=== PATIENT | male | born 1950 | race Caucasian/White ===

== ENCOUNTER 2016-09-24 06:37 | Day surgery (SDC) | payer MEDICARE ==
[2016-09-24] VITALS (17 sets, daily range): BP systolic 87–120; BP diastolic 54–69; PULSE 64–75; RESP 13–19
[~2016-09-24] VITALS: Ht 182.9 cm; Wt 118.0 kg
[2016-09-24] MEDS ORDERED: POLYMYXIN/BACITRACIN 1L IRRIG IRR SCH (07:00)
[2016-09-24] MEDS ORDERED: MIDAZOLAM 1 MG/ML 2 ML INJ ONE ×2 (07:00→10:02)
[2016-09-24] MEDS ORDERED: VANCOMYCIN 1 GM in NS 250 ML IVPB SCH (08:30)
[2016-09-24] MEDS ORDERED: ACET-141 PO (08:30)
[2016-09-24] MEDS ORDERED: AMIO100T4 PO (08:31)
[2016-09-24] MEDS ORDERED: ASPI-664 PO (08:31)
[2016-09-24] MEDS ORDERED: CHOL100062 PO (08:32)
[2016-09-24] MEDS ORDERED: CARV6.2579 PO (08:32)
[2016-09-24] MEDS ORDERED: CLOP75TA27 PO (08:33)
[2016-09-24] MEDS ORDERED: FURO40TA4 PO (08:35)
[2016-09-24] MEDS ORDERED: GABA300C16 PO (08:39)
[2016-09-24] MEDS ORDERED: INSU100C SQ (08:39)
[2016-09-24] MEDS ORDERED: INSU300I SQ (08:40)
[2016-09-24] MEDS ORDERED: LIRA0.6P2 SQ (08:41)
[2016-09-24] MEDS ORDERED: LOSA25TA2 PO (08:41)
[2016-09-24] MEDS ORDERED: METH5TAB75 PO (08:42)
[2016-09-24] MEDS ORDERED: MULTI PO (08:43)
[2016-09-24] MEDS ORDERED: POLY17PO6 PO (08:44)
[2016-09-24] MEDS ORDERED: ROSU40TA35 PO (08:45)
[2016-09-24] MEDS ORDERED: SPIR25TA PO (08:45)
[2016-09-24] MEDS ORDERED: ICOS1CAP PO (08:46)
[2016-09-24] MEDS ORDERED: IVAB5TAB PO (08:46)
[2016-09-24] MEDS ORDERED: ALLO100T PO (08:46)
[2016-09-24] MEDS ORDERED: EVOL140P SQ (08:47)
[2016-09-24 09:10] LABS: BASOPHIL # 0.1 10^3/ul (0.0-0.1); BASOPHILS % 0.5 % (0.0-2.0); EOSINOPHILS # 1.3 10^3/ul (0.0-0.5); EOSINOPHILS % 11.9 % (0.0-7.0); HEMATOCRIT 39.5 % (42.0-52.0); HEMOGLOBIN 13.4 g/dl (14.0-18.0); LYMPHOCYTES # 2.2 10^3/ul (0.8-2.9); LYMPHOCYTES % 19.5 % (15.0-51.0); MEAN CORPUSCULAR HEMOGLOBIN 30.4 pg (29.0-33.0); MEAN CORPUSCULAR HGB CONC 34.1 g/dl (32.0-37.0); MEAN CORPUSCULAR VOLUME 89.2 fl (82.0-101.0); MEAN PLATELET VOLUME 8.3 fl (7.4-10.4); MONOCYTE # 0.7 10^3/ul (0.3-0.9); MONOCYTES % 5.9 % (0.0-11.0); NEUTROPHILS % 62.2 % (39.0-77.0); PLATELET COUNT 222 10^3/UL (140-440); RED BLOOD COUNT 4.42 10^6/ul (4.70-6.10); RED CELL DISTRIBUTION WIDTH 15.4 % (11.5-14.5); UNCORRECTED WBC 11.3 10^3/ul (4.8-10.8); WHITE BLOOD COUNT 11.3 10^3/ul (4.8-10.8)
[2016-09-24 09:19] LABS: CONDITION 1; INR 0.99; LH ANALYZER COMMENTS 1; PROTIME 13.1 Sec (12.2-14.2)
[2016-09-24 09:20] LABS: PARTIAL THROMBOPLASTIN TIME 27.5 Sec (25.0-35.0); POTASSIUM 4.6 mmol/L (3.5-5.1)
[2016-09-24 09:22] LABS: ALBUMIN/GLOBULIN RATIO 1.08; BILIRUBIN,INDIRECT 0.1 mg/dl (0-1.1); BILIRUBIN,TOTAL 0.1 mg/dl (0.2-1.3); TOTAL PROTEIN 7.7 g/dl (6.1-8.1)
[2016-09-24 09:24] LABS: CALCIUM 9.4 mg/dl (8.4-10.2); CREATININE 1.46 mg/dl (0.61-1.24)
[2016-09-24] MEDS ORDERED: FENTAnyl 50 MCG/ML VIAL ONE (09:27)
[2016-09-24] MEDS ORDERED: FENTAnyl 50 MCG/ML VIAL IV PRN ×2 (09:30)
[2016-09-24] MEDS ORDERED: ONDANSETRON 4 MG INJ IV PRN (09:30)
[2016-09-24] MEDS ORDERED: OXYCODONE/ACETAMINOPHEN (5/325) TAB PO PRN (09:30)
[2016-09-24] MEDS ORDERED: LABETALOL HCL 20MG INJ IV PRN (09:30)
[2016-09-24] MEDS ORDERED: LIDOCAINE 1%/EPI 30 ML INJ ONE (09:35)
[2016-09-24] MEDS ORDERED: PROPOFOL 20 ML ONE (10:15)
[2016-09-24] MEDS ORDERED: HOLD all METFORMIN and METFORMIN CONTAINING medications for 48 hours post procedure. Chec XX ONE (11:00)
[2016-09-24] MEDS ORDERED: morphine 2 MG INJ IV PRN (11:00)
--- NOTE | 2016-09-24 11:28 | SP ---
DATE OF PROCEDURE: 09/24/2016 NAME OF PROCEDURE: ICD generator change. 1. Defibrillator threshold testing. SURGEON: Salvador Nunes MD CLINICAL INDICATIONS: A 66-year-old gentleman with ischemic cardiomyopathy and congestive heart kezia aixa who has had ICD placement for primary prevention. The patient has also required multiple ICD d ischarge for sustained VT and VFib during his course of ICD. The patient was noted to have ICD end of life at [facility] [place]. He was recommended to undergo ICD generator change. The patient's review of the ol d chart showed that has never had a DFT testing done. DFT testing was also recommended to be done. DESCRIPTION OF PROCEDURE: Written informed consent was obtained. The risks and benefits were discu ssed with the patient and family members including his in detail. This included infection, vas cular complication, bleeding complication, PR, stroke, arrhythmia, , renal failure, etc., discu ssed with the patient in detail. High risk of infection discussed with the patient and extensi vely because of his multiple other wound infections. Previous clearance was obtained from the patie nt, discussion with the ID as well. The patient was brought in to the quality assurance qa lab technician, placed in supine po sition. Chest area were prepped in regular sterile fashion. Patient underwent anesthesia by anesth esiologist. A 5 cm incision was made over the previous scar and was anesthetized with 1% lidocaine with epinephrine. Blunt dissection was carried out. The ICD was identified and removed. Pocket w as irrigated with antibiotic solution aggressively. The device was disconnected and placed a the ne w device. Threshold was checked through the new device and placed into the pocket with an antibioti c patch. Then, DFT testing was done. The patient was induced ____. He was rescued at 18 joules nascimento ccessfully. The wound was closed with 1 layer with 2-0 Vicryl and 2 layers of 3-0 Vicryl. Steri-St rip was applied. Pressure dressing was applied. The patient tolerated the procedure without compli cation. Patient is to be transferred to recovery room in stable condition. IMMEDIATE COMPLICATIONS: None. Following the information device, the device itself is a Medtronic DDD DBI Evera XT device. Right atrial lead is a Medtronic lead. Right ventricular lead is Medtronic lead. P-wave amplitude 1.5, t hreshold of 1.4 millisecond, impedance is 437, right ventricular R valve was 14, threshold of 0.5 _ ___ 0.4, impedance of 704. DFT testing was as follows: ____ shock on T, patient went into ventricu lar fibrillation. He was rescued at 18 joules successfully. CONCLUSION: Successful ICD generator change and DFT testing. Dictated By: SALVADOR TAFOYA/SURENDRA Conf#: [id number] DID#: [id number]
--- NOTE | 2016-09-25 15:55 | RADRPT ---
Vent Rate: 66 bpm RR Interval: 0 msec AK Interval: 162 msec QRS Duration: 120 msec QT Interval: 474 msec QTC Interval: 496 msec P-R-T [place]: 20 - -83 - 73 degrees Normal sinus rhythm Possible Left atrial enlargement Left axis deviation Incomplete Right bundle branch block Lateral infarct , age undetermined Inferior infarct , age undetermined Abnormal ECG Electronically Signed By: Isaac Dasilva [id number]
== END 2016-09-24 14:10 | disposition home or self-care (01) ==
LOC: SDS 06:37
PROVIDERS: ATTEND Internal Medicine Interventional Cardiology
DX: Z45.02 Encounter for adjustment and management of automatic implantable cardiac defibrillator (principal); I50.9 Heart failure, unspecified; I25.5 Ischemic cardiomyopathy; I25.10 Atherosclerotic heart disease of native coronary artery without angina pectoris; I12.9 Hypertensive chronic kidney disease with stage 1 through stage 4 chronic kidney disease, or unspecified chronic kidney disease; N18.9 Chronic kidney disease, unspecified; E11.9 Type 2 diabetes mellitus without complications
CPT/HCPCS: 33264; 80053; 82962; 85025; 85610; 85730; 93005; C1721; J2250; J3010; J3370

== ENCOUNTER 2017-06-04 19:05 | Inpatient (IN) | payer MEDICARE, OTHER ==
[~2017-06-04] VITALS: Ht 182.9 cm; Wt 108.9 kg
[~2017-06-04 19:05] MED LIST: ACET-141 PO; ALLO100T PO; AMIO100T4 PO; ASPI-664 PO; CARV6.2579 PO; CHOL100062 PO; CLOP75TA27 PO; EVOL140P SQ; FURO40TA4 PO; GABA300C16 PO; ICOS1CAP PO; INSU100C SQ; INSU300I SQ; IVAB5TAB PO; LIRA0.6P2 SQ; LOSA25TA2 PO; METH5TAB75 PO; MULTI PO; POLY17PO6 PO; ROSU40TA35 PO; SPIR25TA PO
[2017-06-04 20:00] VITALS: BP 107/59; PULSE 82; RESP 18
[2017-06-04 23:00] VITALS: Ht 182.9 cm; Wt 108.9 kg
[2017-06-05] MEDS ORDERED: ACETAMINOPHEN 325 MG TAB PO PRN
[2017-06-05] MEDS ORDERED: ZOLPIDEM 5 MG TAB PO PRN
[2017-06-05] MEDS ORDERED: HYDROmorphONE 2 MG/ML SYG IV PRN (00:10)
[2017-06-05] MEDS ORDERED: GLUCOSE GEL 15 GRAM TUBE PO PRN ×2 (00:30)
[2017-06-05] MEDS ORDERED: GLUCAGON 1 MG INJ IM PRN (00:30)
[2017-06-05] MEDS ORDERED: DEXTROSE 50% 50 ML SYRINGE IV PRN ×2 (00:30)
[2017-06-05] MEDS ORDERED: BISACODYL 10 MG SUPP PR PRN ×2 (00:30→06:00)
[2017-06-05] MEDS ORDERED: POLYETHYLENE GLYCOL 17 GM PACKET PO PRN (00:30)
[2017-06-05] MEDS ORDERED: GLUCOSE GEL 15 GRAM TUBE BUCCAL PRN (00:30)
[2017-06-05 02:00] VITALS: BP 134/62; RESP 18
[2017-06-05] MEDS: ACCUCHECK AT 2AM (Patients on SS coverage) XX SCH (02:00)
[2017-06-05 04:13] LABS: ADD UMIC YES; UR ASCORBIC ACID NEGATIVE (NEGATIVE); UR BACTERIA FEW /HPF (NONE SEEN); UR BILIRUBIN (Dip) NEGATIVE (NEGATIVE); UR BLOOD (Dip) 2+ mg/dL (NEGATIVE); UR CLARITY CLEAR (CLEAR); UR COLOR YELLOW (YELLOW); UR GLUCOSE (Dip) NEGATIVE (NEGATIVE); UR KETONES (Dip) NEGATIVE (NEGATIVE); UR LEUKOCYTE ESTERASE (Dip) NEGATIVE Leu/ul (NEGATIVE); UR NITRITE (Dip) NEGATIVE (NEGATIVE); UR RBC 0 /HPF (0-5); UR TOTAL PROTEIN (Dip) 2+ mg/dl (NEGATIVE); UR UROBILINOGEN (Dip) 2+ mg/dL (NEGATIVE)
[2017-06-05] MEDS ORDERED: MAGNESIUM HYDROXIDE 30ML CUP PO PRN (06:00)
[2017-06-05] MEDS: PANTOPRAZOLE (EC) 40 MG TAB PO SCH (06:38)
[2017-06-05 07:00] VITALS: BP 114/60; RESP 18
[2017-06-05 07:27] LABS: ABNORMAL IP MESSAGE 1; BASOPHIL # 0.1 10^3/ul (0.0-0.1); BASOPHILS % 0.6 % (0.0-2.0); EOSINOPHILS # 0.4 10^3/ul (0.0-0.5); EOSINOPHILS % 2.9 % (0.0-7.0); HEMATOCRIT 30.5 % (42.0-52.0); HEMOGLOBIN 9.7 g/dl (14.0-18.0); LYMPHOCYTES # 2.6 10^3/ul (0.8-2.9); MEAN CORPUSCULAR HGB CONC 31.8 g/dl (32.0-37.0); MEAN PLATELET VOLUME 9.2 fl (7.4-10.4); MONOCYTE # 1.6 10^3/ul (0.3-0.9); MONOCYTES % 11.4 % (0.0-11.0); NEUTROPHIL # 9.4 10^3/ul (1.6-7.5); NEUTROPHILS % 66.3 % (39.0-77.0); PLATELET COUNT 361 10^3/UL (140-415); POSITIVE DIFF @See below; RED BLOOD COUNT 3.59 10^6/ul (4.70-6.10); RED CELL DISTRIBUTION WIDTH 14.7 % (11.5-14.5); WHITE BLOOD COUNT 14.2 10^3/ul (4.8-10.8)
[2017-06-05 07:54] LABS: ALBUMIN 3.6 g/dl (3.3-4.9); ALBUMIN/GLOBULIN RATIO 0.92; BILIRUBIN,INDIRECT 0.3 mg/dl (0-1.1); BILIRUBIN,TOTAL 0.3 mg/dl (0.2-1.3); CALCIUM 8.6 mg/dl (8.4-10.2); CREATININE 1.37 mg/dl (0.61-1.24); POTASSIUM 4.1 mmol/L (3.5-5.1); TOTAL PROTEIN 7.5 g/dl (6.1-8.1)
[2017-06-05] MEDS: OXYCODONE/ACETAMINOPHEN (10/325) TAB PO PRN ×2 (07:58→14:50)
[2017-06-05] MEDS: INSULIN ASPART [NOVOLOG] 3 ML PEN SC SCH ×3 (08:08→17:29)
[2017-06-05] MEDS: Insulin NOVOLOG SS MILD Algorithm (SS with meals and bedtime) SC SCH ×4 (08:09→21:00)
[2017-06-05] MEDS: GABAPENTIN 300 MG CAP PO SCH ×2 (09:17→22:00)
[2017-06-05] MEDS: ALLOPURINOL 100 MG TAB PO SCH ×2 (09:17→22:00)
[2017-06-05] MEDS: oxyCODONE (CR) 10 MG TAB [oxyCONTIN] PO SCH ×2 (09:18→21:59)
[2017-06-05] MEDS: CLOPIDOGREL 75 MG TAB PO SCH (09:18)
[2017-06-05] MEDS: LOSARTAN 25 MG TAB PO SCH (09:19)
[2017-06-05] MEDS: AMIODARONE 200 MG TAB PO SCH (09:19)
[2017-06-05] MEDS: DOCUSATE SODIUM 100 MG CAP PO SCH ×2 (09:20→22:00)
[2017-06-05] MEDS: ASPIRIN (EC) 81 MG TAB PO SCH (09:20)
[2017-06-05] MEDS: SPIRONOLACTONE 25 MG TAB PO SCH (09:20)
[2017-06-05] MEDS: INSULIN GLARGINE [LANtus] 3 ML PEN SC SCH ×2 (09:22→21:58)
[2017-06-05] MEDS: ENOXAPARIN 30 MG/0.3 ML SYG SC SCH (09:23)
--- NOTE | 2017-06-05 10:02 | CONS ---
Date/Time of Note Date/Time of Note DATE: 06/05/17 TIME: 09:52 Assessment/Plan Assessment/Plan Chief Complaint/Hosp Course 1. CAD 2. HX CABG 3. HX FL 4. HX multiple PCI 5. Severe PAD 6. S/P Previous LE revascularizations 7. gangrene toe s/p R BKA now 8/ DM 9. hx hyperthyroidism 10. hx VT s/p ICD 11. CHF: chronic and stable due to systolic heart failure 12. dyslipidemia: on statin 13. CKD 14. Debility Recommendations: I will continue with the transfer cardiac medications Aspirin Plavix will be continued. Coreg and ARB will be continued and try to increase as tolerated. Statin will be continued. Diabetic management as per internal medicine. Physical therapy and rehab will be continued. I will asked was going to evaluate the patient for a pulmonary disease as well as nightly CPAP adjustments. We will check the thyroid function test tomorrow morning and basic labs again tomorrow morning. Thank you for his referral. I will continue to follow along with you. SALVADOR BARRETO MD [facility] Problems: Consultation Date/Type/Reason Admit Date/Time Jun 04, 2017 at 20:02 Date of Consultation: Jun 05, 2017 Type of Consultation: cardiology Reason for Consultation CAD, CHF. hx VT S/P ICD Referring Provider: DANYELLE GUY of Present Illness CC: debility, s/p BKA HPI: Thank you for this referral. This is a pleasant 66-year-old gentleman with multiple complicated medical history who was transferred to our facility for rehab for physical therapy and rehab. Patient has a complicated cardiac history for which I was currently asked to evaluate and follow the patient on 3 treat the patient. Patient is very well-known to me for the past few years from multiple admission to the [facility] as well as outpatient office follow-up. At this point patient denies any PND orthopnea to be has any left-sided chest pain or pressure to me. He does have some soreness in his right leg where he has had amputation otherwise has no new complaints. He denies any palpitation or ICD discharge. Patient was recently admitted to [facility] for his gangrene foot and underwent a BKA of his right lower extremity. Allergies no reported drug allergies. Medications were reviewed as a medical consultation for personally reviewed. Past medical history: history of severe coronary artery disease status post coronary bypass graft status multiple PCI's History of congestive heart failure ejection fraction is about 25%. History of V. tach status post ICD generator change was done last year. History of severe peripheral vascular disease status post lower extremity revascularization. He was previously advised to undergo amputation which have refused up until recently when he agreed to have the right below the knee amputation once gangrene of the toes were noted. He has been followed up by Dr. Andrade and Dr. GREENE at [facility] History of hyperthyroidism is being followed by Dr. Johnson at [facility]. History of diabetes Hypertension Chronic kidney disease Dyslipidemia Obesity COPD Obstructive sleep apnea Past surgical history: Coronary artery bypass graft Multiple PCI Status post ICD and J&J was done in 2016 Multiple toe amputations Status post right below the knee amputation last month Family history: No reported early coronary artery disease Social history patient does not smoke anymore. Has quit a while ago. Denies any heavy alcohol drug use. He has a very supportive . Review of system as above only plus diffuse weakness. Social History Smoking Status: Former smoker Exam/Review of Systems Vital Signs Vitals Vital Signs Date Time Temp Pulse Resp B/P Pulse Ox O2 Delivery O2 Flow Rate FiO2 06/05/17 07:00 98.7 83 18 114/60 93 06/04/17 20:00 Room Air Intake and Output 06/04/17 06/04/17 06/05/17 15:00 23:00 07:00 Intake Total 300 ml Output Total 450 ml Balance -150 ml Exam General: no acute distress. obese man HEENT: NC/AT. pupils are equal. round. NECK: NO JVD. no stridor. CV: RRR. systolic murmur; no gallop or rubs. PULM: no wheezing or rhonchi. GI: SOFT, NT, ND, no rebound or guarding obese. Extremity: s/p R AKA. neuro: awake and alert, OX3. Psych: calm and pleasant rectal: deferred : deferred. Results Result Diagram: 06/05/17 0649 06/05/17 0649 Results 24 hrs Laboratory Tests Test 06/04/17 22:50 06/05/17 01:16 06/05/17 06:49 06/05/17 07:55 Urine Color YELLOW Urine Clarity CLEAR Urine pH 6.0 Urine Specific [place] 1.020 Urine Ketones NEGATIVE Urine Nitrite NEGATIVE Urine Bilirubin NEGATIVE Urine Urobilinogen 2+ H Urine Leukocyte Esterase NEGATIVE Urine Microscopic RBC 0 Urine Microscopic WBC 2 Urine Bacteria FEW A Urine Hemoglobin 2+ H Urine Glucose NEGATIVE Urine Total Protein 2+ H Bedside Glucose 208 154 White Blood Count 14.2 #H Red Blood Count 3.59 L Hemoglobin 9.7 #L Hematocrit 30.5 #L Mean Corpuscular Volume 85.0 Mean Corpuscular Hemoglobin 27.0 L Mean Corpuscular Hemoglobin Concent 31.8 L Red Cell Distribution Width 14.7 H Platelet Count 361 Mean Platelet Volume 9.2 Neutrophils % 66.3 Lymphocytes % 18.0 Monocytes % 11.4 H Eosinophils % 2.9 Basophils % 0.6 Nucleated Red Blood Cells % 0.0 Neutrophils # 9.4 H Lymphocytes # 2.6 Monocytes # 1.6 H Eosinophils # 0.4 Basophils # 0.1 Nucleated Red Blood Cells # 0.0 Sodium Level 138 Potassium Level 4.1 Chloride Level 97 Carbon Dioxide Level 28 Anion Gap 17 H Blood Urea Nitrogen 21 H Creatinine 1.37 H Glucose Level 157 Calcium Level 8.6 Total Bilirubin 0.3 Direct Bilirubin 0.00 Indirect Bilirubin 0.3 Aspartate Amino Transf (AST/SGOT) 90 H Alanine Aminotransferase (ALT/SGPT) 20 Alkaline Phosphatase 53 Total Protein 7.5 Albumin 3.6 Globulin 3.90 H Albumin/Globulin Ratio 0.92 Medications Medications Current Medications Acetaminophen (Tylenol Tab) 650 mg Q4H PRN PO PAIN AND OR ELEVATED TEMP; Start 06/05/17 at 00:00 Amiodarone HCl (Cordarone) 100 mg DAILY PO Last administered on 06/05/17 09:19 ; Admin Dose 100 MG; Start 06/05/17 at 09:00 Aspirin (Halfprin) 81 mg DAILY PO Last administered on 06/05/17 09:20; Admin Dose 81 MG; Start 06/05/17 at 09:00 Clopidogrel Bisulfate (plaVIX) 75 mg DAILY PO Last administered on 06/05/17 09 :18; Admin Dose 75 MG; Start 06/05/17 at 09:00 Enoxaparin Sodium (Lovenox) 30 mg DAILY SC Last administered on 06/05/17 09:23 ; Admin Dose 30 MG; Start 06/05/17 at 09:00 Furosemide (Lasix) 40 mg Q48H PO ; Start 06/06/17 at 06:00 Losartan Potassium (Cozaar) 12.5 mg DAILY PO Last administered on 06/05/17 09: 19; Admin Dose 12.5 MG; Start 06/05/17 at 09:00 Rosuvastatin Calcium (Crestor) 40 mg HS PO ; Start 06/05/17 at 21:00 Allopurinol (Zyloprim) 100 mg BID PO Last administered on 06/05/17 09:17; Admin Dose 100 MG; Start 06/05/17 at 09:00 Gabapentin (Neurontin) 300 mg BID PO Last administered on 06/05/17 09:17; Admin Dose 300 MG; Start 06/05/17 at 09:00 Oxycodone/ Acetaminophen (Endocet (10 325)) 1 tab Q6H PRN PO PAIN Last administered on 06/05/17 07:58; Admin Dose 1 TAB; Start 06/05/17 at 00:00 Oxycodone HCl (Oxycontin) 10 mg BID PO Last administered on 06/05/17 09:18; Admin Dose 10 MG; Start 06/05/17 at 09:00 Insulin Glargine (Lantus) 45 unit BID SC Last administered on 06/05/17 09:22; Admin Dose 45 UNIT; Start 06/05/17 at 09:00 Diagnostic Test (Pha) (Accu-Chek) 1 ea 02 XX ; Start 06/05/17 at 02:00 Polyethylene Glycol (Miralax) 17 gm DAILY PRN PO CONSTIPATION; Start 06/05/17 at 00:30 Zolpidem Tartrate (Ambien) 5 mg HS PRN PO INSOMNIA; Start 06/05/17 at 00:00 Spironolactone (Aldactone) 25 mg DAILY PO Last administered on 06/05/17 09:20 ; Admin Dose 25 MG; Start 06/05/17 at 09:00 Miscellaneous Information 1 ea NOTE XX ; Start 06/05/17 at 00:30 Glucose (Glutose) 15 gm Q15M PRN PO DECREASED GLUCOSE; Start 06/05/17 at 00:30 Glucose (Glutose) 22.5 gm Q15M PRN PO DECREASED GLUCOSE; Start 06/05/17 at 00: 30 Dextrose (D50w Syringe) 25 ml Q15M PRN IV DECREASED GLUCOSE; Start 06/05/17 at 00:30 Dextrose (D50w Syringe) 50 ml Q15M PRN IV DECREASED GLUCOSE; Start 06/05/17 at 00:30 Glucagon (Glucagen) 1 mg Q15M PRN IM DECREASED GLUCOSE; Start 06/05/17 at 00:30 Glucose (Glutose) 15 gm Q15M PRN BUCCAL DECREASED GLUCOSE; Start 06/05/17 at 00 :30 Hydromorphone HCl (Dilaudid) 1.5 mg Q8H PRN IV SEVERE PAIN; Start 06/05/17 at 00:10 Docusate Sodium (Colace) 100 mg BID PO Last administered on 06/05/17t 09:20; Admin Dose 100 MG; Start 06/05/17 at 09:00 Senna (Senokot) 1 tab HS PO ; Start 06/05/17 at 21:00 Bisacodyl (Dulcolax Supp) 10 mg DAILY PRN CA CONSTIPATION; Start 06/05/17 at 06 :00 Magnesium Hydroxide (Milk Of Mag) 30 ml BID PRN PO CONSTIPATION; Start at 06:00 Lactulose (Enulose) 20 gm DAILY PRN PO CONSTIPATION; Start 06/05/17 at 06:00 SALVADOR BARRETO MD Jun 05, 2017 10:02
--- NOTE | 2017-06-05 12:26 | RADRPT ---
PROCEDURE: XR Chest. CLINICAL INDICATION: Shortness of breath. TECHNIQUE: Single frontal view. COMPARISON: None. FINDINGS: The lungs are clear. The heart is enlarged. There are sternal wires and mediastinal clips. There is a dual lead permanent pacemaker/internal cardiac defibrillator. There is no pleural effusion. There is no pneumothorax. IMPRESSION: 1. Cardiomegaly. 2. Previous median sternotomy. 3. Permanent pacemaker/internal cardiac defibrillator. 4. Otherwise unremarkable chest radiograph. RPTAT: QQ .Jamie Dunlap MD, MD Date Time Electronically viewed and signed by .Jamie Dunlap MD, MD on 06/05/2017 12:26 .R/
--- NOTE | 2017-06-05 14:02 | CONS ---
DATE OF ADMISSION: 06/04/2017 DATE OF CONSULTATION: 06/05/2017 REHABILITATION POSTADMISSION PHYSICIAN EVALUATION REHABILITATION IMPAIRMENT CATEGORY: Right below the knee amputation. ACTIVE COMORBIDITIES: 1. Recent left toe amputation. 2. Acute pain syndrome. 3. Constipation. 4. Anemia. 5. Atrial fibrillation. 6. Congestive heart failure. 7. Chronic kidney disease. 8. Coronary artery disease. 9. Diabetes mellitus. 10. Hypertension. 11. History of cerebrovascular accident. 12. History of peripheral vascular disease. 13. Sleep apnea. 14. Impairments in self-care and mobility. HISTORY OF PRESENT ILLNESS: The patient is a 66-year-old gentleman with a history of multiple medic al comorbidities including recent left great toe amputation who was noted to have right foot ischemi a. Due to his advanced gangrene, patient required a right [id number] amputation on 05/26/2017. The patient's hospital course has been notable for significant pain, constipation, and impairments in self-care and mobility as compared to baseline. The patient has been cleared to transfer to the rehabilitation unit for comprehensive interdisciplinary rehab care. FUNCTIONAL HISTORY: Prior to recent events, he was independent with self-care tasks and mobility. Currently, he requires moderate to maximal assist for self-care and mobility tasks. I have reviewed the preadmission screen and the patient's current functional status is consistent wi th the preadmission screen. SOCIAL HISTORY: The patient lives at home and hopes to return there upon discharge. PAST MEDICAL HISTORY: 1. Atrial fibrillation. 2. Peripheral vascular disease. 3. Congestive heart failure. 4. Chronic kidney disease. 5. Coronary artery disease. 6. Diabetes mellitus. 7. History of cerebrovascular accident. 8. Hypertension. 9. Sleep apnea. CURRENT MEDICATIONS: 1. Tylenol p.r.n. 2. Amiodarone 100 mg p.o. daily. 3. Aspirin 81 mg p.o. daily. 4. Coreg 3.125 mg t.i.d. 5. Plavix 75 mg p.o. daily. 6. Lovenox 30 mg subcutaneous daily. 7. Lasix 40 mg p.o. q.o.d. 8. Losartan 12.5 mg p.o. daily. 9. Crestor 40 mg p.o. daily. 10. Allopurinol 100 mg b.i.d. 11. Neurontin 300 mg b.i.d. 12. Percocet p.r.n. 13. OxyContin 10 mg b.i.d. 14. Lantus 45 units subq b.i.d. 15. NovoLog 25 units subq t.i.d. 16. Insulin sliding scale. 17. Protonix 40 mg q.a.m. 18. Ambien p.r.n. ALLERGIES: THE PATIENT WITH NO KNOWN DRUG ALLERGIES. PHYSICAL EXAMINATION: VITAL SIGNS: The patient is currently afebrile with stable vital signs. HEENT: Extraocular motion intact. Oropharynx clear. NECK: Supple. LUNGS: Clear anteriorly. CARDIAC: S1, S2. ABDOMEN: Soft, nontender. Positive bowel sounds. The patient with right [id number]-[id number]-dizt amputation and left great toe amputation. NEUROLOGIC: He is awake and alert and oriented x3. He can follow simple 1-step commands. He demon strates antigravity strength in bilateral upper extremity and lower extremity. He does have impaire d dynamic balance. PLAN: The patient has been admitted for comprehensive interdisciplinary acute rehab and is anticipa collin to tolerate 3 hours of daily therapy in divided doses for at least 5/7 days a week. Treatment p berry will include: 1. Physical therapy to focus on bed mobility, transfers, and household ambulation with the goal of having the patient reach a standby assist level at the wheelchair level. 2. Occupational therapy to focus on hygiene, grooming, dressing, bathing, and toileting activities with the goal of having the patient reach standby assist at the wheelchair level. 3. Rehabilitation nursing for carryover of therapeutic interventions, the goal of continent of silvana l and bladder, the goal of pain adequately managed on oral medications. REHABILITATION BARRIER: Pain. INTERVENTION FOR BARRIER: Interdisciplinary approach. ESTIMATED LENGTH OF STAY: 14 days. DISPOSITION GOAL: Home. I acknowledge that I performed a full physical examination on this patient within 24 hours of admiss ion to the rehabilitation unit. I believe the patient is a good candidate for comprehensive interdi sciplinary rehab care and is anticipated to make reasonable goals in a reasonable period of time as outlined above. Dictated By: BLAKE HANCOCK/SURENDRA Conf#: [id number] DID#: [id number]
[2017-06-05] MEDS: COLLAGENASE 30 GM TUBE TOP SCH (14:52)
[2017-06-05 20:00] VITALS: BP_SYST 110; BP_SYST 125; BP_DIAS 58; BP_DIAS 62; RESP 18
[2017-06-05] MEDS ORDERED: ROSUVASTATIN CALCIUM 40 MG TABLET PO SCH (21:00)
[2017-06-05] MEDS: SENNA TAB PO SCH (22:00)
--- NOTE | 2017-06-06 00:14 | HP ---
DATE OF ADMISSION: 06/04/2017 CHIEF COMPLAINT: Debility, status post BKA. HISTORY OF PRESENT ILLNESS: This is a 66-year-old male with a complicated medical history including chronic kidney disease, CHF, dyslipidemia, coronary artery disease, peripheral vascular disease who presented to an outside hospital at [facility] with gangrene of his right foot. The patient has a long history of diabetes and developed complications including retinopathy and nephropathy. T he patient was noted to have diabetic foot ulcers and was refusing amputation; however, he developed worsening symptoms and pain. As a result, he came in with gangrenous right foot. The patient at [facility] underwent a below the knee amputation of his right foot. The patient was on antibiotic thera py. During that hospital course, was seen by infectious disease, Dr. Cardenas. The patient, however, completed the antibiotic course. The patient was also seen by automatic drill operator, Dr. Nunes. The patie nt had a significant decline in his premorbid status and as a result he was transferred to [facility] acute rehab for continued care. Upon my evaluation of the patient at this time, he is currently stable. Denies any fevers, chills, nausea or vomiting. The patient is complaining about pain 5/10. PAST MEDICAL HISTORY: As stated above, history of chronic kidney disease, CHF, AFib, diabetes, CVA, hypertension. PAST SURGICAL HISTORY: Status post BKA, right leg. FAMILY HISTORY: Noncontributory. SOCIAL HISTORY: Does not drink, smoke or do drugs. MEDICATIONS: Reviewed and reconciled. ALLERGIES: NO KNOWN DRUG ALLERGIES. REVIEW OF SYSTEMS: A 14-point review of systems was conducted. Pertinent positives stated in the H PI, otherwise negative. PHYSICAL EXAMINATION: VITAL SIGNS: Blood pressure is 114/60, respiration 18, pulse 83, temperature 98.7. HEENT: Head is normocephalic. NECK: Supple. HEART: Regular rate. LUNGS: Show diminished breath sounds at the base. ABDOMEN: Soft, nontender to palpation. No rebound or guarding. EXTREMITIES: Negative for clubbing, cyanosis. Trace edema on the left leg. Right below-knee amput ation noted with dressing clean, dry, intact. NEUROLOGIC: No focal deficits. DERMATOLOGIC: No rashes. MUSCULOSKELETAL: No joint effusions. LABORATORY DATA: Patient's laboratory data shows a sodium 138, potassium 4.1, BUN 21, creatinine 1. 37. White count 14.2, hemoglobin 9.7, hematocrit 30.5, platelet count 361. ASSESSMENT AND PLAN: This is a 66-year-old male who presents with: 1. Status post right below-knee amputation secondary to gangrene. The patient is currently stable. Continue pain control. Continue medical management with Plavix, aspirin and statin therapy. Cont inue physical therapy per acute rehabilitation. 2. Chronic kidney disease, stage IIIB/IV. The patient's renal function is near baseline. Will con tinue current treatment plan, supportive care, and renally dose all medications. 3. Coronary artery disease. Continue medical management. 4. Diabetes. Continue current insulin regimen. Consider endocrine evaluation. 5. Leukocytosis. Etiology may be reactive. The patient has completed course of antibiotics. Will continue to monitor. 6. Congestive heart failure. Continue current medical management. 7. Dyslipidemia. Continue statin therapy. 8. Debility. 9. History of coronary artery disease, status post CABG. Continue current treatment plan. Follow up with cardiology. 10. Hypertension. Continue current blood pressure regimen. 11. Gastrointestinal and deep venous thrombosis prophylaxis. 12. History of arrhythmia. Continue amiodarone. Please note I spent up to 25 minutes of face to face time with this patient. The patient is [place]. Dictated By: DANYELLE FRANCOIS/SURENDRA Conf#: [id number] DID#: [id number]
[2017-06-06] MEDS: ACCUCHECK AT 2AM (Patients on SS coverage) XX SCH (02:00)
[2017-06-06] MEDS: PANTOPRAZOLE (EC) 40 MG TAB PO SCH ×2 (06:41→08:48)
[2017-06-06] MEDS: FUROSEMIDE 40 MG TAB PO SCH (06:42)
[2017-06-06 07:29] LABS: BASOPHIL # 0.1 10^3/ul (0.0-0.1); BASOPHILS % 0.6 % (0.0-2.0); EOSINOPHILS # 0.6 10^3/ul (0.0-0.5); EOSINOPHILS % 3.8 % (0.0-7.0); HEMOGLOBIN 9.6 g/dl (14.0-18.0); LYMPHOCYTES % 20.5 % (15.0-51.0); MEAN CORPUSCULAR HEMOGLOBIN 27.4 pg (29.0-33.0); MEAN CORPUSCULAR VOLUME 85.5 fl (82.0-101.0); MEAN PLATELET VOLUME 9.3 fl (7.4-10.4); MONOCYTE # 1.4 10^3/ul (0.3-0.9); MONOCYTES % 9.9 % (0.0-11.0); NEUTROPHIL # 9.4 10^3/ul (1.6-7.5); NEUTROPHILS % 64.6 % (39.0-77.0); PLATELET COUNT 377 10^3/UL (140-415); RED BLOOD COUNT 3.51 10^6/ul (4.70-6.10); RED CELL DISTRIBUTION WIDTH 14.7 % (11.5-14.5); WHITE BLOOD COUNT 14.5 10^3/ul (4.8-10.8)
[2017-06-06] MEDS: Insulin NOVOLOG SS MILD Algorithm (SS with meals and bedtime) SC SCH ×4 (07:35→20:47)
[2017-06-06 08:04] VITALS: BP 110/63; RESP 18
[2017-06-06 08:11] LABS: INR 1.06; PROTIME 13.8 Sec (12.2-14.2); PT RATIO 1.1
[2017-06-06 08:14] LABS: ALBUMIN 3.7 g/dl (3.3-4.9); ALBUMIN/GLOBULIN RATIO 0.92; BILIRUBIN,INDIRECT 0.3 mg/dl (0-1.1); BILIRUBIN,TOTAL 0.3 mg/dl (0.2-1.3); CALCIUM 8.8 mg/dl (8.4-10.2); CHOL/HDL RATIO 3.8 RATIO; CREATININE 1.27 mg/dl (0.61-1.24); MAGNESIUM 2.3 mg/dl (1.7-2.5); POTASSIUM 4.3 mmol/L (3.5-5.1); TOTAL PROTEIN 7.7 g/dl (6.1-8.1)
[2017-06-06] MEDS: LOSARTAN 25 MG TAB PO SCH (08:46)
[2017-06-06] MEDS: COLLAGENASE 30 GM TUBE TOP SCH (08:47)
[2017-06-06] MEDS: SPIRONOLACTONE 25 MG TAB PO SCH (08:47)
[2017-06-06] MEDS: CLOPIDOGREL 75 MG TAB PO SCH (08:48)
[2017-06-06] MEDS: GABAPENTIN 300 MG CAP PO SCH ×2 (08:48→20:46)
[2017-06-06] MEDS: DOCUSATE SODIUM 100 MG CAP PO SCH ×2 (08:48→20:46)
[2017-06-06] MEDS: AMIODARONE 200 MG TAB PO SCH (08:48)
[2017-06-06] MEDS: oxyCODONE (CR) 10 MG TAB [oxyCONTIN] PO SCH ×2 (08:49→20:47)
[2017-06-06] MEDS: ASPIRIN (EC) 81 MG TAB PO SCH (08:49)
[2017-06-06] MEDS: ALLOPURINOL 100 MG TAB PO SCH ×2 (08:49→20:47)
[2017-06-06 08:54] LABS: THYROID STIMULATING HORMONE 2.39 MIU/L (0.465-4.680)
[2017-06-06] MEDS: INSULIN ASPART [NOVOLOG] 3 ML PEN SC SCH ×3 (09:00→17:27)
[2017-06-06] MEDS: ENOXAPARIN 30 MG/0.3 ML SYG SC SCH (09:03)
--- NOTE | 2017-06-06 09:05 | PN ---
DATE: 06/06/2017 SUBJECTIVE: The patient continues to have pain in his right foot. The patient otherwise stable, no other acute events noted. No hemoptysis, hematemesis or hematochezia. Please note I did speak wit h the patient's primary Infectious Disease, Dr. Quintanilla, who stated the patient is currently off an tibiotics and his leukocytosis is at baseline. No other events noted. OBJECTIVE: VITAL SIGNS: Blood pressure is 110/58, respiration 18, pulse 78, temperature 97.8. HEENT: Head is normocephalic. Pupils are reactive to light. NECK: Supple. HEART: Regular rate. LUNGS: Show diminished breath sounds at base. ABDOMEN: Soft, nontender to palpation without rebound or guarding. EXTREMITIES: Negative for clubbing, cyanosis. Trace edema on the left leg. Right BKA is noted wit h dressing clean, dry, intact. NEUROLOGIC: No focal deficits. DERMATOLOGIC: No rashes. LABORATORY DATA FOR 06/06/2017: Shows a white count 14.5, hemoglobin 9.6, platelet count 377. BMP is pending. ASSESSMENT AND PLAN: 1. 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 The patient is currently stable. Continue current medical management. Continue Plavix, aspirin and statin therapy. Continue physi wilfredo therapy. 2. Chronic kidney disease, stage IIIB/IV patient's renal function is at baseline. Continue current treatment plan, supportive care, renally dose all meds. 3. Coronary artery disease. Continue medical management. 4. Diabetes. Continue current insulin regimen, consider endocrine evaluation. 5. Leukocytosis, etiology is likely reactive. The patient has completed antibiotic course. I spok e with the patient's primary Infectious Disease, Dr. Quintanilla. 6. Congestive heart failure. Continue medical management. 7. Dyslipidemia. Continue statin therapy. 8. History of coronary artery bypass graft. 9. Hypertension. Continue current blood pressure regimen. 10. History of arrhythmia. Continue amiodarone. 11. Gastrointestinal and deep venous thrombosis prophylaxis. Dictated By: DANYELLE FRANCOIS/SURENDRA Conf#: [id number] DID#: [id number]
[2017-06-06] MEDS: INSULIN GLARGINE [LANtus] 3 ML PEN SC SCH ×2 (09:52→20:51)
--- NOTE | 2017-06-06 11:23 | CONS ---
Date/Time of Note Date/Time of Note DATE: 06/06/17 TIME: 11:21 Consult Date/Type/Reason Admit Date/Time Jun 04, 2017 at 20:02 Initial Consult Date 06/05/17 Type of Consultation: cardiology Ordering Provider: DANYELLE GUY DO Subjective Pain improved Objective pulm-cta mod assist transfer Vital Signs Date Time Temp Pulse Resp B/P Pulse Ox O2 Delivery O2 Flow Rate FiO2 06/06/17 08:04 98.5 73 18 110/63 97 06/04/17 20:00 Room Air Intake and Output 06/05/17 06/05/17 06/06/17 15:00 23:00 07:00 Intake Total 500 ml 800 ml 1050 ml Output Total 400 ml 350 ml Balance 500 ml 400 ml 700 ml Results/Medications Result Diagram: 06/06/17 0633 06/06/17 0633 Results 24 hrs Laboratory Tests Test 06/05/17 12:10 06/05/17 17:18 06/05/17 21:04 06/06/17 06:33 Bedside Glucose 139 107 98 White Blood Count 14.5 H Red Blood Count 3.51 L Hemoglobin 9.6 L Hematocrit 30.0 L Mean Corpuscular Volume 85.5 Mean Corpuscular Hemoglobin 27.4 L Mean Corpuscular Hemoglobin Concent 32.0 Red Cell Distribution Width 14.7 H Platelet Count 377 Mean Platelet Volume 9.3 Neutrophils % 64.6 Lymphocytes % 20.5 Monocytes % 9.9 Eosinophils % 3.8 Basophils % 0.6 Nucleated Red Blood Cells % 0.0 Neutrophils # 9.4 H Lymphocytes # 3.0 H Monocytes # 1.4 H Eosinophils # 0.6 H Basophils # 0.1 Nucleated Red Blood Cells # 0.0 Prothrombin Time 13.8 Prothrombin Time Ratio 1.1 INR International Normalized Ratio 1.06 Sodium Level 139 Potassium Level 4.3 Chloride Level 100 Carbon Dioxide Level 28 Anion Gap 15 Blood Urea Nitrogen 21 H Creatinine 1.27 H Glucose Level 119 Calcium Level 8.8 Magnesium Level 2.3 Total Bilirubin 0.3 Direct Bilirubin 0.00 Indirect Bilirubin 0.3 Aspartate Amino Transf (AST/SGOT) 96 H Alanine Aminotransferase (ALT/SGPT) 27 Alkaline Phosphatase 49 Creatine Kinase B-Type Natriuretic Peptide 433 H Total Protein 7.7 Albumin 3.7 Globulin 4.00 H Albumin/Globulin Ratio 0.92 Triglycerides Level 129 Cholesterol Level 92 L LDL Cholesterol, Calculated 42 HDL Cholesterol 24 L Cholesterol/HDL Ratio 3.8 Thyroid Stimulating Hormone (TSH) 2.390 Free Thyroxine 1.82 Digoxin Level < 0.4 L Test 06/06/17 08:18 06/06/17 08:58 06/06/17 09:51 Bedside Glucose 134 172 220 Medications Current Medications Acetaminophen (Tylenol Tab) 650 mg Q4H PRN PO PAIN AND OR ELEVATED TEMP; Start 06/05/17 at 00:00 Amiodarone HCl (Cordarone) 100 mg DAILY PO Last administered on 06/06/17 08:48 ; Admin Dose 100 MG; Start 06/05/17 at 09:00 Aspirin (Halfprin) 81 mg DAILY PO Last administered on 06/06/17 08:49; Admin Dose 81 MG; Start 06/05/17 at 09:00 Clopidogrel Bisulfate (plaVIX) 75 mg DAILY PO Last administered on 06/06/17 08 :48; Admin Dose 75 MG; Start 06/05/17 at 09:00 Enoxaparin Sodium (Lovenox) 30 mg DAILY SC Last administered on 06/06/17 09:03 ; Admin Dose 30 MG; Start 06/05/17 at 09:00 Furosemide (Lasix) 40 mg Q48H PO Last administered on 06/06/17 06:42; Admin Dose 40 MG; Start 06/06/17 at 06:00 Losartan Potassium (Cozaar) 12.5 mg DAILY PO Last administered on 06/06/17 08: 46; Admin Dose 12.5 MG; Start 06/05/17 at 09:00 Rosuvastatin Calcium (Crestor) 40 mg HS PO Last administered on 06/05/17 21:58 ; Admin Dose 40 MG; Start 06/05/17 at 21:00 Allopurinol (Zyloprim) 100 mg BID PO Last administered on 06/06/17 08:49; Admin Dose 100 MG; Start 06/05/17 at 09:00 Gabapentin (Neurontin) 300 mg BID PO Last administered on 06/06/17 08:48; Admin Dose 300 MG; Start 06/05/17 at 09:00 Oxycodone/ Acetaminophen (Endocet (10/ 325)) 1 tab Q6H PRN PO PAIN Last administered on 06/05/17 14:50; Admin Dose 1 TAB; Start 06/05/17 at 00:00 Oxycodone HCl (Oxycontin) 10 mg BID PO Last administered on 06/06/17 08:49; Admin Dose 10 MG; Start 06/05/17 at 09:00 Insulin Glargine (Lantus) 45 unit BID SC Last administered on 06/06/17 09:52; Admin Dose 45 UNIT; Start 06/05/17 at 09:00 Diagnostic Test (Pha) (Accu-Chek) 1 ea 02 XX ; Start 06/05/17 at 02:00 Polyethylene Glycol (Miralax) 17 gm DAILY PRN PO CONSTIPATION; Start 06/05/17 at 00:30 Zolpidem Tartrate (Ambien) 5 mg HS PRN PO INSOMNIA; Start 06/05/17 at 00:00 Spironolactone (Aldactone) 25 mg DAILY PO Last administered on 06/06/17 08:47 ; Admin Dose 25 MG; Start 06/05/17 at 09:00 Miscellaneous Information 1 ea NOTE XX ; Start 06/05/17 at 00:30 Glucose (Glutose) 15 gm Q15M PRN PO DECREASED GLUCOSE; Start 06/05/17 at 00:30 Glucose (Glutose) 22.5 gm Q15M PRN PO DECREASED GLUCOSE; Start 06/05/17 at 00: 30 Dextrose (D50w Syringe) 25 ml Q15M PRN IV DECREASED GLUCOSE; Start 06/05/17 at 00:30 Dextrose (D50w Syringe) 50 ml Q15M PRN IV DECREASED GLUCOSE; Start 06/05/17 at 00:30 Glucagon (Glucagen) 1 mg Q15M PRN IM DECREASED GLUCOSE; Start 06/05/17 at 00:30 Glucose (Glutose) 15 gm Q15M PRN BUCCAL DECREASED GLUCOSE; Start 06/05/17 at 00 :30 Hydromorphone HCl (Dilaudid) 1.5 mg Q8H PRN IV SEVERE PAIN; Start 06/05/17 at 00:10 Docusate Sodium (Colace) 100 mg BID PO Last administered on 06/06/17 08:48; Admin Dose 100 MG; Start 06/05/17 at 09:00 Senna (Senokot) 1 tab HS PO Last administered on 06/05/17 22:00; Admin Dose 1 TAB; Start 06/05/17 at 21:00 Bisacodyl (Dulcolax Supp) [address] CONSTIPATION; Start 06/05/17 at 06 :00 Magnesium Hydroxide (Milk Of Mag) 30 ml BID PRN PO CONSTIPATION; Start at 06:00 Lactulose (Enulose) 20 gm DAILY PRN PO CONSTIPATION; Start 06/05/17 at 06:00 Collagenase (Santyl) 1 applic DAILY TOP Last administered on 06/06/17t 08:47; Admin Dose 1 APPLIC; Start 06/05/17 at 15:30 Assessment/Plan Additional Assessment/Plan Rehab- Right below the knee amputation;Recent left toe amputation Continue current treatmnet plan Acute pain syndrome-continue current meds Constipation- results with bowel program. Anemia. Atrial fibrillation. Congestive heart failure. Chronic kidney disease. Coronary artery disease. Diabetes mellitus. Hypertension. History of cerebrovascular accident. History of peripheral vascular disease. Sleep apnea. BLAKE PÉREZ MD Jun 06, 2017 11:23
[2017-06-06 14:00] VITALS: BP 96/54; RESP 19
[2017-06-06] MEDS: OXYCODONE/ACETAMINOPHEN (10/325) TAB PO PRN (14:07)
--- NOTE | 2017-06-06 19:58 | CONS ---
Date/Time of Note Date/Time of Note DATE: 06/06/17 TIME: 19:56 Consult Date/Type/Reason Admit Date/Time Jun 04, 2017 at 20:02 Initial Consult Date 06/05/17 Type of Consultation: cardiology Ordering Provider: DANYELLE DASILVA DO Subjective cardiology follow up note: S: Discussed with patient and staff discussed with Dr. Dasilva. Patient stated he is feeling better. His leg pain is better. Denies any chest pain or pressure to me he noted any PND orthopnea to me. He denies any wheezing or shortness of breath to me. O: General: no acute distress. obese man HEENT: NC/AT. pupils are equal. round. NECK: NO JVD. no stridor. CV: RRR. systolic murmur; no gallop or rubs. PULM: no wheezing or rhonchi. GI: SOFT, NT, ND, no rebound or guarding obese. Extremity: s/p R AKA. neuro: awake and alert, OX3. Psych: calm and pleasant rectal: deferred : deferred. Objective Vital Signs Date Time Temp Pulse Resp B/P Pulse Ox O2 Delivery O2 Flow Rate FiO2 06/06/17 14:00 98.0 84 19 96/54 92 06/04/17 20:00 Room Air Intake and Output 06/05/17 06/05/17 06/06/17 15:00 23:00 07:00 Intake Total 500 ml 800 ml 1050 ml Output Total 400 ml 350 ml Balance 500 ml 400 ml 700 ml Results/Medications Result Diagram: 06/06/17 0633 06/06/17 0633 Results 24 hrs Laboratory Tests Test 06/05/17 21:04 06/06/17 06:33 06/06/17 08:18 06/06/17 08:58 Bedside Glucose 98 134 172 White Blood Count 14.5 H Red Blood Count 3.51 L Hemoglobin 9.6 L Hematocrit 30.0 L Mean Corpuscular Volume 85.5 Mean Corpuscular Hemoglobin 27.4 L Mean Corpuscular Hemoglobin Concent 32.0 Red Cell Distribution Width 14.7 H Platelet Count 377 Mean Platelet Volume 9.3 Neutrophils % 64.6 Lymphocytes % 20.5 Monocytes % 9.9 Eosinophils % 3.8 Basophils % 0.6 Nucleated Red Blood Cells % 0.0 Neutrophils # 9.4 H Lymphocytes # 3.0 H Monocytes # 1.4 H Eosinophils # 0.6 H Basophils # 0.1 Nucleated Red Blood Cells # 0.0 Prothrombin Time 13.8 Prothrombin Time Ratio 1.1 INR International Normalized Ratio 1.06 Sodium Level 139 Potassium Level 4.3 Chloride Level 100 Carbon Dioxide Level 28 Anion Gap 15 Blood Urea Nitrogen 21 H Creatinine 1.27 H Glucose Level 119 Calcium Level 8.8 Magnesium Level 2.3 Total Bilirubin 0.3 Direct Bilirubin 0.00 Indirect Bilirubin 0.3 Aspartate Amino Transf (AST/SGOT) 96 H Alanine Aminotransferase (ALT/SGPT) 27 Alkaline Phosphatase 49 Creatine Kinase 5760 H B-Type Natriuretic Peptide 433 H Total Protein 7.7 Albumin 3.7 Globulin 4.00 H Albumin/Globulin Ratio 0.92 Triglycerides Level 129 Cholesterol Level 92 L LDL Cholesterol, Calculated 42 HDL Cholesterol 24 L Cholesterol/HDL Ratio 3.8 Thyroid Stimulating Hormone (TSH) 2.390 Free Thyroxine 1.82 Digoxin Level < 0.4 L Test 06/06/17 09:51 06/06/17 12:14 06/06/17 17:22 Bedside Glucose 220 201 170 Medications Current Medications Acetaminophen (Tylenol Tab) 650 mg Q4H PRN PO PAIN AND OR ELEVATED TEMP; Start 06/05/17 at 00:00 Amiodarone HCl (Cordarone) 100 mg DAILY PO Last administered on 06/06/17 08:48 ; Admin Dose 100 MG; Start 06/05/17 at 09:00 Aspirin (Halfprin) 81 mg DAILY PO Last administered on 06/06/17 08:49; Admin Dose 81 MG; Start 06/05/17 at 09:00 Clopidogrel Bisulfate (plaVIX) 75 mg DAILY PO Last administered on 06/06/17 08 :48; Admin Dose 75 MG; Start 06/05/17 at 09:00 Enoxaparin Sodium (Lovenox) 30 mg DAILY SC Last administered on 06/06/17 09:03 ; Admin Dose 30 MG; Start 06/05/17 at 09:00 Furosemide (Lasix) 40 mg Q48H PO Last administered on 06/06/17 06:42; Admin Dose 40 MG; Start 06/06/17 at 06:00 Losartan Potassium (Cozaar) 12.5 mg DAILY PO Last administered on 06/06/17 08: 46; Admin Dose 12.5 MG; Start 06/05/17 at 09:00 Rosuvastatin Calcium (Crestor) 40 mg HS PO Last administered on 06/05/17 21:58 ; Admin Dose 40 MG; Start 06/05/17 at 21:00; Status Future Hold Allopurinol (Zyloprim) 100 mg BID PO Last administered on 06/06/17 08:49; Admin Dose 100 MG; Start 06/05/17 at 09:00 Gabapentin (Neurontin) 300 mg BID PO Last administered on 06/06/17 08:48; Admin Dose 300 MG; Start 06/05/17 at 09:00 Oxycodone/ Acetaminophen (Endocet (10)) 1 tab Q6H PRN PO PAIN Last administered on 06/06/17 14:07; Admin Dose 1 TAB; Start 06/05/17 at 00:00 Oxycodone HCl (Oxycontin) 10 mg BID PO Last administered on 06/06/17 08:49; Admin Dose 10 MG; Start 06/05/17 at 09:00 Insulin Glargine (Lantus) 45 unit BID SC Last administered on 06/06/17 09:52; Admin Dose 45 UNIT; Start 06/05/17 at 09:00 Diagnostic Test (Pha) (Accu-Chek) 1 ea 02 XX ; Start 06/05/17 at 02:00 Polyethylene Glycol (Miralax) 17 gm DAILY PRN PO CONSTIPATION; Start 06/05/17 at 00:30 Zolpidem Tartrate (Ambien) 5 mg HS PRN PO INSOMNIA; Start 06/05/17 at 00:00 Spironolactone (Aldactone) 25 mg DAILY PO Last administered on 06/06/17 08:47 ; Admin Dose 25 MG; Start 06/05/17 at 09:00 Miscellaneous Information 1 ea NOTE XX ; Start 06/05/17 at 00:30 Glucose (Glutose) 15 gm Q15M PRN PO DECREASED GLUCOSE; Start 06/05/17 at 00:30 Glucose (Glutose) 22.5 gm Q15M PRN PO DECREASED GLUCOSE; Start 06/05/17 at 00: 30 Dextrose (D50w Syringe) 25 ml Q15M PRN IV DECREASED GLUCOSE; Start 06/05/17 at 00:30 Dextrose (D50w Syringe) 50 ml Q15M PRN IV DECREASED GLUCOSE; Start 06/05/17 at 00:30 Glucagon (Glucagen) 1 mg Q15M PRN IM DECREASED GLUCOSE; Start 06/05/17 at 00:30 Glucose (Glutose) 15 gm Q15M PRN BUCCAL DECREASED GLUCOSE; Start 06/05/17 at 00 :30 Hydromorphone HCl (Dilaudid) 1.5 mg Q8H PRN IV SEVERE PAIN; Start 06/05/17 at 00:10 Docusate Sodium (Colace) 100 mg BID PO Last administered on 06/06/17 08:48; Admin Dose 100 MG; Start 06/05/17 at 09:00 Senna (Senokot) 1 tab HS PO Last administered on 06/05/17 22:00; Admin Dose 1 TAB; Start 06/05/17 at 21:00 Bisacodyl (Dulcolax Supp) 10 mg DAILY PRN [place] CONSTIPATION; Start 06/05/17 at 06 :00 Magnesium Hydroxide (Milk Of Mag) 30 ml BID PRN PO CONSTIPATION; Start at 06:00 Lactulose (Enulose) 20 gm DAILY PRN PO CONSTIPATION; Start 06/05/17 at 06:00 Collagenase (Santyl) 1 applic DAILY TOP Last administered on 06/06/17 08:47; Admin Dose 1 APPLIC; Start 06/05/17 at 15:30 Assessment/Plan Chief Complaint/Hosp Course 1. CAD 2. HX CABG 3. HX VA 4. HX multiple PCI 5. Severe PAD 6. S/P Previous LE revascularizations 7. gangrene toe s/p R BKA now 8/ DM 9. hx hyperthyroidism: TSH is wnl on 06/06/17 10. hx VT s/p ICD 11. CHF: chronic and stable due to systolic heart failure 12. dyslipidemia: on statin 13. CKD 14. Debility 15. Markedly elevated CK: probably related to recent surgery. Recommendations: I will continue with the transfer cardiac medications Aspirin Plavix will be continued. Coreg and ARB will be continued and try to increase as tolerated. Statin will be held for now due to markedly elevated CK level and restarted once CK is better controlled. Diabetic management as per internal medicine. Physical therapy and rehab will be continued. I will asked was going to evaluate the patient for a pulmonary disease as well as nightly CPAP adjustments. Thank you for his referral. I will continue to follow along with you. SALVADOR BARRETO MD [facility] Problems: SALVADOR BARRETO MD Jun 06, 2017 19:58
[2017-06-06 20:00] VITALS: BP 100/58; RESP 18
[2017-06-06] MEDS: SENNA TAB PO SCH (20:46)
[2017-06-06] MEDS: LACTULOSE 30ML CUP PO PRN (20:53)
[2017-06-07] MEDS: ACCUCHECK AT 2AM (Patients on SS coverage) XX SCH (02:00)
--- NOTE | 2017-06-07 03:49 | CONS ---
DATE OF ADMISSION: 06/04/2017 DATE OF CONSULTATION: REASON FOR CONSULTATION: Management of sleep apnea. Thank you, Dr. Dasilva, for this consultation. HISTORY OF PRESENT ILLNESS: This is a 66-year-old gentleman with multiple medical problems includin g chronic kidney disease, congestive cardiac failure, coronary artery disease, peripheral vascular d isease with a history of below-knee amputation complicated by infections of wound site, now transfer red to acute rehab unit for continuing care. He has a history of obstructive sleep apnea. He kathryn nues noninvasive positive pressure ventilation at night on CPAP device that was given to him efrain delgado 1-1/2 years ago. At that time, he had a sleep study, does not remember the severity of his s leep apnea. PAST MEDICAL HISTORY: As above. MEDICATIONS: Per chart. ALLERGIES: NONE. SOCIAL HISTORY: Ex-smoker, no alcohol, no history of drug use. FAMILY HISTORY: Noncontributory. SYSTEMS REVIEW: A 14-point review of systems was negative other than that mentioned above. PHYSICAL EXAMINATION: GENERAL: Moderately obese gentleman, comfortable at rest, no acute distress. VITAL SIGNS: Currently afebrile, pulse is 84, blood pressure 96/54, O2 saturation 96% on room air. NECK: Supple. No JVD or lymphadenopathy. CARDIAC: S1, S2, no added sounds or murmurs. CHEST: Diminished air entry bilaterally. ABDOMEN: Soft, nontender. No guarding or rebound. EXTREMITIES: No cyanosis, clubbing, or edema. NEUROLOGIC: Generalized weakness. LABORATORY DATA: White count 14.5, hemoglobin 9.6, platelets of 377, INR is 1.06, BUN 21, creatinin e 1.27. Chest x-ray shows cardiomegaly, congestive cardiac failure. IMPRESSION AND PLAN: 1. Obstructive sleep apnea. 2. Congestive cardiac failure. 3. Coronary artery disease. 4. Peripheral vascular disease. 5. Status post amputation with wound infection. The patient should: 1. Continue on current home continuous positive airway pressure (CPAP) settings. 2. Will likely need repeat outpatient sleep study. 3. Continue wound care. 4. Continue antibiotics. 5. Deep venous thrombosis and gastrointestinal prophylaxis. Dictated By: VANITA GREENWOOD/SURENDRA Conf#: [id number] DID#: [id number]
[2017-06-07 07:30] VITALS: BP 123/58; RESP 20
[2017-06-07] MEDS: INSULIN ASPART [NOVOLOG] 3 ML PEN SC SCH ×3 (08:09→18:21)
[2017-06-07] MEDS: Insulin NOVOLOG SS MILD Algorithm (SS with meals and bedtime) SC SCH ×4 (08:09→20:46)
[2017-06-07] MEDS: INSULIN GLARGINE [LANtus] 3 ML PEN SC SCH ×2 (08:14→20:46)
--- NOTE | 2017-06-07 08:18 | PN ---
DATE: 06/07/2017 SUBJECTIVE: The patient is stable, currently on CPAP at night. No other events noted. OBJECTIVE: VITAL SIGNS: Blood pressure is 110/63. Temperature 98.7, pulse 74. HEENT: Head is normocephalic. NECK: Supple. HEART: Regular rate. LUNGS: Show diminished breath sounds at the base. ABDOMEN: Soft, nontender to palpation. No rebound or guarding. EXTREMITIES: Negative for clubbing, cyanosis. No edema on the left leg. Right below-knee amputati on noted DERMATOLOGIC: No rashes. MUSCULOSKELETAL: No joint effusions. NEUROLOGIC: No change in exam. MEDICATIONS: The patient's medications are reviewed. LABORATORY DATA: Reviewed. No new labs. ASSESSMENT AND PLAN: 1. 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 The patient is currently stable. Continue current medical management. 2. Sleep apnea. Continue CPAP. 3. Chronic kidney disease, stage IIIB/IV. The patient's renal function appears to be stable. Cont inue current treatment plan, supportive care, renally dose all meds. 4. Coronary artery disease. Continue medical management. 5. Diabetes. Continue current insulin regimen. 6. Leukocytosis, likely reactive. The patient is status post antibiotics, continue to monitor. 7. Congestive heart failure. Continue medical management and follow up with Cardiology. 8. Dyslipidemia. Continue statin therapy. 9. History of coronary artery disease status post coronary artery bypass graft. 10. Hypertension. Continue current blood pressure management. 11. History of arrhythmia. Continue amiodarone. 12. Gastrointestinal and deep venous thrombosis prophylaxis. Dictated By: DANYELLE FRANCOIS/SURENDRA Conf#: [id number] DID#: [id number]
[2017-06-07] MEDS: ENOXAPARIN 30 MG/0.3 ML SYG SC SCH (09:12)
[2017-06-07] MEDS: DOCUSATE SODIUM 100 MG CAP PO SCH ×2 (09:13→20:42)
[2017-06-07] MEDS: LOSARTAN 25 MG TAB PO SCH (09:13)
[2017-06-07] MEDS: ALLOPURINOL 100 MG TAB PO SCH ×2 (09:13→20:41)
[2017-06-07] MEDS: AMIODARONE 200 MG TAB PO SCH (09:15)
[2017-06-07] MEDS: oxyCODONE (CR) 10 MG TAB [oxyCONTIN] PO SCH ×2 (09:15→20:41)
[2017-06-07] MEDS: SPIRONOLACTONE 25 MG TAB PO SCH (09:15)
[2017-06-07] MEDS: GABAPENTIN 300 MG CAP PO SCH ×2 (09:15→20:41)
[2017-06-07] MEDS: CLOPIDOGREL 75 MG TAB PO SCH (09:15)
[2017-06-07] MEDS: ASPIRIN (EC) 81 MG TAB PO SCH (09:15)
[2017-06-07] MEDS: COLLAGENASE 30 GM TUBE TOP SCH (09:16)
--- NOTE | 2017-06-07 09:38 | CONS ---
Date/Time of Note Date/Time of Note DATE: 06/07/17 TIME: 09:37 Consult Date/Type/Reason Admit Date/Time Jun 04, 2017 at 20:02 Initial Consult Date 06/05/17 Type of Consultation: cardiology Ordering Provider: DANYELLE GUY DO Subjective Up to wheelchair this morning, motivated for activities Objective pulm-cta [facility] mobility Vital Signs Date Time Temp Pulse Resp B/P Pulse Ox O2 Delivery O2 Flow Rate FiO2 06/07/17 07:30 98.8 76 20 123/58 95 06/04/17 20:00 Room Air Intake and Output 06/06/17 06/06/17 06/07/17 15:00 23:00 07:00 Intake Total 400 ml 1000 ml 1180 ml Output Total 200 ml 800 ml 250 ml Balance 200 ml 200 ml 930 ml Results/Medications Result Diagram: 06/06/1733 06/06/1733 Results 24 hrs Laboratory Tests Test 06/06/17 09:51 06/06/17 12:14 06/06/17 17:22 06/06/17 20:46 Bedside Glucose 220 201 170 157 Test 06/07/17 07:50 Bedside Glucose 188 Medications Current Medications Acetaminophen (Tylenol Tab) 650 mg Q4H PRN PO PAIN AND OR ELEVATED TEMP; Start 06/05/17 at 00:00 Amiodarone HCl (Cordarone) 100 mg DAILY PO Last administered on 06/07/17 09:15 ; Admin Dose 100 MG; Start 06/05/17 at 09:00 Aspirin (Halfprin) 81 mg DAILY PO Last administered on 06/07/17 09:15; Admin Dose 81 MG; Start 06/05/17 at 09:00 Clopidogrel Bisulfate (plaVIX) 75 mg DAILY PO Last administered on 06/07/17 09 :15; Admin Dose 75 MG; Start 06/05/17 at 09:00 Enoxaparin Sodium (Lovenox) 30 mg DAILY SC Last administered on 06/07/17 09:12 ; Admin Dose 30 MG; Start 06/05/17 at 09:00 Furosemide (Lasix) 40 mg Q48H PO Last administered on 06/06/17 06:42; Admin Dose 40 MG; Start 06/06/17 at 06:00 Losartan Potassium (Cozaar) 12.5 mg DAILY PO Last administered on 06/07/17 09: 13; Admin Dose 12.5 MG; Start 06/05/17 at 09:00 Rosuvastatin Calcium (Crestor) 40 mg HS PO Last administered on 06/05/17 21:58 ; Admin Dose 40 MG; Start 06/05/17 at 21:00; Status Future Hold Allopurinol (Zyloprim) 100 mg BID PO Last administered on 06/07/17 09:13; Admin Dose 100 MG; Start 06/05/17 at 09:00 Gabapentin (Neurontin) 300 mg BID PO Last administered on 06/07/17 09:15; Admin Dose 300 MG; Start 06/05/17 at 09:00 Oxycodone/ Acetaminophen (Endocet (10 325)) 1 tab Q6H PRN PO PAIN Last administered on 06/06/17 14:07; Admin Dose 1 TAB; Start 06/05/17 at 00:00 Oxycodone HCl (Oxycontin) 10 mg BID PO Last administered on 06/07/17 09:15; Admin Dose 10 MG; Start 06/05/17 at 09:00 Insulin Glargine (Lantus) 45 unit BID SC Last administered on 06/07/17 08:14; Admin Dose 45 UNIT; Start 06/05/17 at 09:00 Diagnostic Test (Pha) (Accu-Chek) 1 ea 02 XX ; Start 06/05/17 at 02:00 Polyethylene Glycol (Miralax) 17 gm DAILY PRN PO CONSTIPATION; Start 06/05/17 at 00:30 Zolpidem Tartrate (Ambien) 5 mg HS PRN PO INSOMNIA; Start 06/05/17 at 00:00 Spironolactone (Aldactone) 25 mg DAILY PO Last administered on 06/07/17 09:15 ; Admin Dose 25 MG; Start 06/05/17 at 09:00 Miscellaneous Information 1 ea NOTE XX ; Start 06/05/17 at 00:30 Glucose (Glutose) 15 gm Q15M PRN PO DECREASED GLUCOSE; Start 06/05/17 at 00:30 Glucose (Glutose) 22.5 gm Q15M PRN PO DECREASED GLUCOSE; Start 06/05/17 at 00: 30 Dextrose (D50w Syringe) 25 ml Q15M PRN IV DECREASED GLUCOSE; Start 06/05/17 at 00:30 Dextrose (D50w Syringe) 50 ml Q15M PRN IV DECREASED GLUCOSE; Start 06/05/17 at 00:30 Glucagon (Glucagen) 1 mg Q15M PRN IM DECREASED GLUCOSE; Start 06/05/17 at 00:30 Glucose (Glutose) 15 gm Q15M PRN BUCCAL DECREASED GLUCOSE; Start 06/05/17 at 00 :30 Hydromorphone HCl (Dilaudid) 1.5 mg Q8H PRN IV SEVERE PAIN; Start 06/05/17 at 00:10 Docusate Sodium (Colace) 100 mg BID PO Last administered on 06/07/17 09:13; Admin Dose 100 MG; Start 06/05/17 at 09:00 Senna (Senokot) 1 tab HS PO Last administered on 06/06/17 20:46; Admin Dose 1 TAB; Start 06/05/17 at 21:00 Bisacodyl (Dulcolax Supp) 10 mg DAILY PRN [place] CONSTIPATION; Start 06/05/17 at 06 :00 Magnesium Hydroxide (Milk Of Mag) 30 ml BID PRN PO CONSTIPATION; Start at 06:00 Lactulose (Enulose) 20 gm DAILY PRN PO CONSTIPATION Last administered on 20:53; Admin Dose 20 GM; Start 06/05/17 at 06:00 Collagenase (Santyl) 1 applic DAILY TOP Last administered on 06/07/17 09:16; Admin Dose 1 APPLIC; Start 06/05/17 at 15:30 Assessment/Plan Additional Assessment/Plan Rehab- Right below the knee amputation;Recent left toe amputation Continue current rehab program Acute pain syndrome-continue current meds Constipation- continue bowel program. Anemia. Atrial fibrillation. Congestive heart failure. Chronic kidney disease. Coronary artery disease. Diabetes mellitus. Hypertension. History of cerebrovascular accident. History of peripheral vascular disease. Sleep apnea. BLAKE PÉREZ MD Jun 07, 2017 09:38
[2017-06-07] MEDS: OXYCODONE/ACETAMINOPHEN (10/325) TAB PO PRN (11:05)
[2017-06-07] MEDS: SENNA TAB PO SCH (20:43)
[2017-06-07 20:45] VITALS: BP 101/55; RESP 20
[2017-06-08] MEDS: OXYCODONE/ACETAMINOPHEN (10/325) TAB PO PRN (00:15)
[2017-06-08 01:37] VITALS: BP 115/59; RESP 19
[2017-06-08] MEDS: ACCUCHECK AT 2AM (Patients on SS coverage) XX SCH (02:00)
[2017-06-08] MEDS: FUROSEMIDE 40 MG TAB PO SCH (06:19)
[2017-06-08] MEDS: PANTOPRAZOLE (EC) 40 MG TAB PO SCH (06:19)
[2017-06-08 07:00] VITALS: BP 102/57; RESP 18
[2017-06-08] MEDS: Insulin NOVOLOG SS MILD Algorithm (SS with meals and bedtime) SC SCH ×4 (07:35→20:40)
[2017-06-08] MEDS: INSULIN ASPART [NOVOLOG] 3 ML PEN SC SCH ×3 (08:15→17:32)
[2017-06-08] MEDS: LOSARTAN 25 MG TAB PO SCH (09:00)
[2017-06-08] MEDS: INSULIN GLARGINE [LANtus] 3 ML PEN SC SCH ×3 (09:00→20:40)
[2017-06-08] MEDS ORDERED: SENNA TAB PO SCH (09:00)
--- NOTE | 2017-06-08 10:07 | PN ---
DATE: 06/08/2017 SUBJECTIVE: The patient is stable. No events overnight. No fevers, chills, nausea, vomiting. OBJECTIVE: VITAL SIGNS: Blood pressure 122/58, pulse 76, respirations 20, temperature 98.8. HEENT: Head is normocephalic. NECK: Supple. HEART: Regular rate. LUNGS: Show diminished breath sounds at the base. ABDOMEN: Soft, nontender to palpation. No rebound or guarding. EXTREMITIES: Negative for clubbing, cyanosis, no edema on the left leg. Right BKA is noted. DERMATOLOGIC: No rashes. MUSCULOSKELETAL: No joint effusions. NEUROLOGIC: No change in exam. MEDICATIONS: The patient's medications have been reviewed. LABORATORY DATA: Has been reviewed. Urine cultures have been reviewed. ASSESSMENT AND PLAN: 1. Status post right anavs-ekuj-fayxypznae secondary to gangrene. The patient is currently stable. Continue current medical management. 2. Sleep apnea. Continue CPAP. 3. Chronic kidney disease, stage IIIb/IV. The patient's renal function is stable. Continue curren t treatment plan. Continue supportive care. 4. Coronary artery disease. Continue current medical management. 5. Diabetes. Continue current insulin regimen. 6. Leukocytosis, likely reactive. The patient's urine culture was reviewed. The patient has multi ple organisms, likely contaminant, and continue to monitor off antibiotics. 7. Congestive heart failure. Continue current medical management. Follow up with cardiology. 8. Dyslipidemia. Continue statin therapy. 9. History of coronary artery disease, status post coronary artery bypass graft. 10. Hypertension. Continue current blood pressure regimen. 11. History of arrhythmia. Continue amiodarone. 12. Gastrointestinal and deep vein thrombosis prophylaxis. Dictated By: DANYELLE FRANCOIS/SURENDRA Conf#: [id number] DID#: [id number]
[2017-06-08] MEDS: GABAPENTIN 300 MG CAP PO SCH ×2 (12:34→20:37)
[2017-06-08] MEDS: oxyCODONE (CR) 10 MG TAB [oxyCONTIN] PO SCH ×2 (12:34→20:37)
[2017-06-08] MEDS: SPIRONOLACTONE 25 MG TAB PO SCH (12:34)
[2017-06-08] MEDS: CLOPIDOGREL 75 MG TAB PO SCH (12:43)
[2017-06-08] MEDS: DOCUSATE SODIUM 100 MG CAP PO SCH ×2 (12:45→20:37)
[2017-06-08] MEDS: ASPIRIN (EC) 81 MG TAB PO SCH (12:45)
[2017-06-08] MEDS: AMIODARONE 200 MG TAB PO SCH (12:58)
[2017-06-08] MEDS: ALLOPURINOL 100 MG TAB PO SCH ×2 (13:00→20:37)
[2017-06-08] MEDS: ENOXAPARIN 30 MG/0.3 ML SYG SC SCH (13:00)
--- NOTE | 2017-06-08 15:07 | CONS ---
Date/Time of Note Date/Time of Note DATE: 06/08/17 TIME: 15:04 Consult Date/Type/Reason Admit Date/Time Jun 04, 2017 at 20:02 Initial Consult Date 06/05/17 Type of Consultation: Pulm Ordering Provider: DANYELLE UGY DO Subjective No events. Using CPAP at nights Objective Vital Signs Date Time Temp Pulse Resp B/P Pulse Ox O2 Delivery O2 Flow Rate FiO2 06/08/17 07:00 97.7 68 18 102/57 95 06/04/17 20:00 Room Air Intake and Output 06/07/17 06/07/17 06/08/17 15:00 23:00 07:00 Intake Total 800 ml 100 ml Output Total 281 ml 400 ml Balance 519 ml -300 ml Exam HEENT: Neck supple; no JVD; no LAD CVS: RRR, S1 and S2 CHEST: Clear ABD: Soft, NT, + BS EXT: No c/c; LE dressing in place Results/Medications Result Diagram: 06/06/1763206/06/17632 Results 24 hrs Laboratory Tests Test 06/07/17 18:12 06/07/17 20:39 06/08/17 08:12 06/08/17 12:13 Bedside Glucose 99 153 139 219 Medications Current Medications Acetaminophen (Tylenol Tab) 650 mg Q4H PRN PO PAIN AND OR ELEVATED TEMP; Start 06/05/17 at 00:00 Amiodarone HCl (Cordarone) 100 mg DAILY PO Last administered on 06/08/17 12:58 ; Admin Dose 100 MG; Start 06/05/17 at 09:00 Aspirin (Halfprin) 81 mg DAILY PO Last administered on 06/08/17 12:45; Admin Dose 81 MG; Start 06/05/17 at 09:00 Clopidogrel Bisulfate (plaVIX) 75 mg DAILY PO Last administered on 06/08/17 12 :43; Admin Dose 75 MG; Start 06/05/17 at 09:00 Enoxaparin Sodium (Lovenox) 30 mg DAILY SC Last administered on 06/08/17 13:00 ; Admin Dose 30 MG; Start 06/05/17 at 09:00 Furosemide (Lasix) 40 mg Q48H PO Last administered on 06/08/17 06:19; Admin Dose 40 MG; Start 06/06/17 at 06:00 Losartan Potassium (Cozaar) 12.5 mg DAILY PO Last administered on 06/07/17 09: 13; Admin Dose 12.5 MG; Start 06/05/17 at 09:00 Rosuvastatin Calcium (Crestor) 40 mg HS PO Last administered on 06/05/17 21:58 ; Admin Dose 40 MG; Start 06/05/17 at 21:00; Status Future Hold Allopurinol (Zyloprim) 100 mg BID PO Last administered on 06/08/17 13:00; Admin Dose 100 MG; Start 06/05/17 at 09:00 Gabapentin (Neurontin) 300 mg BID PO Last administered on 06/08/17 12:34; Admin Dose 300 MG; Start 06/05/17 at 09:00 Oxycodone/ Acetaminophen (Endocet (10/ 325)) 1 tab Q6H PRN PO PAIN Last administered on 06/08/17 00:15; Admin Dose 1 TAB; Start 06/05/17 at 00:00 Oxycodone HCl (Oxycontin) 10 mg BID PO Last administered on 06/08/17 12:34; Admin Dose 10 MG; Start 06/05/17 at 09:00 Insulin Glargine (Lantus) 45 unit BID SC Last administered on 06/08/17 12:20; Admin Dose 45 UNIT; Start 06/05/17 at 09:00 Diagnostic Test (Pha) (Accu-Chek) 1 ea 02 XX ; Start 06/05/17 at 02:00 Polyethylene Glycol (Miralax) 17 gm DAILY PRN PO CONSTIPATION; Start 06/05/17 at 00:30 Zolpidem Tartrate (Ambien) 5 mg HS PRN PO INSOMNIA; Start 06/05/17 at 00:00 Spironolactone (Aldactone) 25 mg DAILY PO Last administered on 06/08/17 12:34 ; Admin Dose 25 MG; Start 06/05/17 at 09:00 Miscellaneous Information 1 ea NOTE XX ; Start 06/05/17 at 00:30 Glucose (Glutose) 15 gm Q15M PRN PO DECREASED GLUCOSE; Start 06/05/17 at 00:30 Glucose (Glutose) 22.5 gm Q15M PRN PO DECREASED GLUCOSE; Start 06/05/17 at 00: 30 Dextrose (D50w Syringe) 25 ml Q15M PRN IV DECREASED GLUCOSE; Start 06/05/17 at 00:30 Dextrose (D50w Syringe) 50 ml Q15M PRN IV DECREASED GLUCOSE; Start 06/05/17 at 00:30 Glucagon (Glucagen) 1 mg Q15M PRN IM DECREASED GLUCOSE; Start 06/05/17 at 00:30 Glucose (Glutose) 15 gm Q15M PRN BUCCAL DECREASED GLUCOSE; Start 06/05/17 at 00 :30 Hydromorphone HCl (Dilaudid) 1.5 mg Q8H PRN IV SEVERE PAIN; Start 06/05/17 at 00:10 Docusate Sodium (Colace) 100 mg BID PO Last administered on 06/08/17 12:45; Admin Dose 100 MG; Start 06/05/17 at 09:00 Bisacodyl (Dulcolax Supp) 10 mg DAILY PRN [place] CONSTIPATION; Start 06/05/17 at 06 :00 Magnesium Hydroxide (Milk Of Mag) 30 ml BID PRN PO CONSTIPATION; Start at 06:00 Lactulose (Enulose) 20 gm DAILY PRN PO CONSTIPATION Last administered on 20:53; Admin Dose 20 GM; Start 06/05/17 at 06:00 Collagenase (Santyl) 1 applic DAILY TOP Last administered on 06/07/17 09:16; Admin Dose 1 APPLIC; Start 06/05/17 at 15:30 Senna (Senokot) 2 tab HS PO Last administered on 06/07/17 20:43; Admin Dose 2 TAB; Start 06/07/17 at 21:00 Assessment/Plan Additional Assessment/Plan IMP: 1. Obstructive sleep apnea. 2. Congestive cardiac failure. 3. Coronary artery disease. 4. Peripheral vascular disease. 5. Status post amputation with wound infection. RECS: 1. Continue CPAP 2. Outpatient sleep study AMIRA MEDRANO MD Jun 08, 2017 15:07
[2017-06-08] MEDS: COLLAGENASE 30 GM TUBE TOP SCH (17:31)
[2017-06-08 20:00] VITALS: BP 106/58; RESP 18
[2017-06-08] MEDS: SENNA TAB PO SCH (20:37)
[2017-06-09 02:00] VITALS: BP 109/60; RESP 18
[2017-06-09] MEDS: ACCUCHECK AT 2AM (Patients on SS coverage) XX SCH (02:00)
[2017-06-09 06:05] LABS: BASOPHIL # 0.1 10^3/ul (0.0-0.1); BASOPHILS % 0.5 % (0.0-2.0); EOSINOPHILS # 0.5 10^3/ul (0.0-0.5); EOSINOPHILS % 4.9 % (0.0-7.0); HEMATOCRIT 30.8 % (42.0-52.0); HEMOGLOBIN 9.7 g/dl (14.0-18.0); LYMPHOCYTES # 2.8 10^3/ul (0.8-2.9); LYMPHOCYTES % 25.5 % (15.0-51.0); MEAN CORPUSCULAR HGB CONC 31.5 g/dl (32.0-37.0); MEAN CORPUSCULAR VOLUME 85.8 fl (82.0-101.0); MEAN PLATELET VOLUME 9.2 fl (7.4-10.4); MONOCYTES % 9.2 % (0.0-11.0); NEUTROPHIL # 6.5 10^3/ul (1.6-7.5); PLATELET COUNT 377 10^3/UL (140-415); RED BLOOD COUNT 3.59 10^6/ul (4.70-6.10); RED CELL DISTRIBUTION WIDTH 14.6 % (11.5-14.5)
[2017-06-09 06:28] LABS: ALBUMIN/GLOBULIN RATIO 0.81
[2017-06-09] MEDS: PANTOPRAZOLE (EC) 40 MG TAB PO SCH (06:34)
[2017-06-09 06:43] LABS: BILIRUBIN,TOTAL 0.2 mg/dl (0.2-1.3); CALCIUM 8.9 mg/dl (8.4-10.2); CREATININE 1.31 mg/dl (0.61-1.24); MAGNESIUM 2.1 mg/dl (1.7-2.5)
[2017-06-09 06:44] LABS: BILIRUBIN,INDIRECT 0.2 mg/dl (0-1.1); TOTAL PROTEIN 6.7 g/dl (6.1-8.1)
[2017-06-09 07:00] VITALS: BP 132/66; RESP 18
[2017-06-09] MEDS: INSULIN ASPART [NOVOLOG] 3 ML PEN SC SCH ×2 (08:17→12:27)
[2017-06-09] MEDS: Insulin NOVOLOG SS MILD Algorithm (SS with meals and bedtime) SC SCH ×2 (08:19→12:00)
[2017-06-09] MEDS: ASPIRIN (EC) 81 MG TAB PO SCH (08:19)
[2017-06-09] MEDS: oxyCODONE (CR) 10 MG TAB [oxyCONTIN] PO SCH ×2 (09:00→21:00)
--- NOTE | 2017-06-09 09:08 | PN ---
DATE: 06/09/2017 SUBJECTIVE: The patient is stable. No events overnight. No fevers, chills, nausea, vomiting. OBJECTIVE: VITAL SIGNS: Blood pressure 109/60, respiration 18, pulse 118, temperature 97.8. HEENT: Head is normocephalic. NECK: Supple. HEART: Regular rate. LUNGS: Show diminished breath sounds at the base. ABDOMEN: Soft, nontender to palpation without rebound or guarding. EXTREMITIES: Negative for clubbing, cyanosis, no edema on the left leg. Right below-knee amputatio n. DERMATOLOGIC: No rashes. MUSCULOSKELETAL: No joint effusions. NEUROLOGIC: No change in exam. MEDICATIONS: The patient's medications have been reviewed. LABORATORY DATA: Shows white count 11.8, hemoglobin 9.7, platelet count 377. Sodium 143, potassium 4.0, BUN 25, creatinine 1.3. ASSESSMENT AND PLAN: 1. 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 The patient is currently stable. Continue medical management. 2. Sleep apnea. Continue CPAP. 3. Chronic kidney disease, stage 3B/4, renal function is stable. Continue current treatment plan. 4. Coronary artery disease. Continue medical management. 5. Diabetes. Continue current insulin regimen. 6. Leukocytosis, likely reactive. Continue to monitor. 7. Asymptomatic pyuria. Continue to monitor off antibiotics. 8. Congestive heart failure. Continue medical management. 9. Dyslipidemia. Continue statin therapy. 10. History of coronary artery disease, status post CABG 11. Hypertension. Continue current blood pressure regimen. 12. History of arrhythmia. Continue amiodarone. 13. Gastrointestinal and deep venous thrombosis prophylaxis. Dictated By: DANYELLE FRANCOIS/SURENDRA Conf#: [id number] DID#: [id number]
--- NOTE | 2017-06-09 09:16 | CONS ---
Date/Time of Note Date/Time of Note DATE: 06/09/17 TIME: 09:15 Consult Date/Type/Reason Admit Date/Time Jun 04, 2017 at 20:02 Initial Consult Date 06/05/17 Type of Consultation: Pulm Ordering Provider: DANYELLE GUY DO Objective Vital Signs Date Time Temp Pulse Resp B/P Pulse Ox O2 Delivery O2 Flow Rate FiO2 06/09/17 07:00 98.9 71 18 132/66 99 Intake and Output 06/08/17 06/08/17 06/09/17 15:00 23:00 07:00 Intake Total 800 ml 270 ml Output Total 600 ml 200 ml Balance 200 ml 70 ml INTERDISCIPLINARY TEAM CONFERENCE BOWEL- Cont BLADDER-Cont SKIN- incision clean dry and intact OT- DRESSING-min/mod BATHING-min/mod TOILETING-min/mod PT- BED MOBILITY-min TRANSFERS-mod W.C. MOBILITY-min A/P- Interdisciplinary team conference held today. Please see interdisciplinary sheet. Working toward d.c. on 06/17 with post discharge follow up of physical therapy, occupational therapy. Results/Medications Result Diagram: 06/09/17 0537 06/09/17 0537 Results 24 hrs Laboratory Tests Test 06/08/17 12:13 06/08/17 17:30 06/08/17 20:36 06/09/17 05:37 Bedside Glucose 219 176 75 White Blood Count 11.0 #H Red Blood Count 3.59 L Hemoglobin 9.7 L Hematocrit 30.8 L Mean Corpuscular Volume 85.8 Mean Corpuscular Hemoglobin 27.0 L Mean Corpuscular Hemoglobin Concent 31.5 L Red Cell Distribution Width 14.6 H Platelet Count 377 Mean Platelet Volume 9.2 Neutrophils % 59.0 Lymphocytes % 25.5 Monocytes % 9.2 Eosinophils % 4.9 Basophils % 0.5 Nucleated Red Blood Cells % 0.0 Neutrophils # 6.5 Lymphocytes # 2.8 Monocytes # 1.0 H Eosinophils # 0.5 Basophils # 0.1 Nucleated Red Blood Cells # 0.0 Sodium Level 143 Potassium Level 4.0 Chloride Level 101 Carbon Dioxide Level 31 Anion Gap 15 Blood Urea Nitrogen 25 H Creatinine 1.31 H Glucose Level 122 Calcium Level 8.9 Magnesium Level 2.1 Total Bilirubin 0.2 Direct Bilirubin 0.00 Indirect Bilirubin 0.2 Aspartate Amino Transf (AST/SGOT) 55 H Alanine Aminotransferase (ALT/SGPT) 30 Alkaline Phosphatase 46 Creatine Kinase 2250 H B-Type Natriuretic Peptide 340 H Total Protein 6.7 Albumin 3.0 L Globulin 3.70 H Albumin/Globulin Ratio 0.81 Test 06/09/17 08:04 Bedside Glucose 147 Medications Current Medications Acetaminophen (Tylenol Tab) 650 mg Q4H PRN PO PAIN AND OR ELEVATED TEMP; Start 06/05/17 at 00:00 Amiodarone HCl (Cordarone) 100 mg DAILY PO Last administered on 06/08/17 12:58 ; Admin Dose 100 MG; Start 06/05/17 at 09:00 Aspirin (Halfprin) 81 mg DAILY PO Last administered on 06/09/17 08:19; Admin Dose 81 MG; Start 06/05/17 at 09:00 Clopidogrel Bisulfate (plaVIX) 75 mg DAILY PO Last administered on 06/08/17 12 :43; Admin Dose 75 MG; Start 06/05/17 at 09:00 Enoxaparin Sodium (Lovenox) 30 mg DAILY SC Last administered on 06/08/17 13:00 ; Admin Dose 30 MG; Start 06/05/17 at 09:00 Furosemide (Lasix) 40 mg Q48H PO Last administered on 06/08/17 06:19; Admin Dose 40 MG; Start 06/06/17 at 06:00 Losartan Potassium (Cozaar) 12.5 mg DAILY PO Last administered on 06/07/17 09: 13; Admin Dose 12.5 MG; Start 06/05/17 at 09:00 Rosuvastatin Calcium (Crestor) 40 mg HS PO Last administered on 06/05/17 21:58 ; Admin Dose 40 MG; Start 06/05/17 at 21:00; Status Future Hold Allopurinol (Zyloprim) 100 mg BID PO Last administered on 06/08/17 20:37; Admin Dose 100 MG; Start 06/05/17 at 09:00 Gabapentin (Neurontin) 300 mg BID PO Last administered on 06/08/17 20:37; Admin Dose 300 MG; Start 06/05/17 at 09:00 Oxycodone/ Acetaminophen (Endocet (10/ 325)) 1 tab Q6H PRN PO PAIN Last administered on 06/08/17 00:15; Admin Dose 1 TAB; Start 06/05/17 at 00:00 Oxycodone HCl (Oxycontin) 10 mg BID PO Last administered on 06/08/17 20:37; Admin Dose 10 MG; Start 06/05/17 at 09:00 Insulin Glargine (Lantus) 45 unit BID SC Last administered on 06/08/17 20:40; Admin Dose 45 UNIT; Start 06/05/17 at 09:00 Diagnostic Test (Pha) (Accu-Chek) 1 ea 02 XX ; Start 06/05/17 at 02:00 Polyethylene Glycol (Miralax) 17 gm DAILY PRN PO CONSTIPATION; Start 06/05/17 at 00:30 Zolpidem Tartrate (Ambien) 5 mg HS PRN PO INSOMNIA; Start 06/05/17 at 00:00 Spironolactone (Aldactone) 25 mg DAILY PO Last administered on 06/08/17 12:34 ; Admin Dose 25 MG; Start 06/05/17 at 09:00 Miscellaneous Information 1 ea NOTE XX ; Start 06/05/17 at 00:30 Glucose (Glutose) 15 gm Q15M PRN PO DECREASED GLUCOSE; Start 06/05/17 at 00:30 Glucose (Glutose) 22.5 gm Q15M PRN PO DECREASED GLUCOSE; Start 06/05/17 at 00: 30 Dextrose (D50w Syringe) 25 ml Q15M PRN IV DECREASED GLUCOSE; Start 06/05/17 at 00:30 Dextrose (D50w Syringe) 50 ml Q15M PRN IV DECREASED GLUCOSE; Start 06/05/17 at 00:30 Glucagon (Glucagen) 1 mg Q15M PRN IM DECREASED GLUCOSE; Start 06/05/17 at 00:30 Glucose (Glutose) 15 gm Q15M PRN BUCCAL DECREASED GLUCOSE; Start 06/05/17 at 00 :30 Hydromorphone HCl (Dilaudid) 1.5 mg Q8H PRN IV SEVERE PAIN; Start 06/05/17 at 00:10 Docusate Sodium (Colace) 100 mg BID PO Last administered on 06/08/17 20:37; Admin Dose 100 MG; Start 06/05/17 at 09:00 Bisacodyl (Dulcolax Supp) 10 mg DAILY PRN [place] CONSTIPATION; Start 06/05/17 at 06 :00 Magnesium Hydroxide (Milk Of Mag) 30 ml BID PRN PO CONSTIPATION; Start at 06:00 Lactulose (Enulose) 20 gm DAILY PRN PO CONSTIPATION Last administered on 20:53; Admin Dose 20 GM; Start 06/05/17 at 06:00 Collagenase (Santyl) 1 applic DAILY TOP Last administered on 06/08/17 17:31; Admin Dose 1 APPLIC; Start 06/05/17 at 15:30 Senna (Senokot) 2 tab HS PO Last administered on 06/08/17 20:37; Admin Dose 2 TAB; Start 06/07/17 at 21:00 BLAKE PÉREZ MD Jun 09, 2017 09:16 BLAKE PÉREZ MD Jun 09, 2017 09:16
[2017-06-09] MEDS: ALLOPURINOL 100 MG TAB PO SCH ×2 (09:52→21:00)
[2017-06-09] MEDS: ENOXAPARIN 30 MG/0.3 ML SYG SC SCH (09:55)
[2017-06-09] MEDS: INSULIN GLARGINE [LANtus] 3 ML PEN SC SCH (09:58)
[2017-06-09] MEDS: GABAPENTIN 300 MG CAP PO SCH (10:49)
[2017-06-09] MEDS: SPIRONOLACTONE 25 MG TAB PO SCH (10:50)
[2017-06-09] MEDS: DOCUSATE SODIUM 100 MG CAP PO SCH (10:50)
[2017-06-09] MEDS: LOSARTAN 25 MG TAB PO SCH (10:50)
[2017-06-09] MEDS: AMIODARONE 200 MG TAB PO SCH (10:52)
[2017-06-09] MEDS: HYDROmorphONE 2 MG/ML SYG SC PRN (10:53)
[2017-06-09] MEDS: CLOPIDOGREL 75 MG TAB PO SCH (12:22)
[2017-06-09] MEDS: COLLAGENASE 30 GM TUBE TOP SCH (12:22)
--- NOTE | 2017-06-09 15:35 | CONS ---
Date/Time of Note Date/Time of Note DATE: 06/09/17 TIME: 15:30 Consult Date/Type/Reason Admit Date/Time Jun 04, 2017 at 20:02 Initial Consult Date 06/05/17 Type of Consultation: Pulm Ordering Provider: DANYELLE GUY DO Subjective Sleeping, comfortable. Objective Vital Signs Date Time Temp Pulse Resp B/P Pulse Ox O2 Delivery O2 Flow Rate FiO2 06/09/17 07:00 98.9 71 18 132/66 99 Intake and Output 06/08/17 06/08/17 06/09/17 15:00 23:00 07:00 Intake Total 800 ml 270 ml Output Total 600 ml 200 ml Balance 200 ml 70 ml Exam Exam HEENT: Neck supple; no JVD; no LAD CVS: RRR, S1 and S2 CHEST: Clear ABD: Soft, NT, + BS EXT: No c/c; LE dressing in place Results/Medications Result Diagram: 06/09/17 0537 06/09/17 0537 Results 24 hrs Laboratory Tests Test 06/08/17 17:30 06/08/17 20:36 06/09/17 05:37 06/09/17 08:04 Bedside Glucose 176 75 147 White Blood Count 11.0 #H Red Blood Count 3.59 L Hemoglobin 9.7 L Hematocrit 30.8 L Mean Corpuscular Volume 85.8 Mean Corpuscular Hemoglobin 27.0 L Mean Corpuscular Hemoglobin Concent 31.5 L Red Cell Distribution Width 14.6 H Platelet Count 377 Mean Platelet Volume 9.2 Neutrophils % 59.0 Lymphocytes % 25.5 Monocytes % 9.2 Eosinophils % 4.9 Basophils % 0.5 Nucleated Red Blood Cells % 0.0 Neutrophils # 6.5 Lymphocytes # 2.8 Monocytes # 1.0 H Eosinophils # 0.5 Basophils # 0.1 Nucleated Red Blood Cells # 0.0 Sodium Level 143 Potassium Level 4.0 Chloride Level 101 Carbon Dioxide Level 31 Anion Gap 15 Blood Urea Nitrogen 25 H Creatinine 1.31 H Glucose Level 122 Calcium Level 8.9 Magnesium Level 2.1 Total Bilirubin 0.2 Direct Bilirubin 0.00 Indirect Bilirubin 0.2 Aspartate Amino Transf (AST/SGOT) 55 H Alanine Aminotransferase (ALT/SGPT) 30 Alkaline Phosphatase 46 Creatine Kinase 2250 H B-Type Natriuretic Peptide 340 H Total Protein 6.7 Albumin 3.0 L Globulin 3.70 H Albumin/Globulin Ratio 0.81 Test 06/09/17 12:19 Bedside Glucose 125 Medications Current Medications Acetaminophen (Tylenol Tab) 650 mg Q4H PRN PO PAIN AND OR ELEVATED TEMP; Start 06/05/17 at 00:00 Amiodarone HCl (Cordarone) 100 mg DAILY PO Last administered on 06/09/17 10:52 ; Admin Dose 100 MG; Start 06/05/17 at 09:00 Aspirin (Halfprin) 81 mg DAILY PO Last administered on 06/09/17 08:19; Admin Dose 81 MG; Start 06/05/17 at 09:00 Clopidogrel Bisulfate (plaVIX) 75 mg DAILY PO Last administered on 06/09/17 12 :22; Admin Dose 75 MG; Start 06/05/17 at 09:00 Enoxaparin Sodium (Lovenox) 30 mg DAILY SC Last administered on 06/09/17 09:55 ; Admin Dose 30 MG; Start 06/05/17 at 09:00 Furosemide (Lasix) 40 mg Q48H PO Last administered on 06/08/17 06:19; Admin Dose 40 MG; Start 06/06/17 at 06:00 Losartan Potassium (Cozaar) 12.5 mg DAILY PO Last administered on 06/09/17 10: 50; Admin Dose 12.5 MG; Start 06/05/17 at 09:00 Rosuvastatin Calcium (Crestor) 40 mg HS PO Last administered on 06/05/17 21:58 ; Admin Dose 40 MG; Start 06/05/17 at 21:00; Status Future Hold Allopurinol (Zyloprim) 100 mg BID PO Last administered on 06/09/17 09:52; Admin Dose 100 MG; Start 06/05/17 at 09:00 Gabapentin (Neurontin) 300 mg BID PO Last administered on 06/09/17 10:49; Admin Dose 300 MG; Start 06/05/17 at 09:00 Oxycodone/ Acetaminophen (Endocet (10/ 325)) 1 tab Q6H PRN PO PAIN Last administered on 06/08/17 00:15; Admin Dose 1 TAB; Start 06/05/17 at 00:00 Oxycodone HCl (Oxycontin) 10 mg BID PO Last administered on 06/08/17 20:37; Admin Dose 10 MG; Start 06/05/17 at 09:00 Insulin Glargine (Lantus) 45 unit BID SC Last administered on 06/09/17 09:58; Admin Dose 45 UNIT; Start 06/05/17 at 09:00 Diagnostic Test (Pha) (Accu-Chek) 1 ea 02 XX ; Start 06/05/17 at 02:00 Polyethylene Glycol (Miralax) 17 gm DAILY PRN PO CONSTIPATION; Start 06/05/17 at 00:30 Zolpidem Tartrate (Ambien) 5 mg HS PRN PO INSOMNIA; Start 06/05/17 at 00:00 Spironolactone (Aldactone) 25 mg DAILY PO Last administered on 06/09/17 10:50 ; Admin Dose 25 MG; Start 06/05/17 at 09:00 Miscellaneous Information 1 ea NOTE XX ; Start 06/05/17 at 00:30 Glucose (Glutose) 15 gm Q15M PRN PO DECREASED GLUCOSE; Start 06/05/17 at 00:30 Glucose (Glutose) 22.5 gm Q15M PRN PO DECREASED GLUCOSE; Start 06/05/17 at 00: 30 Dextrose (D50w Syringe) 25 ml Q15M PRN IV DECREASED GLUCOSE; Start 06/05/17 at 00:30 Dextrose (D50w Syringe) 50 ml Q15M PRN IV DECREASED GLUCOSE; Start 06/05/17 at 00:30 Glucagon (Glucagen) 1 mg Q15M PRN IM DECREASED GLUCOSE; Start 06/05/17 at 00:30 Glucose (Glutose) 15 gm Q15M PRN BUCCAL DECREASED GLUCOSE; Start 06/05/17 at 00 :30 Docusate Sodium (Colace) 100 mg BID PO Last administered on 06/09/17 10:50; Admin Dose 100 MG; Start 06/05/17 at 09:00 Bisacodyl (Dulcolax Supp) 10 mg DAILY PRN [place] CONSTIPATION Last administered on 06/09/17 12:33; Admin Dose 10 MG; Start 06/05/17 at 06:00 Magnesium Hydroxide (Milk Of Mag) 30 ml BID PRN PO CONSTIPATION; Start at 06:00 Lactulose (Enulose) 20 gm DAILY PRN PO CONSTIPATION Last administered on 20:53; Admin Dose 20 GM; Start 06/05/17 at 06:00 Collagenase (Santyl) 1 applic DAILY TOP Last administered on 06/09/17 12:22; Admin Dose 1 APPLIC; Start 06/05/17 at 15:30 Senna (Senokot) 2 tab HS PO Last administered on 06/08/17 20:37; Admin Dose 2 TAB; Start 06/07/17 at 21:00 Hydromorphone HCl (Dilaudid) 1.5 mg Q8H PRN SC SEVERE PAIN Last administered on 06/09/17 10:53; Admin Dose 1.5 MG; Start 06/09/17 at 16:10 Assessment/Plan Chief Complaint/Hosp Course IMP: 1. Obstructive sleep apnea. 2. Congestive cardiac failure. 3. Coronary artery disease. 4. Peripheral vascular disease. 5. Status post amputation with wound infection. RECS: 1. Continue CPAP 2. Outpatient sleep study Problems: VANITA GUILLERMO MD, [facility] Jun 09, 2017 15:35
[2017-06-09 20:00] VITALS: BP 105/58; PULSE 71; RESP 16
[2017-06-09] MEDS: SENNA TAB PO SCH (21:00)
[2017-06-10] MEDS: ACCUCHECK AT 2AM (Patients on SS coverage) XX SCH (02:00)
--- NOTE | 2017-06-10 02:10 | PN ---
DATE: 06/09/2017 CARDIOLOGY FOLLOWUP SUBJECTIVE: Discussed with the staff. The patient with no chest pain or pressure. No palpitation. He is cooperating with the physical therapy. Denies any PND or orthopnea. MEDICATIONS: Reviewed. PHYSICAL EXAMINATION: VITAL SIGNS: Temperature 98.9, heart rate of 71, blood pressure 132/66, respiration rate of 18, sat urating 99%. HEENT: Normocephalic, atraumatic. Obese gentleman. Pupils are equal. CARDIOVASCULAR: Regular rate and rhythm, systolic murmur. PULMONARY: Anteriorly with no wheezes, no rhonchi. GASTROINTESTINAL: Soft, nontender. EXTREMITIES: Status post right BKA. NEUROLOGIC: Awake and alert. PSYCHIATRIC: Calm, pleasant. ASSESSMENT AND PLAN: 1. Severe coronary artery disease status post bypass surgery, status post PCI, currently stable. 2. Hypertension, under good control. 3. History of ventricular tachycardia status post ICD, currently stable. 4. History of thyroid disorder, remains stable. 5. Severe peripheral vascular disease status right below-knee amputation. 6. Debility. 7. Diabetes. 8. Congestive heart failure. 9. Severe ischemic cardiomyopathy. RECOMMENDATIONS: We will continue with the current cardiac care. Respiratory care will be continue d. BiPAP at night will be continued. Physical therapy and rehab will be continued. Dictated By: SALVADOR TAFOYA/SURENDRA Conf#: [id number] DID#: [id number]
[2017-06-10 03:00] VITALS: BP 128/58; RESP 16
[2017-06-10] MEDS: FUROSEMIDE 40 MG TAB PO SCH (06:43)
[2017-06-10] MEDS: PANTOPRAZOLE (EC) 40 MG TAB PO SCH (06:43)
[2017-06-10 06:46] VITALS: BP 126/72
[2017-06-10 07:30] VITALS: BP 118/62; RESP 18
[2017-06-10] MEDS: ENOXAPARIN 30 MG/0.3 ML SYG SC SCH (08:34)
[2017-06-10] MEDS: SPIRONOLACTONE 25 MG TAB PO SCH (08:35)
[2017-06-10] MEDS: COLLAGENASE 30 GM TUBE TOP SCH (08:35)
[2017-06-10] MEDS: DOCUSATE SODIUM 100 MG CAP PO SCH ×2 (08:35→20:32)
[2017-06-10] MEDS: CLOPIDOGREL 75 MG TAB PO SCH (08:35)
[2017-06-10] MEDS: AMIODARONE 200 MG TAB PO SCH (08:36)
[2017-06-10] MEDS: GABAPENTIN 300 MG CAP PO SCH ×3 (08:36→20:31)
[2017-06-10] MEDS: ASPIRIN (EC) 81 MG TAB PO SCH (08:37)
[2017-06-10] MEDS: LOSARTAN 25 MG TAB PO SCH (08:37)
[2017-06-10] MEDS: INSULIN ASPART [NOVOLOG] 3 ML PEN SC SCH ×3 (08:37→17:36)
[2017-06-10] MEDS: Insulin NOVOLOG SS MILD Algorithm (SS with meals and bedtime) SC SCH ×4 (08:37→20:38)
[2017-06-10] MEDS: oxyCODONE (CR) 10 MG TAB [oxyCONTIN] PO SCH ×2 (08:37→20:32)
[2017-06-10] MEDS: ALLOPURINOL 100 MG TAB PO SCH ×2 (08:37→20:32)
[2017-06-10] MEDS: INSULIN GLARGINE [LANtus] 3 ML PEN SC SCH ×2 (08:46→20:36)
[2017-06-10] MEDS: OXYCODONE/ACETAMINOPHEN (10/325) TAB PO PRN (10:57)
--- NOTE | 2017-06-10 12:29 | CONS ---
Date/Time of Note Date/Time of Note DATE: 06/10/17 TIME: 12:28 Consult Date/Type/Reason Admit Date/Time Jun 04, 2017 at 20:02 Initial Consult Date 06/05/17 Type of Consultation: Pulm Ordering Provider: DANYELLE GUY DO Subjective Pt reports results with bowel program Objective pulm-cta mod assist Vital Signs Date Time Temp Pulse Resp B/P Pulse Ox O2 Delivery O2 Flow Rate FiO2 06/10/17 07:30 98.5 63 18 118/62 96 06/10/17 03:00 CPAP Intake and Output 06/09/17 06/09/17 06/10/17 15:00 23:00 07:00 Intake Total 300 ml Output Total 600 ml Balance -300 ml Results/Medications Result Diagram: 06/09/17 0537 06/09/17 0537 Results 24 hrs Laboratory Tests Test 06/09/17 17:40 06/09/17 20:46 06/10/17 07:58 06/10/17 08:31 Bedside Glucose 139 126 142 154 Test 06/10/17 11:56 Bedside Glucose 143 Medications Current Medications Acetaminophen (Tylenol Tab) 650 mg Q4H PRN PO PAIN AND OR ELEVATED TEMP; Start 06/05/17 at 00:00 Amiodarone HCl (Cordarone) 100 mg DAILY PO Last administered on 06/10/17 08:36 ; Admin Dose 100 MG; Start 06/05/17 at 09:00 Aspirin (Halfprin) 81 mg DAILY PO Last administered on 06/10/17 08:37; Admin Dose 81 MG; Start 06/05/17 at 09:00 Clopidogrel Bisulfate (plaVIX) 75 mg DAILY PO Last administered on 06/10/17 08 :35; Admin Dose 75 MG; Start 06/05/17 at 09:00 Enoxaparin Sodium (Lovenox) 30 mg DAILY SC Last administered on 06/10/17 08:34 ; Admin Dose 30 MG; Start 06/05/17 at 09:00 Furosemide (Lasix) 40 mg Q48H PO Last administered on 06/10/17 06:43; Admin Dose 40 MG; Start 06/06/17 at 06:00 Losartan Potassium (Cozaar) 12.5 mg DAILY PO Last administered on 06/10/17 08: 37; Admin Dose 12.5 MG; Start 06/05/17 at 09:00 Rosuvastatin Calcium (Crestor) 40 mg HS PO Last administered on 06/05/17 21:58 ; Admin Dose 40 MG; Start 06/05/17 at 21:00; Status Future Hold Allopurinol (Zyloprim) 100 mg BID PO Last administered on 06/10/17 08:37; Admin Dose 100 MG; Start 06/05/17 at 09:00 Gabapentin (Neurontin) 300 mg BID PO Last administered on 06/10/17 09:00; Admin Dose 300 MG; Start 06/05/17 at 09:00 Oxycodone/ Acetaminophen (Endocet ()) 1 tab Q6H PRN PO PAIN Last administered on 06/10/17 10:57; Admin Dose 1 TAB; Start 06/05/17 at 00:00 Oxycodone HCl (Oxycontin) 10 mg BID PO Last administered on 06/10/17 08:37; Admin Dose 10 MG; Start 06/05/17 at 09:00 Insulin Glargine (Lantus) 45 unit BID SC Last administered on 06/10/17 08:46; Admin Dose 45 UNIT; Start 06/05/17 at 09:00 Diagnostic Test (Pha) (Accu-Chek) 1 ea 02 XX ; Start 06/05/17 at 02:00 Polyethylene Glycol (Miralax) 17 gm DAILY PRN PO CONSTIPATION; Start 06/05/17 at 00:30 Zolpidem Tartrate (Ambien) 5 mg HS PRN PO INSOMNIA; Start 06/05/17 at 00:00 Spironolactone (Aldactone) 25 mg DAILY PO Last administered on 06/10/17 08:35 ; Admin Dose 25 MG; Start 06/05/17 at 09:00 Miscellaneous Information 1 ea NOTE XX ; Start 06/05/17 at 00:30 Glucose (Glutose) 15 gm Q15M PRN PO DECREASED GLUCOSE; Start 06/05/17 at 00:30 Glucose (Glutose) 22.5 gm Q15M PRN PO DECREASED GLUCOSE; Start 06/05/17 at 00: 30 Dextrose (D50w Syringe) 25 ml Q15M PRN IV DECREASED GLUCOSE; Start 06/05/17 at 00:30 Dextrose (D50w Syringe) 50 ml Q15M PRN IV DECREASED GLUCOSE; Start 06/05/17 at 00:30 Glucagon (Glucagen) 1 mg Q15M PRN IM DECREASED GLUCOSE; Start 06/05/17 at 00:30 Glucose (Glutose) 15 gm Q15M PRN BUCCAL DECREASED GLUCOSE; Start 06/05/17 at 00 :30 Docusate Sodium (Colace) 100 mg BID PO Last administered on 06/10/17 08:35; Admin Dose 100 MG; Start 06/05/17 at 09:00 Bisacodyl (Dulcolax Supp) 10 mg DAILY PRN [place] CONSTIPATION Last administered on 06/09/17 12:33; Admin Dose 10 MG; Start 06/05/17 at 06:00 Magnesium Hydroxide (Milk Of Mag) 30 ml BID PRN PO CONSTIPATION; Start at 06:00 Lactulose (Enulose) 20 gm DAILY PRN PO CONSTIPATION Last administered on 20:53; Admin Dose 20 GM; Start 06/05/17 at 06:00 Collagenase (Santyl) 1 applic DAILY TOP Last administered on 06/10/17 08:35; Admin Dose 1 APPLIC; Start 06/05/17 at 15:30 Senna (Senokot) 2 tab HS PO Last administered on 06/08/17 20:37; Admin Dose 2 TAB; Start 06/07/17 at 21:00 Hydromorphone HCl (Dilaudid) 1.5 mg Q8H PRN [place] SEVERE PAIN Last administered on 06/09/17 10:53; Admin Dose 1.5 MG; Start 06/09/17 at 16:10 Assessment/Plan Additional Assessment/Plan Rehab- Right below the knee amputation;Recent left toe amputation Continue current rehab activities Acute pain syndrome-continue current meds Constipation- continue bowel program. Anemia. Atrial fibrillation. Congestive heart failure. Chronic kidney disease. Coronary artery disease. Diabetes mellitus. Hypertension. History of cerebrovascular accident. History of peripheral vascular disease. Sleep apnea. BLAKE PÉREZ MD Jun 10, 2017 12:29
[2017-06-10 14:00] VITALS: BP 100/58; RESP 20
--- NOTE | 2017-06-10 15:44 | CONS ---
Date/Time of Note Date/Time of Note DATE: 06/10/17 TIME: 15:43 Consult Date/Type/Reason Admit Date/Time Jun 04, 2017 at 20:02 Initial Consult Date 06/05/17 Type of Consultation: Pulm Ordering Provider: DANYELLE GUY DO Subjective Patient continues physical therapy remains stable Objective Vital Signs Date Time Temp Pulse Resp B/P Pulse Ox O2 Delivery O2 Flow Rate FiO2 06/10/17 14:00 98.5 65 20 100/58 94 06/10/17 03:00 CPAP Intake and Output 06/09/17 06/09/17 06/10/17 15:00 23:00 07:00 Intake Total 300 ml Output Total 600 ml Balance -300 ml Exam HEENT: Neck supple; no JVD; no LAD CVS: RRR, S1 and S2 CHEST: Clear ABD: Soft, NT, + BS EXT: No c/c; LE dressing in place Results/Medications Result Diagram: 06/09/17 0537 06/09/17 0537 Results 24 hrs Laboratory Tests Test 06/09/17 17:40 06/09/17 20:46 06/10/17 07:58 06/10/17 08:31 Bedside Glucose 139 126 142 154 Test 06/10/17 11:56 Bedside Glucose 143 Medications Current Medications Acetaminophen (Tylenol Tab) 650 mg Q4H PRN PO PAIN AND OR ELEVATED TEMP; Start 06/05/17 at 00:00 Amiodarone HCl (Cordarone) 100 mg DAILY PO Last administered on 06/10/17 08:36 ; Admin Dose 100 MG; Start 06/05/17 at 09:00 Aspirin (Halfprin) 81 mg DAILY PO Last administered on 06/10/17 08:37; Admin Dose 81 MG; Start 06/05/17 at 09:00 Clopidogrel Bisulfate (plaVIX) 75 mg DAILY PO Last administered on 06/10/17 08 :35; Admin Dose 75 MG; Start 06/05/17 at 09:00 Enoxaparin Sodium (Lovenox) 30 mg DAILY SC Last administered on 06/10/17 08:34 ; Admin Dose 30 MG; Start 06/05/17 at 09:00 Furosemide (Lasix) 40 mg Q48H PO Last administered on 06/10/17 06:43; Admin Dose 40 MG; Start 06/06/17 at 06:00 Losartan Potassium (Cozaar) 12.5 mg DAILY PO Last administered on 06/10/17 08: 37; Admin Dose 12.5 MG; Start 06/05/17 at 09:00 Rosuvastatin Calcium (Crestor) 40 mg HS PO Last administered on 06/05/17 21:58 ; Admin Dose 40 MG; Start 06/05/17 at 21:00; Status Future Hold Allopurinol (Zyloprim) 100 mg BID PO Last administered on 06/10/17 08:37; Admin Dose 100 MG; Start 06/05/17 at 09:00 Gabapentin (Neurontin) 300 mg BID PO Last administered on 06/10/17 09:00; Admin Dose 300 MG; Start 06/05/17 at 09:00 Oxycodone/ Acetaminophen (Endocet (10 325)) 1 tab Q6H PRN PO PAIN Last administered on 06/10/17 10:57; Admin Dose 1 TAB; Start 06/05/17 at 00:00 Oxycodone HCl (Oxycontin) 10 mg BID PO Last administered on 06/10/17 08:37; Admin Dose 10 MG; Start 06/05/17 at 09:00 Insulin Glargine (Lantus) 45 unit BID SC Last administered on 06/10/17 08:46; Admin Dose 45 UNIT; Start 06/05/17 at 09:00 Diagnostic Test (Pha) (Accu-Chek) 1 ea 02 XX ; Start 06/05/17 at 02:00 Polyethylene Glycol (Miralax) 17 gm DAILY PRN PO CONSTIPATION; Start 06/05/17 at 00:30 Zolpidem Tartrate (Ambien) 5 mg HS PRN PO INSOMNIA; Start 06/05/17 at 00:00 Spironolactone (Aldactone) 25 mg DAILY PO Last administered on 06/10/17 08:35 ; Admin Dose 25 MG; Start 06/05/17 at 09:00 Miscellaneous Information 1 ea NOTE XX ; Start 06/05/17 at 00:30 Glucose (Glutose) 15 gm Q15M PRN PO DECREASED GLUCOSE; Start 06/05/17 at 00:30 Glucose (Glutose) 22.5 gm Q15M PRN PO DECREASED GLUCOSE; Start 06/05/17 at 00: 30 Dextrose (D50w Syringe) 25 ml Q15M PRN IV DECREASED GLUCOSE; Start 06/05/17 at 00:30 Dextrose (D50w Syringe) 50 ml Q15M PRN IV DECREASED GLUCOSE; Start 06/05/17 at 00:30 Glucagon (Glucagen) 1 mg Q15M PRN IM DECREASED GLUCOSE; Start 06/05/17 at 00:30 Glucose (Glutose) 15 gm Q15M PRN BUCCAL DECREASED GLUCOSE; Start 06/05/17 at 00 :30 Docusate Sodium (Colace) 100 mg BID PO Last administered on 06/10/17 08:35; Admin Dose 100 MG; Start 06/05/17 at 09:00 Bisacodyl (Dulcolax Supp) 10 mg DAILY PRN MD CONSTIPATION Last administered on 06/09/17 12:33; Admin Dose 10 MG; Start 06/05/17 at 06:00 Magnesium Hydroxide (Milk Of Mag) 30 ml BID PRN PO CONSTIPATION; Start at 06:00 Lactulose (Enulose) 20 gm DAILY PRN PO CONSTIPATION Last administered on 20:53; Admin Dose 20 GM; Start 06/05/17 at 06:00 Collagenase (Santyl) 1 applic DAILY TOP Last administered on 06/10/17 08:35; Admin Dose 1 APPLIC; Start 06/05/17 at 15:30 Senna (Senokot) 2 tab HS PO Last administered on 06/08/17 20:37; Admin Dose 2 TAB; Start 06/07/17 at 21:00 Hydromorphone HCl (Dilaudid) 1.5 mg Q8H PRN SC SEVERE PAIN Last administered on 06/09/17 10:53; Admin Dose 1.5 MG; Start 06/09/17 at 16:10 Assessment/Plan Chief Complaint/Hosp Course IMP: 1. Obstructive sleep apnea. 2. Congestive cardiac failure. 3. Coronary artery disease. 4. Peripheral vascular disease. 5. Status post amputation with wound infection. RECS: 1. Continue CPAP 2. Outpatient sleep study Problems: VANITA GUILLERMO [facility] Jun 10, 2017 15:44
--- NOTE | 2017-06-10 16:55 | CONS ---
Date/Time of Note Date/Time of Note DATE: 06/10/17 TIME: 16:54 Consult Date/Type/Reason Admit Date/Time Jun 04, 2017 at 20:02 Initial Consult Date 06/05/17 Type of Consultation: card Ordering Provider: DANYELLE GUY DO Subjective cardiology follow up note: S: Discussed with staff Patient stated he is feeling better. His leg pain is better. Denies any chest pain or pressure to me he noted any PND orthopnea to me. He denies any wheezing or shortness of breath to me. O: General: no acute distress. obese man HEENT: NC/AT. pupils are equal. round. NECK: NO JVD. no stridor. CV: RRR. systolic murmur; no gallop or rubs. PULM: no wheezing or rhonchi. GI: SOFT, NT, ND, no rebound or guarding obese. Extremity: s/p R AKA. neuro: awake and alert, OX3. Psych: calm and pleasant rectal: deferred : deferred. Objective Vital Signs Date Time Temp Pulse Resp B/P Pulse Ox O2 Delivery O2 Flow Rate FiO2 06/10/17 14:00 98.5 65 20 100/58 94 06/10/17 03:00 CPAP Intake and Output 06/09/17 06/09/17 06/10/17 15:00 23:00 07:00 Intake Total 300 ml Output Total 600 ml Balance -300 ml Results/Medications Result Diagram: 06/09/17 0537 06/09/17 0537 Results 24 hrs Laboratory Tests Test 06/09/17 17:40 06/09/17 20:46 06/10/17 07:58 06/10/17 08:31 Bedside Glucose 139 126 142 154 Test 06/10/17 11:56 Bedside Glucose 143 Medications Current Medications Acetaminophen (Tylenol Tab) 650 mg Q4H PRN PO PAIN AND OR ELEVATED TEMP; Start 06/05/17 at 00:00 Amiodarone HCl (Cordarone) 100 mg DAILY PO Last administered on 06/10/17 08:36 ; Admin Dose 100 MG; Start 06/05/17 at 09:00 Aspirin (Halfprin) 81 mg DAILY PO Last administered on 06/10/17 08:37; Admin Dose 81 MG; Start 06/05/17 at 09:00 Clopidogrel Bisulfate (plaVIX) 75 mg DAILY PO Last administered on 06/10/17 08 :35; Admin Dose 75 MG; Start 06/05/17 at 09:00 Enoxaparin Sodium (Lovenox) 30 mg DAILY SC Last administered on 06/10/17 08:34 ; Admin Dose 30 MG; Start 06/05/17 at 09:00 Furosemide (Lasix) 40 mg Q48H PO Last administered on 06/10/17 06:43; Admin Dose 40 MG; Start 06/06/17 at 06:00 Losartan Potassium (Cozaar) 12.5 mg DAILY PO Last administered on 06/10/17 08: 37; Admin Dose 12.5 MG; Start 06/05/17 at 09:00 Rosuvastatin Calcium (Crestor) 40 mg HS PO Last administered on 06/05/17 21:58 ; Admin Dose 40 MG; Start 06/05/17 at 21:00; Status Future Hold Allopurinol (Zyloprim) 100 mg BID PO Last administered on 06/10/17 08:37; Admin Dose 100 MG; Start 06/05/17 at 09:00 Gabapentin (Neurontin) 300 mg BID PO Last administered on 06/10/17 09:00; Admin Dose 300 MG; Start 06/05/17 at 09:00 Oxycodone/ Acetaminophen (Endocet (10/ 325)) 1 tab Q6H PRN PO PAIN Last administered on 06/10/17 10:57; Admin Dose 1 TAB; Start 06/05/17 at 00:00 Oxycodone HCl (Oxycontin) 10 mg BID PO Last administered on 06/10/17 08:37; Admin Dose 10 MG; Start 06/05/17 at 09:00 Insulin Glargine (Lantus) 45 unit BID SC Last administered on 06/10/17 08:46; Admin Dose 45 UNIT; Start 06/05/17 at 09:00 Diagnostic Test (Pha) (Accu-Chek) 1 ea 02 XX ; Start 06/05/17 at 02:00 Polyethylene Glycol (Miralax) 17 gm DAILY PRN PO CONSTIPATION; Start 06/05/17 at 00:30 Zolpidem Tartrate (Ambien) 5 mg HS PRN PO INSOMNIA; Start 06/05/17 at 00:00 Spironolactone (Aldactone) 25 mg DAILY PO Last administered on 06/10/17 08:35 ; Admin Dose 25 MG; Start 06/05/17 at 09:00 Miscellaneous Information 1 ea NOTE XX ; Start 06/05/17 at 00:30 Glucose (Glutose) 15 gm Q15M PRN PO DECREASED GLUCOSE; Start 06/05/17 at 00:30 Glucose (Glutose) 22.5 gm Q15M PRN PO DECREASED GLUCOSE; Start 06/05/17 at 00: 30 Dextrose (D50w Syringe) 25 ml Q15M PRN IV DECREASED GLUCOSE; Start 06/05/17 at 00:30 Dextrose (D50w Syringe) 50 ml Q15M PRN IV DECREASED GLUCOSE; Start 06/05/17 at 00:30 Glucagon (Glucagen) 1 mg Q15M PRN IM DECREASED GLUCOSE; Start 06/05/17 at 00:30 Glucose (Glutose) 15 gm Q15M PRN BUCCAL DECREASED GLUCOSE; Start 06/05/17 at 00 :30 Docusate Sodium (Colace) 100 mg BID PO Last administered on 06/10/17 08:35; Admin Dose 100 MG; Start 06/05/17 at 09:00 Bisacodyl (Dulcolax Supp) 10 mg DAILY PRN [place] CONSTIPATION Last administered on 06/09/17 12:33; Admin Dose 10 MG; Start 06/05/17 at 06:00 Magnesium Hydroxide (Milk Of Mag) 30 ml BID PRN PO CONSTIPATION; Start at 06:00 Lactulose (Enulose) 20 gm DAILY PRN PO CONSTIPATION Last administered on 20:53; Admin Dose 20 GM; Start 06/05/17 at 06:00 Collagenase (Santyl) 1 applic DAILY TOP Last administered on 06/10/17 08:35; Admin Dose 1 APPLIC; Start 06/05/17 at 15:30 Senna (Senokot) 2 tab HS PO Last administered on 06/08/17 20:37; Admin Dose 2 TAB; Start 06/07/17 at 21:00 Hydromorphone HCl (Dilaudid) 1.5 mg Q8H PRN SC SEVERE PAIN Last administered on 06/09/17 10:53; Admin Dose 1.5 MG; Start 06/09/17 at 16:10 Assessment/Plan Chief Complaint/Hosp Course 1. CAD 2. HX CABG 3. HX RI 4. HX multiple PCI 5. Severe PAD 6. S/P Previous LE revascularizations 7. gangrene toe s/p R BKA now 8/ DM 9. hx hyperthyroidism: TSH is wnl on 06/06/17 10. hx VT s/p ICD 11. CHF: chronic and stable due to systolic heart failure 12. dyslipidemia: on statin 13. CKD 14. Debility 15. Markedly elevated CK: probably related to recent surgery. Recommendations: I will continue with the transfer cardiac medications Aspirin and Plavix will be continued. Coreg and ARB will be continued and try to increase as tolerated. Statin will be held for now due to markedly elevated CK level and restarted once CK is better controlled. Diabetic management as per internal medicine. Physical therapy and rehab will be continued. nightly CPAP . Thank you for his referral. I will continue to follow along with you. SALVADOR BARRETO MD [facility] Problems: SALVADOR BARRETO MD Jun 10, 2017 16:55
[2017-06-10 20:00] VITALS: BP 99/55; RESP 18
[2017-06-10] MEDS: SENNA TAB PO SCH (20:32)
[2017-06-11 02:00] VITALS: BP 97/57; RESP 18
[2017-06-11] MEDS: ACCUCHECK AT 2AM (Patients on SS coverage) XX SCH (02:00)
--- NOTE | 2017-06-11 06:34 | PN ---
DATE: 06/10/2017 SUBJECTIVE: The patient is stable. No events overnight. No fevers, chills, nausea, vomiting. OBJECTIVE: VITAL SIGNS: Blood pressure is 126/72, respirations 16, pulse 71, temperature 99.3. HEENT: Head is normocephalic. Pupils are round and reactive to light. NECK: Supple. HEART: Regular rate. LUNGS: Show diminished breath sounds at the base. ABDOMEN: Soft, nontender to palpation. No rebound or guarding. EXTREMITIES: Negative for clubbing, cyanosis, no edema on the left leg. Right above-knee amputatio n noted. DERMATOLOGIC: No rashes. MUSCULOSKELETAL: No joint effusions. NEUROLOGIC: No change in exam. MEDICATIONS: Have been reviewed. LABORATORY DATA: Has been reviewed. No new labs. ASSESSMENT AND PLAN: 1. 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 The patient is currently stable. Continue medical management. 2. Sleep apnea. Continue CPAP at night. 3. Chronic kidney disease, stage IIIB/IV. Renal functions stable. Continue current treatment plan , supportive care, renally dose all medications. 4. Coronary artery disease. Continue medical management. 5. Diabetes. Continue current insulin regimen. 6. Leukocytosis, likely reactive, improving. Continue to monitor off antibiotics. 7. Congestive heart failure. Continue medical management. 8. Dyslipidemia. Continue statin therapy. 9. History of coronary artery disease, status post coronary artery bypass graft. Continue current treatment plan. 10. Hypertension. Continue current blood pressure regimen. 11. History of arrhythmia. Continue amiodarone. 12. Gastrointestinal and deep venous thrombosis prophylaxis. Continue proton pump inhibitor and Lo venox. Dictated By: DANYELLE FRANCOIS/SURENDRA Conf#: [id number] DID#: [id number]
[2017-06-11] MEDS: PANTOPRAZOLE (EC) 40 MG TAB PO SCH (06:48)
[2017-06-11 08:00] VITALS: BP 106/59; RESP 19
[2017-06-11] MEDS: INSULIN GLARGINE [LANtus] 3 ML PEN SC SCH ×2 (08:15→20:53)
[2017-06-11] MEDS: ENOXAPARIN 30 MG/0.3 ML SYG SC SCH (08:16)
[2017-06-11] MEDS: oxyCODONE (CR) 10 MG TAB [oxyCONTIN] PO SCH ×2 (08:17→20:44)
[2017-06-11] MEDS: SPIRONOLACTONE 25 MG TAB PO SCH (08:20)
[2017-06-11] MEDS: ASPIRIN (EC) 81 MG TAB PO SCH (08:23)
[2017-06-11] MEDS: GABAPENTIN 300 MG CAP PO SCH ×2 (08:23→20:44)
[2017-06-11] MEDS: DOCUSATE SODIUM 100 MG CAP PO SCH ×2 (08:23→20:44)
[2017-06-11] MEDS: CLOPIDOGREL 75 MG TAB PO SCH (08:23)
[2017-06-11] MEDS: ALLOPURINOL 100 MG TAB PO SCH ×2 (08:23→20:45)
[2017-06-11] MEDS: LOSARTAN 25 MG TAB PO SCH (08:28)
[2017-06-11] MEDS: AMIODARONE 200 MG TAB PO SCH (08:29)
[2017-06-11] MEDS: INSULIN ASPART [NOVOLOG] 3 ML PEN SC SCH ×3 (08:35→17:40)
[2017-06-11] MEDS: Insulin NOVOLOG SS MILD Algorithm (SS with meals and bedtime) SC SCH ×4 (08:36→20:54)
[2017-06-11] MEDS: COLLAGENASE 30 GM TUBE TOP SCH (08:36)
--- NOTE | 2017-06-11 09:02 | PN ---
DATE: 06/11/2017 SUBJECTIVE: The patient is stable. No events overnight. No fevers, chills, nausea, vomiting. OBJECTIVE: VITAL SIGNS: Blood pressure 97/57, respiration 18, pulse 61, temperature 98.4. HEENT: Head is normocephalic. NECK: Supple. HEART: Regular rate. LUNGS: Show diminished breath sounds at the base. ABDOMEN: Soft, nontender to palpation without rebound or guarding. EXTREMITIES: Negative for clubbing, cyanosis, no edema. Positive right below knee amputation. DERMATOLOGIC: No rashes. MUSCULOSKELETAL: No joint effusions. NEUROLOGIC: No change in exam. MEDICATIONS: Have been reviewed. LABORATORY DATA: Has been reviewed. ASSESSMENT AND PLAN: 1. 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 The patient is currently stable. Continue medical management. 2. Sleep apnea. Continue CPAP. 3. Chronic kidney disease, stage IIIB/IV. Renal functions stable. Continue current treatment plan , supportive care, renally dose all medicines. 4. Coronary artery disease. Continue medical management. 5. Diabetes. Continue current insulin regimen. 6. Leukocytosis, improving. Continue to monitor. 7. Congestive heart failure. Continue medical management. 8. Dyslipidemia. Continue statin therapy. 9. History of coronary artery disease, status post coronary artery bypass graft. Continue current treatment plan. 10. Hypertension. Blood pressure controlled. Monitor closely. 11. History of arrhythmia. Continue amiodarone. 12. Gastrointestinal and deep venous thrombosis prophylaxis. Dictated By: DANYELLE FRANCOIS/SURENDRA Conf#: [id number] DID#: [id number]
--- NOTE | 2017-06-11 09:13 | CONS ---
Date/Time of Note Date/Time of Note DATE: 06/11/17 TIME: 09:12 Consult Date/Type/Reason Admit Date/Time Jun 04, 2017 at 20:02 Initial Consult Date 06/05/17 Type of Consultation: card Ordering Provider: DANYELLE GUY DO Subjective cardiology follow up note: S: Discussed with staff HE has mild leg pain . Denies any chest pain or pressure to me he noted any PND orthopnea to me. He denies any wheezing or shortness of breath to me. he is cooperating with PT. O: General: no acute distress. obese man HEENT: NC/AT. pupils are equal. round. NECK: NO JVD. no stridor. CV: RRR. systolic murmur; no gallop or rubs. PULM: no wheezing or rhonchi. GI: SOFT, NT, ND, no rebound or guarding obese. Extremity: s/p R AKA. neuro: awake and alert, OX3. Psych: calm and pleasant rectal: deferred : deferred. Objective Vital Signs Date Time Temp Pulse Resp B/P Pulse Ox O2 Delivery O2 Flow Rate FiO2 06/11/17 02:00 98.4 61 18 97/57 98 06/10/17 03:00 CPAP Intake and Output 06/10/17 06/10/17 06/11/17 15:00 23:00 07:00 Intake Total 920 ml 240 ml Output Total 540 ml 850 ml Balance 380 ml -610 ml Results/Medications Result Diagram: 06/09/17 0537 06/09/17 0537 Results 24 hrs Laboratory Tests Test 06/10/17 11:56 06/10/17 17:33 06/10/17 20:28 06/11/17 07:54 Bedside Glucose 143 102 98 133 Test 06/11/17 08:34 Bedside Glucose 163 Medications Current Medications Acetaminophen (Tylenol Tab) 650 mg Q4H PRN PO PAIN AND OR ELEVATED TEMP; Start 06/05/17 at 00:00 Amiodarone HCl (Cordarone) 100 mg DAILY PO Last administered on 06/11/17 08:29 ; Admin Dose 100 MG; Start 06/05/17 at 09:00 Aspirin (Halfprin) 81 mg DAILY PO Last administered on 06/11/17 08:23; Admin Dose 81 MG; Start 06/05/17 at 09:00 Clopidogrel Bisulfate (plaVIX) 75 mg DAILY PO Last administered on 06/11/17 08 :23; Admin Dose 75 MG; Start 06/05/17 at 09:00 Enoxaparin Sodium (Lovenox) 30 mg DAILY SC Last administered on 06/11/17 08:16 ; Admin Dose 30 MG; Start 06/05/17 at 09:00 Furosemide (Lasix) 40 mg Q48H PO Last administered on 06/10/17 06:43; Admin Dose 40 MG; Start 06/06/17 at 06:00 Losartan Potassium (Cozaar) 12.5 mg DAILY PO Last administered on 06/11/17 08: 28; Admin Dose 12.5 MG; Start 06/05/17 at 09:00 Rosuvastatin Calcium (Crestor) 40 mg HS PO Last administered on 06/05/17 21:58 ; Admin Dose 40 MG; Start 06/05/17 at 21:00; Status Future Hold Allopurinol (Zyloprim) 100 mg BID PO Last administered on 06/11/17 08:23; Admin Dose 100 MG; Start 06/05/17 at 09:00 Gabapentin (Neurontin) 300 mg BID PO Last administered on 06/11/17 08:23; Admin Dose 300 MG; Start 06/05/17 at 09:00 Oxycodone/ Acetaminophen (Endocet (10/ 325)) 1 tab Q6H PRN PO PAIN Last administered on 06/10/17 10:57; Admin Dose 1 TAB; Start 06/05/17 at 00:00 Oxycodone HCl (Oxycontin) 10 mg BID PO Last administered on 06/11/17 08:17; Admin Dose 10 MG; Start 06/05/17 at 09:00 Insulin Glargine (Lantus) 45 unit BID SC Last administered on 06/11/17 08:15; Admin Dose 45 UNIT; Start 06/05/17 at 09:00 Diagnostic Test (Pha) (Accu-Chek) 1 ea 02 XX ; Start 06/05/17 at 02:00 Polyethylene Glycol (Miralax) 17 gm DAILY PRN PO CONSTIPATION; Start 06/05/17 at 00:30 Zolpidem Tartrate (Ambien) 5 mg HS PRN PO INSOMNIA; Start 06/05/17 at 00:00 Spironolactone (Aldactone) 25 mg DAILY PO Last administered on 06/11/17 08:20 ; Admin Dose 25 MG; Start 06/05/17 at 09:00 Miscellaneous Information 1 ea NOTE XX ; Start 06/05/17 at 00:30 Glucose (Glutose) 15 gm Q15M PRN PO DECREASED GLUCOSE; Start 06/05/17 at 00:30 Glucose (Glutose) 22.5 gm Q15M PRN PO DECREASED GLUCOSE; Start 06/05/17 at 00: 30 Dextrose (D50w Syringe) 25 ml Q15M PRN IV DECREASED GLUCOSE; Start 06/05/17 at 00:30 Dextrose (D50w Syringe) 50 ml Q15M PRN IV DECREASED GLUCOSE; Start 06/05/17 at 00:30 Glucagon (Glucagen) 1 mg Q15M PRN IM DECREASED GLUCOSE; Start 06/05/17 at 00:30 Glucose (Glutose) 15 gm Q15M PRN BUCCAL DECREASED GLUCOSE; Start 06/05/17 at 00 :30 Docusate Sodium (Colace) 100 mg BID PO Last administered on 06/11/17 08:23; Admin Dose 100 MG; Start 06/05/17 at 09:00 Bisacodyl (Dulcolax Supp) 10 mg DAILY PRN ME CONSTIPATION Last administered on 06/09/17 12:33; Admin Dose 10 MG; Start 06/05/17 at 06:00 Magnesium Hydroxide (Milk Of Mag) 30 ml BID PRN PO CONSTIPATION; Start at 06:00 Lactulose (Enulose) 20 gm DAILY PRN PO CONSTIPATION Last administered on 20:53; Admin Dose 20 GM; Start 06/05/17 at 06:00 Collagenase (Santyl) 1 applic DAILY TOP Last administered on 06/11/17 08:36; Admin Dose 1 APPLIC; Start 06/05/17 at 15:30 Senna (Senokot) 2 tab HS PO Last administered on 06/10/17 20:32; Admin Dose 2 TAB; Start 06/07/17 at 21:00 Hydromorphone HCl (Dilaudid) 1.5 mg Q8H PRN SC SEVERE PAIN Last administered on 06/09/17 10:53; Admin Dose 1.5 MG; Start 06/09/17 at 16:10 Assessment/Plan Chief Complaint/Hosp Course 1. CAD 2. HX CABG 3. HX SD 4. HX multiple PCI 5. Severe PAD 6. S/P Previous LE revascularizations 7. gangrene toe s/p R BKA now 8/ DM 9. hx hyperthyroidism: TSH is wnl on 06/06/17 10. hx VT s/p ICD 11. CHF: chronic and stable due to systolic heart failure 12. dyslipidemia: on statin 13. CKD 14. Debility 15. Markedly elevated CK: probably related to recent surgery. Recommendations: I will continue with the transfer cardiac medications Aspirin and Plavix will be continued. Coreg and ARB will be continued and try to increase as tolerated. Statin will be held for now due to markedly elevated CK level and restarted once CK is better controlled. Diabetic management as per internal medicine. Physical therapy and rehab will be continued. nightly CPAP . Thank you for his referral. I will continue to follow along with you. SALVADOR BARRETO MD [facility] Problems: SALVADOR BARRETO MD Jun 11, 2017 09:13
--- NOTE | 2017-06-11 11:54 | CONS ---
Date/Time of Note Date/Time of Note DATE: 06/11/17 TIME: 11:54 Consult Date/Type/Reason Admit Date/Time Jun 04, 2017 at 20:02 Initial Consult Date 06/05/17 Type of Consultation: card Ordering Provider: DANYELLE GUY DO Subjective had results with bowel program Objective pulm-cta min assist transfer Vital Signs Date Time Temp Pulse Resp B/P Pulse Ox O2 Delivery O2 Flow Rate FiO2 06/11/17 02:00 98.4 61 18 97/57 98 06/10/17 03:00 CPAP Intake and Output 06/10/17 06/10/17 06/11/17 15:00 23:00 07:00 Intake Total 920 ml 240 ml Output Total 540 ml 850 ml Balance 380 ml -610 ml Results/Medications Result Diagram: 06/09/17 0537 06/09/1737 Results 24 hrs Laboratory Tests Test 06/10/17 11:56 06/10/17 17:33 06/10/17 20:28 06/11/17 07:54 Bedside Glucose 143 102 98 133 Test 06/11/17 08:34 Bedside Glucose 163 Medications Current Medications Acetaminophen (Tylenol Tab) 650 mg Q4H PRN PO PAIN AND OR ELEVATED TEMP; Start 06/05/17 at 00:00 Amiodarone HCl (Cordarone) 100 mg DAILY PO Last administered on 06/11/17 08:29 ; Admin Dose 100 MG; Start 06/05/17 at 09:00 Aspirin (Halfprin) 81 mg DAILY PO Last administered on 06/11/17 08:23; Admin Dose 81 MG; Start 06/05/17 at 09:00 Clopidogrel Bisulfate (plaVIX) 75 mg DAILY PO Last administered on 06/11/17 08 :23; Admin Dose 75 MG; Start 06/05/17 at 09:00 Enoxaparin Sodium (Lovenox) 30 mg DAILY SC Last administered on 06/11/17 08:16 ; Admin Dose 30 MG; Start 06/05/17 at 09:00 Furosemide (Lasix) 40 mg Q48H PO Last administered on 06/10/17 06:43; Admin Dose 40 MG; Start 06/06/17 at 06:00 Losartan Potassium (Cozaar) 12.5 mg DAILY PO Last administered on 06/11/17 08: 28; Admin Dose 12.5 MG; Start 06/05/17 at 09:00 Rosuvastatin Calcium (Crestor) 40 mg HS PO Last administered on 06/05/17 21:58 ; Admin Dose 40 MG; Start 06/05/17 at 21:00; Status Future Hold Allopurinol (Zyloprim) 100 mg BID PO Last administered on 06/11/17 08:23; Admin Dose 100 MG; Start 06/05/17 at 09:00 Gabapentin (Neurontin) 300 mg BID PO Last administered on 06/11/17 08:23; Admin Dose 300 MG; Start 06/05/17 at 09:00 Oxycodone/ Acetaminophen (Endocet (10)) 1 tab Q6H PRN PO PAIN Last administered on 06/10/17 10:57; Admin Dose 1 TAB; Start 06/05/17 at 00:00 Oxycodone HCl (Oxycontin) 10 mg BID PO Last administered on 06/11/17 08:17; Admin Dose 10 MG; Start 06/05/17 at 09:00 Insulin Glargine (Lantus) 45 unit BID SC Last administered on 06/11/17 08:15; Admin Dose 45 UNIT; Start 06/05/17 at 09:00 Diagnostic Test (Pha) (Accu-Chek) 1 ea 02 XX ; Start 06/05/17 at 02:00 Polyethylene Glycol (Miralax) 17 gm DAILY PRN PO CONSTIPATION; Start 06/05/17 at 00:30 Zolpidem Tartrate (Ambien) 5 mg HS PRN PO INSOMNIA; Start 06/05/17 at 00:00 Spironolactone (Aldactone) 25 mg DAILY PO Last administered on 06/11/17 08:20 ; Admin Dose 25 MG; Start 06/05/17 at 09:00 Miscellaneous Information 1 ea NOTE XX ; Start 06/05/17 at 00:30 Glucose (Glutose) 15 gm Q15M PRN PO DECREASED GLUCOSE; Start 06/05/17 at 00:30 Glucose (Glutose) 22.5 gm Q15M PRN PO DECREASED GLUCOSE; Start 06/05/17 at 00: 30 Dextrose (D50w Syringe) 25 ml Q15M PRN IV DECREASED GLUCOSE; Start 06/05/17 at 00:30 Dextrose (D50w Syringe) 50 ml Q15M PRN IV DECREASED GLUCOSE; Start 06/05/17 at 00:30 Glucagon (Glucagen) 1 mg Q15M PRN IM DECREASED GLUCOSE; Start 06/05/17 at 00:30 Glucose (Glutose) 15 gm Q15M PRN BUCCAL DECREASED GLUCOSE; Start 06/05/17 at 00 :30 Docusate Sodium (Colace) 100 mg BID PO Last administered on 06/11/17 08:23; Admin Dose 100 MG; Start 06/05/17 at 09:00 Bisacodyl (Dulcolax Supp) 10 mg DAILY PRN IN CONSTIPATION Last administered on 06/09/17 12:33; Admin Dose 10 MG; Start 06/05/17 at 06:00 Magnesium Hydroxide (Milk Of Mag) 30 ml BID PRN PO CONSTIPATION; Start at 06:00 Lactulose (Enulose) 20 gm DAILY PRN PO CONSTIPATION Last administered on 20:53; Admin Dose 20 GM; Start 06/05/17 at 06:00 Collagenase (Santyl) 1 applic DAILY TOP Last administered on 06/11/17 08:36; Admin Dose 1 APPLIC; Start 06/05/17 at 15:30 Senna (Senokot) 2 tab HS PO Last administered on 06/10/17 20:32; Admin Dose 2 TAB; Start 06/07/17 at 21:00 Hydromorphone HCl (Dilaudid) 1.5 mg Q8H PRN SC SEVERE PAIN Last administered on 06/09/17 10:53; Admin Dose 1.5 MG; Start 06/09/17 at 16:10 Assessment/Plan Additional Assessment/Plan Rehab- Right below the knee amputation;Recent left toe amputation Continue rehab program Acute pain syndrome-continue current meds Constipation- improved,continue bowel program. Anemia. Atrial fibrillation. Congestive heart failure. Chronic kidney disease. Coronary artery disease. Diabetes mellitus. Hypertension. History of cerebrovascular accident. History of peripheral vascular disease. Sleep apnea. BLAKE PÉREZ MD Jun 11, 2017 11:54
[2017-06-11] MEDS: OXYCODONE/ACETAMINOPHEN (10/325) TAB PO PRN (12:01)
[2017-06-11 20:00] VITALS: BP 99/53; RESP 19
[2017-06-11] MEDS: SENNA TAB PO SCH (20:45)
--- NOTE | 2017-06-11 22:42 | CONS ---
DATE OF ADMISSION: 06/04/2017 DATE OF CONSULTATION: 06/11/2017 TYPE OF CONSULTATION: Psychological. REFERRING PHYSICIAN: Blake Beyer MD CONSULTING PSYCHOLOGIST: Real Wadsworth, PhD REASON FOR CONSULTATION: This consultation was requested by Dr. Megan Beyer in order to evaluate the cognitive and emotional functioning of this patient related to his present medical condition. HISTORY OF PRESENT ILLNESS: The patient is a 66-year-old male. He has multiple medical comorbiditi es. The patient did have a recent left great toe amputation. The patient then more recently had a right foot amputation. The patient was cleared medically and transferred to the acute rehabilitatio n unit for acute multidisciplinary rehabilitation. The patient is concerned about his medical condi tion. The patient is frustrated about all his medical problems, but has been dealing with them for a while. The patient is motivated to get better. FAMILY AND SOCIAL HISTORY: The patient lives in a home in [place] that they just moved in to 9 months ago with his and her uncle. The patient does want to return there upon discharge. Th e patient does have a ramp out the back of his house, does have the possibility of setting up a ramp entering into the house. He said the house itself is all 1 level. MEDICATIONS: The patient is not on any psychotropic medication. SUBSTANCE USE: The patient reports that he stopped drinking 30 years ago. The patient reports that he stopped smoking 15 years ago. MENTAL STATUS EXAMINATION: APPEARANCE: The patient was seen in bed. He was of average height and overweight. The patient is right-handed. BEHAVIOR: The patient was cooperative during the consultation. The patient did attempt to answer a ll questions presented to him by the interviewer. MOOD AND AFFECT: The patient's mood appears to be just slightly depressed. Affect does appear to b e slightly anxious. PERCEPTION: The patient reports no hallucinations or delusions. The patient was alert to person, p lace, situation and time. MEMORY AND COGNITION: The patient's memory and cognition appear to be intact. He was able to remem karen recent and remote events. He was able to name the hospital. He was able to say the month and t he year. The patient was able to say who the global supply chain vice president is and the governor of the state. He could not state who the mayor of the [place] is. The patient was able to spell "world" backwards. The patient was able to do 1 serial 7 subtraction from 100, but then made an error. Ove rall, his cognitive abilities appear to be intact. INTELLIGENCE: Intelligence appears to fall in the average range. INSIGHT: Fair. JUDGMENT: Fair. THOUGHT CONTENT: The patient is concerned about his present medical condition. The patient is princess vated to get better. The patient does have an idea of how he can function at home. He is trying to cope with numerous medical problems and is prepared to try to deal with them. DISCUSSION: The patient can likely benefit from some cognitive/behavioral psychotherapy while he is on the unit. This psychotherapy would focus on his underlying medical problems and his ability to cope with them. 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 Thank you very much, Dr. Megan Beyer, for referring this individual. Please do not hesitate to ca ll if you have additional questions. Dictated By: REAL WADSWORTH PHD HUSSEIN/SURENDRA Conf#: [id number] DID#: [id number] CC: BLAKE BEYER MD;*EndCC*
[2017-06-12 02:00] VITALS: BP 101/56; RESP 19
[2017-06-12] MEDS: ACCUCHECK AT 2AM (Patients on SS coverage) XX SCH (02:00)
[2017-06-12] MEDS: PANTOPRAZOLE (EC) 40 MG TAB PO SCH (06:29)
[2017-06-12] MEDS: FUROSEMIDE 40 MG TAB PO SCH (06:29)
[2017-06-12 07:00] VITALS: BP 104/55; RESP 18
[2017-06-12] MEDS: Insulin NOVOLOG SS MILD Algorithm (SS with meals and bedtime) SC SCH ×4 (07:35→20:37)
--- NOTE | 2017-06-12 07:48 | CONS ---
Date/Time of Note Date/Time of Note DATE: 06/12/17 TIME: 07:46 Consult Date/Type/Reason Admit Date/Time Jun 04, 2017 at 20:02 Initial Consult Date 06/05/17 Type of Consultation: card Ordering Provider: DANYELLE GUY DO Subjective cardiology follow up note: S: Discussed with staff pt denies any chest pain or pressure to me he noted any PND orthopnea to me. He denies any wheezing or shortness of breath to me. he is cooperating with PT. he was able to sleep well and uses his cpap at night time. O: General: no acute distress. obese man HEENT: NC/AT. pupils are equal. round. NECK: NO JVD. no stridor. CV: RRR. systolic murmur; no gallop or rubs. PULM: no wheezing or rhonchi. GI: SOFT, NT, ND, no rebound or guarding obese. Extremity: s/p R AKA. neuro: awake and alert, OX3. Psych: calm and pleasant rectal: deferred : deferred. Objective Vital Signs Date Time Temp Pulse Resp B/P Pulse Ox O2 Delivery O2 Flow Rate FiO2 06/12/17 02:00 98.0 69 19 101/56 99 06/10/17 03:00 CPAP Intake and Output 06/11/17 06/11/17 06/12/17 14:59 22:59 06:59 Intake Total 1300 ml 320 ml Output Total 1300 ml 250 ml Balance 0 ml 70 ml Results/Medications Result Diagram: 06/09/17 0537 06/09/17 0537 Results 24 hrs Laboratory Tests Test 06/11/17 07:54 06/11/17 08:34 06/11/17 11:58 06/11/17 17:31 Bedside Glucose 133 163 139 104 Test 06/11/17 20:43 06/12/17 03:22 Bedside Glucose 243 H 126 Medications Current Medications Acetaminophen (Tylenol Tab) 650 mg Q4H PRN PO PAIN AND OR ELEVATED TEMP; Start 06/05/17 at 00:00 Amiodarone HCl (Cordarone) 100 mg DAILY PO Last administered on 06/11/17 08:29 ; Admin Dose 100 MG; Start 06/05/17 at 09:00 Aspirin (Halfprin) 81 mg DAILY PO Last administered on 06/11/17 08:23; Admin Dose 81 MG; Start 06/05/17 at 09:00 Clopidogrel Bisulfate (plaVIX) 75 mg DAILY PO Last administered on 06/11/17 08 :23; Admin Dose 75 MG; Start 06/05/17 at 09:00 Enoxaparin Sodium (Lovenox) 30 mg DAILY SC Last administered on 06/11/17 08:16 ; Admin Dose 30 MG; Start 06/05/17 at 09:00 Furosemide (Lasix) 40 mg Q48H PO Last administered on 06/12/17 06:29; Admin Dose 40 MG; Start 06/06/17 at 06:00 Losartan Potassium (Cozaar) 12.5 mg DAILY PO Last administered on 06/11/17 08: 28; Admin Dose 12.5 MG; Start 06/05/17 at 09:00 Rosuvastatin Calcium (Crestor) 40 mg HS PO Last administered on 06/05/17 21:58 ; Admin Dose 40 MG; Start 06/05/17 at 21:00; Status Future Hold Allopurinol (Zyloprim) 100 mg BID PO Last administered on 06/11/17 20:45; Admin Dose 100 MG; Start 06/05/17 at 09:00 Gabapentin (Neurontin) 300 mg BID PO Last administered on 06/11/17 20:44; Admin Dose 300 MG; Start 06/05/17 at 09:00 Oxycodone/ Acetaminophen (Endocet (10/ 325)) 1 tab Q6H PRN PO PAIN Last administered on 06/11/17 12:01; Admin Dose 1 TAB; Start 06/05/17 at 00:00 Oxycodone HCl (Oxycontin) 10 mg BID PO Last administered on 06/11/17 20:44; Admin Dose 10 MG; Start 06/05/17 at 09:00 Insulin Glargine (Lantus) 45 unit BID SC Last administered on 06/11/17 20:53; Admin Dose 45 UNIT; Start 06/05/17 at 09:00 Diagnostic Test (Pha) (Accu-Chek) 1 ea 02 XX Last administered on 06/12/17 02: 00; Admin Dose 1 EA; Start 06/05/17 at 02:00 Polyethylene Glycol (Miralax) 17 gm DAILY PRN PO CONSTIPATION; Start 06/05/17 at 00:30 Zolpidem Tartrate (Ambien) 5 mg HS PRN PO INSOMNIA; Start 06/05/17 at 00:00 Spironolactone (Aldactone) 25 mg DAILY PO Last administered on 06/11/17 08:20 ; Admin Dose 25 MG; Start 06/05/17 at 09:00 Miscellaneous Information 1 ea NOTE XX ; Start 06/05/17 at 00:30 Glucose (Glutose) 15 gm Q15M PRN PO DECREASED GLUCOSE; Start 06/05/17 at 00:30 Glucose (Glutose) 22.5 gm Q15M PRN PO DECREASED GLUCOSE; Start 06/05/17 at 00: 30 Dextrose (D50w Syringe) 25 ml Q15M PRN IV DECREASED GLUCOSE; Start 06/05/17 at 00:30 Dextrose (D50w Syringe) 50 ml Q15M PRN IV DECREASED GLUCOSE; Start 06/05/17 at 00:30 Glucagon (Glucagen) 1 mg Q15M PRN IM DECREASED GLUCOSE; Start 06/05/17 at 00:30 Glucose (Glutose) 15 gm Q15M PRN BUCCAL DECREASED GLUCOSE; Start 06/05/17 at 00 :30 Docusate Sodium (Colace) 100 mg BID PO Last administered on 06/11/17 20:44; Admin Dose 100 MG; Start 06/05/17 at 09:00 Bisacodyl (Dulcolax Supp) 10 mg DAILY PRN [place] CONSTIPATION Last administered on 06/09/17 12:33; Admin Dose 10 MG; Start 06/05/17 at 06:00 Magnesium Hydroxide (Milk Of Mag) 30 ml BID PRN PO CONSTIPATION; Start at 06:00 Lactulose (Enulose) 20 gm DAILY PRN PO CONSTIPATION Last administered on 20:53; Admin Dose 20 GM; Start 06/05/17 at 06:00 Collagenase (Santyl) 1 applic DAILY TOP Last administered on 06/11/17 08:36; Admin Dose 1 APPLIC; Start 06/05/17 at 15:30 Senna (Senokot) 2 tab HS PO Last administered on 06/11/17 20:45; Admin Dose 2 TAB; Start 06/07/17 at 21:00 Hydromorphone HCl (Dilaudid) 1.5 mg Q8H PRN SC SEVERE PAIN Last administered on 06/09/17t 10:53; Admin Dose 1.5 MG; Start 06/09/17 at 16:10 Assessment/Plan Chief Complaint/Hosp Course 1. CAD 2. HX CABG 3. HX AZ 4. HX multiple PCI 5. Severe PAD 6. S/P Previous LE revascularizations 7. gangrene toe s/p R BKA now 8/ DM 9. hx hyperthyroidism: TSH is wnl on 06/06/17 10. hx VT s/p ICD 11. CHF: chronic and stable due to systolic heart failure 12. dyslipidemia: on statin 13. CKD 14. Debility 15. Markedly elevated CK: probably related to recent surgery. Recommendations: I will continue with the current cardiac medications Aspirin and Plavix will be continued. Coreg and ARB will be continued and try to increase as tolerated. Statin will be held for now due to markedly elevated CK level and restarted once CK is better controlled. Diabetic management as per internal medicine. Physical therapy and rehab will be continued. nightly CPAP . Thank you for his referral. I will continue to follow along with you. SALVADOR BARRETO MD [facility] Problems: SALVADOR BARRETO MD Jun 12, 2017 07:48
[2017-06-12] MEDS: INSULIN ASPART [NOVOLOG] 3 ML PEN SC SCH ×3 (08:02→17:35)
[2017-06-12] MEDS: HYDROmorphONE 2 MG/ML SYG SC PRN ×3 (08:05→18:06)
[2017-06-12 08:12] VITALS: BP 104/55; PULSE 64; RESP 18
[2017-06-12] MEDS: CLOPIDOGREL 75 MG TAB PO SCH (08:33)
[2017-06-12] MEDS: ASPIRIN (EC) 81 MG TAB PO SCH (08:33)
[2017-06-12] MEDS: DOCUSATE SODIUM 100 MG CAP PO SCH ×2 (08:33→20:29)
[2017-06-12] MEDS: ALLOPURINOL 100 MG TAB PO SCH ×2 (08:33→20:30)
[2017-06-12] MEDS: GABAPENTIN 300 MG CAP PO SCH ×2 (08:33→20:30)
[2017-06-12] MEDS: AMIODARONE 200 MG TAB PO SCH (08:36)
[2017-06-12] MEDS: LOSARTAN 25 MG TAB PO SCH (08:36)
[2017-06-12] MEDS: oxyCODONE (CR) 10 MG TAB [oxyCONTIN] PO SCH ×2 (08:41→20:30)
[2017-06-12] MEDS: SPIRONOLACTONE 25 MG TAB PO SCH (08:41)
[2017-06-12] MEDS: INSULIN GLARGINE [LANtus] 3 ML PEN SC SCH ×2 (08:47→20:40)
[2017-06-12] MEDS: ENOXAPARIN 30 MG/0.3 ML SYG SC SCH (08:48)
--- NOTE | 2017-06-12 09:30 | PN ---
DATE: 06/12/2017 SUBJECTIVE: The patient is stable. No events overnight. No fevers, chills, nausea or vomiting. OBJECTIVE: VITAL SIGNS: Blood pressure 104/55, temperature 98.7, pulse 64, respirations 18. HEENT: Head is normocephalic. NECK: Supple. HEART: Regular rate. LUNGS: Show diminished breath sounds at the base. ABDOMEN: Soft, nontender to palpation. No rebound or guarding. EXTREMITIES: Negative for clubbing, cyanosis, no edema. DERMATOLOGIC: No rashes. MUSCULOSKELETAL: No joint effusions. NEUROLOGIC: No change in exam. MEDICATIONS: Have been reviewed. LABORATORY DATA: Has been reviewed. ASSESSMENT AND PLAN: 1. 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 The patient is currently stable. Continue medical management. 2. Sleep apnea. Continue nightly CPAP. 3. Chronic kidney disease, stage IIIB/IV. Renal functions stable. Continue current treatment plan . 4. Coronary artery disease. Continue medical management. 5. Diabetes. Continue Accu-Cheks and insulin sliding scale. 6. Leukocytosis, improved. Continue to monitor. Etiology is reactive. 7. Congestive heart failure. Continue medical management. 8. Dyslipidemia. Continue statin therapy. 9. History of coronary artery disease, status post coronary artery bypass graft. Continue current treatment plan. 10. Hypertension. Continue current blood pressure regimen. 11. History of arrhythmia. Continue amiodarone. 12. Gastrointestinal and deep venous thrombosis prophylaxis. Dictated By: DANYELLE FRANCOIS/SURENDRA Conf#: [id number] DID#: [id number]
--- NOTE | 2017-06-12 09:36 | CONS ---
Date/Time of Note Date/Time of Note DATE: 06/12/17 TIME: 09:36 Consult Date/Type/Reason Admit Date/Time Jun 04, 2017 at 20:02 Initial Consult Date 06/05/17 Type of Consultation: card Ordering Provider: DANYELLE GUY DO Subjective Family conference with Objective Lungs clear abdomen soft Min assist Vital Signs Date Time Temp Pulse Resp B/P Pulse Ox O2 Delivery O2 Flow Rate FiO2 06/12/17 08:12 98.7 64 18 104/55 96 Room Air Intake and Output 06/11/17 06/11/17 06/12/17 14:59 22:59 06:59 Intake Total 1300 ml 320 ml Output Total 1300 ml 250 ml Balance 0 ml 70 ml Results/Medications Result Diagram: 06/09/1737 06/09/1737 Results 24 hrs Laboratory Tests Test 06/11/17 11:58 06/11/17 17:31 06/11/17 20:43 06/12/17 03:22 Bedside Glucose 139 104 243 H 126 Test 06/12/17 07:48 Bedside Glucose 129 Medications Current Medications Acetaminophen (Tylenol Tab) 650 mg Q4H PRN PO PAIN AND OR ELEVATED TEMP; Start 06/05/17 at 00:00 Amiodarone HCl (Cordarone) 100 mg DAILY PO Last administered on 06/12/17 08:36 ; Admin Dose 100 MG; Start 06/05/17 at 09:00 Aspirin (Halfprin) 81 mg DAILY PO Last administered on 06/12/17 08:33; Admin Dose 81 MG; Start 06/05/17 at 09:00 Clopidogrel Bisulfate (plaVIX) 75 mg DAILY PO Last administered on 06/12/17 08 :33; Admin Dose 75 MG; Start 06/05/17 at 09:00 Enoxaparin Sodium (Lovenox) 30 mg DAILY SC Last administered on 06/12/17 08:48 ; Admin Dose 30 MG; Start 06/05/17 at 09:00 Furosemide (Lasix) 40 mg Q48H PO Last administered on 06/12/17 06:29; Admin Dose 40 MG; Start 06/06/17 at 06:00 Losartan Potassium (Cozaar) 12.5 mg DAILY PO Last administered on 06/12/17 08: 36; Admin Dose 12.5 MG; Start 06/05/17 at 09:00 Rosuvastatin Calcium (Crestor) 40 mg HS PO Last administered on 06/05/17 21:58 ; Admin Dose 40 MG; Start 06/05/17 at 21:00; Status Future Hold Allopurinol (Zyloprim) 100 mg BID PO Last administered on 06/12/17 08:33; Admin Dose 100 MG; Start 06/05/17 at 09:00 Gabapentin (Neurontin) 300 mg BID PO Last administered on 06/12/17 08:33; Admin Dose 300 MG; Start 06/05/17 at 09:00 Oxycodone/ Acetaminophen (Endocet (10/ 325)) 1 tab Q6H PRN PO PAIN Last administered on 06/11/17 12:01; Admin Dose 1 TAB; Start 06/05/17 at 00:00 Oxycodone HCl (Oxycontin) 10 mg BID PO Last administered on 06/12/17 08:41; Admin Dose 10 MG; Start 06/05/17 at 09:00 Insulin Glargine (Lantus) 45 unit BID SC Last administered on 06/12/17 08:47; Admin Dose 45 UNIT; Start 06/05/17 at 09:00 Diagnostic Test (Pha) (Accu-Chek) 1 ea 02 XX Last administered on 06/12/17 02: 00; Admin Dose 1 EA; Start 06/05/17 at 02:00 Polyethylene Glycol (Miralax) 17 gm DAILY PRN PO CONSTIPATION; Start 06/05/17 at 00:30 Zolpidem Tartrate (Ambien) 5 mg HS PRN PO INSOMNIA; Start 06/05/17 at 00:00 Spironolactone (Aldactone) 25 mg DAILY PO Last administered on 06/12/17 08:41 ; Admin Dose 25 MG; Start 06/05/17 at 09:00 Miscellaneous Information 1 ea NOTE XX ; Start 06/05/17 at 00:30 Glucose (Glutose) 15 gm Q15M PRN PO DECREASED GLUCOSE; Start 06/05/17 at 00:30 Glucose (Glutose) 22.5 gm Q15M PRN PO DECREASED GLUCOSE; Start 06/05/17 at 00: 30 Dextrose (D50w Syringe) 25 ml Q15M PRN IV DECREASED GLUCOSE; Start 06/05/17 at 00:30 Dextrose (D50w Syringe) 50 ml Q15M PRN IV DECREASED GLUCOSE; Start 06/05/17 at 00:30 Glucagon (Glucagen) 1 mg Q15M PRN IM DECREASED GLUCOSE; Start 06/05/17 at 00:30 Glucose (Glutose) 15 gm Q15M PRN BUCCAL DECREASED GLUCOSE; Start 06/05/17 at 00 :30 Docusate Sodium (Colace) 100 mg BID PO Last administered on 06/12/17 08:33; Admin Dose 100 MG; Start 06/05/17 at 09:00 Bisacodyl (Dulcolax Supp) 10 mg DAILY PRN [place] CONSTIPATION Last administered on 06/09/17 12:33; Admin Dose 10 MG; Start 06/05/17 at 06:00 Magnesium Hydroxide (Milk Of Mag) 30 ml BID PRN PO CONSTIPATION; Start at 06:00 Lactulose (Enulose) 20 gm DAILY PRN PO CONSTIPATION Last administered on 20:53; Admin Dose 20 GM; Start 06/05/17 at 06:00 Collagenase (Santyl) 1 applic DAILY TOP Last administered on 06/11/17 08:36; Admin Dose 1 APPLIC; Start 06/05/17 at 15:30 Senna (Senokot) 2 tab HS PO Last administered on 06/11/17 20:45; Admin Dose 2 TAB; Start 06/07/17 at 21:00 Hydromorphone HCl (Dilaudid) 1.5 mg Q8H PRN SC SEVERE PAIN Last administered on 06/09/17 10:53; Admin Dose 1.5 MG; Start 06/09/17 at 16:10 Assessment/Plan Additional Assessment/Plan Rehab- Right below the knee amputation;Recent left toe amputation Continue current rehab activities Acute pain syndrome-continue current meds GI- bowel program. Anemia. Atrial fibrillation. Congestive heart failure. Chronic kidney disease. Coronary artery disease. Diabetes mellitus. Hypertension. History of cerebrovascular accident. History of peripheral vascular disease. Sleep apnea. BLAKE PÉREZ MD Jun 12, 2017 09:36
[2017-06-12] MEDS ORDERED: HYDROmorphONE 2 MG/ML SYG SC STA (11:30)
[2017-06-12] MEDS: COLLAGENASE 30 GM TUBE TOP SCH (11:54)
[2017-06-12 19:34] VITALS: BP 85/50; RESP 19
[2017-06-12] MEDS: SENNA TAB PO SCH (20:29)
[2017-06-13 03:17] VITALS: BP 99/60; RESP 21
[2017-06-13] MEDS: ACCUCHECK AT 2AM (Patients on SS coverage) XX SCH (05:44)
[2017-06-13] MEDS: PANTOPRAZOLE (EC) 40 MG TAB PO SCH (05:44)
[2017-06-13 06:43] LABS: BASOPHIL # 0.1 10^3/ul (0.0-0.1); BASOPHILS % 0.7 % (0.0-2.0); EOSINOPHILS # 0.7 10^3/ul (0.0-0.5); EOSINOPHILS % 6.8 % (0.0-7.0); HEMATOCRIT 30.1 % (42.0-52.0); HEMOGLOBIN 9.4 g/dl (14.0-18.0); LYMPHOCYTES # 2.7 10^3/ul (0.8-2.9); LYMPHOCYTES % 27.4 % (15.0-51.0); MEAN CORPUSCULAR HEMOGLOBIN 27.2 pg (29.0-33.0); MEAN CORPUSCULAR HGB CONC 31.2 g/dl (32.0-37.0); MEAN PLATELET VOLUME 8.9 fl (7.4-10.4); MONOCYTE # 0.7 10^3/ul (0.3-0.9); MONOCYTES % 7.2 % (0.0-11.0); NEUTROPHIL # 5.6 10^3/ul (1.6-7.5); PLATELET COUNT 372 10^3/UL (140-415); RED BLOOD COUNT 3.46 10^6/ul (4.70-6.10); RED CELL DISTRIBUTION WIDTH 15.3 % (11.5-14.5); WHITE BLOOD COUNT 9.9 10^3/ul (4.8-10.8)
[2017-06-13 07:15] LABS: ALBUMIN 3.5 g/dl (3.3-4.9); ALBUMIN/GLOBULIN RATIO 0.92; BILIRUBIN,INDIRECT 0.2 mg/dl (0-1.1); BILIRUBIN,TOTAL 0.2 mg/dl (0.2-1.3); CALCIUM 8.9 mg/dl (8.4-10.2); CREATININE 1.4 mg/dl (0.61-1.24); POTASSIUM 3.8 mmol/L (3.5-5.1); TOTAL PROTEIN 7.3 g/dl (6.1-8.1)
[2017-06-13 07:30] VITALS: BP 112/60; RESP 20
[2017-06-13] MEDS: Insulin NOVOLOG SS MILD Algorithm (SS with meals and bedtime) SC SCH ×4 (07:35→20:50)
[2017-06-13] MEDS: INSULIN ASPART [NOVOLOG] 3 ML PEN SC SCH ×3 (09:12→17:21)
[2017-06-13] MEDS: INSULIN GLARGINE [LANtus] 3 ML PEN SC SCH ×2 (09:13→21:04)
[2017-06-13] MEDS: COLLAGENASE 30 GM TUBE TOP SCH (09:14)
[2017-06-13] MEDS: ENOXAPARIN 30 MG/0.3 ML SYG SC SCH (09:14)
[2017-06-13] MEDS: oxyCODONE (CR) 10 MG TAB [oxyCONTIN] PO SCH ×2 (09:16→20:47)
[2017-06-13] MEDS: CLOPIDOGREL 75 MG TAB PO SCH (09:17)
[2017-06-13] MEDS: GABAPENTIN 300 MG CAP PO SCH ×2 (09:17→20:47)
[2017-06-13] MEDS: SPIRONOLACTONE 25 MG TAB PO SCH (09:17)
[2017-06-13] MEDS: LOSARTAN 25 MG TAB PO SCH (09:17)
[2017-06-13] MEDS: ALLOPURINOL 100 MG TAB PO SCH ×2 (09:18→20:47)
[2017-06-13] MEDS: AMIODARONE 200 MG TAB PO SCH (09:18)
[2017-06-13] MEDS: ASPIRIN (EC) 81 MG TAB PO SCH (09:19)
[2017-06-13] MEDS: DOCUSATE SODIUM 100 MG CAP PO SCH ×2 (09:19→20:47)
--- NOTE | 2017-06-13 10:24 | PN ---
DATE: 06/13/2017 SUBJECTIVE: The patient is stable. No events overnight. OBJECTIVE: VITAL SIGNS: Blood pressure is 112/60, temperature 98.5, pulse 69, respiration 20. HEENT: Head is normocephalic. NECK: Supple. HEART: Regular rate. LUNGS: Show diminished breath sounds at base. ABDOMEN: Soft, nontender to palpation. No rebound or guarding. EXTREMITIES: Negative for clubbing, cyanosis. No edema. DERMATOLOGIC: No rashes. MUSCULOSKELETAL: No joint effusions. NEUROLOGIC: No change in exam. MEDICATIONS: The patient's medications are reviewed. LABORATORY DATA: Shows sodium 143, potassium 3.8, chloride 102, BUN 24, creatinine 1.4. White coun t 9.9, hemoglobin 9.4, hematocrit of 30.1, platelet count 372. ASSESSMENT AND PLAN: 1. 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 The patient is currently stable. Continue to monitor. 2. Sleep apnea. Continue nightly CPAP. 3. Chronic kidney disease, stage IIIB/IV. Renal functions stable. Continue current treatment plan . 4. Coronary artery disease. Continue current medical management. 5. Diabetes. Continue current insulin regimen. 6. Leukocytosis, improved. 7. Congestive heart failure. Continue medical management. 8. Dyslipidemia. Continue statin therapy. 9. History of coronary artery disease, status post coronary artery bypass graft. Continue current treatment. 10. Hypertension. Continue current blood pressure regimen. 11. History of arrhythmia. Continue amiodarone. 12. Gastrointestinal and deep vein thrombosis prophylaxis. Dictated By: DANYELLE FRANCOIS/SURENDRA Conf#: [id number] DID#: [id number]
--- NOTE | 2017-06-13 11:05 | CONS ---
Date/Time of Note Date/Time of Note DATE: 06/13/17 TIME: 11:04 Consult Date/Type/Reason Admit Date/Time Jun 04, 2017 at 20:02 Initial Consult Date 06/05/17 Type of Consultation: card Ordering Provider: DANYELLE GUY DO Subjective Patient doing well no new complaints Objective Lungs clear abdomen soft Minimal assist Vital Signs Date Time Temp Pulse Resp B/P Pulse Ox O2 Delivery O2 Flow Rate FiO2 06/13/17 07:30 98.5 69 20 112/60 97 06/12/17 08:12 Room Air Intake and Output 06/12/17 06/12/17 06/13/17 15:00 23:00 07:00 Intake Total 1400 ml 450 ml Output Total 1401 ml 1 ml Balance -1 ml 449 ml Results/Medications Result Diagram: 06/13/17 0604 06/13/17 0604 Results 24 hrs Laboratory Tests Test 06/12/17 12:09 06/12/17 17:33 06/12/17 20:28 06/13/17 05:43 Bedside Glucose 132 70 190 131 Test 06/13/17 06:04 06/13/17 07:45 06/13/17 09:08 White Blood Count 9.9 Red Blood Count 3.46 L Hemoglobin 9.4 L Hematocrit 30.1 L Mean Corpuscular Volume 87.0 Mean Corpuscular Hemoglobin 27.2 L Mean Corpuscular Hemoglobin Concent 31.2 L Red Cell Distribution Width 15.3 H Platelet Count 372 Mean Platelet Volume 8.9 Neutrophils % 57.0 Lymphocytes % 27.4 Monocytes % 7.2 Eosinophils % 6.8 Basophils % 0.7 Nucleated Red Blood Cells % 0.0 Neutrophils # 5.6 Lymphocytes # 2.7 Monocytes # 0.7 Eosinophils # 0.7 H Basophils # 0.1 Nucleated Red Blood Cells # 0.0 Sodium Level 143 Potassium Level 3.8 Chloride Level 102 Carbon Dioxide Level 30 Anion Gap 15 Blood Urea Nitrogen 24 H Creatinine 1.40 H Glucose Level 136 Calcium Level 8.9 Magnesium Level 2.0 Total Bilirubin 0.2 Direct Bilirubin 0.00 Indirect Bilirubin 0.2 Aspartate Amino Transf (AST/SGOT) 35 Alanine Aminotransferase (ALT/SGPT) 29 Alkaline Phosphatase 51 Creatine Kinase 860 H B-Type Natriuretic Peptide 173 H Total Protein 7.3 Albumin 3.5 Globulin 3.80 H Albumin/Globulin Ratio 0.92 Bedside Glucose 130 170 Medications Current Medications Acetaminophen (Tylenol Tab) 650 mg Q4H PRN PO PAIN AND OR ELEVATED TEMP; Start 06/05/17 at 00:00 Amiodarone HCl (Cordarone) 100 mg DAILY PO Last administered on 06/13/17 09: 18; Admin Dose 100 MG; Start 06/05/17 at 09:00 Aspirin (Halfprin) 81 mg DAILY PO Last administered on 06/13/17 09:19; Admin Dose 81 MG; Start 06/05/17 at 09:00 Clopidogrel Bisulfate (plaVIX) 75 mg DAILY PO Last administered on 06/13/17 09:17; Admin Dose 75 MG; Start 06/05/17 at 09:00 Enoxaparin Sodium (Lovenox) 30 mg DAILY SC Last administered on 06/13/17 09: 14; Admin Dose 30 MG; Start 06/05/17 at 09:00 Furosemide (Lasix) 40 mg Q48H PO Last administered on 06/12/17 06:29; Admin Dose 40 MG; Start 06/06/17 at 06:00 Losartan Potassium (Cozaar) 12.5 mg DAILY PO Last administered on 06/13/17 09 :17; Admin Dose 12.5 MG; Start 06/05/17 at 09:00 Rosuvastatin Calcium (Crestor) 40 mg HS PO Last administered on 06/05/17 21:58 ; Admin Dose 40 MG; Start 06/05/17 at 21:00; Status Future Hold Allopurinol (Zyloprim) 100 mg BID PO Last administered on 06/13/17 09:18; Admin Dose 100 MG; Start 06/05/17 at 09:00 Gabapentin (Neurontin) 300 mg BID PO Last administered on 06/13/17 09:17; Admin Dose 300 MG; Start 06/05/17 at 09:00 Oxycodone/ Acetaminophen (Endocet (10/ 325)) 1 tab Q6H PRN PO PAIN Last administered on 06/11/17 12:01; Admin Dose 1 TAB; Start 06/05/17 at 00:00 Oxycodone HCl (Oxycontin) 10 mg BID PO Last administered on 06/13/17 09:16; Admin Dose 10 MG; Start 06/05/17 at 09:00 Insulin Glargine (Lantus) 45 unit BID SC Last administered on 06/13/17 09:13 ; Admin Dose 45 UNIT; Start 06/05/17 at 09:00 Diagnostic Test (Pha) (Accu-Chek) 1 ea 02 XX Last administered on 06/13/17 05 :44; Admin Dose 1 EA; Start 06/05/17 at 02:00 Polyethylene Glycol (Miralax) 17 gm DAILY PRN PO CONSTIPATION; Start 06/05/17 at 00:30 Zolpidem Tartrate (Ambien) 5 mg HS PRN PO INSOMNIA; Start 06/05/17 at 00:00 Spironolactone (Aldactone) 25 mg DAILY PO Last administered on 06/13/17 09:17 ; Admin Dose 25 MG; Start 06/05/17 at 09:00 Miscellaneous Information 1 ea NOTE XX ; Start 06/05/17 at 00:30 Glucose (Glutose) 15 gm Q15M PRN PO DECREASED GLUCOSE; Start 06/05/17 at 00:30 Glucose (Glutose) 22.5 gm Q15M PRN PO DECREASED GLUCOSE; Start 06/05/17 at 00: 30 Dextrose (D50w Syringe) 25 ml Q15M PRN IV DECREASED GLUCOSE; Start 06/05/17 at 00:30 Dextrose (D50w Syringe) 50 ml Q15M PRN IV DECREASED GLUCOSE; Start 06/05/17 at 00:30 Glucagon (Glucagen) 1 mg Q15M PRN IM DECREASED GLUCOSE; Start 06/05/17 at 00:30 Glucose (Glutose) 15 gm Q15M PRN BUCCAL DECREASED GLUCOSE; Start 06/05/17 at 00 :30 Docusate Sodium (Colace) 100 mg BID PO Last administered on 06/13/17 09:19; Admin Dose 100 MG; Start 06/05/17 at 09:00 Bisacodyl (Dulcolax Supp) 10 mg DAILY PRN [place] CONSTIPATION Last administered on 06/09/17 12:33; Admin Dose 10 MG; Start 06/05/17 at 06:00 Magnesium Hydroxide (Milk Of Mag) 30 ml BID PRN PO CONSTIPATION; Start at 06:00 Lactulose (Enulose) 20 gm DAILY PRN PO CONSTIPATION Last administered on 20:53; Admin Dose 20 GM; Start 06/05/17 at 06:00 Collagenase (Santyl) 1 applic DAILY TOP Last administered on 06/13/17 09:14; Admin Dose 1 APPLIC; Start 06/05/17 at 15:30 Senna (Senokot) 2 tab HS PO Last administered on 06/12/17 20:29; Admin Dose 2 TAB; Start 06/07/17 at 21:00 Hydromorphone HCl (Dilaudid) 1.5 mg Q8H PRN SC SEVERE PAIN Last administered on 06/12/17 18:06; Admin Dose 1.5 MG; Start 06/09/17 at 16:10 Assessment/Plan Additional Assessment/Plan Rehab- Right below the knee amputation;Recent left toe amputation Continue current interdisciplinary treatment plan Acute pain syndrome-continue current meds GI- bowel program. Anemia. Atrial fibrillation. Congestive heart failure. Chronic kidney disease. Coronary artery disease. Diabetes mellitus. Hypertension. History of cerebrovascular accident. History of peripheral vascular disease. Sleep apnea. BLAKE PÉREZ MD Jun 13, 2017 11:05
--- NOTE | 2017-06-13 16:48 | CONS ---
Date/Time of Note Date/Time of Note DATE: 06/13/17 TIME: 16:46 Consult Date/Type/Reason Admit Date/Time Jun 04, 2017 at 20:02 Initial Consult Date 06/05/17 Type of Consultation: card Ordering Provider: DANYELLE GUY DO Subjective cardiology follow up note: S: Discussed with staff pt denies any chest pain or pressure to me he denies any PND orthopnea to me. He denies any wheezing or shortness of breath to me. he is cooperating with PT. he was able to sleep well and uses his CPAP at night time. O: General: no acute distress. obese man HEENT: NC/AT. pupils are equal. round. NECK: NO JVD. no stridor. CV: RRR. systolic murmur; no gallop or rubs. PULM: no wheezing or rhonchi. GI: SOFT, NT, ND, no rebound or guarding obese. Extremity: s/p R AKA. neuro: awake and alert, OX3. Psych: calm and pleasant rectal: deferred . Objective Vital Signs Date Time Temp Pulse Resp B/P Pulse Ox O2 Delivery O2 Flow Rate FiO2 06/13/17 07:30 98.5 69 20 112/60 97 06/12/17 08:12 Room Air Intake and Output 06/12/17 06/12/17 06/13/17 14:59 22:59 06:59 Intake Total 1400 ml 450 ml Output Total 1401 ml 1 ml Balance -1 ml 449 ml Results/Medications Result Diagram: 06/13/17 0604 06/13/17 0604 Results 24 hrs Laboratory Tests Test 06/12/17 17:33 06/12/17 20:28 06/13/17 05:43 06/13/17 06:04 Bedside Glucose 70 190 131 White Blood Count 9.9 Red Blood Count 3.46 L Hemoglobin 9.4 L Hematocrit 30.1 L Mean Corpuscular Volume 87.0 Mean Corpuscular Hemoglobin 27.2 L Mean Corpuscular Hemoglobin Concent 31.2 L Red Cell Distribution Width 15.3 H Platelet Count 372 Mean Platelet Volume 8.9 Neutrophils % 57.0 Lymphocytes % 27.4 Monocytes % 7.2 Eosinophils % 6.8 Basophils % 0.7 Nucleated Red Blood Cells % 0.0 Neutrophils # 5.6 Lymphocytes # 2.7 Monocytes # 0.7 Eosinophils # 0.7 H Basophils # 0.1 Nucleated Red Blood Cells # 0.0 Sodium Level 143 Potassium Level 3.8 Chloride Level 102 Carbon Dioxide Level 30 Anion Gap 15 Blood Urea Nitrogen 24 H Creatinine 1.40 H Glucose Level 136 Calcium Level 8.9 Magnesium Level 2.0 Total Bilirubin 0.2 Direct Bilirubin 0.00 Indirect Bilirubin 0.2 Aspartate Amino Transf (AST/SGOT) 35 Alanine Aminotransferase (ALT/SGPT) 29 Alkaline Phosphatase 51 Creatine Kinase 860 H B-Type Natriuretic Peptide 173 H Total Protein 7.3 Albumin 3.5 Globulin 3.80 H Albumin/Globulin Ratio 0.92 Test 06/13/17 07:45 06/13/17 09:08 06/13/17 12:10 Bedside Glucose 130 170 177 Medications Current Medications Acetaminophen (Tylenol Tab) 650 mg Q4H PRN PO PAIN AND OR ELEVATED TEMP; Start 06/05/17 at 00:00 Amiodarone HCl (Cordarone) 100 mg DAILY PO Last administered on 06/13/17 09: 18; Admin Dose 100 MG; Start 06/05/17 at 09:00 Aspirin (Halfprin) 81 mg DAILY PO Last administered on 06/13/17 09:19; Admin Dose 81 MG; Start 06/05/17 at 09:00 Clopidogrel Bisulfate (plaVIX) 75 mg DAILY PO Last administered on 06/13/17 09:17; Admin Dose 75 MG; Start 06/05/17 at 09:00 Enoxaparin Sodium (Lovenox) 30 mg DAILY SC Last administered on 06/13/17 09: 14; Admin Dose 30 MG; Start 06/05/17 at 09:00 Furosemide (Lasix) 40 mg Q48H PO Last administered on 06/12/17 06:29; Admin Dose 40 MG; Start 06/06/17 at 06:00 Losartan Potassium (Cozaar) 12.5 mg DAILY PO Last administered on 06/13/17 09 :17; Admin Dose 12.5 MG; Start 06/05/17 at 09:00 Rosuvastatin Calcium (Crestor) 40 mg HS PO Last administered on 06/05/17 21:58 ; Admin Dose 40 MG; Start 06/05/17 at 21:00; Status Future Hold Allopurinol (Zyloprim) 100 mg BID PO Last administered on 06/13/17 09:18; Admin Dose 100 MG; Start 06/05/17 at 09:00 Gabapentin (Neurontin) 300 mg BID PO Last administered on 06/13/17 09:17; Admin Dose 300 MG; Start 06/05/17 at 09:00 Oxycodone/ Acetaminophen (Endocet (10/ 325)) 1 tab Q6H PRN PO PAIN Last administered on 06/11/17 12:01; Admin Dose 1 TAB; Start 06/05/17 at 00:00 Oxycodone HCl (Oxycontin) 10 mg BID PO Last administered on 06/13/17 09:16; Admin Dose 10 MG; Start 06/05/17 at 09:00 Insulin Glargine (Lantus) 45 unit BID SC Last administered on 06/13/17 09:13 ; Admin Dose 45 UNIT; Start 06/05/17 at 09:00 Diagnostic Test (Pha) (Accu-Chek) 1 ea 02 XX Last administered on 06/13/17 05 :44; Admin Dose 1 EA; Start 06/05/17 at 02:00 Polyethylene Glycol (Miralax) 17 gm DAILY PRN PO CONSTIPATION; Start 06/05/17 at 00:30 Zolpidem Tartrate (Ambien) 5 mg HS PRN PO INSOMNIA; Start 06/05/17 at 00:00 Spironolactone (Aldactone) 25 mg DAILY PO Last administered on 06/13/17 09:17 ; Admin Dose 25 MG; Start 06/05/17 at 09:00 Miscellaneous Information 1 ea NOTE XX ; Start 06/05/17 at 00:30 Glucose (Glutose) 15 gm Q15M PRN PO DECREASED GLUCOSE; Start 06/05/17 at 00:30 Glucose (Glutose) 22.5 gm Q15M PRN PO DECREASED GLUCOSE; Start 06/05/17 at 00: 30 Dextrose (D50w Syringe) 25 ml Q15M PRN IV DECREASED GLUCOSE; Start 06/05/17 at 00:30 Dextrose (D50w Syringe) 50 ml Q15M PRN IV DECREASED GLUCOSE; Start 06/05/17 at 00:30 Glucagon (Glucagen) 1 mg Q15M PRN IM DECREASED GLUCOSE; Start 06/05/17 at 00:30 Glucose (Glutose) 15 gm Q15M PRN BUCCAL DECREASED GLUCOSE; Start 06/05/17 at 00 :30 Docusate Sodium (Colace) 100 mg BID PO Last administered on 06/13/17 09:19; Admin Dose 100 MG; Start 06/05/17 at 09:00 Bisacodyl (Dulcolax Supp) 10 mg DAILY PRN [place] CONSTIPATION Last administered on 06/09/17 12:33; Admin Dose 10 MG; Start 06/05/17 at 06:00 Magnesium Hydroxide (Milk Of Mag) 30 ml BID PRN PO CONSTIPATION; Start at 06:00 Lactulose (Enulose) 20 gm DAILY PRN PO CONSTIPATION Last administered on 20:53; Admin Dose 20 GM; Start 06/05/17 at 06:00 Collagenase (Santyl) 1 applic DAILY TOP Last administered on 06/13/17 09:14; Admin Dose 1 APPLIC; Start 06/05/17 at 15:30 Senna (Senokot) 2 tab HS PO Last administered on 06/12/17 20:29; Admin Dose 2 TAB; Start 06/07/17 at 21:00 Hydromorphone HCl (Dilaudid) 1.5 mg Q8H PRN SC SEVERE PAIN Last administered on 06/12/17 18:06; Admin Dose 1.5 MG; Start 06/09/17 at 16:10 Assessment/Plan Chief Complaint/Hosp Course 1. CAD 2. HX CABG 3. HX TX 4. HX multiple PCI 5. Severe PAD 6. S/P Previous LE revascularizations 7. gangrene toe s/p R BKA now 8/ DM 9. hx hyperthyroidism: TSH is wnl on 06/06/17 10. hx VT s/p ICD 11. CHF: chronic and stable due to systolic heart failure 12. dyslipidemia: on statin 13. CKD 14. Debility 15. Markedly elevated CK: probably related to recent surgery. Slowly improving Recommendations: I will continue with the current cardiac medications Aspirin and Plavix will be continued. Coreg and ARB will be continued and try to increase as tolerated. Statin is on hold for now due to markedly elevated CK level and restarted once CK is lower. will repeat labs on Friday . Diabetic management as per internal medicine. Physical therapy and rehab will be continued. nightly CPAP . will allow pt to bring his home Repatha ( home cholesterol medication )and self inject himself q 2 weeks. Thank you for his referral. I will continue to follow along with you. SALVADOR BARRETO MD [facility] Problems: SALVADOR BARRETO MD Jun 13, 2017 16:48
[2017-06-13 20:00] VITALS: BP 108/56; RESP 18
[2017-06-13] MEDS: SENNA TAB PO SCH (20:47)
[2017-06-14 02:00] VITALS: BP 112/62; RESP 18
[2017-06-14] MEDS: ACCUCHECK AT 2AM (Patients on SS coverage) XX SCH (02:00)
[2017-06-14] MEDS: PANTOPRAZOLE (EC) 40 MG TAB PO SCH (06:22)
[2017-06-14] MEDS: FUROSEMIDE 40 MG TAB PO SCH (06:25)
[2017-06-14 07:30] VITALS: BP 107/57; RESP 18
[2017-06-14] MEDS: LOSARTAN 25 MG TAB PO SCH (08:16)
[2017-06-14] MEDS: GABAPENTIN 300 MG CAP PO SCH ×2 (08:16→20:09)
[2017-06-14] MEDS: CLOPIDOGREL 75 MG TAB PO SCH (08:16)
[2017-06-14] MEDS: DOCUSATE SODIUM 100 MG CAP PO SCH ×2 (08:16→20:08)
[2017-06-14] MEDS: ASPIRIN (EC) 81 MG TAB PO SCH (08:16)
[2017-06-14] MEDS: SPIRONOLACTONE 25 MG TAB PO SCH (08:16)
[2017-06-14] MEDS: oxyCODONE (CR) 10 MG TAB [oxyCONTIN] PO SCH ×2 (08:17→21:29)
[2017-06-14] MEDS: ALLOPURINOL 100 MG TAB PO SCH ×2 (08:17→20:09)
[2017-06-14] MEDS: AMIODARONE 200 MG TAB PO SCH (08:17)
[2017-06-14] MEDS: ENOXAPARIN 30 MG/0.3 ML SYG SC SCH (08:18)
[2017-06-14] MEDS: INSULIN GLARGINE [LANtus] 3 ML PEN SC SCH ×2 (08:19→20:13)
[2017-06-14] MEDS: INSULIN ASPART [NOVOLOG] 3 ML PEN SC SCH ×3 (08:20→17:33)
[2017-06-14] MEDS: Insulin NOVOLOG SS MILD Algorithm (SS with meals and bedtime) SC SCH ×4 (08:21→20:08)
--- NOTE | 2017-06-14 08:21 | CONS ---
Date/Time of Note Date/Time of Note DATE: 06/14/17 TIME: 08:20 Consult Date/Type/Reason Admit Date/Time Jun 04, 2017 at 20:02 Initial Consult Date 06/05/17 Type of Consultation: neph Ordering Provider: DANYELLE VELASQUEZ DO Subjective The patient is stable. No events overnight. tolerates meds and therapies. poc reviewed with dr. velasquez. OBJECTIVE: HEENT: Head is normocephalic. NECK: Supple. HEART: Regular rate. LUNGS: Show diminished breath sounds at base. ABDOMEN: Soft, nontender to palpation. No rebound or guarding. EXTREMITIES: Negative for clubbing, cyanosis. No edema. DERMATOLOGIC: No rashes. MUSCULOSKELETAL: No joint effusions. NEUROLOGIC: No change in exam. MEDICATIONS: The patient's medications are reviewed. Objective Vital Signs Date Time Temp Pulse Resp B/P Pulse Ox O2 Delivery O2 Flow Rate FiO2 06/14/17 02:00 98.7 78 18 112/62 94 06/12/17 08:12 Room Air Intake and Output 06/13/17 06/13/17 06/14/17 14:59 22:59 06:59 Intake Total 1860 ml 700 ml Output Total 600 ml 300 ml Balance 1260 ml 400 ml Results/Medications Result Diagram: 06/13/17 0604 06/13/17 0604 Results 24 hrs Laboratory Tests Test 06/13/17 09:08 06/13/17 12:10 06/13/17 17:18 06/13/17 20:50 Bedside Glucose 170 177 128 132 Test 06/14/17 07:58 Bedside Glucose 169 Medications Current Medications Acetaminophen (Tylenol Tab) 650 mg Q4H PRN PO PAIN AND OR ELEVATED TEMP; Start 06/05/17 at 00:00 Amiodarone HCl (Cordarone) 100 mg DAILY PO Last administered on 06/13/17 09: 18; Admin Dose 100 MG; Start 06/05/17 at 09:00 Aspirin (Halfprin) 81 mg DAILY PO Last administered on 06/13/17 09:19; Admin Dose 81 MG; Start 06/05/17 at 09:00 Clopidogrel Bisulfate (plaVIX) 75 mg DAILY PO Last administered on 06/13/17 09:17; Admin Dose 75 MG; Start 06/05/17 at 09:00 Enoxaparin Sodium (Lovenox) 30 mg DAILY SC Last administered on 06/13/17 09: 14; Admin Dose 30 MG; Start 06/05/17 at 09:00 Furosemide (Lasix) 40 mg Q48H PO Last administered on 06/14/17 06:25; Admin Dose 40 MG; Start 06/06/17 at 06:00 Losartan Potassium (Cozaar) 12.5 mg DAILY PO Last administered on 06/13/17 09 :17; Admin Dose 12.5 MG; Start 06/05/17 at 09:00 Rosuvastatin Calcium (Crestor) 40 mg HS PO Last administered on 06/05/17 21:58 ; Admin Dose 40 MG; Start 06/05/17 at 21:00; Status Future Hold Allopurinol (Zyloprim) 100 mg BID PO Last administered on 06/13/17 20:47; Admin Dose 100 MG; Start 06/05/17 at 09:00 Gabapentin (Neurontin) 300 mg BID PO Last administered on 06/13/17 20:47; Admin Dose 300 MG; Start 06/05/17 at 09:00 Oxycodone/ Acetaminophen (Endocet (10/ 325)) 1 tab Q6H PRN PO PAIN Last administered on 06/11/17 12:01; Admin Dose 1 TAB; Start 06/05/17 at 00:00 Oxycodone HCl (Oxycontin) 10 mg BID PO Last administered on 06/13/17 20:47; Admin Dose 10 MG; Start 06/05/17 at 09:00 Insulin Glargine (Lantus) 45 unit BID SC Last administered on 06/13/17 21:04 ; Admin Dose 45 UNIT; Start 06/05/17 at 09:00 Diagnostic Test (Pha) (Accu-Chek) 1 ea 02 XX Last administered on 06/13/17 05 :44; Admin Dose 1 EA; Start 06/05/17 at 02:00 Polyethylene Glycol (Miralax) 17 gm DAILY PRN PO CONSTIPATION; Start 06/05/17 at 00:30 Zolpidem Tartrate (Ambien) 5 mg HS PRN PO INSOMNIA; Start 06/05/17 at 00:00 Spironolactone (Aldactone) 25 mg DAILY PO Last administered on 06/13/17 09:17 ; Admin Dose 25 MG; Start 06/05/17 at 09:00 Miscellaneous Information 1 ea NOTE XX ; Start 06/05/17 at 00:30 Glucose (Glutose) 15 gm Q15M PRN PO DECREASED GLUCOSE; Start 06/05/17 at 00:30 Glucose (Glutose) 22.5 gm Q15M PRN PO DECREASED GLUCOSE; Start 06/05/17 at 00: 30 Dextrose (D50w Syringe) 25 ml Q15M PRN IV DECREASED GLUCOSE; Start 06/05/17 at 00:30 Dextrose (D50w Syringe) 50 ml Q15M PRN IV DECREASED GLUCOSE; Start 06/05/17 at 00:30 Glucagon (Glucagen) 1 mg Q15M PRN IM DECREASED GLUCOSE; Start 06/05/17 at 00:30 Glucose (Glutose) 15 gm Q15M PRN BUCCAL DECREASED GLUCOSE; Start 06/05/17 at 00 :30 Docusate Sodium (Colace) 100 mg BID PO Last administered on 06/13/17 20:47; Admin Dose 100 MG; Start 06/05/17 at 09:00 Bisacodyl (Dulcolax Supp) 10 mg DAILY PRN [place] CONSTIPATION Last administered on 06/09/17 12:33; Admin Dose 10 MG; Start 06/05/17 at 06:00 Magnesium Hydroxide (Milk Of Mag) 30 ml BID PRN PO CONSTIPATION; Start at 06:00 Lactulose (Enulose) 20 gm DAILY PRN PO CONSTIPATION Last administered on 20:53; Admin Dose 20 GM; Start 06/05/17 at 06:00 Collagenase (Santyl) 1 applic DAILY TOP Last administered on 06/13/17 09:14; Admin Dose 1 APPLIC; Start 06/05/17 at 15:30 Senna (Senokot) 2 tab HS PO Last administered on 06/13/17 20:47; Admin Dose 2 TAB; Start 06/07/17 at 21:00 Hydromorphone HCl (Dilaudid) 1.5 mg Q8H PRN SC SEVERE PAIN Last administered on 06/12/17 18:06; Admin Dose 1.5 MG; Start 06/09/17 at 16:10 Assessment/Plan Chief Complaint/Hosp Course 1. 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 The patient is currently stable. Continue to monitor. 2. Sleep apnea. Continue nightly CPAP. 3. Chronic kidney disease, stage IIIB/IV. Renal functions stable. Continue current treatment plan. 4. Coronary artery disease. Continue current medical management. 5. Diabetes. Continue current insulin regimen. 6. Leukocytosis, improved. 7. Congestive heart failure. Continue medical management. 8. Dyslipidemia. Continue statin therapy. 9. History of coronary artery disease, status post coronary artery bypass graft. Continue current treatment. 10. Hypertension. Continue current blood pressure regimen. 11. History of arrhythmia. Continue amiodarone. 12. Gastrointestinal and deep vein thrombosis prophylaxis-utd Problems: ALIREZA MORA MD Jun 14, 2017 08:21
[2017-06-14 08:27] VITALS: BP 118/74; PULSE 74; RESP 18
[2017-06-14] MEDS: COLLAGENASE 30 GM TUBE TOP SCH ×2 (09:00→15:40)
--- NOTE | 2017-06-14 09:17 | CONS ---
Date/Time of Note Date/Time of Note DATE: 06/14/17 TIME: 09:16 Consult Date/Type/Reason Admit Date/Time Jun 04, 2017 at 20:02 Initial Consult Date 06/05/17 Type of Consultation: neph Ordering Provider: DANYELLE GUY DO Subjective Results with bowel program Objective pulm-cta min assist Vital Signs Date Time Temp Pulse Resp B/P Pulse Ox O2 Delivery O2 Flow Rate FiO2 06/14/17 08:27 74 18 118/74 95 Room Air 06/14/17 02:00 98.7 Intake and Output 06/13/17 06/13/17 06/14/17 15:00 23:00 07:00 Intake Total 1860 ml 700 ml Output Total 600 ml 300 ml Balance 1260 ml 400 ml Results/Medications Result Diagram: 06/13/17 0604 06/13/17 0604 Results 24 hrs Laboratory Tests Test 06/13/17 12:10 06/13/17 17:18 06/13/17 20:50 06/14/17 07:58 Bedside Glucose 177 128 132 169 Medications Current Medications Acetaminophen (Tylenol Tab) 650 mg Q4H PRN PO PAIN AND OR ELEVATED TEMP; Start 06/05/17 at 00:00 Amiodarone HCl (Cordarone) 100 mg DAILY PO Last administered on 06/14/17 08: 17; Admin Dose 100 MG; Start 06/05/17 at 09:00 Aspirin (Halfprin) 81 mg DAILY PO Last administered on 06/14/17 08:16; Admin Dose 81 MG; Start 06/05/17 at 09:00 Clopidogrel Bisulfate (plaVIX) 75 mg DAILY PO Last administered on 06/14/17 08:16; Admin Dose 75 MG; Start 06/05/17 at 09:00 Enoxaparin Sodium (Lovenox) 30 mg DAILY SC Last administered on 06/14/17 08: 18; Admin Dose 30 MG; Start 06/05/17 at 09:00 Furosemide (Lasix) 40 mg Q48H PO Last administered on 06/14/17 06:25; Admin Dose 40 MG; Start 06/06/17 at 06:00 Losartan Potassium (Cozaar) 12.5 mg DAILY PO Last administered on 06/14/17 08 :16; Admin Dose 12.5 MG; Start 06/05/17 at 09:00 Rosuvastatin Calcium (Crestor) 40 mg HS PO Last administered on 06/05/17 21:58 ; Admin Dose 40 MG; Start 06/05/17 at 21:00; Status Future Hold Allopurinol (Zyloprim) 100 mg BID PO Last administered on 06/14/17 08:17; Admin Dose 100 MG; Start 06/05/17 at 09:00 Gabapentin (Neurontin) 300 mg BID PO Last administered on 06/14/17 08:16; Admin Dose 300 MG; Start 06/05/17 at 09:00 Oxycodone/ Acetaminophen (Endocet (10 325)) 1 tab Q6H PRN PO PAIN Last administered on 06/11/17 12:01; Admin Dose 1 TAB; Start 06/05/17 at 00:00 Oxycodone HCl (Oxycontin) 10 mg BID PO Last administered on 06/14/17 08:17; Admin Dose 10 MG; Start 06/05/17 at 09:00 Insulin Glargine (Lantus) 45 unit BID SC Last administered on 06/14/17 08:19 ; Admin Dose 45 UNIT; Start 06/05/17 at 09:00 Diagnostic Test (Pha) (Accu-Chek) 1 ea 02 XX Last administered on 06/13/17 05 :44; Admin Dose 1 EA; Start 06/05/17 at 02:00 Polyethylene Glycol (Miralax) 17 gm DAILY PRN PO CONSTIPATION; Start 06/05/17 at 00:30 Zolpidem Tartrate (Ambien) 5 mg HS PRN PO INSOMNIA; Start 06/05/17 at 00:00 Spironolactone (Aldactone) 25 mg DAILY PO Last administered on 06/14/17 08:16 ; Admin Dose 25 MG; Start 06/05/17 at 09:00 Miscellaneous Information 1 ea NOTE XX ; Start 06/05/17 at 00:30 Glucose (Glutose) 15 gm Q15M PRN PO DECREASED GLUCOSE; Start 06/05/17 at 00:30 Glucose (Glutose) 22.5 gm Q15M PRN PO DECREASED GLUCOSE; Start 06/05/17 at 00: 30 Dextrose (D50w Syringe) 25 ml Q15M PRN IV DECREASED GLUCOSE; Start 06/05/17 at 00:30 Dextrose (D50w Syringe) 50 ml Q15M PRN IV DECREASED GLUCOSE; Start 06/05/17 at 00:30 Glucagon (Glucagen) 1 mg Q15M PRN IM DECREASED GLUCOSE; Start 06/05/17 at 00:30 Glucose (Glutose) 15 gm Q15M PRN BUCCAL DECREASED GLUCOSE; Start 06/05/17 at 00 :30 Docusate Sodium (Colace) 100 mg BID PO Last administered on 06/14/17 08:16; Admin Dose 100 MG; Start 06/05/17 at 09:00 Bisacodyl (Dulcolax Supp) 10 mg DAILY PRN [place] CONSTIPATION Last administered on 06/09/17 12:33; Admin Dose 10 MG; Start 06/05/17 at 06:00 Magnesium Hydroxide (Milk Of Mag) 30 ml BID PRN PO CONSTIPATION; Start at 06:00 Lactulose (Enulose) 20 gm DAILY PRN PO CONSTIPATION Last administered on 20:53; Admin Dose 20 GM; Start 06/05/17 at 06:00 Collagenase (Santyl) 1 applic DAILY TOP Last administered on 06/13/17 09:14; Admin Dose 1 APPLIC; Start 06/05/17 at 15:30 Senna (Senokot) 2 tab HS PO Last administered on 06/13/17 20:47; Admin Dose 2 TAB; Start 06/07/17 at 21:00 Hydromorphone HCl (Dilaudid) 1.5 mg Q8H PRN SC SEVERE PAIN Last administered on 06/12/17 18:06; Admin Dose 1.5 MG; Start 06/09/17 at 16:10 Assessment/Plan Additional Assessment/Plan Rehab- Right below the knee amputation;Recent left toe amputation Continue rehab therapies Acute pain syndrome-continue current meds GI- bowel program. Anemia. Atrial fibrillation. Congestive heart failure. Chronic kidney disease. Coronary artery disease. Diabetes mellitus. Hypertension. History of cerebrovascular accident. History of peripheral vascular disease. Sleep apnea. BLAKE PÉREZ MD Jun 14, 2017 09:17
[2017-06-14] MEDS: OXYCODONE/ACETAMINOPHEN (10/325) TAB PO PRN ×2 (11:00→20:09)
[2017-06-14 14:00] VITALS: BP 98/53; RESP 18
[2017-06-14 17:34] VITALS: BP 105/57; PULSE 68; RESP 16
[2017-06-14 19:53] VITALS: BP 107/62; RESP 18
[2017-06-14] MEDS: SENNA TAB PO SCH (20:09)
[2017-06-15 02:00] VITALS: BP 117/57; PULSE 66; RESP 18
[2017-06-15] MEDS: ACCUCHECK AT 2AM (Patients on SS coverage) XX SCH (02:00)
[2017-06-15] MEDS: PANTOPRAZOLE (EC) 40 MG TAB PO SCH (06:07)
[2017-06-15 07:00] VITALS: BP 105/58; RESP 18
[2017-06-15] MEDS: Insulin NOVOLOG SS MILD Algorithm (SS with meals and bedtime) SC SCH ×4 (07:35→20:34)
[2017-06-15] MEDS: INSULIN ASPART [NOVOLOG] 3 ML PEN SC SCH ×3 (08:00→17:24)
[2017-06-15] MEDS: INSULIN GLARGINE [LANtus] 3 ML PEN SC SCH ×2 (08:09→20:30)
[2017-06-15] MEDS: ENOXAPARIN 30 MG/0.3 ML SYG SC SCH (08:10)
[2017-06-15] MEDS: COLLAGENASE 30 GM TUBE TOP SCH (08:10)
[2017-06-15] MEDS: GABAPENTIN 300 MG CAP PO SCH ×2 (08:11→20:28)
[2017-06-15] MEDS: AMIODARONE 200 MG TAB PO SCH (08:11)
[2017-06-15] MEDS: DOCUSATE SODIUM 100 MG CAP PO SCH ×2 (08:11→20:28)
[2017-06-15] MEDS: CLOPIDOGREL 75 MG TAB PO SCH (08:11)
[2017-06-15] MEDS: ASPIRIN (EC) 81 MG TAB PO SCH (08:11)
[2017-06-15] MEDS: SPIRONOLACTONE 25 MG TAB PO SCH (08:11)
[2017-06-15] MEDS: ALLOPURINOL 100 MG TAB PO SCH ×2 (08:12→20:28)
[2017-06-15] MEDS: oxyCODONE (CR) 10 MG TAB [oxyCONTIN] PO SCH ×2 (08:12→20:28)
[2017-06-15] MEDS: LOSARTAN 25 MG TAB PO SCH (08:12)
--- NOTE | 2017-06-15 11:48 | CONS ---
Date/Time of Note Date/Time of Note DATE: 06/15/17 TIME: 11:47 Consult Date/Type/Reason Admit Date/Time Jun 04, 2017 at 20:02 Initial Consult Date 06/05/17 Type of Consultation: neph Ordering Provider: DANYELLE VELASQUEZ DO Subjective The patient is stable. No events overnight. tolerates meds and therapies. poc reviewed with dr. velasquez. OBJECTIVE: HEENT: Head is normocephalic. NECK: Supple. HEART: Regular rate. LUNGS: Show diminished breath sounds at base. ABDOMEN: Soft, nontender to palpation. No rebound or guarding. EXTREMITIES: Negative for clubbing, cyanosis. No edema. DERMATOLOGIC: No rashes. MUSCULOSKELETAL: No joint effusions. NEUROLOGIC: No change in exam. MEDICATIONS: The patient's medications are reviewed. Objective Vital Signs Date Time Temp Pulse Resp B/P Pulse Ox O2 Delivery O2 Flow Rate FiO2 06/15/17 07:00 98.5 63 18 105/58 93 06/15/17 02:00 CPAP Intake and Output 06/14/17 06/14/17 06/15/17 15:00 23:00 07:00 Intake Total 1650 ml Output Total 1070 ml 250 ml Balance 580 ml -250 ml Results/Medications Result Diagram: 06/13/17 0604 06/13/17 0604 Results 24 hrs Laboratory Tests Test 06/14/17 12:17 06/14/17 17:21 06/14/17 20:07 06/15/17 07:51 Bedside Glucose 104 123 144 130 Medications Current Medications Acetaminophen (Tylenol Tab) 650 mg Q4H PRN PO PAIN AND OR ELEVATED TEMP; Start 06/05/17 at 00:00 Amiodarone HCl (Cordarone) 100 mg DAILY PO Last administered on 06/15/17 08: 11; Admin Dose 100 MG; Start 06/05/17 at 09:00 Aspirin (Halfprin) 81 mg DAILY PO Last administered on 06/15/17 08:11; Admin Dose 81 MG; Start 06/05/17 at 09:00 Clopidogrel Bisulfate (plaVIX) 75 mg DAILY PO Last administered on 06/15/17 08:11; Admin Dose 75 MG; Start 06/05/17 at 09:00 Enoxaparin Sodium (Lovenox) 30 mg DAILY SC Last administered on 06/15/17 08: 10; Admin Dose 30 MG; Start 06/05/17 at 09:00 Furosemide (Lasix) 40 mg Q48H PO Last administered on 06/14/17 06:25; Admin Dose 40 MG; Start 06/06/17 at 06:00 Losartan Potassium (Cozaar) 12.5 mg DAILY PO Last administered on 06/14/17 08 :16; Admin Dose 12.5 MG; Start 06/05/17 at 09:00 Rosuvastatin Calcium (Crestor) 40 mg HS PO Last administered on 06/05/17 21:58 ; Admin Dose 40 MG; Start 06/05/17 at 21:00; Status Future Hold Allopurinol (Zyloprim) 100 mg BID PO Last administered on 06/15/17 08:12; Admin Dose 100 MG; Start 06/05/17 at 09:00 Gabapentin (Neurontin) 300 mg BID PO Last administered on 06/15/17 08:11; Admin Dose 300 MG; Start 06/05/17 at 09:00 Oxycodone/ Acetaminophen (Endocet (10/ 325)) 1 tab Q6H PRN PO PAIN Last administered on 06/14/17 20:09; Admin Dose 1 TAB; Start 06/05/17 at 00:00 Oxycodone HCl (Oxycontin) 10 mg BID PO Last administered on 06/15/17 08:12; Admin Dose 10 MG; Start 06/05/17 at 09:00 Insulin Glargine (Lantus) 45 unit BID SC Last administered on 06/15/17 08:09 ; Admin Dose 45 UNIT; Start 06/05/17 at 09:00 Diagnostic Test (Pha) (Accu-Chek) 1 ea 02 XX Last administered on 06/13/17 05 :44; Admin Dose 1 EA; Start 06/05/17 at 02:00 Polyethylene Glycol (Miralax) 17 gm DAILY PRN PO CONSTIPATION; Start 06/05/17 at 00:30 Zolpidem Tartrate (Ambien) 5 mg HS PRN PO INSOMNIA; Start 06/05/17 at 00:00 Spironolactone (Aldactone) 25 mg DAILY PO Last administered on 06/15/17 08:11 ; Admin Dose 25 MG; Start 06/05/17 at 09:00 Miscellaneous Information 1 ea NOTE XX ; Start 06/05/17 at 00:30 Glucose (Glutose) 15 gm Q15M PRN PO DECREASED GLUCOSE; Start 06/05/17 at 00:30 Glucose (Glutose) 22.5 gm Q15M PRN PO DECREASED GLUCOSE; Start 06/05/17 at 00: 30 Dextrose (D50w Syringe) 25 ml Q15M PRN IV DECREASED GLUCOSE; Start 06/05/17 at 00:30 Dextrose (D50w Syringe) 50 ml Q15M PRN IV DECREASED GLUCOSE; Start 06/05/17 at 00:30 Glucagon (Glucagen) 1 mg Q15M PRN IM DECREASED GLUCOSE; Start 06/05/17 at 00:30 Glucose (Glutose) 15 gm Q15M PRN BUCCAL DECREASED GLUCOSE; Start 06/05/17 at 00 :30 Docusate Sodium (Colace) 100 mg BID PO Last administered on 06/15/17 08:11; Admin Dose 100 MG; Start 06/05/17 at 09:00 Bisacodyl (Dulcolax Supp) 10 mg DAILY PRN NC CONSTIPATION Last administered on 06/09/17 12:33; Admin Dose 10 MG; Start 06/05/17 at 06:00 Magnesium Hydroxide (Milk Of Mag) 30 ml BID PRN PO CONSTIPATION; Start at 06:00 Lactulose (Enulose) 20 gm DAILY PRN PO CONSTIPATION Last administered on 20:53; Admin Dose 20 GM; Start 06/05/17 at 06:00 Collagenase (Santyl) 1 applic DAILY TOP Last administered on 06/15/17 08:10; Admin Dose 1 APPLIC; Start 06/05/17 at 15:30 Senna (Senokot) 2 tab HS PO Last administered on 06/14/17 20:09; Admin Dose 2 TAB; Start 06/07/17 at 21:00 Hydromorphone HCl (Dilaudid) 1.5 mg Q8H PRN SC SEVERE PAIN Last administered on 06/12/17 18:06; Admin Dose 1.5 MG; Start 06/09/17 at 16:10 Assessment/Plan Chief Complaint/Hosp Course 1. 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 The patient is currently stable. Continue to monitor. 2. Sleep apnea. Continue nightly CPAP. 3. Chronic kidney disease, stage IIIB/IV. Renal functions stable. Continue current treatment plan. 4. Coronary artery disease. Continue current medical management. 5. Diabetes. Continue current insulin regimen. 6. Leukocytosis, improved. 7. Congestive heart failure. Continue medical management. 8. Dyslipidemia. Continue statin therapy. 9. History of coronary artery disease, status post coronary artery bypass graft. Continue current treatment. 10. Hypertension. Continue current blood pressure regimen. 11. History of arrhythmia. Continue amiodarone. 12. Gastrointestinal and deep vein thrombosis prophylaxis-utd Problems: ALIREZA MORA MD Jun 15, 2017 11:47
[2017-06-15] MEDS: OXYCODONE/ACETAMINOPHEN (10/325) TAB PO PRN (15:31)
[2017-06-15 20:00] VITALS: BP 124/71; RESP 18
[2017-06-15] MEDS: SENNA TAB PO SCH (20:28)
[2017-06-16] MEDS: ACCUCHECK AT 2AM (Patients on SS coverage) XX SCH (01:53)
[2017-06-16 02:00] VITALS: BP 106/59; RESP 18
[2017-06-16] MEDS: PANTOPRAZOLE (EC) 40 MG TAB PO SCH (06:01)
[2017-06-16] MEDS: FUROSEMIDE 40 MG TAB PO SCH (06:01)
[2017-06-16 07:00] VITALS: BP 123/68; RESP 18
[2017-06-16 07:37] LABS: BASOPHIL # 0.1 10^3/ul (0.0-0.1); BASOPHILS % 0.6 % (0.0-2.0); EOSINOPHILS # 0.6 10^3/ul (0.0-0.5); EOSINOPHILS % 5.9 % (0.0-7.0); HEMATOCRIT 31.6 % (42.0-52.0); HEMOGLOBIN 9.8 g/dl (14.0-18.0); LYMPHOCYTES # 2.4 10^3/ul (0.8-2.9); LYMPHOCYTES % 25.5 % (15.0-51.0); MEAN CORPUSCULAR VOLUME 87.1 fl (82.0-101.0); MEAN PLATELET VOLUME 9.2 fl (7.4-10.4); MONOCYTE # 0.7 10^3/ul (0.3-0.9); MONOCYTES % 7.1 % (0.0-11.0); NEUTROPHIL # 5.8 10^3/ul (1.6-7.5); NEUTROPHILS % 60.3 % (39.0-77.0); PLATELET COUNT 337 10^3/UL (140-415); RED BLOOD COUNT 3.63 10^6/ul (4.70-6.10); RED CELL DISTRIBUTION WIDTH 15.6 % (11.5-14.5); WHITE BLOOD COUNT 9.6 10^3/ul (4.8-10.8)
[2017-06-16] MEDS: INSULIN ASPART [NOVOLOG] 3 ML PEN SC SCH ×3 (07:52→17:51)
[2017-06-16 07:53] LABS: MAGNESIUM 1.8 mg/dl (1.7-2.5); PHOSPHORUS 4.9 mg/dl (2.5-4.9)
[2017-06-16] MEDS: Insulin NOVOLOG SS MILD Algorithm (SS with meals and bedtime) SC SCH ×4 (07:53→21:00)
[2017-06-16] MEDS: INSULIN GLARGINE [LANtus] 3 ML PEN SC SCH ×2 (07:54→22:48)
[2017-06-16 07:56] LABS: ALBUMIN 3.4 g/dl (3.3-4.9); ALBUMIN/GLOBULIN RATIO 0.85; BILIRUBIN,INDIRECT 0.1 mg/dl (0-1.1); BILIRUBIN,TOTAL 0.1 mg/dl (0.2-1.3); CALCIUM 9.3 mg/dl (8.4-10.2); CREATININE 1.35 mg/dl (0.61-1.24); POTASSIUM 4.1 mmol/L (3.5-5.1); TOTAL PROTEIN 7.4 g/dl (6.1-8.1)
[2017-06-16] MEDS: DOCUSATE SODIUM 100 MG CAP PO SCH ×2 (08:30→20:58)
[2017-06-16] MEDS: oxyCODONE (CR) 10 MG TAB [oxyCONTIN] PO SCH ×2 (08:30→20:58)
[2017-06-16] MEDS: GABAPENTIN 300 MG CAP PO SCH ×2 (08:30→20:58)
[2017-06-16] MEDS: LACTULOSE 30ML CUP PO PRN (08:31)
[2017-06-16] MEDS: LOSARTAN 25 MG TAB PO SCH (08:31)
[2017-06-16] MEDS: CLOPIDOGREL 75 MG TAB PO SCH (08:31)
[2017-06-16] MEDS: ALLOPURINOL 100 MG TAB PO SCH ×2 (08:31→20:58)
[2017-06-16] MEDS: COLLAGENASE 30 GM TUBE TOP SCH (08:32)
[2017-06-16] MEDS: ENOXAPARIN 30 MG/0.3 ML SYG SC SCH (08:32)
[2017-06-16] MEDS: AMIODARONE 200 MG TAB PO SCH (08:33)
[2017-06-16] MEDS: ASPIRIN (EC) 81 MG TAB PO SCH (08:33)
[2017-06-16] MEDS: SPIRONOLACTONE 25 MG TAB PO SCH (09:07)
--- NOTE | 2017-06-16 09:09 | PN ---
DATE: 06/16/2017 SUBJECTIVE: The patient is stable. No events overnight. No fevers, chills, nausea, or vomiting. OBJECTIVE: VITAL SIGNS: Blood pressure 106/59, respiration 18, pulse 64, temperature 98.6. HEENT: Head is normocephalic. NECK: Supple. HEART: Regular rate. LUNGS: Show diminished breath sounds at the base. ABDOMEN: Soft, nontender to palpation. No rebound or guarding. EXTREMITIES: Negative for clubbing, cyanosis, no edema. DERMATOLOGIC: No rashes. MUSCULOSKELETAL: No joint effusions. NEUROLOGIC: No change in exam. MEDICATIONS: The patient's medications have been reviewed. LABORATORY DATA: Showed sodium 142, potassium 4.1, BUN 23, creatinine 1.35. White count 9.6, hemog lobin 9.8, platelet count is 337. ASSESSMENT AND PLAN: 1. 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 The patient is currently stable. Continue current treatment plan. 2. Sleep apnea. Continue CPAP. 3. Chronic kidney disease stage IIIB/IV. Renal functions stable. Continue to monitor. 4. Coronary disease. Continue current medical management. 5. Diabetes. Continue Accu-Cheks and insulin sliding scale. 6. Congestive heart failure. Continue medical management. 7. Dyslipidemia. Continue statin therapy. 8. Coronary artery disease, status post coronary artery bypass graft. Continue current treatment p berry. 9. Hypertension. Continue current blood pressure regimen. 10. History of arrhythmia. Continue amiodarone 11. Gastrointestinal and deep venous thrombosis prophylaxis. Dictated By: DANYELLE FRANCOIS/SURENDRA Conf#: [id number] DID#: [id number]
[2017-06-16] MEDS: OXYCODONE/ACETAMINOPHEN (10/325) TAB PO PRN (10:42)
--- NOTE | 2017-06-16 11:09 | CONS ---
Date/Time of Note Date/Time of Note DATE: 06/16/17 TIME: 11:06 Consult Date/Type/Reason Admit Date/Time Jun 04, 2017 at 20:02 Initial Consult Date 06/05/17 Type of Consultation: neph Ordering Provider: DANYELLE GUY DO Subjective Spoke with regarding follow up with surgeon Objective Vital Signs Date Time Temp Pulse Resp B/P Pulse Ox O2 Delivery O2 Flow Rate FiO2 06/16/17 07:00 98.8 71 18 123/68 93 06/15/17 02:00 CPAP Intake and Output 06/15/17 06/15/17 06/16/17 15:00 23:00 07:00 Intake Total 1200 ml 300 ml Output Total 600 ml 1050 ml Balance 600 ml -750 ml INTERDISCIPLINARY TEAM CONFERENCE BOWEL- Cont BLADDER-Cont SKIN- eschar at incision site amd suprapatellar OT- DRESSING-sba BATHING-sba TOILETING-sba PT- BED MOBILITY-WI TRANSFERS-sba W.C. MOBILITY-WI A/P- Interdisciplinary team conference held today. Please see interdisciplinary sheet. Working toward d.c. on 06/17 with post discharge follow up of physical therapy, occupational therapy. Patient will follow up with Dr. Ferrell, patient' s surgeon within a week. Case d/w Dr. Ferrell. Results/Medications Result Diagram: 06/16/17 0614 06/16/17 0613 Results 24 hrs Laboratory Tests Test 06/15/17 12:07 06/15/17 17:21 06/15/17 20:27 06/16/17 06:13 Bedside Glucose 138 151 149 Sodium Level 142 Potassium Level 4.1 Chloride Level 106 Carbon Dioxide Level 27 Anion Gap 13 Blood Urea Nitrogen 23 H Creatinine 1.35 H Glucose Level 152 Calcium Level 9.3 Total Bilirubin 0.1 L Direct Bilirubin 0.00 Indirect Bilirubin 0.1 Aspartate Amino Transf (AST/SGOT) 32 Alanine Aminotransferase (ALT/SGPT) 31 Alkaline Phosphatase 51 Creatine Kinase 590 H Total Protein 7.4 Albumin 3.4 Globulin 4.00 H Albumin/Globulin Ratio 0.85 Test 06/16/17 06:14 06/16/17 07:47 White Blood Count 9.6 Red Blood Count 3.63 L Hemoglobin 9.8 L Hematocrit 31.6 L Mean Corpuscular Volume 87.1 Mean Corpuscular Hemoglobin 27.0 L Mean Corpuscular Hemoglobin Concent 31.0 L Red Cell Distribution Width 15.6 H Platelet Count 337 Mean Platelet Volume 9.2 Neutrophils % 60.3 Lymphocytes % 25.5 Monocytes % 7.1 Eosinophils % 5.9 Basophils % 0.6 Nucleated Red Blood Cells % 0.0 Neutrophils # 5.8 Lymphocytes # 2.4 Monocytes # 0.7 Eosinophils # 0.6 H Basophils # 0.1 Nucleated Red Blood Cells # 0.0 Phosphorus Level 4.9 Magnesium Level 1.8 Bedside Glucose 148 Medications Current Medications Acetaminophen (Tylenol Tab) 650 mg Q4H PRN PO PAIN AND OR ELEVATED TEMP; Start 06/05/17 at 00:00 Amiodarone HCl (Cordarone) 100 mg DAILY PO Last administered on 06/16/17 08: 33; Admin Dose 100 MG; Start 06/05/17 at 09:00 Aspirin (Halfprin) 81 mg DAILY PO Last administered on 06/16/17 08:33; Admin Dose 81 MG; Start 06/05/17 at 09:00 Clopidogrel Bisulfate (plaVIX) 75 mg DAILY PO Last administered on 06/16/17 08:31; Admin Dose 75 MG; Start 06/05/17 at 09:00 Enoxaparin Sodium (Lovenox) 30 mg DAILY SC Last administered on 06/16/17 08: 32; Admin Dose 30 MG; Start 06/05/17 at 09:00 Furosemide (Lasix) 40 mg Q48H PO Last administered on 06/16/17 06:01; Admin Dose 40 MG; Start 06/06/17 at 06:00 Losartan Potassium (Cozaar) 12.5 mg DAILY PO Last administered on 06/16/17 08 :31; Admin Dose 12.5 MG; Start 06/05/17 at 09:00 Rosuvastatin Calcium (Crestor) 40 mg HS PO Last administered on 06/05/17 21:58 ; Admin Dose 40 MG; Start 06/05/17 at 21:00; Status Future Hold Allopurinol (Zyloprim) 100 mg BID PO Last administered on 06/16/17 08:31; Admin Dose 100 MG; Start 06/05/17 at 09:00 Gabapentin (Neurontin) 300 mg BID PO Last administered on 06/16/17 08:30; Admin Dose 300 MG; Start 06/05/17 at 09:00 Oxycodone/ Acetaminophen (Endocet (10/ 325)) 1 tab Q6H PRN PO PAIN Last administered on 06/16/17 10:42; Admin Dose 1 TAB; Start 06/05/17 at 00:00 Oxycodone HCl (Oxycontin) 10 mg BID PO Last administered on 06/16/17 08:30; Admin Dose 10 MG; Start 06/05/17 at 09:00 Insulin Glargine (Lantus) 45 unit BID SC Last administered on 06/16/17 07:54 ; Admin Dose 45 UNIT; Start 06/05/17 at 09:00 Diagnostic Test (Pha) (Accu-Chek) 1 ea 02 XX Last administered on 06/13/17 05 :44; Admin Dose 1 EA; Start 06/05/17 at 02:00 Polyethylene Glycol (Miralax) 17 gm DAILY PRN PO CONSTIPATION; Start 06/05/17 at 00:30 Zolpidem Tartrate (Ambien) 5 mg HS PRN PO INSOMNIA; Start 06/05/17 at 00:00 Spironolactone (Aldactone) 25 mg DAILY PO Last administered on 06/16/17 09:07 ; Admin Dose 25 MG; Start 06/05/17 at 09:00 Miscellaneous Information 1 ea NOTE XX ; Start 06/05/17 at 00:30 Glucose (Glutose) 15 gm Q15M PRN PO DECREASED GLUCOSE; Start 06/05/17 at 00:30 Glucose (Glutose) 22.5 gm Q15M PRN PO DECREASED GLUCOSE; Start 06/05/17 at 00: 30 Dextrose (D50w Syringe) 25 ml Q15M PRN IV DECREASED GLUCOSE; Start 06/05/17 at 00:30 Dextrose (D50w Syringe) 50 ml Q15M PRN IV DECREASED GLUCOSE; Start 06/05/17 at 00:30 Glucagon (Glucagen) 1 mg Q15M PRN IM DECREASED GLUCOSE; Start 06/05/17 at 00:30 Glucose (Glutose) 15 gm Q15M PRN BUCCAL DECREASED GLUCOSE; Start 06/05/17 at 00 :30 Docusate Sodium (Colace) 100 mg BID PO Last administered on 06/16/17 08:30; Admin Dose 100 MG; Start 06/05/17 at 09:00 Bisacodyl (Dulcolax Supp) 10 mg DAILY PRN OR CONSTIPATION Last administered on 06/09/17 12:33; Admin Dose 10 MG; Start 06/05/17 at 06:00 Magnesium Hydroxide (Milk Of Mag) 30 ml BID PRN PO CONSTIPATION; Start at 06:00 Lactulose (Enulose) 20 gm DAILY PRN PO CONSTIPATION Last administered on 08:31; Admin Dose 20 GM; Start 06/05/17 at 06:00 Collagenase (Santyl) 1 applic DAILY TOP Last administered on 06/16/17 08:32; Admin Dose 1 APPLIC; Start 06/05/17 at 15:30 Senna (Senokot) 2 tab HS PO Last administered on 06/15/17 20:28; Admin Dose 2 TAB; Start 06/07/17 at 21:00 Hydromorphone HCl (Dilaudid) 1.5 mg Q8H PRN SC SEVERE PAIN Last administered on 06/12/17 18:06; Admin Dose 1.5 MG; Start 06/09/17 at 16:10 BLAKE PÉREZ MD Jun 16, 2017 11:09
[2017-06-16] MEDS ORDERED: OXYCODONE/ACETAMINOPHEN (10/325) TAB PO PRN (13:00)
--- NOTE | 2017-06-16 18:05 | CONS ---
Date/Time of Note Date/Time of Note DATE: 06/16/17 TIME: 18:04 Consult Date/Type/Reason Admit Date/Time Jun 04, 2017 at 20:02 Initial Consult Date 06/05/17 Type of Consultation: card Ordering Provider: DANYELLE GUY DO Subjective cardiology follow up note: S: Discussed with staff and pt denies any chest pain or pressure to me he denies any PND orthopnea to me. He denies any wheezing or shortness of breath to me. he is cooperating with PT. he was able to sleep well and uses his CPAP at night time. pt is upset about his wound O: General: no acute distress. obese man HEENT: NC/AT. pupils are equal. round. NECK: NO JVD. no stridor. CV: RRR. systolic murmur; no gallop or rubs. PULM: no wheezing or rhonchi. GI: SOFT, NT, ND, no rebound or guarding obese. Extremity: s/p R AKA in dressing . neuro: awake and alert, OX3. Psych: calm and pleasant rectal: deferred Objective Vital Signs Date Time Temp Pulse Resp B/P Pulse Ox O2 Delivery O2 Flow Rate FiO2 06/16/17 07:00 98.8 71 18 123/68 93 06/15/17 02:00 CPAP Intake and Output 06/15/17 06/15/17 06/16/17 15:00 23:00 07:00 Intake Total 1200 ml 300 ml Output Total 600 ml 1050 ml Balance 600 ml -750 ml Results/Medications Result Diagram: 06/16/17 0614 06/16/17 0613 Results 24 hrs Laboratory Tests Test 06/15/17 20:27 06/16/17 06:13 06/16/17 06:14 06/16/17 07:47 Bedside Glucose 149 148 Sodium Level 142 Potassium Level 4.1 Chloride Level 106 Carbon Dioxide Level 27 Anion Gap 13 Blood Urea Nitrogen 23 H Creatinine 1.35 H Glucose Level 152 Calcium Level 9.3 Total Bilirubin 0.1 L Direct Bilirubin 0.00 Indirect Bilirubin 0.1 Aspartate Amino Transf (AST/SGOT) 32 Alanine Aminotransferase (ALT/SGPT) 31 Alkaline Phosphatase 51 Creatine Kinase 590 H Total Protein 7.4 Albumin 3.4 Globulin 4.00 H Albumin/Globulin Ratio 0.85 White Blood Count 9.6 Red Blood Count 3.63 L Hemoglobin 9.8 L Hematocrit 31.6 L Mean Corpuscular Volume 87.1 Mean Corpuscular Hemoglobin 27.0 L Mean Corpuscular Hemoglobin Concent 31.0 L Red Cell Distribution Width 15.6 H Platelet Count 337 Mean Platelet Volume 9.2 Neutrophils % 60.3 Lymphocytes % 25.5 Monocytes % 7.1 Eosinophils % 5.9 Basophils % 0.6 Nucleated Red Blood Cells % 0.0 Neutrophils # 5.8 Lymphocytes # 2.4 Monocytes # 0.7 Eosinophils # 0.6 H Basophils # 0.1 Nucleated Red Blood Cells # 0.0 Phosphorus Level 4.9 Magnesium Level 1.8 Test 06/16/17 12:14 06/16/17 17:47 Bedside Glucose 115 123 Medications Current Medications Acetaminophen (Tylenol Tab) 650 mg Q4H PRN PO PAIN AND OR ELEVATED TEMP; Start 06/05/17 at 00:00 Amiodarone HCl (Cordarone) 100 mg DAILY PO Last administered on 06/16/17 08: 33; Admin Dose 100 MG; Start 06/05/17 at 09:00 Aspirin (Halfprin) 81 mg DAILY PO Last administered on 06/16/17 08:33; Admin Dose 81 MG; Start 06/05/17 at 09:00 Clopidogrel Bisulfate (plaVIX) 75 mg DAILY PO Last administered on 06/16/17 08:31; Admin Dose 75 MG; Start 06/05/17 at 09:00 Enoxaparin Sodium (Lovenox) 30 mg DAILY SC Last administered on 06/16/17 08: 32; Admin Dose 30 MG; Start 06/05/17 at 09:00 Furosemide (Lasix) 40 mg Q48H PO Last administered on 06/16/17 06:01; Admin Dose 40 MG; Start 06/06/17 at 06:00 Losartan Potassium (Cozaar) 12.5 mg DAILY PO Last administered on 06/16/17 08 :31; Admin Dose 12.5 MG; Start 06/05/17 at 09:00 Rosuvastatin Calcium (Crestor) 40 mg HS PO Last administered on 06/05/17 21:58 ; Admin Dose 40 MG; Start 06/05/17 at 21:00; Status Future Hold Allopurinol (Zyloprim) 100 mg BID PO Last administered on 06/16/17 08:31; Admin Dose 100 MG; Start 06/05/17 at 09:00 Gabapentin (Neurontin) 300 mg BID PO Last administered on 06/16/17 08:30; Admin Dose 300 MG; Start 06/05/17 at 09:00 Oxycodone HCl (Oxycontin) 10 mg BID PO Last administered on 06/16/17 08:30; Admin Dose 10 MG; Start 06/05/17 at 09:00 Insulin Glargine (Lantus) 45 unit BID SC Last administered on 06/16/17 07:54 ; Admin Dose 45 UNIT; Start 06/05/17 at 09:00 Diagnostic Test (Pha) (Accu-Chek) 1 ea 02 XX Last administered on 06/13/17 05 :44; Admin Dose 1 EA; Start 06/05/17 at 02:00 Polyethylene Glycol (Miralax) 17 gm DAILY PRN PO CONSTIPATION; Start 06/05/17 at 00:30 Zolpidem Tartrate (Ambien) 5 mg HS PRN PO INSOMNIA; Start 06/05/17 at 00:00 Spironolactone (Aldactone) 25 mg DAILY PO Last administered on 06/16/17 09:07 ; Admin Dose 25 MG; Start 06/05/17 at 09:00 Miscellaneous Information 1 ea NOTE XX ; Start 06/05/17 at 00:30 Glucose (Glutose) 15 gm Q15M PRN PO DECREASED GLUCOSE; Start 06/05/17 at 00:30 Glucose (Glutose) 22.5 gm Q15M PRN PO DECREASED GLUCOSE; Start 06/05/17 at 00: 30 Dextrose (D50w Syringe) 25 ml Q15M PRN IV DECREASED GLUCOSE; Start 06/05/17 at 00:30 Dextrose (D50w Syringe) 50 ml Q15M PRN IV DECREASED GLUCOSE; Start 06/05/17 at 00:30 Glucagon (Glucagen) 1 mg Q15M PRN IM DECREASED GLUCOSE; Start 06/05/17 at 00:30 Glucose (Glutose) 15 gm Q15M PRN BUCCAL DECREASED GLUCOSE; Start 06/05/17 at 00 :30 Docusate Sodium (Colace) 100 mg BID PO Last administered on 06/16/17 08:30; Admin Dose 100 MG; Start 06/05/17 at 09:00 Bisacodyl (Dulcolax Supp) 10 mg DAILY PRN OR CONSTIPATION Last administered on 06/09/17 12:33; Admin Dose 10 MG; Start 06/05/17 at 06:00 Magnesium Hydroxide (Milk Of Mag) 30 ml BID PRN PO CONSTIPATION; Start at 06:00 Lactulose (Enulose) 20 gm DAILY PRN PO CONSTIPATION Last administered on 08:31; Admin Dose 20 GM; Start 06/05/17 at 06:00 Collagenase (Santyl) 1 applic DAILY TOP Last administered on 06/16/17 08:32; Admin Dose 1 APPLIC; Start 06/05/17 at 15:30 Senna (Senokot) 2 tab HS PO Last administered on 06/15/17 20:28; Admin Dose 2 TAB; Start 06/07/17 at 21:00 Hydromorphone HCl (Dilaudid) 1.5 mg Q8H PRN SC SEVERE PAIN Last administered on 06/12/17 18:06; Admin Dose 1.5 MG; Start 06/09/17 at 16:10 Oxycodone/ Acetaminophen (Endocet (10/ 325)) 1 tab Q4 PRN PO PAIN Last administered on 06/16/17 16:44; Admin Dose 1 TAB; Start 06/16/17 at 13:00 Assessment/Plan Chief Complaint/Hosp Course 1. CAD 2. HX CABG 3. HX OH 4. HX multiple PCI 5. Severe PAD 6. S/P Previous LE revascularizations 7. gangrene toe s/p R BKA now 8/ DM 9. hx hyperthyroidism: TSH is wnl on 06/06/17 10. hx VT s/p ICD 11. CHF: chronic and stable due to systolic heart failure 12. dyslipidemia: on statin 13. CKD 14. Debility 15. Markedly elevated CK: probably related to recent surgery. improved now Recommendations: I will continue with the current cardiac medications Aspirin and Plavix will be continued. Coreg and ARB will be continued and try to increase as tolerated. will restart his crestor . Diabetic management as per internal medicine. Physical therapy and rehab will be continued. nightly CPAP . will allow pt to bring his home Repatha ( home cholesterol medication )and self inject himself q 2 weeks. Thank you for his referral. I will continue to follow along with you. SALVADOR BARRETO MD [facility] Problems: SALVADOR BARRETO MD Jun 16, 2017 18:05
[2017-06-16 20:00] VITALS: BP 104/57; RESP 18
[2017-06-16] MEDS: SENNA TAB PO SCH (20:58)
--- NOTE | 2017-06-16 21:36 | EN ---
Date/Time of Note Date/Time of Note DATE: 06/16/17 TIME: 21:35 Event Note Medicine Medicine Event Note WINDOWS SUPPORT ENGINEER note At 9:30pm approx was called to the room by the nurse to assess the patient for fever and lethargy. Patient laying in bed with cpap machine. at the bedside. Patient lethargic, however he is able to follow commands and is verbalizing appropriately. Denies any pain. states that she has been noticing him become more lethargic over the past few hours. Vitals: T; 101.7 hr: 96 RR:18 bp:98/67 Spo2: 95% on cpap 2 liters Heent: nc/at, on cpap CVS: RRR lungs: clear to auscultation bilaterally, no rales no wheezes Extremities: Right bka - stump wrapped, clean dry and intact. left lower extremity dressing clean dry and intact. Neuro: lethargic, but alert and oriented x 3, CN 2- 12 intact, no focal deficits A/p: #1Fever: Suspicious for early sepsis. STAT cbc,bmp, lactic acid, goldberg culture, cxr. Tylenol. Empiric coverage with vanc and zosyn, renally dosed. Transfer to Tele. I have asked the rehab nurse to ask the inpatient nurses to unwrap the right BKA dressing and take pictures upon transfer to tele. #2 hypotension: likely reflective of early sepsis, 500cc normal saline bolus. stat lactic acid. continue to monitor hemodynamics. Discussed with motors and controls tester Dr. Miranda from primary team who is are. Greater than 35 minutes of critical care time was spent on the current management of this patient. EFRAIN CHOWDARY Jun 16, 2017 21:36
[2017-06-16] MEDS ORDERED: SOD CHLORIDE 0.9% 500 ML IV ONE (22:00)
[2017-06-16] MEDS ORDERED: VANCOMYCIN IV PER PHARMACY XX SCH (22:00)
[2017-06-16] MEDS ORDERED: PIPER-TAZO 2.25 GM (PMX) 50 ML IVPB SCH (22:30)
[2017-06-16 22:44] LABS: ABNORMAL IP MESSAGE 1; BASOPHIL # 0.1 10^3/ul (0.0-0.1); BASOPHILS % 0.4 % (0.0-2.0); EOSINOPHILS # 0.3 10^3/ul (0.0-0.5); EOSINOPHILS % 1.5 % (0.0-7.0); HEMATOCRIT 31.9 % (42.0-52.0); HEMOGLOBIN 10.1 g/dl (14.0-18.0); LYMPHOCYTES % 10.9 % (15.0-51.0); MEAN CORPUSCULAR HEMOGLOBIN 27.2 pg (29.0-33.0); MEAN CORPUSCULAR HGB CONC 31.7 g/dl (32.0-37.0); MEAN PLATELET VOLUME 9.2 fl (7.4-10.4); MONOCYTE # 1.7 10^3/ul (0.3-0.9); MONOCYTES % 9.5 % (0.0-11.0); NEUTROPHIL # 13.8 10^3/ul (1.6-7.5); NEUTROPHILS % 77.1 % (39.0-77.0); PLATELET COUNT 335 10^3/UL (140-415); POSITIVE DIFF @See below; RED BLOOD COUNT 3.71 10^6/ul (4.70-6.10); RED CELL DISTRIBUTION WIDTH 15.9 % (11.5-14.5); WHITE BLOOD COUNT 17.9 10^3/ul (4.8-10.8)
[2017-06-16] MEDS ORDERED: VANCOMYCIN 2 GM in SOD CHLORIDE 0.9% 500 ML IVPB ONE (23:00)
[2017-06-16 23:02] LABS: CALCIUM 9.3 mg/dl (8.4-10.2); CREATININE 1.5 mg/dl (0.61-1.24); POTASSIUM 4.5 mmol/L (3.5-5.1)
--- NOTE | 2017-06-17 00:42 | RADRPT ---
PROCEDURE: Portable chest x-ray. CLINICAL INDICATION: 66 years of age, male. Fever and hypotension. TECHNIQUE: Portable AP view of the chest. COMPARISON: June 05, 2017 FINDINGS: Left subclavian pacemaker and AICD with electrodes over right atrium and right ventricle. Sternal wi res and mediastinal clips from previous cardiac surgery. Tortuous aorta. Enlarged cardiopericardial silhouette. Cardiomediastinal contours are unchanged. Decreased lung volumes with vascular crowding. Lungs are clear. Negative for pleural effusion or pneumothorax. No acute bony abnormality. Additional comment: None. IMPRESSION: 1. Pacemaker and AICD. Cardiomegaly. 2. Negative for evidence of an acute chest process. RPTAT: HCTS Physician Juana Date Time Electronically viewed and signed by Omayra Bee Physician on 06/17/2017 00:42 CS/
--- NOTE | 2017-06-17 10:53 | DS ---
Date/Time of Note Date/Time of Note DATE: 06/17/17 TIME: 10:46 Discharge Summary Admission/Discharge Info Admit Date/Time Jun 04, 2017 at 20:02 Discharge Date/Time Jun 17, 2017 at 00:18 Discharge Diagnosis 1. Sepsis 2. Right below the knee amputation 3. Recent left toe amputation 4. Anemia. 5. Atrial fibrillation. 6. Congestive heart failure. 7. Chronic kidney disease. 8. Coronary artery disease. 9. Diabetes mellitus. 10. Hypertension. 11. History of cerebrovascular accident. 12. History of peripheral vascular disease. 13. Sleep apnea. 14. Impairments in self-care and mobility. Patient Condition: Serious Hospital Course Patient was admitted for comprehensive interdisciplinary acute rehab and made steady functional gains during the course of the stay. Patient progressed from initial maximal assist for self-care and mobility tasks, and progressed to the point of supervised to modified independent for seated self-care activity, transfers, and wheelchair mobility. Patient's wound on his residual limb was noted to have eschar. On evening of June 16 patient was noted to have increased temperature and worsening clinical status. Patient transferred to the acute hospital for closer monitoring and further workup. Home Meds Reported Medications Evolocumab (Repatha Sureclick) 140 Mg/1 Ml Pen.injctr, 140 MG SQ WEEKLY 09/24/16 Ivabradine HCl (Corlanor) 5 Mg Tablet, 5 MG PO BID, #60 TAB 09/24/16 Allopurinol* (Allopurinol*) 100 Mg Tablet, 100 MG PO BID, TAB 09/24/16 Icosapent Ethyl (VASCEPA) 1 Gm Capsule, 1 GM PO BID, CAP 09/24/16 Spironolactone* (Aldactone*) 25 Mg Tablet, 25 MG PO DAILY, #30 TAB 09/24/16 Rosuvastatin Calcium* (Crestor*) 40 Mg Tablet, 40 MG PO QHS, #30 TAB 09/24/16 Polyethylene Glycol* (Miralax*) 17 Gm Powd.pack, 17 GM PO DAILY, #30 PACKET 09/24/16 Multivitamins* (Theragran*) 1 Tab Tab, 1 TAB PO DAILY, TAB 09/24/16 Methimazole* (Tapazole*) 5 Mg Tablet, 2.5 MG PO DAILY, TAB 09/24/16 Losartan Potassium* (Cozaar*) 25 Mg Tablet, 25 MG PO DAILY, #30 TAB 09/24/16 Liraglutide (Victoza 3-Dav) 0.6 Mg/0.1 Ml Pen.injctr, 1.8 MG SQ DAILY, SYR 09/24/16 Insulin Glargine,Hum.rec.anlog (Eneida Rosarioanaidtrina) 300 Unit/1 Ml Insuln.pen, 105 UNIT SQ QPM 09/24/16 Insulin Lispro (Humalog) 100 Unit/1 Ml Cartridge, 35 UNIT SQ AC MEALS 09/24/16 Gabapentin* (Gabapentin*) 300 Mg Capsule, 300 MG PO BID, #60 CAP 09/24/16 Furosemide* (Furosemide*) 40 Mg Tablet, 40 MG PO FRIDAY AND FRIDAY, TAB 09/24/16 Clopidogrel Bisulfate (Clopidogrel) 75 Mg Tablet, 75 MG PO DAILY, #30 TAB 09/24/16 Cholecalciferol* (Vitamin D3*) 1,000 Unit Tablet, 1000 UNIT PO DAILY, TAB 09/24/16 Carvedilol* (Carvedilol*) 6.25 Mg Tablet, 6.25 MG PO BID, #60 TAB 09/24/16 Aspirin* (Aspirin* EC) 81 Mg Tablet.dr, 81 MG PO DAILY, TAB 09/24/16 Amiodarone Hcl* (Amiodarone Hcl*) 100 Mg Tablet, 100 MG PO DAILY, #30 TAB 09/24/16 Acetaminophen* (Acetaminophen*) 500 MG Extra Strength Tablet, 1000 MG PO Q6H Y for PAIN AND OR ELEVATED TEMP, TAB 09/24/16 Primary Care Provider Not On Staff Doctor Pending Labs Laboratory Tests Test 06/16/17 12:14 06/16/17 17:47 06/16/17 21:01 06/16/17 21:26 Bedside Glucose 115mg/dL (70-220) 123mg/dL (70-220) 131mg/dL (70-220) 116mg/dL (70-220) Test 06/16/17 22:02 06/16/17 22:45 White Blood Count 17.910^3/ul (4.8-10.8) Red Blood Count 3.7110^6/ul (4.70-6.10) Hemoglobin 10.1g/dl (14.0-18.0) Hematocrit 31.9% (42.0-52.0) Mean Corpuscular Volume 86.0fl (82.0-101.0) Mean Corpuscular Hemoglobin 27.2pg (29.0-33.0) Mean Corpuscular Hemoglobin Concent 31.7g/dl (32.0-37.0) Red Cell Distribution Width 15.9% (11.5-14.5) Platelet Count 21802^3/UL (140-415) Mean Platelet Volume 9.2fl (7.4-10.4) Neutrophils % 77.1% (39.0-77.0) Lymphocytes % 10.9% (15.0-51.0) Monocytes % 9.5% (0.0-11.0) Eosinophils % 1.5% (0.0-7.0) Basophils % 0.4% (0.0-2.0) Nucleated Red Blood Cells % 0.0/100WBC (0.0-0.0) Neutrophils # 13.810^3/ul (1.6-7.5) Lymphocytes # 2.010^3/ul (0.8-2.9) Monocytes # 1.710^3/ul (0.3-0.9) Eosinophils # 0.310^3/ul (0.0-0.5) Basophils # 0.110^3/ul (0.0-0.1) Nucleated Red Blood Cells # 0.010^3/ul (0.0-0.0) Sodium Level 137mmol/L (135-144) Potassium Level 4.5mmol/L (3.5-5.1) Chloride Level 100mmol/L (97-110) Carbon Dioxide Level 27mmol/L (21-31) Anion Gap 15 (8-16) Blood Urea Nitrogen 25mg/dl (7-20) Creatinine 1.50mg/dl (0.61-1.24) Glucose Level 116mg/dl (70-220) Lactic Acid Level 2.3mmol/L (0.5-2.0) Calcium Level 9.3mg/dl (8.4-10.2) Bedside Glucose 137mg/dL (70-220) BLAKE PÉREZ MD Jun 17, 2017 10:53
[2017-06-17] MEDS ORDERED: VANCOMYCIN 1 GM in NS 250 ML IVPB SCH (12:00)
== END 2017-06-17 00:18 | disposition short-term general hospital (02) | DRG 945 ==
LOC: VRC 20:02 → TEL 06-16 23:20 → VRC 06-17 00:06
PROVIDERS: ADMIT Physical Medicine & Rehabilitation; ATTEND Internal Medicine
PROC: F07Z9FZ Gait Training/Functional Ambulation Treatment using Assistive, Adaptive, Supportive or Protective Equipment (ICD-10-PCS; principal; 2017-06-04)
PROC: F07Z5FZ Bed Mobility Treatment using Assistive, Adaptive, Supportive or Protective Equipment (ICD-10-PCS; 2017-06-04)
PROC: F07Z8FZ Transfer Training Treatment using Assistive, Adaptive, Supportive or Protective Equipment (ICD-10-PCS; 2017-06-04)
PROC: F08Z2FZ Grooming/Personal Hygiene Treatment using Assistive, Adaptive, Supportive or Protective Equipment (ICD-10-PCS; 2017-06-04)
PROC: F08Z0FZ Bathing/Showering Techniques Treatment using Assistive, Adaptive, Supportive or Protective Equipment (ICD-10-PCS; 2017-06-04)
PROC: F08Z1FZ Dressing Techniques Treatment using Assistive, Adaptive, Supportive or Protective Equipment (ICD-10-PCS; 2017-06-04)
DX: R53.81 Other malaise (principal); A41.9 Sepsis, unspecified organism; N18.4 Chronic kidney disease, stage 4 (severe); I13.0 Hypertensive heart and chronic kidney disease with heart failure and stage 1 through stage 4 chronic kidney disease, or unspecified chronic kidney disease; I50.22 Chronic systolic (congestive) heart failure; N39.0 Urinary tract infection, site not specified; T87.43 Infection of amputation stump, right lower extremity; E11.22 Type 2 diabetes mellitus with diabetic chronic kidney disease; I48.91 Unspecified atrial fibrillation; I25.10 Atherosclerotic heart disease of native coronary artery without angina pectoris; E78.5 Hyperlipidemia, unspecified; I25.5 Ischemic cardiomyopathy; I25.2 Old myocardial infarction; E05.90 Thyrotoxicosis, unspecified without thyrotoxic crisis or storm; K59.00 Constipation, unspecified; J44.9 Chronic obstructive pulmonary disease, unspecified; D64.9 Anemia, unspecified; G47.33 Obstructive sleep apnea (adult) (pediatric); E66.9 Obesity, unspecified; Z74.09 Other reduced mobility; F06.31 Mood disorder due to known physiological condition with depressive features; G89.18 Other acute postprocedural pain; E11.319 Type 2 diabetes mellitus with unspecified diabetic retinopathy without macular edema; Y83.5 Amputation of limb(s) as the cause of abnormal reaction of the patient, or of later complication, without mention of misadventure at the time of the procedure; Z68.32 Body mass index [BMI] 32.0-32.9, adult; Z89.412 Acquired absence of left great toe; Z87.891 Personal history of nicotine dependence; Z79.82 Long term (current) use of aspirin; Z79.02 Long term (current) use of antithrombotics/antiplatelets; Z95.1 Presence of aortocoronary bypass graft; Z86.73 Personal history of transient ischemic attack (TIA), and cerebral infarction without residual deficits; Z95.5 Presence of coronary angioplasty implant and graft; Z95.810 Presence of automatic (implantable) cardiac defibrillator; Z79.4 Long term (current) use of insulin; Y92.234 Operating room of hospital as the place of occurrence of the external cause
CPT/HCPCS: 71010; 80048; 80053; 80061; 80162; 81001; 82550; 82962; 83605; 83735; 83880; 84100; 84439; 84443; 85025; 85610; 87040; 87081; 87086; 97110; 97112; 97150; 97163; 97167; 97530; 97535; 97542; J1170; J1650; J1815; J2543; J3370; J7040

== ENCOUNTER 2017-06-17 01:20 | Inpatient (IN) | payer MEDICARE, OTHER ==
[2017-06-16 23:30] VITALS: BP 113/56; PULSE 89; RESP 20
[2017-06-16 23:41] VITALS: PULSE 88
[2017-06-17] VITALS (12 sets, daily range): BP systolic 101–113; BP diastolic 51–58; PULSE 83–92; RESP 17–20; Ht 167.6 cm; Wt 108.1 kg
[~2017-06-17] VITALS: Ht 167.6 cm; Wt 108.1 kg
[2017-06-17] MEDS ORDERED: VANCOMYCIN IV PER PHARMACY XX SCH (03:30)
[2017-06-17] MEDS ORDERED: VANCOMYCIN 2 GM in SOD CHLORIDE 0.9% 500 ML IVPB SCH (05:30)
--- NOTE | 2017-06-17 07:28 | EN ---
Date/Time of Note Date/Time of Note DATE: 06/17/17 TIME: 07:26 Event Note Medicine Medicine Event Note Please see LINUX ADMINISTRATOR note from previous admission/hospital course for reason for transfer to inpatient from rehab overnight. EFRAIN CHOWDARY Jun 17, 2017 07:28
[2017-06-17] MEDS: ASPIRIN (EC) 81 MG TAB PO SCH (09:05)
[2017-06-17] MEDS: MULTIVITAMINS THERAPEUTIC TAB PO SCH (09:05)
[2017-06-17] MEDS: POLYETHYLENE GLYCOL 17 GM PACKET PO SCH (09:05)
[2017-06-17] MEDS: GABAPENTIN 300 MG CAP PO SCH ×2 (09:05→20:29)
[2017-06-17] MEDS: AMIODARONE 200 MG TAB PO SCH (09:06)
[2017-06-17] MEDS: CLOPIDOGREL 75 MG TAB PO SCH (09:06)
[2017-06-17] MEDS: ALLOPURINOL 100 MG TAB PO SCH ×2 (09:06→20:29)
[2017-06-17] MEDS: METHIMAZOLE 5 MG TAB PO SCH (09:06)
[2017-06-17] MEDS: CHOLECALCIFEROL 1,000 UNIT TAB PO SCH (09:06)
[2017-06-17] MEDS: INSULIN ASPART [NOVOLOG] 3 ML PEN SC SCH ×4 (09:10→20:30)
[2017-06-17] MEDS: INSULIN GLARGINE [LANtus] 3 ML PEN SC SCH ×2 (09:10→20:27)
--- NOTE | 2017-06-17 09:13 | RADRPT ---
PROCEDURE: XR Chest. CLINICAL INDICATION: Shortness of breath TECHNIQUE: AP Portable chest. COMPARISON: CHEST 06/17/2017; CHEST 06/05/2017 FINDINGS: Left-sided pacemaker, sternotomy wires and mediastinal clips are again visualized. The cardiomediastinal silhouette is magnified. The aortic arch is calcified. No focal consolidation, pleural effusion or pneumothorax is seen. The osseous structures are intact. IMPRESSION: No radiographic evidence of acute cardiopulmonary disease. Prior CABG. Physician Derek Date Time Electronically viewed and signed by May Laguna Physician on 06/17/2017 09:13 CS/
[2017-06-17 09:19] LABS: CREATININE 1.52 mg/dl (0.61-1.24); POTASSIUM 4.6 mmol/L (3.5-5.1)
--- NOTE | 2017-06-17 09:32 | HP ---
DATE OF ADMISSION: 06/17/2017 CHIEF COMPLAINT: Fever, sepsis. HISTORY OF PRESENT ILLNESS: This is a 66-year-old male with a complicated medical history including chronic kidney disease stage IIIB/IV, history of CHF, dyslipidemia, coronary artery disease, periph eral vascular disease who initially presented to outside hospital at [place] with a gangrenous right foot. The patient has a long history of diabetes, developed complications including retinopathy an d nephropathy. The patient also noted to have diabetic foot ulcers, was refusing amputation; akin mccullough, developed worsening symptoms and pain has resulted. He developed a gangrenous right foot. He we nt to [facility], had a right below knee amputation. The patient following the surgery was on a prolonged course of antibiotic therapy. He finished a course at the hospital. The patient was a lso being followed by Dr. Nunes. The patient was then transferred to [facility] for continued rehabilitation. While at [facility], the patient was clinical ly improving. Yesterday evening; however, the patient was noted to be lethargic, developed a fever and was hypotensive and as a result was transferred over to telemetry for evaluation. The patient w as started on broad spectrum antibiotics with vancomycin and Zosyn. Upon my evaluation of the patient this morning, he is clinically feeling better. Denies any chills, nausea, vomiting or shortness of breath. PAST MEDICAL HISTORY: As stated above, history of chronic kidney disease, CHF, AFib, diabetes, CVA, hypertension. PAST SURGICAL HISTORY: Status post left toe amputation, status post right BKA. FAMILY HISTORY: Noncontributory. SOCIAL HISTORY: Does not drink, smoke or do drugs. MEDICATIONS: The patient's medications have been reviewed and reconciled. ALLERGIES: NO KNOWN DRUG ALLERGIES. REVIEW OF SYSTEMS: A 14-point review of systems was conducted. Pertinent positives stated in HPI, otherwise negative. PHYSICAL EXAMINATION: VITAL SIGNS: Blood pressure 104/57, respiration 18, pulse 89, temperature 99.0. HEENT: Head is normocephalic. NECK: Supple. HEART: Regular rate. LUNGS: Show diminished breath sounds at the base. ABDOMEN: Soft, nontender to palpation. No rebound or guarding. EXTREMITIES: Negative for clubbing, cyanosis. There is right below the knee amputation with dressi ng clean, dry and intact. Left foot has noted dressing clean, dry, intact. NEUROLOGIC: No focal deficits. LABORATORY DATA: From 06/16/2017 showed a white count of 17.9, hemoglobin 10.1 and a platelet count of 335. Sodium 137. Lactic acid 2.3, potassium 4.5, BUN 25, creatinine 1.50. ASSESSMENT AND PLAN: 1. Sepsis, underlying source unclear, possibly cellulitis wound. Other sources that need to be rul ed out are pneumonia, urinary. The patient has elevated white count of 17,000 and lactic acid of 2. 3. Plan at this point is to continue current broad spectrum antibiotics with vancomycin and Zosyn. We will follow up urine cultures, blood cultures. We will follow up lactic acid level, we will fol low up a chest x-ray. We will place an infectious disease consult with Dr. Cardenas for evaluation. 2. Lactic acidosis secondary to underlying sepsis. Will repeat lactic acid level. Continue curren t medical management. Continue IV antibiotics and IV hydration. 3. 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 Continue current medical managem ent. Continue wound care. 4. Sleep apnea. Continue CPAP. 5. Chronic kidney disease, stage IIIB/IV. Continue supportive care, renally dose all meds, avoid n ephrotoxins. 6. Coronary artery disease. Continue medical management. 7. Diabetes. Continue current insulin regimen. 8. Congestive heart failure. Continue current treatment plan. 9. Dyslipidemia. Continue statin therapy. 10. Coronary artery disease, status post coronary artery bypass graft. Follow up with cardiology. Continue current treatment plan. 11. History of hypertension. The patient now hypotensive. We will hold blood pressure medications and monitor. 12. Arrhythmia. Continue amiodarone. 13. Gastrointestinal and deep venous thrombosis prophylaxis 14. Lower extremity wounds. Continue wound care. Please note I spent up to 25 minutes [id number] time with the patient. The patient is FULL CODE. Dictated By: DANYELLE FRANCOIS/SURENDRA Conf#: [id number] DID#: [id number]
[2017-06-17] MEDS ORDERED: PENDING SANTYL ORDER FOR WOUND CARE XX PRN (11:30)
--- NOTE | 2017-06-17 12:55 | CONS ---
DATE OF ADMISSION: 06/17/2017 DATE OF CONSULTATION: 06/17/2017 TYPE OF CONSULTATION: Infectious Disease. REASON FOR CONSULTATION: Antibiotic management. HISTORY OF PRESENT ILLNESS: Azar Hernandez is a 66-year-old male who comes in with fever and sepsis. His past problems include: 1. History of chronic renal disease. 2. Coronary artery disease with CHF. 3. Atrial fibrillation. 4. Adult-onset diabetes mellitus. 5. History of CVA. 6. Hypertension. 7. Dyslipidemia. 8. Peripheral vascular disease. The patient initially presented to [facility] with gangrenous right foot. He has a long histo ry of diabetes mellitus and developed complications including retinopathy and nephropathy. He also was noted to have a diabetic foot ulcer, was refusing amputation, developed worsening symptoms and p ain and developed a gangrenous right foot. He subsequently had a right below knee amputation at [facility]. He had a prolonged course of antibiotic therapy. He was then transferred to [facility] acute rehab for continued rehabilitation. Last night, he became lethargic, developed a fever, and was hypotensive, and was transferred to telemetry for evaluation. He was started on van comycin and Zosyn. On admission, his BUN and creatinine were 24/1.52. A chest x-ray showed a left- sided pacemaker, sternotomy, mediastinal clips, no radiographic evidence of acute cardiopulmonary di sease, prior coronary artery bypass grafting. PAST MEDICAL HISTORY: Operations as outlined. PAST SURGICAL HISTORY: Status post left toe amputation, status post right BKA. FAMILY HISTORY: Noncontributory. SOCIAL HISTORY: Does not smoke, drink or abuse drugs. ALLERGIES: NONE TO PENICILLIN, SULFA OR FOODS. MEDICATIONS: Per chart. REVIEW OF SYSTEMS: As per HPI. PHYSICAL EXAMINATION: GENERAL: The patient is a well-developed, well-nourished, chronically ill-appearing male who is jony ke, responsive, in no acute distress. VITAL SIGNS: Stable. He is afebrile. SKIN: Without generalized rash. HEENT: Within normal limits. NECK: Supple. LYMPH NODES: None palpable. CHEST: Decreased breath sounds at the bases. HEART: Without murmur or gallop. ABDOMEN: Soft, nontender, without organosplenomegaly or masses. EXTREMITIES: Right below-knee amputation with dry, clean dressing, left foot also has a dressing wh ich is intact. He is missing a toe. RECTAL AND GENITAL: Deferred. NEUROLOGIC: No focal neurological abnormality. ANCILLARY LABORATORY DATA: White count is 17.9, hemoglobin 10.1, platelet count 335,000. BUN and c reatinine 25/1.5. IMPRESSION AND PLAN: The patient seems to have sepsis with a white count of 17,000, lactic acid of 2.3 and hypotension. He is currently on vancomycin and Zosyn. We will check on blood cultures and chest x-ray. I will dictate my findings to Dr. Dasilva. Dictated By: CARON CHOPRA MD, JD/NTS Conf#: [id number] DID#: [id number] CC: EFRAIN CHOWDARY MD;*End*
[2017-06-17] MEDS: PIPER-TAZO 3.375 GM IV (PMX) 50 ML IVPB SCH ×2 (14:55→21:26)
[2017-06-17] MEDS: HYDROCODONE/APAP (5/325) TAB PO PRN (14:59)
--- NOTE | 2017-06-17 16:06 | CONS ---
Date/Time of Note Date/Time of Note DATE: 06/17/17 TIME: 16:04 Consult Date/Type/Reason Admit Date/Time Jun 17, 2017 at 01:20 Initial Consult Date Ordering Provider: DANYELLE DASILVA DO Subjective cardiology follow up note: S: Discussed with staff and Dr Dasilva pt denies any chest pain or pressure to me he denies any PND orthopnea to me. He denies any wheezing or shortness of breath to me. He was noted to have a fever and lethargy last night and was transferred to [facility]. O: General: no acute distress. obese man HEENT: NC/AT. pupils are equal. round. NECK: NO JVD. no stridor. CV: RRR. systolic murmur; no gallop or rubs. PULM: no wheezing or rhonchi. GI: SOFT, NT, ND, no rebound or guarding obese. Extremity: s/p R AKA in dressing . neuro: awake and alert, OX3. Psych: calm and pleasant rectal: deferred Objective Vital Signs Date Time Temp Pulse Resp B/P Pulse Ox O2 Delivery O2 Flow Rate FiO2 06/17/17 15:37 99.4 92 20 104/51 95 06/17/17 07:13 2.0 06/16/17 23:30 Room Air Results/Medications Result Diagram: 06/17/17 0843 Results 24 hrs Laboratory Tests Test 06/17/17 08:43 06/17/17 08:44 06/17/17 10:55 06/17/17 12:37 Sodium Level 138 Potassium Level 4.6 Chloride Level 102 Carbon Dioxide Level 25 Anion Gap 16 Blood Urea Nitrogen 24 H Creatinine 1.52 H Glucose Level 177 Hemoglobin A1c 7.0 H Calcium Level 9.0 Lactic Acid Level 1.3 2.2 *H Bedside Glucose 380 H Test 06/17/17 12:38 Bedside Glucose 283 H Medications Current Medications Allopurinol (Zyloprim) 100 mg BID PO Last administered on 06/17/17 09:06; Admin Dose 100 MG; Start 06/17/17 at 09:00 Amiodarone HCl (Cordarone) 100 mg DAILY PO Last administered on 06/17/17 09: 06; Admin Dose 100 MG; Start 06/17/17 at 09:00 Aspirin (Halfprin) 81 mg DAILY PO Last administered on 06/17/17 09:05; Admin Dose 81 MG; Start 06/17/17 at 09:00 Cholecalciferol (Vitamin D) 1,000 unit DAILY PO Last administered on 09:06; Admin Dose 1,000 UNIT; Start 06/17/17 at 09:00 Clopidogrel Bisulfate (plaVIX) 75 mg DAILY PO Last administered on 06/17/17 09:06; Admin Dose 75 MG; Start 06/17/17 at 09:00 Gabapentin (Neurontin) 300 mg BID PO Last administered on 06/17/17 09:05; Admin Dose 300 MG; Start 06/17/17 at 09:00 Methimazole (Tapazole) 2.5 mg DAILY PO Last administered on 06/17/17 09:06; Admin Dose 2.5 MG; Start 06/17/17 at 09:00 Multivitamins Therapeutic (Theragran) 1 tab DAILY PO Last administered on 06/17 09:05; Admin Dose 1 TAB; Start 06/17/17 at 09:00 Polyethylene Glycol (Miralax) 17 gm DAILY PO Last administered on 06/17/17 09 :05; Admin Dose 17 GM; Start 06/17/17 at 09:00 Rosuvastatin Calcium (Crestor) 40 mg QHS PO ; Start 06/17/17 at 21:00 Insulin Glargine (Lantus) 40 unit DAILY@08 SC Last administered on 06/17/17 09:10; Admin Dose 40 UNIT; Start 06/17/17 at 08:00 Insulin Glargine (Lantus) 45 unit DAILY@20 SC ; Start 06/17/17 at 20:00 Diagnostic Test (Pha) 1 ea 1 ea 02 XX ; Start 06/18/17 at 02:00 Piperacillin Sod/ Tazobactam Sod 50 ml @ 100 mls/hr Q8 IVPB Last administered on 06/17/17 14:55; Admin Dose 100 MLS/HR; Start 06/17/17 at 14:00 Vancomycin HCl/ Sodium Chloride (Vancocin/NS) 250 ml @ 83.333 mls/ hr Q24H IVPB ; Start 06/18/17 at 09:00 Miscellaneous Information ([facility]ending [facility]) This patient hauser... PRN PRN XX WOUND CARE; Start 06/17/17 at 11:30 Acetaminophen/ Hydrocodone Bitart ([place] (5/325)) 1 tab Q4H PRN PO PAIN LEVEL 4 -6 Last administered on 06/17/17t 14:59; Admin Dose 1 TAB; Start 06/17/17 at 14:30 Assessment/Plan Chief Complaint/Hosp Course 1. CAD 2. HX CABG 3. HX AL 4. HX multiple PCI 5. Severe PAD 6. S/P Previous LE revascularizations 7. gangrene toe s/p R BKA now 8/ DM 9. hx hyperthyroidism: TSH is wnl on 06/06/17 10. hx VT s/p ICD 11. CHF: chronic and stable due to systolic heart failure 12. dyslipidemia: on statin 13. CKD 14. Debility 15. Markedly elevated CK: probably related to recent surgery. improved now 16. fever and leukocystosis. Recommendations: I will continue with the current cardiac medications Aspirin and Plavix will be continued. Coreg and ARB will be continued and try to increase as tolerated. will restart his crestor when pt goes home. Diabetic management as per internal medicine. Physical therapy and rehab will be continued. nightly CPAP . will allow pt to bring his home Repatha ( home cholesterol medication )and self inject himself q 2 weeks. abx as per ID rec. Thank you for his referral. I will continue to follow along with you. SALVADOR BARRETO MD [facility] Problems: SALVADOR BARRETO MD Jun 17, 2017 16:06
[2017-06-17] MEDS: ROSUVASTATIN CALCIUM 40 MG TABLET PO SCH (21:00)
[2017-06-17] MEDS: ACETAMINOPHEN 500 MG TAB PO PRN (21:40)
[2017-06-18] VITALS (14 sets, daily range): BP systolic 84–99; BP diastolic 47–68; PULSE 73–88; RESP 17–20
[2017-06-18] MEDS: ACCU-CHEK XX SCH (02:00)
[2017-06-18] MEDS: PIPER-TAZO 3.375 GM IV (PMX) 50 ML IVPB SCH ×3 (05:22→21:46)
[2017-06-18 07:03] LABS: BASOPHIL # 0.1 10^3/ul (0.0-0.1); BASOPHILS % 0.4 % (0.0-2.0); EOSINOPHILS # 0.2 10^3/ul (0.0-0.5); EOSINOPHILS % 0.9 % (0.0-7.0); HEMATOCRIT 27.6 % (42.0-52.0); HEMOGLOBIN 8.8 g/dl (14.0-18.0); LYMPHOCYTES # 1.5 10^3/ul (0.8-2.9); LYMPHOCYTES % 8.3 % (15.0-51.0); MEAN CORPUSCULAR HEMOGLOBIN 27.2 pg (29.0-33.0); MEAN CORPUSCULAR HGB CONC 31.9 g/dl (32.0-37.0); MEAN CORPUSCULAR VOLUME 85.4 fl (82.0-101.0); MEAN PLATELET VOLUME 9.6 fl (7.4-10.4); MONOCYTE # 1.4 10^3/ul (0.3-0.9); MONOCYTES % 7.6 % (0.0-11.0); NEUTROPHIL # 15.1 10^3/ul (1.6-7.5); PLATELET COUNT 260 10^3/UL (140-415); RED BLOOD COUNT 3.23 10^6/ul (4.70-6.10); RED CELL DISTRIBUTION WIDTH 15.9 % (11.5-14.5); WHITE BLOOD COUNT 18.4 10^3/ul (4.8-10.8)
[2017-06-18 07:27] LABS: CALCIUM 8.7 mg/dl (8.4-10.2); CREATININE 1.43 mg/dl (0.61-1.24); MAGNESIUM 1.7 mg/dl (1.7-2.5); PHOSPHORUS 3.8 mg/dl (2.5-4.9); POTASSIUM 4.1 mmol/L (3.5-5.1)
[2017-06-18] MEDS ORDERED: MAGNESIUM SULFATE 2 GM/50 ML 50 ML ONE (07:41)
[2017-06-18] MEDS: INSULIN GLARGINE [LANtus] 3 ML PEN SC SCH ×2 (07:48→20:45)
[2017-06-18] MEDS: INSULIN ASPART [NOVOLOG] 3 ML PEN SC SCH ×6 (07:49→20:44)
[2017-06-18] MEDS ORDERED: MAGNESIUM SULFATE 2 GM/50 ML 50 ML IVPB ONE (08:00)
--- NOTE | 2017-06-18 08:36 | CONS ---
Date/Time of Note Date/Time of Note DATE: 06/18/17 TIME: 08:35 Consult Date/Type/Reason Admit Date/Time Jun 17, 2017 at 01:20 Type of Consultation: card Ordering Provider: DANYELLE DASILVA DO Subjective cardiology follow up note: S: Discussed with staff and Dr Dasilva pt denies any chest pain or pressure to me he denies any PND orthopnea to me. He denies any wheezing or shortness of breath to me. he remains in NSR O: General: no acute distress. obese man HEENT: NC/AT. pupils are equal. round. NECK: NO JVD. no stridor. CV: RRR. systolic murmur; no gallop or rubs. PULM: no wheezing or rhonchi. GI: SOFT, NT, ND, no rebound or guarding obese. Extremity: s/p R AKA in dressing . neuro: awake and alert, OX3. Psych: calm and pleasant rectal: deferred Objective Vital Signs Date Time Temp Pulse Resp B/P Pulse Ox O2 Delivery O2 Flow Rate FiO2 06/18/17 08:29 80 06/18/17 08:03 98.9 18 99/58 98 06/18/17 01:22 2.0 27 06/16/17 23:30 Room Air Intake and Output 06/17/17 06/17/17 06/18/17 15:00 23:00 07:00 Intake Total 1000 ml 250 ml Output Total 900 ml 800 ml Balance 100 ml -550 ml Results/Medications Result Diagram: 06/18/17 0612 06/18/17 0612 Results 24 hrs Laboratory Tests Test 06/17/17 08:43 06/17/17 08:44 06/17/17 10:55 06/17/17 12:37 Sodium Level 138 Potassium Level 4.6 Chloride Level 102 Carbon Dioxide Level 25 Anion Gap 16 Blood Urea Nitrogen 24 H Creatinine 1.52 H Glucose Level 177 Hemoglobin A1c 7.0 H Calcium Level 9.0 Lactic Acid Level 1.3 2.2 *H Bedside Glucose 380 H Test 06/17/17 12:38 06/17/17 17:16 06/17/17 17:18 06/17/17 20:22 Bedside Glucose 283 H 313 H 240 H 334 H Test 06/17/17 23:19 06/18/17 02:44 06/18/17 06:12 06/18/17 07:44 Bedside Glucose 222 H 189 201 White Blood Count 18.4 H Red Blood Count 3.23 L Hemoglobin 8.8 L Hematocrit 27.6 L Mean Corpuscular Volume 85.4 Mean Corpuscular Hemoglobin 27.2 L Mean Corpuscular Hemoglobin Concent 31.9 L Red Cell Distribution Width 15.9 H Platelet Count 260 # Mean Platelet Volume 9.6 Neutrophils % 82.0 H Lymphocytes % 8.3 L Monocytes % 7.6 Eosinophils % 0.9 Basophils % 0.4 Nucleated Red Blood Cells % 0.0 Neutrophils # 15.1 H Lymphocytes # 1.5 Monocytes # 1.4 H Eosinophils # 0.2 Basophils # 0.1 Nucleated Red Blood Cells # 0.0 Sodium Level 139 Potassium Level 4.1 Chloride Level 103 Carbon Dioxide Level 26 Anion Gap 14 Blood Urea Nitrogen 20 Creatinine 1.43 H Glucose Level 189 Calcium Level 8.7 Phosphorus Level 3.8 Magnesium Level 1.7 Medications Current Medications Allopurinol (Zyloprim) 100 mg BID PO Last administered on 06/17/17 20:29; Admin Dose 100 MG; Start 06/17/17 at 09:00 Amiodarone HCl (Cordarone) 100 mg DAILY PO Last administered on 06/17/17 09: 06; Admin Dose 100 MG; Start 06/17/17 at 09:00 Aspirin (Halfprin) 81 mg DAILY PO Last administered on 06/17/17 09:05; Admin Dose 81 MG; Start 06/17/17 at 09:00 Cholecalciferol (Vitamin D) 1,000 unit DAILY PO Last administered on 09:06; Admin Dose 1,000 UNIT; Start 06/17/17 at 09:00 Clopidogrel Bisulfate (plaVIX) 75 mg DAILY PO Last administered on 06/17/17 09:06; Admin Dose 75 MG; Start 06/17/17 at 09:00 Gabapentin (Neurontin) 300 mg BID PO Last administered on 06/17/17 20:29; Admin Dose 300 MG; Start 06/17/17 at 09:00 Methimazole (Tapazole) 2.5 mg DAILY PO Last administered on 06/17/17 09:06; Admin Dose 2.5 MG; Start 06/17/17 at 09:00 Multivitamins Therapeutic (Theragran) 1 tab DAILY PO Last administered on 06/17 09:05; Admin Dose 1 TAB; Start 06/17/17 at 09:00 Polyethylene Glycol (Miralax) 17 gm DAILY PO Last administered on 06/17/17 09 :05; Admin Dose 17 GM; Start 06/17/17 at 09:00 Rosuvastatin Calcium (Crestor) 40 mg QHS PO ; Start 06/17/17 at 21:00 Insulin Glargine (Lantus) 40 unit DAILY@08 SC Last administered on 06/18/17 07:48; Admin Dose 40 UNIT; Start 06/17/17 at 08:00 Insulin Glargine (Lantus) 45 unit DAILY@20 SC Last administered on 06/17/17 20:27; Admin Dose 45 UNIT; Start 06/17/17 at 20:00 Diagnostic Test (Pha) 1 ea 1 ea 02 XX ; Start 06/18/17 at 02:00 Piperacillin Sod/ Tazobactam Sod 50 ml @ 100 mls/hr Q8 IVPB Last administered on 06/18/17 05:22; Admin Dose 100 MLS/HR; Start 06/17/17 at 14:00 Vancomycin HCl/ Sodium Chloride (Vancocin/NS) 250 ml @ 83.333 mls/ hr Q24H IVPB ; Start 06/18/17 at 09:00 Miscellaneous Information (Pending [facility] Order For Wound Care) This patient [facility]user... PRN PRN XX WOUND CARE; Start 06/17/17 at 11:30 Acetaminophen/ Hydrocodone Bitart ([place] (5/325)) 1 tab Q4H PRN PO PAIN LEVEL 4 -6 Last administered on 06/17/17 14:59; Admin Dose 1 TAB; Start 06/17/17 at 14:30 Acetaminophen 500 mg 500 mg Q6H PRN PO PAIN AND OR ELEVATED TEMP Last administered on 06/17/17 21:40; Admin Dose 500 MG; Start 06/17/17 at 21:30 Magnesium Sulfate (Magnesium Sulfate 2 Gm/50 ml) 50 ml @ 25 mls/hr ONCE ONCE IVPB Last administered on 06/18/17 07:46; Admin Dose 25 MLS/HR; Start at 08:00; Stop 06/18/17 at 09:59 Assessment/Plan Chief Complaint/Hosp Course 1. CAD 2. HX CABG 3. HX CA 4. HX multiple PCI 5. Severe PAD 6. S/P Previous LE revascularizations 7. gangrene toe s/p R BKA now 8/ DM 9. hx hyperthyroidism: TSH is wnl on 06/06/17 10. hx VT s/p ICD 11. CHF: chronic and stable due to systolic heart failure 12. dyslipidemia: on statin 13. CKD 14. Debility 15. Markedly elevated CK: probably related to recent surgery. improved now 16. fever and leukocystosis. Recommendations: I will continue with the current cardiac medications Aspirin and Plavix will be continued. Coreg and ARB will be continued and try to increase as tolerated. crestor Diabetic management as per internal medicine. Physical therapy and rehab will be continued. nightly CPAP . will allow pt to bring his home Repatha ( home cholesterol medication )and self inject himself q 2 weeks. abx as per ID rec. Thank you for his referral. I will continue to follow along with you. SALVADOR BARRETO MD [facility] Problems: SALVADOR BARRETO MD Jun 18, 2017 08:36
[2017-06-18] MEDS: ASPIRIN (EC) 81 MG TAB PO SCH (09:02)
[2017-06-18] MEDS: ALLOPURINOL 100 MG TAB PO SCH ×2 (09:03→20:39)
[2017-06-18] MEDS: POLYETHYLENE GLYCOL 17 GM PACKET PO SCH (09:03)
[2017-06-18] MEDS: GABAPENTIN 300 MG CAP PO SCH ×2 (09:03→20:40)
[2017-06-18] MEDS: CLOPIDOGREL 75 MG TAB PO SCH (09:04)
[2017-06-18] MEDS: METHIMAZOLE 5 MG TAB PO SCH (09:04)
[2017-06-18] MEDS: AMIODARONE 200 MG TAB PO SCH (09:04)
[2017-06-18] MEDS: CHOLECALCIFEROL 1,000 UNIT TAB PO SCH (09:05)
[2017-06-18] MEDS: MULTIVITAMINS THERAPEUTIC TAB PO SCH (09:05)
[2017-06-18] MEDS: VANCOMYCIN 1.25 GM in SOD CHLORIDE 0.9% 250 ML IVPB SCH (09:12)
[2017-06-18] MEDS ORDERED: morphine 2 MG INJ ONE (09:26)
[2017-06-18] MEDS ORDERED: morphine 2 MG INJ IV ONE ×2 (09:30→19:00)
--- NOTE | 2017-06-18 09:53 | PN ---
DATE: 06/18/2017 SUBJECTIVE: The patient is stable. No events overnight. No fevers, chills, nausea, vomiting. OBJECTIVE: VITAL SIGNS: Blood pressure is 99/58, respiration is 18, pulse 80, temperature 98.9. HEENT: Head is normocephalic. NECK: Supple. HEART: Regular rate. LUNGS: Show diminished breath sounds at the base. ABDOMEN: Soft, nontender to palpation. No rebound or guarding. EXTREMITIES: Negative for clubbing, cyanosis. Noted right below-knee amputation. The patient's lo wer extremity also has some noted erythema and discoloration. Left foot shows a mild erythema on st ump. NEUROLOGIC: No focal deficits. DERMATOLOGIC: No rashes. LABORATORY DATA: From 05/18/2017 shows white count 18.5, hemoglobin 8.8, platelet count 260. Sodiu m 139, potassium 4.1, chloride 103, BUN 20, creatinine 1.43. IMAGING: Chest x-ray shows no evidence of cardiopulmonary disease. ASSESSMENT AND PLAN: 1. Sepsis, underlying source may be secondary to cellulitis, recent BKA. There is no evidence of p neumonia as chest x-ray was negative. At this point, continue current broad spectrum antibiotics. Follow up cultures. Follow up with infectious disease. 2. Lactic acidosis secondary to sepsis, improving. Continue medical management. 3. 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 The patient has noted discolorat ion, possible infection of wound site. A vascular surgery consult was placed. Continue local wound care. 4. Sleep apnea. Continue CPAP. 5. Chronic kidney disease, stage IIIB/IV. Continue current treatment plan, supportive care, renall y dose all medications, renal function is at baseline. 6. Coronary artery disease. Continue medical management. 7. Diabetes. Continue current insulin regimen. 8. Congestive heart failure. Continue current treatment plan. 9. Dyslipidemia. Continue statin therapy. 10. History of hypertension. Continue to monitor blood pressures closely as the patient has been h ypotensive. 11. Arrhythmia. Continue amiodarone. 12. Gastrointestinal and deep venous thrombosis prophylaxis. 13. Hyperthyroidism. Continue Tapazole. Dictated By: DANYELLE FRANCOIS/SURENDRA Conf#: [id number] DID#: [id number]
[2017-06-18] MEDS ORDERED: GLUCOSE GEL 15 GRAM TUBE BUCCAL PRN (11:00)
[2017-06-18] MEDS ORDERED: GLUCOSE GEL 15 GRAM TUBE PO PRN ×2 (11:00)
[2017-06-18] MEDS ORDERED: DEXTROSE 50% 50 ML SYRINGE IV PRN ×2 (11:00)
[2017-06-18] MEDS ORDERED: GLUCAGON 1 MG INJ IM PRN (11:00)
--- NOTE | 2017-06-18 12:01 | HP ---
DATE OF ADMISSION: 06/17/2017 TYPE OF CONSULTATION: Vascular surgery consultation Dear Doctors: Mr. Hernandez is a 66-year-old gentleman with a plethora of medical conditions who presented to [facility] secondary to being lethargic with fever and hypotension in which he was admitted for further evaluation. As of recent, the patient had underwent a right below knee amputation secondary to developing significant gangrene of his right foot and diabetic foot infection and at [facility] his BKA procedure was performed. Further, the patient has had a history of left lower extremity nonhealing ulcers on his forefoot in which he has undergone a previous revascularization and he has had troubles with that lower extremity for the past 10 years. A secondary vascular consultation was obtained for further evaluation of bilateral lower extremity limb salvage. At the moment, patient denies shortness of breath, chest pain, nausea, vomiting, fever or chills. PAST MEDICAL HISTORY: Entails chronic kidney disease stage III to IV, congestive heart failure, atrial fibrillation, diabetes, stroke, hypertension, bilateral lower extremity atherosclerosis with left lower extremity ulcers and right lower extremity gangrene, diabetic retinopathy, diabetic nephropathy. PAST SURGICAL HISTORY: Left lower extremity revascularization, multiple toe amputations of the left, right lower extremity debridements and has a recent right below knee amputation. FAMILY HISTORY: Positive for hypertension. SOCIAL HISTORY: Previous smoker for about 30 years, has not smoked in some time. Denies current tobacco, alcohol or illicit drug use. ALLERGIES: NO KNOWN DRUG ALLERGIES. PHYSICAL EXAMINATION: GENERAL: He is alert and oriented x3, in no apparent distress. HEENT: Normocephalic, atraumatic. Mucosa moist. NECK: Supple. No carotid bruit. PULMONARY: Clear to auscultation bilaterally. No crackles. CARDIOVASCULAR: S1, S2 present. No murmurs. ABDOMEN: Soft, nontender, nondistended. Bowel sounds positive. Truncal obesity. EXTREMITIES: Right lower extremity palpable femoral pulse, below knee amputation stump with eschar across the staple line with a blister on the lateral aspect of the stump with an ulcer on the posterolateral aspect as well. There is an area of erythema with some induration, no fluctuance was identified. Some serosanguineous drainage from the lateral aspect of the staple line. Left lower extremity: Faint femoral pulse, nonpalpable pedal pulse. Motor and sensory intact. Capillary refill 3-4 seconds. Dependent rubor. Ulcers of the forefoot. Amputated first, second, third and fourth toes. ASSESSMENT AND PLAN: 1. Bilateral lower extremity atherosclerosis with right lower extremity gangrene and left lower extremity ulcers: It seems the patient has significant critical limb ischemia in which he had recently developed right lower extremity gangrene diabetic foot infection requiring an amputation. It seems the patient' s below knee amputation may need to be investigated a bit further to determine if there is any underlying abscess within muscle flap. He does have cellulitis in which it would need to be treated with antibiotics for now. We will plan to obtain an ultrasound if able to visualize, otherwise, would probably require a CT of the lower extremity without contrast to further delineate for any fluid collection. We will plan to obtain arterial studies to further evaluate adequate perfusion to the lower extremities. 2. Left lower extremity, as the patient would like to have everything done to salvage his limb, he has had a previous failed revascularization of the bypass and currently has not had a vascular followup over the past 4 years per the patient's reporting. He is wanting us to manage that, but at the moment, we will plan to resolve his right lower extremity issue first and will address his left lower extremity. He will likely require angiogram and he understands all that is involved for now. 3. Chronic kidney disease, the patient does have some component of chronic kidney disease stage III to IV, with elevated creatinine of 1.4 to 1.5. We will plan to eventually coordinate our angiogram with our nephrology colleagues for CT angiography and possible intravascular ultrasound with minimal usage of contrast in order to preserve his renal function. 4. Optimize vascular status (BP medications, diet, nutrition, exercise, sugar control, antiplatelets). Discussed patient's findings of his BMI of 38.5 and being overweight and arranging a nutrition and diabetic consultation and evaluation. Discussed findings, plan and management with the patient and he understands. Thank you for allowing us to partake in the care of your patient. Please call with any questions. Dictated By: DAYNE GUALLPA/SURENDRA Conf#: [id number] DID#: [id number] [place]
--- NOTE | 2017-06-18 12:49 | PN ---
DATE: 06/18/2017 SUBJECTIVE: The patient is alert, denies pain, looks comfortable, no fevers. VITAL SIGNS: T-max 100.7, T-current 98.8. LABORATORIES: WBC today, platelets 260, neutrophils 82, no bands, BUN 20, creatinine 1.43. MICROBIOLOGY: Blood and urine culture remain negative. DIAGNOSTICS: Chest x-ray was negative. ANTIMICROBIALS: The patient is on: 1. Vancomycin. 2. Zosyn. PHYSICAL EXAMINATION: GENERAL: This is a morbidly obese elderly man who is awake, in no distress. HEENT: Head atraumatic, normocephalic. Sclerae anicteric. Buccal mucosa pink. NECK: Supple. CHEST: Rise symmetrical. Breath sounds diminished to bases. HEART: S1, S2. ABDOMEN: Soft, bowel tones present. EXTREMITIES: With right below knee amputation stump purulent drainage. Left foot dressing intact. ASSESSMENT: 1. Systemic inflammatory response syndrome with low grade fevers and leukocytosis. 2. Right stump infection, possible abscess within the muscle flap and cellulitis. 3. Peripheral vascular disease status post right below-knee amputation and left transmetatarsal amp utation. 4. Diabetes. 5. Coronary artery disease, history of coronary artery bypass graft. 6. Chronic kidney disease. 7. History of hypertension. 8. Morbid obesity. PLAN: The patient remains clinically stable, vascular team on case. He is on broad spectrum antibi otics, which we will continue. We will make sure and send culture of his right lower extremity alesha cho. Dictated By: LANE [employer] for CARON OCONNOR/SURENDRA Conf#: [id number] DID#: [id number] CC: DANYELLE GUY DO;*EndCC*
--- NOTE | 2017-06-18 14:30 | RADRPT ---
PROCEDURE: US bilateral lower extremity arteries. CLINICAL INDICATION: Bilateral leg pain. Claudication that interferes significantly with the alonso ent's lifestyle. History of right below-knee amputation and left toe amputation. History of left low er extremity bypass graft and bilateral superficial femoral artery stents. TECHNIQUE: Multiple longitudinal and transverse images of the bilateral lower extremity arteries w ere obtained with cano scale, pulsed Doppler, and color Doppler imaging. COMPARISON: No prior studies are available for comparison. FINDINGS: Right GRAIN BUYER:125 cm/sec DFA:137 cm/sec SFA:Occluded POP:Occluded Left GRAIN BUYER:181 cm/sec SFA:Occluded Graft to the distal calf:Occluded ENVIRONMENTAL SERVICE AIDE:9.5 cm/sec DPA:Occluded On the right, the common femoral artery and deep femoral artery are patent. The superficial femoral artery and popliteal artery are occluded. On the left, the common femoral artery is patent. The graft from the thigh to the calf is completely occluded. The left superficial femoral artery and dorsalis pedis artery are occluded. The right pos terior tibial artery is patent. The left superficial femoral artery and popliteal artery are not ass essed indicating the are also probably occluded. IMPRESSION: 1. On the right occluded superficial femoral artery and popliteal artery. 2. On the left occluded gram, superficial femoral artery, popliteal artery, and dorsalis pedis helga ry. RPTAT: QQ .Jamie Dunlap MD, Date Time Electronically viewed and signed by .Jamie Dunlap MD, on 06/18/2017 14:30 .R/
--- NOTE | 2017-06-18 16:32 | RADRPT ---
PROCEDURE: CT of the right lower extremity CLINICAL INDICATION: Right lower extremity pain, swelling, abscess, gangrene TECHNIQUE: Axial images through the right lower extremity without IV contrast. Coronal and sagit anastacia reformats. Images were interpreted at an independent PACS workstation. CTDI 18.43 mGy DLP 1305 0.25 mGy-cm DICOM Images are available One or more of the following dose reduction techniques were used: Automated exposure control Adjustment of the mA and / or kV according to patient size Use of iterative reconstruction technique. COMPARISON: None available FINDINGS: The patient is status post [id number]-bomp amputation. The amputation margins appear relatively sharp and there is no definitive osteomyelitis by CT though MRI would be more sensitive. There is very extensive soft tissue swelling and soft tissue distally at the amputation site near th e tibia (axial 26 and sagittal 43). There is a ill-defined overlying fluid / phlegmon distally, most prominent anteriorly. There is also subcutaneous soft tissue swelling anteriorly extending over the thigh. There are extensive vascular calcifications and there the long arterial stent present. There is no e vidence of fracture. There are mild degenerative changes of the hip. There are moderate degenerative changes of the medial femorotibial compartment of the knee. IMPRESSION: 1. Very extensive soft tissue gas with surrounding inflammatory change and ill-defined fluid/phlegmo n distally overlying the patient's amputation site. Cannot exclude a necrotizing soft tissue infecti on. Study with IV contrast may provide additional detail if clinically feasible. 2. Rhfes-jaw-ihaf amputation as above. If there is concern for osteomyelitis recommend correlation w ith MRI. RPTAT: UU .Jayy Senior MD, MD Date Time Electronically viewed and signed by .Jayy Senior MD, MD on 06/18/2017 16:31 .K/
[2017-06-18] MEDS: ACETAMINOPHEN 500 MG TAB PO PRN (17:59)
[2017-06-18] MEDS ORDERED: SOD CHLORIDE 0.9% 250 ML IV* ONE (18:58)
[2017-06-18] MEDS: HYDROCODONE/APAP (5/325) TAB PO PRN (20:15)
--- NOTE | 2017-06-18 20:37 | OPR ---
DATE OF OPERATION: 06/17/2017 SURGEON: Dayne Gill MD PREOPERATIVE DIAGNOSIS: Right lower extremity gas gangrene. POSTOPERATIVE DIAGNOSIS: Right lower extremity gas gangrene. ANESTHESIA: Morphine 2 mg. COMPLICATIONS: None. SPECIMEN: None. ESTIMATED BLOOD LOSS: Minimal. INDICATIONS: This is a 66-year-old gentleman who presented to [facility] from acute rehab in which he had developed fever, chills, hypotension and cellulitis of his right below-knee amputation stump. Vascular surgery consultation was obtained today for further evaluation of his wound. It seems that the patient's past medical history entailed developing a gas gangrene of his right lower extremity in which he had to undergo a right below- knee amputation, and at that time, it seems that he may have required an above- knee amputation; however, during the procedure, it seemed that maybe his muscles were salvageable per patients reporting. The patient's condition had worsened and upon evaluation today, the patient had some fluctuance and induration. Therefore, a CT scan of the lower extremity was obtained. Upon reviewing the CT scan of the lower extremity, it was identified the patient having a gas pocket near the area of his posterior and anterior flaps. This information was shared with the family at the bedside. It was discussed with the family that the patient would require most likely an above-knee amputation; however, there is a small chance that we would be able to perform a below-knee amputation revision. However, the and the refused to have any major amputations today. They wanted to have a procedure done that would potentially temporize the current condition. The risks and benefits of this intervention were fully discussed with the patient. There is the chance of myocardial infarction, infection, , stroke, worsening of his infection potentially higher, loss of his right lower extremity requiring a higher above-knee amputation or even a hip disarticulation. The family fully understood this matter and still wanted to just have a temporizing intervention done for now until they have spoken about how to pursue what will be required to prevent the infection from spreading more proximally. PROCEDURE: Removal of kathryn and Incision and drainage of the BKA stump. DESCRIPTION OF PROCEDURE: The patient, while he was in his bed, was placed in the supine position. Morphine 2 mg intravenously was given to the patient. Using a staple remover, all kathryn were removed and using a suture scissors, the subcutaneous tissue and the muscle layer sutures were removed. There was a foul-smelling gas that was drained. There was necrotic muscle throughout. There was some purulence that was also drained. The wound was irrigated with Betadine solution multiple times. The wound was then packed with Betadine- soiled gauze, 4 x 4 and abdominal pads were placed. The patient tolerated this aspect of the procedure well. At end of our procedure, discussed with the family again that this is just temporizing. He will require sooner than later, preferably tonight, an above-knee amputation or at least a significant debridement of the below-knee amputation; however, the family refused and specifically, the wanted to have a longer conversation with her regarding the options. Will continue with our current management with IV antibiotics. The findings were discussed again with the nurse at the bedside and the family and the primary physician. The patient tolerated the procedure well and a dressing was applied. Will readdress the matter with the family as soon as they are able to decide how they would like to proceed. Dictated By: DAYNE GUALLPA/SURENDRA Conf#: [id number] DID#: [id number] CC: DANYELLE GUY DO;Elliott* [place]
[2017-06-18] MEDS: ROSUVASTATIN CALCIUM 40 MG TABLET PO SCH (20:40)
[2017-06-18] MEDS ORDERED: DIPHENHYDRAMINE 25 MG CAP PO ONE (22:00)
[2017-06-18] MEDS ORDERED: ACETAMINOPHEN 325 MG TAB PO ONE (22:00)
--- NOTE | 2017-06-18 22:22 | CONS ---
DATE OF ADMISSION: 06/17/2017 DATE OF CONSULTATION: TYPE OF CONSULTATION: Pulmonary. REASON FOR CONSULTATION: Sleep apnea. Thank you, Dr. Dasilva, for this consultation. HISTORY OF PRESENT ILLNESS: This is a 66-year-old gentleman with multiple medical problems includin g advanced chronic kidney disease, history of CHF, hypertension, hyperlipidemia, peripheral vascular disease, recently transferred for evaluation of gangrenous lower extremities. Recently underwent a right below-knee amputation. Course has been complicated by infection. Yesterday, had fever, seps is requiring transfer from acute rehab unit to telemetry unit. He is being evaluated for circulatio n of the left lower extremity. The patient has a history of obstructive sleep apnea diagnosed sever al years ago. Has a CPAP device. No hemoptysis, hematemesis. No nausea or vomiting. PAST MEDICAL HISTORY: As above. MEDICATIONS: Per chart. PAST SURGICAL HISTORY: As above. PHYSICAL EXAMINATION: GENERAL: Well-nourished, well-developed gentleman, comfortable at rest, talking in full and complet e sentences. VITAL SIGNS: Currently afebrile. Pulse is 80, blood pressure 95/56, O2 sat 96% on room air. NECK: Supple. No JVD or lymphadenopathy. CARDIAC: S1, S2, no added sounds or murmurs. CHEST: Diminished air entry bilaterally. ABDOMEN: Obese, soft, nontender, no guarding, no rebound. EXTREMITIES: No cyanosis, clubbing, edema. He has a right below-knee amputation, left toe amputati ons with decreased circulation in the left lower extremity.. NEUROLOGIC: No focal deficits. LABORATORIES: White count 18.4, hemoglobin 8.8, platelets 260. BUN 20, creatinine 1.43. Blood glu cose remains elevated. IMPRESSION AND PLAN: 1. Obstructive sleep apnea, currently requiring his continued home CPAP device. 2. Peripheral ischemia concerning for worsening gangrene. 3. Peripheral artery disease, status post right below-knee amputation. 4. Diabetes mellitus. 5. Chronic kidney disease. The patient will require: 1. Continue respiratory recommendations. 2. Continue broad-spectrum antibiotics. 3. Continue tight glycemic control. 4. Deep venous thrombosis and gastrointestinal prophylaxis. 5. Continue home CPAP device. Dictated By: VANITA GREENWOOD/SURENDRA Conf#: [id number] DID#: [id number] CC: DANYELLE DASILVA DO;*EndCC*
[2017-06-19] VITALS (25 sets, daily range): BP systolic 87–107; BP diastolic 51–65; PULSE 64–78; RESP 10–33
[2017-06-19] MEDS: ACCU-CHEK XX SCH (01:23)
[2017-06-19] MEDS: PIPER-TAZO 3.375 GM IV (PMX) 50 ML IVPB SCH ×3 (06:43→21:22)
[2017-06-19 07:20] LABS: BASOPHIL # 0.1 10^3/ul (0.0-0.1); BASOPHILS % 0.3 % (0.0-2.0); EOSINOPHILS # 0.4 10^3/ul (0.0-0.5); EOSINOPHILS % 2.7 % (0.0-7.0); HEMATOCRIT 31.5 % (42.0-52.0); HEMOGLOBIN 10.1 g/dl (14.0-18.0); LYMPHOCYTES # 1.3 10^3/ul (0.8-2.9); LYMPHOCYTES % 8.6 % (15.0-51.0); MEAN CORPUSCULAR HEMOGLOBIN 27.2 pg (29.0-33.0); MEAN CORPUSCULAR HGB CONC 32.1 g/dl (32.0-37.0); MEAN CORPUSCULAR VOLUME 84.7 fl (82.0-101.0); MEAN PLATELET VOLUME 9.9 fl (7.4-10.4); MONOCYTE # 1.2 10^3/ul (0.3-0.9); MONOCYTES % 7.8 % (0.0-11.0); NEUTROPHILS % 79.9 % (39.0-77.0); PLATELET COUNT 254 10^3/UL (140-415); RED BLOOD COUNT 3.72 10^6/ul (4.70-6.10); RED CELL DISTRIBUTION WIDTH 15.3 % (11.5-14.5)
[2017-06-19] MEDS: INSULIN ASPART [NOVOLOG] 3 ML PEN SC SCH ×7 (07:55→21:13)
--- NOTE | 2017-06-19 07:59 | CONS ---
Date/Time of Note Date/Time of Note DATE: 06/19/17 TIME: 07:58 Consult Date/Type/Reason Admit Date/Time Jun 17, 2017 at 01:20 Type of Consultation: card Ordering Provider: DANYELLE GUY DO Subjective cardiology follow up note: S: Discussed with staff and Dr Guy d/w d/w Dr Gill pt denies any chest pain or pressure to me he denies any PND orthopnea to me. He denies any wheezing or shortness of breath to me. he remains in NSR O: General: no acute distress. obese man HEENT: NC/AT. pupils are equal. round. NECK: NO JVD. no stridor. CV: RRR. systolic murmur; no gallop or rubs. PULM: no wheezing or rhonchi. GI: SOFT, NT, ND, no rebound or guarding obese. Extremity: s/p R AKA in dressing . neuro: awake and alert, OX3. Psych: calm and pleasant rectal: deferred Objective Vital Signs Date Time Temp Pulse Resp B/P Pulse Ox O2 Delivery O2 Flow Rate FiO2 06/19/17 07:43 98.5 75 20 87/55 97 06/19/17 03:35 2.0 06/19/17 00:19 CPAP 06/18/17 01:22 27 Intake and Output 06/18/17 06/18/17 06/19/17 15:00 23:00 07:00 Intake Total 300 ml 500 ml 1100 ml Output Total 400 ml 400 ml Balance 300 ml 100 ml 700 ml Results/Medications Result Diagram: 06/19/17 0611 06/18/17 0612 Results 24 hrs Laboratory Tests Test 06/18/17 12:13 06/18/17 17:29 06/18/17 20:38 06/19/17 01:20 Bedside Glucose 272 H 239 H 228 H 183 Test 06/19/17 06:11 White Blood Count 15.0 H Red Blood Count 3.72 L Hemoglobin 10.1 L Hematocrit 31.5 L Mean Corpuscular Volume 84.7 Mean Corpuscular Hemoglobin 27.2 L Mean Corpuscular Hemoglobin Concent 32.1 Red Cell Distribution Width 15.3 H Platelet Count 254 Mean Platelet Volume 9.9 Neutrophils % 79.9 H Lymphocytes % 8.6 L Monocytes % 7.8 Eosinophils % 2.7 Basophils % 0.3 Nucleated Red Blood Cells % 0.0 Neutrophils # 12.0 H Lymphocytes # 1.3 Monocytes # 1.2 H Eosinophils # 0.4 Basophils # 0.1 Nucleated Red Blood Cells # 0.0 Medications Current Medications Allopurinol (Zyloprim) 100 mg BID PO Last administered on 06/18/17 20:39; Admin Dose 100 MG; Start 06/17/17 at 09:00 Amiodarone HCl (Cordarone) 100 mg DAILY PO Last administered on 06/18/17 09: 04; Admin Dose 100 MG; Start 06/17/17 at 09:00 Aspirin (Halfprin) 81 mg DAILY PO Last administered on 06/18/17 09:02; Admin Dose 81 MG; Start 06/17/17 at 09:00 Cholecalciferol (Vitamin D) 1,000 unit DAILY PO Last administered on 09:05; Admin Dose 1,000 UNIT; Start 06/17/17 at 09:00 Clopidogrel Bisulfate (plaVIX) 75 mg DAILY PO Last administered on 06/18/17 09:04; Admin Dose 75 MG; Start 06/17/17 at 09:00 Gabapentin (Neurontin) 300 mg BID PO Last administered on 06/18/17 20:40; Admin Dose 300 MG; Start 06/17/17 at 09:00 Methimazole (Tapazole) 2.5 mg DAILY PO Last administered on 06/18/17 09:04; Admin Dose 2.5 MG; Start 06/17/17 at 09:00 Multivitamins Therapeutic (Theragran) 1 tab DAILY PO Last administered on 06/18 09:05; Admin Dose 1 TAB; Start 06/17/17 at 09:00 Polyethylene Glycol (Miralax) 17 gm DAILY PO Last administered on 06/18/17 09 :03; Admin Dose 17 GM; Start 06/17/17 at 09:00 Rosuvastatin Calcium (Crestor) 40 mg QHS PO Last administered on 06/18/17 20: 40; Admin Dose 40 MG; Start 06/17/17 at 21:00 Insulin Glargine (Lantus) 40 unit DAILY@08 SC Last administered on 06/18/17 07:48; Admin Dose 40 UNIT; Start 06/17/17 at 08:00 Insulin Glargine (Lantus) 45 unit DAILY@20 SC Last administered on 06/18/17 20:45; Admin Dose 45 UNIT; Start 06/17/17 at 20:00 Diagnostic Test (Pha) 1 ea 1 ea 02 XX Last administered on 06/19/17 01:23; Admin Dose 1 EA; Start 06/18/17 at 02:00 Piperacillin Sod/ Tazobactam Sod 50 ml @ 100 mls/hr Q8 IVPB Last administered on 06/19/17 06:43; Admin Dose 100 MLS/HR; Start 06/17/17 at 14:00 Vancomycin HCl/ Sodium Chloride (Vancocin/NS) 250 ml @ 83.333 mls/ hr Q24H IVPB Last administered on 06/18/17 09:12; Admin Dose 83.333 MLS/HR; Start at 09:00 Miscellaneous Information (Pending [facility]yl Order For Wound Care) This patient hauser... PRN PRN XX WOUND CARE; Start 06/17/17 at 11:30 Acetaminophen/ Hydrocodone Bitart ([place] (5/325)) 1 tab Q4H PRN PO PAIN LEVEL 4 -6 Last administered on 06/18/17 20:15; Admin Dose 1 TAB; Start 06/17/17 at 14:30 Acetaminophen (Tylenol Tab) 500 mg Q6H PRN PO PAIN AND OR ELEVATED TEMP Last administered on 06/18/17 17:59; Admin Dose 500 MG; Start 06/17/17 at 21:30 Miscellaneous Information 1 ea NOTE XX ; Start 06/18/17 at 11:00 Glucose (Glutose) 15 gm Q15M PRN PO DECREASED GLUCOSE; Start 06/18/17 at 11:00 Glucose (Glutose) 22.5 gm Q15M PRN PO DECREASED GLUCOSE; Start 06/18/17 at 11: 00 Dextrose (D50w Syringe) 25 ml Q15M PRN IV DECREASED GLUCOSE; Start 06/18/17 at 11:00 Dextrose (D50w Syringe) 50 ml Q15M PRN IV DECREASED GLUCOSE; Start 06/18/17 at 11:00 Glucagon (Glucagen) 1 mg Q15M PRN IM DECREASED GLUCOSE; Start 06/18/17 at 11: 00 Glucose (Glutose) 15 gm Q15M PRN BUCCAL DECREASED GLUCOSE; Start 06/18/17 at 11:00 Assessment/Plan Chief Complaint/Hosp Course 1. CAD 2. HX CABG 3. HX NE 4. HX multiple PCI 5. Severe PAD 6. S/P Previous LE revascularizations 7. gangrene toe s/p R BKA now 8/ DM 9. hx hyperthyroidism: TSH is wnl on 06/06/17 10. hx VT s/p ICD 11. CHF: chronic and stable due to systolic heart failure 12. dyslipidemia: on statin 13. CKD 14. Debility 15. Markedly elevated CK: probably related to recent surgery. improved now 16. fever and leukocystosis. Recommendations: I will continue with the current cardiac medications Aspirin and Plavix will be continued. Coreg and ARB will be continued and try to increase as tolerated. crestor Diabetic management as per internal medicine. Physical therapy and rehab will be continued. nightly CPAP . abx as per ID rec. awaiting AKA given findings on CT and RLE infections. Thank you for his referral. I will continue to follow along with you. SALVADOR BARRETO MD [facility] Problems: SALVADOR BARRETO MD Jun 19, 2017 07:59
[2017-06-19] MEDS ORDERED: INSULIN GLARGINE [LANtus] 3 ML PEN SC ONE (08:00)
[2017-06-19] MEDS: INSULIN GLARGINE [LANtus] 3 ML PEN SC SCH ×2 (08:00→21:13)
[2017-06-19] MEDS ORDERED: DEXTROSE 5%-0.9% NACL 1,000 ML IV ONE (08:00)
[2017-06-19 08:05] LABS: CALCIUM 8.6 mg/dl (8.4-10.2); CREATININE 1.29 mg/dl (0.61-1.24); MAGNESIUM 1.9 mg/dl (1.7-2.5); PHOSPHORUS 3.7 mg/dl (2.5-4.9); POTASSIUM 3.9 mmol/L (3.5-5.1)
[2017-06-19] MEDS: METHIMAZOLE 5 MG TAB PO SCH (08:57)
[2017-06-19] MEDS: AMIODARONE 200 MG TAB PO SCH (08:58)
[2017-06-19] MEDS: POLYETHYLENE GLYCOL 17 GM PACKET PO SCH (09:00)
[2017-06-19] MEDS: MULTIVITAMINS THERAPEUTIC TAB PO SCH (09:00)
[2017-06-19] MEDS: CHOLECALCIFEROL 1,000 UNIT TAB PO SCH (09:00)
[2017-06-19] MEDS: CLOPIDOGREL 75 MG TAB PO SCH (09:00)
[2017-06-19] MEDS: ASPIRIN (EC) 81 MG TAB PO SCH (09:00)
[2017-06-19] MEDS: ALLOPURINOL 100 MG TAB PO SCH ×2 (09:00→21:04)
[2017-06-19] MEDS: VANCOMYCIN 1.25 GM in SOD CHLORIDE 0.9% 250 ML IVPB SCH (09:00)
[2017-06-19] MEDS: GABAPENTIN 300 MG CAP PO SCH ×2 (09:00→21:03)
[2017-06-19] MEDS ORDERED: MIDAZOLAM 1 MG/ML 2 ML INJ ONE ×4 (10:03→11:49)
[2017-06-19] MEDS ORDERED: FENTAnyl 50 MCG/ML VIAL ONE (10:03)
[2017-06-19] MEDS ORDERED: ROPIVACAINE 0.2% 20 ML VIAL ONE (10:04)
[2017-06-19] MEDS ORDERED: ROPIVACAINE 0.5 % 30 ML VIAL ONE (10:04)
[2017-06-19] MEDS ORDERED: POLYMYXIN/BACITRACIN 1L IRRIG ONE (10:07)
[2017-06-19] MEDS ORDERED: THROMBIN 5000 UNIT VIAL ONE (10:14)
[2017-06-19] MEDS ORDERED: BUPIVACAINE 0.5% (SDV) 30 ML INJ ONE (10:14)
--- NOTE | 2017-06-19 10:35 | PN ---
DATE: 06/19/2017 SUBJECTIVE: Yesterday, I had a long conversation with patient's after he was evaluated by [facility] surgeon, Dr. Gill and recommended above-knee amputation. The patient's is upset, but understands that surgery is likely needed. I spoke again with the patient this morning and the pat zuleyma's , they are considering the possibility of surgery. No other events noted. OBJECTIVE: VITAL SIGNS: Blood pressure is 87/55, respirations 20, pulse 75, temperature 98.6. HEENT: Head is normocephalic. NECK: Supple. HEART: Regular rate. LUNGS: Show diminished breath sounds at the base. ABDOMEN: Soft, nontender to palpation without rebound or guarding. EXTREMITIES: Negative for clubbing, cyanosis. Positive right above-knee amputation. DERMATOLOGIC: No rashes. MUSCULOSKELETAL: No joint effusions. NEUROLOGIC: No change in exam. MEDICATIONS: The patient's medications have been reviewed. LABORATORY DATA: Shows a white count 15.0, hemoglobin 10.1, platelet count 254. Sodium 140, potass ium 3.9, BUN 20, creatinine 1.29. IMAGING STUDIES: Patient's CT scan of the lower extremity shows very extensive soft tissue with jacky rounding inflammatory changes, cannot definitively exclude necrotizing soft tissue infection. An ex tremity Doppler ultrasound shows right occluded femoral artery and popliteal artery. ASSESSMENT AND PLAN: 1. Sepsis secondary to right above the knee cellulitis, possible abscess, possible necrotizing infe ction. The patient has been seen by vascular surgery. Plan for possible above-knee amputation. Co ntinue current antibiotic regimen. We will follow up with infectious disease for further recommenda tions. 2. Peripheral vascular disease. The patient has a nonhealing right below the knee stump. As state d above, may require further amputation. We will follow up with vascular surgery. Continue to [facility]. 3. Lactic acidosis secondary to sepsis, improved. 4. Sleep apnea. Continue CPAP. 5. Chronic kidney disease, stage IIIB/IV. Continue current treatment plan. Renal function is stab le at baseline. 6. Anemia. The patient is status post blood transfusion. Monitor hemoglobin and hematocrit levels . 7. Mineral bone disorder. Monitor calcium and phosphorus levels. 8. Coronary artery disease. Continue current medical management. 9. Diabetes. Continue current insulin regimen. 10. Congestive heart failure. Continue current treatment plan. 11. Dyslipidemia. Continue statin therapy. 12. Hypotension. The patient is clinically stable. Blood pressure medications have been held. We will continue to monitor. 13. Arrhythmia. Continue amiodarone. 14. Hyperthyroidism. Continue Tapazole. 15. Gastrointestinal and deep vein thrombosis prophylaxis. 16. Left lower extremity wounds. Continue wound care. Dictated By: DANYELLE FRANCOIS/SURENDRA Conf#: [id number] DID#: [id number]
[2017-06-19] MEDS ORDERED: LIDOCAINE 2% 20 ML UROJET SYRINGE ONE (11:09)
[2017-06-19] MEDS ORDERED: VANCOMYCIN 1 GM (PMX) 250 ML ONE (11:14)
[2017-06-19] MEDS ORDERED: BUPIVACAINE 0.25% (MPF) 30 ML INJ ONE (11:22)
[2017-06-19] MEDS ORDERED: HYDROmorphONE 2 MG/ML SYG ONE (11:24)
[2017-06-19] MEDS ORDERED: ONDANSETRON 4 MG INJ ONE (11:40)
--- NOTE | 2017-06-19 11:44 | CONS ---
Date/Time of Note Date/Time of Note DATE: 06/19/17 TIME: 11:43 Consult Date/Type/Reason Admit Date/Time Jun 17, 2017 at 01:20 Initial Consult Date Type of Consultation: Pulmonary Ordering Provider: DANYELLE GUY DO Subjective Patient comfortable this morning. No shortness of breath. Disappointed about infection and vascular findings. Objective Vital Signs Date Time Temp Pulse Resp B/P Pulse Ox O2 Delivery O2 Flow Rate FiO2 06/19/17 08:22 75 06/19/17 07:43 98.5 20 87/55 97 06/19/17 03:35 2.0 06/19/17 00:19 CPAP 06/18/17 01:22 27 Intake and Output 06/18/17 06/18/17 06/19/17 15:00 23:00 07:00 Intake Total 300 ml 500 ml 1100 ml Output Total 400 ml 400 ml Balance 300 ml 100 ml 700 ml Exam PHYSICAL EXAMINATION: GENERAL: Well-nourished, well-developed gentleman, comfortable at rest, talking in full and complete sentences. VITAL SIGNS: As above. NECK: Supple. No JVD or lymphadenopathy. CARDIAC: S1, S2, no added sounds or murmurs. CHEST: Diminished air entry bilaterally. ABDOMEN: Obese, soft, nontender, no guarding, no rebound. EXTREMITIES: No cyanosis, clubbing, edema. He has a right below-knee amputation, left toe amputations with decreased circulation in the left lower extremity.. NEUROLOGIC: No focal deficits. Results/Medications Result Diagram: 06/19/17 0611 06/19/17 0611 Results 24 hrs Laboratory Tests Test 06/18/17 12:13 06/18/17 17:29 06/18/17 20:38 06/19/17 01:20 Bedside Glucose 272 H 239 H 228 H 183 Test 06/19/17 06:11 06/19/17 08:07 White Blood Count 15.0 H Red Blood Count 3.72 L Hemoglobin 10.1 L Hematocrit 31.5 L Mean Corpuscular Volume 84.7 Mean Corpuscular Hemoglobin 27.2 L Mean Corpuscular Hemoglobin Concent 32.1 Red Cell Distribution Width 15.3 H Platelet Count 254 Mean Platelet Volume 9.9 Neutrophils % 79.9 H Lymphocytes % 8.6 L Monocytes % 7.8 Eosinophils % 2.7 Basophils % 0.3 Nucleated Red Blood Cells % 0.0 Neutrophils # 12.0 H Lymphocytes # 1.3 Monocytes # 1.2 H Eosinophils # 0.4 Basophils # 0.1 Nucleated Red Blood Cells # 0.0 Sodium Level 140 Potassium Level 3.9 Chloride Level 105 Carbon Dioxide Level 27 Anion Gap 12 Blood Urea Nitrogen 20 Creatinine 1.29 H Glucose Level 159 Calcium Level 8.6 Phosphorus Level 3.7 Magnesium Level 1.9 Bedside Glucose 188 Medications Current Medications Allopurinol (Zyloprim) 100 mg BID PO Last administered on 06/18/17 20:39; Admin Dose 100 MG; Start 06/17/17 at 09:00 Amiodarone HCl (Cordarone) 100 mg DAILY PO Last administered on 06/19/17 08: 58; Admin Dose 100 MG; Start 06/17/17 at 09:00 Aspirin (Halfprin) 81 mg DAILY PO Last administered on 06/18/17 09:02; Admin Dose 81 MG; Start 06/17/17 at 09:00 Cholecalciferol (Vitamin D) 1,000 unit DAILY PO Last administered on 09:05; Admin Dose 1,000 UNIT; Start 06/17/17 at 09:00 Clopidogrel Bisulfate (plaVIX) 75 mg DAILY PO Last administered on 06/18/17 09:04; Admin Dose 75 MG; Start 06/17/17 at 09:00 Gabapentin (Neurontin) 300 mg BID PO Last administered on 06/18/17 20:40; Admin Dose 300 MG; Start 06/17/17 at 09:00 Methimazole (Tapazole) 2.5 mg DAILY PO Last administered on 06/19/17 08:57; Admin Dose 2.5 MG; Start 06/17/17 at 09:00 Multivitamins Therapeutic (Theragran) 1 tab DAILY PO Last administered on 06/18 09:05; Admin Dose 1 TAB; Start 06/17/17 at 09:00 Polyethylene Glycol (Miralax) 17 gm DAILY PO Last administered on 06/18/17 09 :03; Admin Dose 17 GM; Start 06/17/17 at 09:00 Rosuvastatin Calcium (Crestor) 40 mg QHS PO Last administered on 06/18/17 20: 40; Admin Dose 40 MG; Start 06/17/17 at 21:00 Insulin Glargine (Lantus) 40 unit DAILY@08 SC Last administered on 06/18/17 07:48; Admin Dose 40 UNIT; Start 06/17/17 at 08:00 Insulin Glargine (Lantus) 45 unit DAILY@20 SC Last administered on 06/18/17 20:45; Admin Dose 45 UNIT; Start 06/17/17 at 20:00 Diagnostic Test (Pha) 1 ea 1 ea 02 XX Last administered on 06/19/17 01:23; Admin Dose 1 EA; Start 06/18/17 at 02:00 Piperacillin Sod/ Tazobactam Sod 50 ml @ 100 mls/hr Q8 IVPB Last administered on 06/19/17 06:43; Admin Dose 100 MLS/HR; Start 06/17/17 at 14:00 Vancomycin HCl/ Sodium Chloride (Vancocin/NS) 250 ml @ 83.333 mls/ hr Q24H IVPB Last administered on 06/18/17 09:12; Admin Dose 83.333 MLS/HR; Start at 09:00 [facility]isc[facility] This patient [facility]... PRN PRN XX WOUND CARE; Start 06/17/17 at 11:30 Acetaminophen/ Hydrocodone Bitart ([place] (5/325)) 1 tab Q4H PRN PO PAIN LEVEL 4 -6 Last administered on 06/18/17 20:15; Admin Dose 1 TAB; Start 06/17/17 at 14:30 Acetaminophen (Tylenol Tab) 500 mg Q6H PRN PO PAIN AND OR ELEVATED TEMP Last administered on 06/18/17 17:59; Admin Dose 500 MG; Start 06/17/17 at 21:30 Miscellaneous Information 1 ea NOTE XX ; Start 06/18/17 at 11:00 Glucose (Glutose) 15 gm Q15M PRN PO DECREASED GLUCOSE; Start 06/18/17 at 11:00 Glucose (Glutose) 22.5 gm Q15M PRN PO DECREASED GLUCOSE; Start 06/18/17 at 11: 00 Dextrose (D50w Syringe) 25 ml Q15M PRN IV DECREASED GLUCOSE; Start 06/18/17 at 11:00 Dextrose (D50w Syringe) 50 ml Q15M PRN IV DECREASED GLUCOSE; Start 06/18/17 at 11:00 Glucagon (Glucagen) 1 mg Q15M PRN IM DECREASED GLUCOSE; Start 06/18/17 at 11: 00 Glucose 15 gm 15 gm Q15M PRN BUCCAL DECREASED GLUCOSE; Start 06/18/17 at 11:00 Dextrose/Sodium Chloride (D5-NS) 1,000 ml @ 40 mls/hr Q24H ONCE IV Last administered on 06/19/17t 08:08; Admin Dose 40 MLS/HR; Start 06/19/17 at 08:00 ; Stop 06/20/17 at 07:59 Miscellaneous Information (*Rx Drug Level Order Reminder*) VANCOMYCIN TROUGH ON 06/04... ONCE ONCE XX ; Start 06/20/17 at 08:00; Stop 06/20/17 at 08:01 Assessment/Plan Chief Complaint/Hosp Course IMPRESSION AND PLAN: 1. Obstructive sleep apnea, currently requiring his continued home CPAP device. 2. Peripheral ischemia concerning for worsening gangrene. 3. Peripheral artery disease, status post right below-knee amputation. 4. Diabetes mellitus. 5. Chronic kidney disease. The patient will require: 1. Continue vascular recommendations. Antibiotics and anticoagulation. 2. Continue broad-spectrum antibiotics. 3. Continue tight glycemic control. 4. Deep venous thrombosis and gastrointestinal prophylaxis. 5. Continue home CPAP device. Problems: VANITA GUILLERMO MD, [facility] Jun 19, 2017 11:44
[2017-06-19] MEDS ORDERED: HYDROmorphONE (0.2 MG/ML) 10ML SYG IV PRN ×3 (12:30)
[2017-06-19] MEDS ORDERED: PROCHLORPERAZINE 10 MG INJ IV PRN (12:30)
[2017-06-19] MEDS ORDERED: ONDANSETRON 4 MG INJ IV PRN (12:30)
[2017-06-19] MEDS ORDERED: DIPHENHYDRAMINE 50 MG INJ IV PRN (12:30)
[2017-06-19] MEDS ORDERED: MEPERIDINE 25 MG INJ IV PRN (12:30)
[2017-06-19] MEDS ORDERED: FENTAnyl 50 MCG/ML VIAL IV PRN ×3 (12:30)
--- NOTE | 2017-06-19 13:33 | HPN ---
Date/Time of Note Date/Time of Note DATE: 06/19/17 TIME: 13:32 Interval H&P Admission Note pt still has leukocytosis, reports chills overnight DAYNE AVINA MD Jun 19, 2017 13:33
--- NOTE | 2017-06-19 13:45 | OPR ---
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 INDICATIONS: This is an 66 male whom had presented with bilateral lower extremity critical limb ischemia with tissue loss no popliteal and pedal pulses , had recently developed gangrene at outside hospital in which he underwent right below knee amputation. Unfortunately the stump had become erythematous, induration, crepitus and fluctuant and upon CT scan of the lower extremity there was gas within the stump. Risks and benefits were discussed with patient and family and not limited to , CA, stroke, pneumonia, hematoma, infection , revision of amputation, bleeding. PROCEDURE: 1. Right above knee amputation DESCRIPTION OF THE PROCEDURE: The patient was brought to the operating room and positioned in the supine position on the operating room table. The lower extremity was prepped and draped in usual sterile fashion. The preoperative antibiotics were given. Anesthesia was initiated and patient tolerated well. A coude Kirkland catheter was placed as the regular Kirkland was having some resistance. The correct site was marked and confirmed. Time-out was performed. Anterior and posterior skin flaps were outlined with a marking pen 10 cm proximal to the knee joint. This incision was then performed and deepened through serpiginous tissue into the muscular fascia was identified. The greater saphenous vein was identified and ligated with a 3-0 silk ties and divided. Muscle groups over the anterior and medial thigh were divided with electrocautery at the same level of the skin incision. The neurovascular bundle was identified in the medial aspect of the thigh. The popliteal artery and veins were isolated and suture ligated with 3-0 Vicryl suture. The sciatic nerve was pulled and ligated with a 3-0 Vicryl suture tied and divided. The posterior thigh muscles were then divided with electrocautery. Once the muscle groups were circumferentially divided the periosteum was incised and elevated approximately 5 cm proximally off the femur. The femur was divided with electric saw. The proximal end of the transected femur was smoothed with a file. The amputation stump was irrigated copiously with antibiotic solution. Hemostasis was secured. The periosteum was closed with a interrupted 2-0 Vicryl suture over the transected femur. The fascia of the thigh muscles was also closed with interrupted 2-0 Vicryl suture. The dermal layer was approximated with interrupted 3-0 Vicryl sutures. Skin kathryn were applied. Sterile dressing was applied with gauze and Kerlix and Thomas bandage. The patient on procedure well was taken to post anesthesia care unit in stable condition. All instrument needle and sponge counts were correct 2. GUERO AVINA MD Jun 19, 2017 13:44
--- NOTE | 2017-06-19 13:46 | CONS ---
Date/Time of Note Date/Time of Note DATE: 06/19/17 TIME: 13:43 Consult Date/Type/Reason Admit Date/Time Jun 17, 2017 at 01:20 Initial Consult Date Type of Consultation: ID Ordering Provider: DANYELLE GUY DO Objective Vital Signs Date Time Temp Pulse Resp B/P Pulse Ox O2 Delivery O2 Flow Rate FiO2 06/19/17 13:16 74 15 103/55 96 Nasal Cannula 2.0 06/19/17 12:53 98.0 06/18/17 01:22 27 Intake and Output 06/18/17 06/18/17 06/19/17 15:00 23:00 07:00 Intake Total 300 ml 500 ml 1100 ml Output Total 400 ml 400 ml Balance 300 ml 100 ml 700 ml Results/Medications Result Diagram: 06/19/17 0611 06/19/17 0611 Results 24 hrs Laboratory Tests Test 06/18/17 17:29 06/18/17 20:38 06/19/17 01:20 06/19/17 06:11 Bedside Glucose 239 H 228 H 183 White Blood Count 15.0 H Red Blood Count 3.72 L Hemoglobin 10.1 L Hematocrit 31.5 L Mean Corpuscular Volume 84.7 Mean Corpuscular Hemoglobin 27.2 L Mean Corpuscular Hemoglobin Concent 32.1 Red Cell Distribution Width 15.3 H Platelet Count 254 Mean Platelet Volume 9.9 Neutrophils % 79.9 H Lymphocytes % 8.6 L Monocytes % 7.8 Eosinophils % 2.7 Basophils % 0.3 Nucleated Red Blood Cells % 0.0 Neutrophils # 12.0 H Lymphocytes # 1.3 Monocytes # 1.2 H Eosinophils # 0.4 Basophils # 0.1 Nucleated Red Blood Cells # 0.0 Sodium Level 140 Potassium Level 3.9 Chloride Level 105 Carbon Dioxide Level 27 Anion Gap 12 Blood Urea Nitrogen 20 Creatinine 1.29 H Glucose Level 159 Calcium Level 8.6 Phosphorus Level 3.7 Magnesium Level 1.9 Test 06/19/17 08:07 06/19/17 13:12 Bedside Glucose 188 189 Medications Current Medications Allopurinol (Zyloprim) 100 mg BID PO Last administered on 06/18/17 20:39; Admin Dose 100 MG; Start 06/17/17 at 09:00 Amiodarone HCl (Cordarone) 100 mg DAILY PO Last administered on 06/19/17 08: 58; Admin Dose 100 MG; Start 06/17/17 at 09:00 Aspirin (Halfprin) 81 mg DAILY PO Last administered on 06/18/17 09:02; Admin Dose 81 MG; Start 06/17/17 at 09:00 Cholecalciferol (Vitamin D) 1,000 unit DAILY PO Last administered on 09:05; Admin Dose 1,000 UNIT; Start 06/17/17 at 09:00 Clopidogrel Bisulfate (plaVIX) 75 mg DAILY PO Last administered on 06/18/17 09:04; Admin Dose 75 MG; Start 06/17/17 at 09:00 Gabapentin (Neurontin) 300 mg BID PO Last administered on 06/18/17 20:40; Admin Dose 300 MG; Start 06/17/17 at 09:00 Methimazole (Tapazole) 2.5 mg DAILY PO Last administered on 06/19/17 08:57; Admin Dose 2.5 MG; Start 06/17/17 at 09:00 Multivitamins Therapeutic (Theragran) 1 tab DAILY PO Last administered on 06/18 09:05; Admin Dose 1 TAB; Start 06/17/17 at 09:00 Polyethylene Glycol (Miralax) 17 gm DAILY PO Last administered on 06/18/17 09 :03; Admin Dose 17 GM; Start 06/17/17 at 09:00 Rosuvastatin Calcium (Crestor) 40 mg QHS PO Last administered on 06/18/17 20: 40; Admin Dose 40 MG; Start 06/17/17 at 21:00 Insulin Glargine (Lantus) 40 unit DAILY@08 SC Last administered on 06/18/17 07:48; Admin Dose 40 UNIT; Start 06/17/17 at 08:00 Insulin Glargine (Lantus) 45 unit DAILY@20 SC Last administered on 06/18/17 20:45; Admin Dose 45 UNIT; Start 06/17/17 at 20:00 Diagnostic Test (Pha) 1 ea 1 ea 02 XX Last administered on 06/19/17 01:23; Admin Dose 1 EA; Start 06/18/17 at 02:00 Piperacillin Sod/ Tazobactam Sod 50 ml @ 100 mls/hr Q8 IVPB Last administered on 11/16/17at 06:43; Admin Dose 100 MLS/HR; Start 06/17/17 at 14:00 Vancomycin HCl/ Sodium Chloride (Vancocin/NS) 250 ml @ 83.333 mls/ hr Q24H IVPB Last administered on 06/18/17 09:12; Admin Dose 83.333 MLS/HR; Start at 09:00 Miscellaneous Information (Pending Santyl Order For Wound Care) This patient hauser... PRN PRN XX WOUND CARE; Start 06/17/17 at 11:30 Acetaminophen/ Hydrocodone Bitart ([place] (5/325)) 1 tab Q4H PRN PO PAIN LEVEL 4 -6 Last administered on 06/18/17 20:15; Admin Dose 1 TAB; Start 06/17/17 at 14:30 Acetaminophen (Tylenol Tab) 500 mg Q6H PRN PO PAIN AND OR ELEVATED TEMP Last administered on 06/18/17 17:59; Admin Dose 500 MG; Start 06/17/17 at 21:30 Miscellaneous Information 1 ea NOTE XX ; Start 06/18/17 at 11:00 Glucose (Glutose) 15 gm Q15M PRN PO DECREASED GLUCOSE; Start 06/18/17 at 11:00 Glucose (Glutose) 22.5 gm Q15M PRN PO DECREASED GLUCOSE; Start 06/18/17 at 11: 00 Dextrose (D50w Syringe) 25 ml Q15M PRN IV DECREASED GLUCOSE; Start 06/18/17 at 11:00 Dextrose (D50w Syringe) 50 ml Q15M PRN IV DECREASED GLUCOSE; Start 06/18/17 at 11:00 Glucagon (Glucagen) 1 mg Q15M PRN IM DECREASED GLUCOSE; Start 06/18/17 at 11: 00 Glucose 15 gm 15 gm Q15M PRN BUCCAL DECREASED GLUCOSE; Start 06/18/17 at 11:00 Dextrose/Sodium Chloride (D5-NS) 1,000 ml @ 40 mls/hr Q24H ONCE IV Last administered on 06/19/17 08:08; Admin Dose 40 MLS/HR; Start 06/19/17 at 08:00 ; Stop 06/20/17 at 07:59 Miscellaneous Information (*Rx Drug Level Order Reminder*) VANCOMYCIN TROUGH ON 06/04... ONCE ONCE XX ; Start 11/17/17 at 08:00; Stop 06/20/17 at 08:01 Assessment/Plan Chief Complaint/Hosp Course SUBJECTIVE: No acute changes, looks comfortable, no fevers. MICROBIOLOGY: Blood and urine culture remain negative. Wound cx pending DIAGNOSTICS: Chest x-ray was negative. ANTIMICROBIALS: 1. Vancomycin. 2. Zosyn. PHYSICAL EXAMINATION: GENERAL: This is a morbidly obese elderly man who is awake, in no distress. HEENT: Head atraumatic, normocephalic. Sclerae anicteric. Buccal mucosa pink. NECK: Supple. CHEST: Rise symmetrical. Breath sounds diminished to bases. HEART: S1, S2. ABDOMEN: Soft, bowel tones present. EXTREMITIES: With right below knee amputation stump purulent drainage. Left foot dressing intact. ASSESSMENT: 1. Systemic inflammatory response syndrome with low grade fevers and leukocytosis. 2. Right stump wet gangrene with abscess. 3. Peripheral vascular disease status post right below-knee amputation and left transmetatarsal amputation. 4. Diabetes. 5. Coronary artery disease, history of coronary artery bypass graft. 6. Chronic kidney disease. 7. History of hypertension. 8. Morbid obesity. PLAN: The patient remains stable, continue abx, pending i&d, f/u wound cx, vascular rec-s. staff Problems: LANE URBINA NP Jun 19, 2017 13:46
[2017-06-19] MEDS: ROSUVASTATIN CALCIUM 40 MG TABLET PO SCH (21:04)
[2017-06-20] VITALS (12 sets, daily range): BP systolic 96–124; BP diastolic 50–66; PULSE 62–83; RESP 16–18
[2017-06-20] MEDS: ACCU-CHEK XX SCH (02:13)
[2017-06-20] MEDS: ACETAMINOPHEN 500 MG TAB PO PRN (03:53)
[2017-06-20] MEDS: PIPER-TAZO 3.375 GM IV (PMX) 50 ML IVPB SCH ×3 (06:51→21:34)
[2017-06-20 07:55] LABS: BASOPHIL # 0.1 10^3/ul (0.0-0.1); BASOPHILS % 0.4 % (0.0-2.0); EOSINOPHILS # 0.3 10^3/ul (0.0-0.5); EOSINOPHILS % 2.5 % (0.0-7.0); HEMOGLOBIN 9.4 g/dl (14.0-18.0); LYMPHOCYTES # 1.4 10^3/ul (0.8-2.9); LYMPHOCYTES % 12.4 % (15.0-51.0); MEAN CORPUSCULAR HEMOGLOBIN 26.6 pg (29.0-33.0); MEAN CORPUSCULAR HGB CONC 31.3 g/dl (32.0-37.0); MEAN PLATELET VOLUME 9.8 fl (7.4-10.4); MONOCYTES % 8.7 % (0.0-11.0); NEUTROPHIL # 8.5 10^3/ul (1.6-7.5); NEUTROPHILS % 75.6 % (39.0-77.0); PLATELET COUNT 260 10^3/UL (140-415); RED BLOOD COUNT 3.53 10^6/ul (4.70-6.10); RED CELL DISTRIBUTION WIDTH 15.6 % (11.5-14.5); WHITE BLOOD COUNT 11.3 10^3/ul (4.8-10.8)
--- NOTE | 2017-06-20 08:19 | PN ---
Date/Time of Note Date/Time of Note DATE: 06/20/17 TIME: 08:14 Assessment/Plan Lines/Catheters IV Catheter Type (from [facility]): [place] in Place (from [facility]): Yes Assessment/Plan Chief Complaint/Hosp Course -Bilateral lower extremity atherosclerosis with right lower extremity gangrene and left lower extremity ulcers: It seems the patient has significant critical limb ischemia in which he had recently developed right lower extremity gangrene diabetic foot infection requiring an amputation. It seems the patient's below knee amputation stump still had infection and presence of dionne gangrene. -S/P Right AKA -Left lower extremity, as the patient would like to have everything done to salvage his limb, he has had a previous failed revascularization of the bypass and currently has not had a vascular followup over the past 4 years per the patient's reporting. He is wanting us to manage that, but at the moment, we will plan to resolve his right lower extremity issue first and will address his left lower extremity. He will likely require angiogram and he understands all that is involved for now. -Chronic kidney disease, the patient does have some component of chronic kidney disease stage III to IV, with elevated creatinine of 1.4 to 1.5. We will plan to eventually coordinate our angiogram with our nephrology colleagues for CT angiography and possible intravascular ultrasound with minimal usage of contrast in order to preserve his renal function. -Optimize vascular status (BP medications, diet, nutrition, exercise, sugar control, antiplatelets). -Discussed patient's findings of his BMI of 38.5 and being overweight and arranging a nutrition and diabetic consultation and evaluation. -Discussed findings, plan and management with the patient and he understands. -Thank you for allowing us to partake in the care of your patient. Please call with any questions. Problems: Subjective 24 Hr Interval Summary no new vascular events overnight, pain controlled Exam/Review of Systems Vital Signs Vitals Vital Signs Date Time Temp Pulse Resp B/P Pulse Ox O2 Delivery O2 Flow Rate FiO2 06/20/17 07:46 98.2 82 18 124/66 94 06/20/17 04:23 2.0 28 06/19/17 14:16 Nasal Cannula Intake and Output 06/19/17 06/19/17 06/20/17 15:00 23:00 07:00 Intake Total 450 ml 200 ml Output Total 500 ml 400 ml Balance -50 ml -200 ml Exam Free Text/Dictation GENERAL: Alert and oriented x3, PULMONARY: Clear to auscultation bilaterally. CARDIOVASCULAR: S1, S2 present ABDOMEN: Soft, nontender, nondistended. Bowel sounds positive. Truncal obesity. EXTREMITIES: -Right lower extremity palpable femoral pulse, AKA-stump with dressing intact and clean -Left lower extremity: Faint femoral pulse, nonpalpable pedal pulse. Motor and sensory intact. Capillary refill 3-4 seconds. Dependent rubor. Ulcers of the forefoot. Amputated first, second, third and fourth toes. Results Result Diagram: 06/20/17 0732 06/19/17 0611 DAYNE AVINA MD Jun 20, 2017 08:19
--- NOTE | 2017-06-20 08:32 | CONS ---
Date/Time of Note Date/Time of Note DATE: 06/20/17 TIME: 08:30 Consult Date/Type/Reason Admit Date/Time Jun 17, 2017 at 01:20 Type of Consultation: card Ordering Provider: DANYELLE GUY DO Subjective cardiology follow up note: S: Discussed with staff and Dr Gill rhythm was reviewed. pt remains in NSR pt denies any chest pain or pressure to me he denies any PND orthopnea to me. He denies any wheezing or shortness of breath to me. S/P R AKA 06/19/17 O: General: no acute distress. obese man HEENT: NC/AT. pupils are equal. round. NECK: NO JVD. no stridor. CV: RRR. systolic murmur; no gallop or rubs. PULM: no wheezing or rhonchi. GI: SOFT, NT, ND, no rebound or guarding obese. Extremity: s/p R AKA in dressing . neuro: awake and alert, OX3. Psych: calm and pleasant rectal: deferred Objective Vital Signs Date Time Temp Pulse Resp B/P Pulse Ox O2 Delivery O2 Flow Rate FiO2 06/20/17 07:46 98.2 82 18 124/66 94 06/20/17 04:23 2.0 28 06/19/17 14:16 Nasal Cannula Intake and Output 06/19/17 06/19/17 06/20/17 15:00 23:00 07:00 Intake Total 450 ml 200 ml Output Total 500 ml 400 ml Balance -50 ml -200 ml Results/Medications Result Diagram: 06/20/17 0732 06/19/17 0611 Results 24 hrs Laboratory Tests Test 06/19/17 13:12 06/19/17 17:05 06/19/17 21:02 06/20/17 02:12 Bedside Glucose 189 196 212 195 Test 06/20/17 05:46 06/20/17 07:32 Lab Scanned Report BLOOD TRANSFUSION White Blood Count 11.3 #H Red Blood Count 3.53 L Hemoglobin 9.4 L Hematocrit 30.0 L Mean Corpuscular Volume 85.0 Mean Corpuscular Hemoglobin 26.6 L Mean Corpuscular Hemoglobin Concent 31.3 L Red Cell Distribution Width 15.6 H Platelet Count 260 Mean Platelet Volume 9.8 Neutrophils % 75.6 Lymphocytes % 12.4 L Monocytes % 8.7 Eosinophils % 2.5 Basophils % 0.4 Nucleated Red Blood Cells % 0.0 Neutrophils # 8.5 H Lymphocytes # 1.4 Monocytes # 1.0 H Eosinophils # 0.3 Basophils # 0.1 Nucleated Red Blood Cells # 0.0 Medications Current Medications Allopurinol (Zyloprim) 100 mg BID PO Last administered on 06/19/17 21:04; Admin Dose 100 MG; Start 06/17/17 at 09:00 Amiodarone HCl (Cordarone) 100 mg DAILY PO Last administered on 06/19/17 08: 58; Admin Dose 100 MG; Start 06/17/17 at 09:00 Aspirin (Halfprin) 81 mg DAILY PO Last administered on 06/18/17 09:02; Admin Dose 81 MG; Start 06/17/17 at 09:00 Cholecalciferol (Vitamin D) 1,000 unit DAILY PO Last administered on 09:05; Admin Dose 1,000 UNIT; Start 06/17/17 at 09:00 Clopidogrel Bisulfate (plaVIX) 75 mg DAILY PO Last administered on 06/18/17 09:04; Admin Dose 75 MG; Start 06/17/17 at 09:00 Gabapentin (Neurontin) 300 mg BID PO Last administered on 06/19/17 21:03; Admin Dose 300 MG; Start 06/17/17 at 09:00 Methimazole (Tapazole) 2.5 mg DAILY PO Last administered on 06/19/17 08:57; Admin Dose 2.5 MG; Start 06/17/17 at 09:00 Multivitamins Therapeutic (Theragran) 1 tab DAILY PO Last administered on 06/18 09:05; Admin Dose 1 TAB; Start 06/17/17 at 09:00 Polyethylene Glycol (Miralax) 17 gm DAILY PO Last administered on 06/18/17 09 :03; Admin Dose 17 GM; Start 06/17/17 at 09:00 Rosuvastatin Calcium (Crestor) 40 mg QHS PO Last administered on 06/19/17 21: 04; Admin Dose 40 MG; Start 06/17/17 at 21:00 Insulin Glargine (Lantus) 40 unit DAILY@08 SC Last administered on 06/18/17 07:48; Admin Dose 40 UNIT; Start 06/17/17 at 08:00 Insulin Glargine (Lantus) 45 unit DAILY@20 SC Last administered on 06/19/17 21:13; Admin Dose 45 UNIT; Start 06/17/17 at 20:00 Diagnostic Test (Pha) 1 ea 1 ea 02 XX Last administered on 06/20/17 02:13; Admin Dose 1 EA; Start 06/18/17 at 02:00 Piperacillin Sod/ Tazobactam Sod 50 ml @ 100 mls/hr Q8 IVPB Last administered on 06/20/17 06:51; Admin Dose 100 MLS/HR; Start 06/17/17 at 14:00 Vancomycin HCl/ Sodium Chloride (Vancocin/NS) 250 ml @ 83.333 mls/ hr Q24H IVPB Last administered on 06/18/17 09:12; Admin Dose 83.333 MLS/HR; Start at 09:00 Miscellaneous Information (Pending [facility] Order For Wound Care) This patient hauser... PRN PRN XX WOUND CARE; Start 06/17/17 at 11:30 Acetaminophen/ Hydrocodone Bitart ([place] (5/325)) 1 tab Q4H PRN PO PAIN LEVEL 4 -6 Last administered on 06/18/17 20:15; Admin Dose 1 TAB; Start 06/17/17 at 14:30 Acetaminophen (Tylenol Tab) 500 mg Q6H PRN PO PAIN AND OR ELEVATED TEMP Last administered on 06/20/17 03:53; Admin Dose 500 MG; Start 06/17/17 at 21:30 Miscellaneous Information 1 ea NOTE XX ; Start 06/18/17 at 11:00 Glucose (Glutose) 15 gm Q15M PRN PO DECREASED GLUCOSE; Start 06/18/17 at 11:00 Glucose (Glutose) 22.5 gm Q15M PRN PO DECREASED GLUCOSE; Start 06/18/17 at 11: 00 Dextrose (D50w Syringe) 25 ml Q15M PRN IV DECREASED GLUCOSE; Start 06/18/17 at 11:00 Dextrose (D50w Syringe) 50 ml Q15M PRN IV DECREASED GLUCOSE; Start 06/18/17 at 11:00 Glucagon (Glucagen) 1 mg Q15M PRN IM DECREASED GLUCOSE; Start 11/15/17 at 11: 00 Glucose (Glutose) 15 gm Q15M PRN BUCCAL DECREASED GLUCOSE; Start 06/18/17 at 11:00 Carvedilol (Coreg) 3.125 mg BID PO ; Start 06/20/17 at 09:00 Losartan Potassium (Cozaar) 25 mg DAILY PO ; Start 06/20/17 at 09:00 Enoxaparin Sodium (Lovenox) 30 mg DAILY SC ; Start 06/20/17 at 09:00 Assessment/Plan Chief Complaint/Hosp Course 1. CAD 2. HX CABG 3. HX [place] 4. HX multiple PCI 5. Severe PAD 6. S/P Previous LE revascularizations 7. gangrene toe s/p R BKA now 8/ DM 9. hx hyperthyroidism: TSH is wnl on 06/06/17 10. hx VT s/p ICD 11. CHF: chronic and stable due to systolic heart failure 12. dyslipidemia: on statin 13. CKD 14. Debility 15. Markedly elevated CK: probably related to recent surgery. improved now 16. fever and leukocystosis. Recommendations: I will resume coreg and losartan. resume corlanor. will hold Aspirin but Plavix will be continued. on crestor . check CK tomorrow. Diabetic management as per internal medicine. Physical therapy and rehab will be continued. nightly CPAP . abx as per ID rec. Thank you for his referral. I will continue to follow along with you. SALVADOR BARRETO MD [facility] Problems: SALVADOR BARRETO MD Jun 20, 2017 08:32
[2017-06-20 08:34] LABS: CALCIUM 8.7 mg/dl (8.4-10.2); CREATININE 1.29 mg/dl (0.61-1.24); MAGNESIUM 1.9 mg/dl (1.7-2.5); PHOSPHORUS 3.5 mg/dl (2.5-4.9); POTASSIUM 4.3 mmol/L (3.5-5.1)
[2017-06-20] MEDS: INSULIN ASPART [NOVOLOG] 3 ML PEN SC SCH ×7 (08:41→20:40)
[2017-06-20] MEDS: INSULIN GLARGINE [LANtus] 3 ML PEN SC SCH ×2 (08:43→20:39)
[2017-06-20] MEDS: POLYETHYLENE GLYCOL 17 GM PACKET PO SCH (09:00)
--- NOTE | 2017-06-20 09:21 | PN ---
DATE: 06/20/2017 SUBJECTIVE: The patient yesterday underwent successful above knee amputation of his right foot. Th e patient had no intraoperative or postoperative complications. This morning, patient is alert and oriented. Able to answer simple questions. No other events noted. OBJECTIVE: VITAL SIGNS: Blood pressure is 124/66, respiration 18, pulse 82, temperature 98.2. HEENT: Head is normocephalic. NECK: Supple. HEART: Regular rate. LUNGS: Show diminished breath sounds at the base. ABDOMEN: Soft, nontender to palpation. No rebound or guarding. EXTREMITIES: Positive for right above-knee amputation, left lower foot has noted wound, no discharg e. MUSCULOSKELETAL: The patient has a right above-knee amputation. NEUROLOGIC: No focal deficits. DERMATOLOGIC: No rashes. LABORATORY DATA: Shows white count 11.3, hemoglobin 9.4, hematocrit 30.0, platelet count is 260, selene waterman's BMP is pending. ASSESSMENT AND PLAN: 1. Peripheral vascular disease status post right above knee amputation. The patient is currently s table. We will continue local wound care. Will follow up with vascular surgery for further recomme ndations. Continue current antibiotic therapy. 2. Sepsis secondary to right below the knee cellulitis and abscess. The patient is status post amp utation as stated above. Continue IV antibiotics. Follow up with infectious disease. 3. Sleep apnea. Continue CPAP. 4. Chronic kidney disease, stage IIIB/IV. Patient's renal function has been stable. Continue curr ent treatment plan, supportive care, renally dose all medicines anemia. The patient is status post blood transfusion. Continue to monitor hemoglobin and hematocrit levels. 5. Mineral bone disorder. Continue to monitor calcium and phosphorus levels. 6. Coronary artery disease. Continue medical management. 7. Diabetes. Continue current insulin regimen. 8. Congestive heart failure. Continue current treatment plan. 9. Dyslipidemia. Continue statin therapy. 10. Arrhythmia. Continue amiodarone. 11. Hyperthyroidism. Continue Tapazole. 12. Left lower extremity wounds. Continue local wound care. 13. Status post lactic acidosis. 14. Gastrointestinal and deep venous thrombosis prophylaxis. 15. Sleep apnea. Continue CPAP. Dictated By: DANYELLE FRANCOIS/SURENDRA Conf#: [id number] DID#: [id number]
[2017-06-20] MEDS: VANCOMYCIN 1.25 GM in SOD CHLORIDE 0.9% 250 ML IVPB SCH (09:34)
[2017-06-20] MEDS: METHIMAZOLE 5 MG TAB PO SCH (09:35)
[2017-06-20] MEDS: ALLOPURINOL 100 MG TAB PO SCH ×2 (09:35→20:26)
[2017-06-20] MEDS: GABAPENTIN 300 MG CAP PO SCH ×2 (09:35→20:26)
[2017-06-20] MEDS: LOSARTAN 25 MG TAB PO SCH (09:35)
[2017-06-20] MEDS: MULTIVITAMINS THERAPEUTIC TAB PO SCH (09:36)
[2017-06-20] MEDS: AMIODARONE 200 MG TAB PO SCH (09:36)
[2017-06-20] MEDS: CHOLECALCIFEROL 1,000 UNIT TAB PO SCH (09:37)
[2017-06-20] MEDS: IVABRADINE HCL 5 MG TABLET PO SCH ×2 (09:37→17:09)
[2017-06-20] MEDS: CLOPIDOGREL 75 MG TAB PO SCH (09:37)
[2017-06-20] MEDS: ENOXAPARIN 30 MG/0.3 ML SYG SC SCH (09:42)
--- NOTE | 2017-06-20 14:49 | CONS ---
Date/Time of Note Date/Time of Note DATE: 06/20/17 TIME: 14:47 Consult Date/Type/Reason Admit Date/Time Jun 17, 2017 at 01:20 Type of Consultation: ID Ordering Provider: DANYELLE GUY DO Objective Vital Signs Date Time Temp Pulse Resp B/P Pulse Ox O2 Delivery O2 Flow Rate FiO2 06/20/17 12:00 76 06/20/17 11:14 98.4 18 102/54 92 06/20/17 04:23 2.0 28 06/19/17 14:16 Nasal Cannula Intake and Output 06/19/17 06/19/17 06/20/17 15:00 23:00 07:00 Intake Total 450 ml 200 ml Output Total 500 ml 400 ml Balance -50 ml -200 ml Results/Medications Result Diagram: 06/20/17 0732 06/20/17 0732 Results 24 hrs Laboratory Tests Test 06/19/17 17:05 06/19/17 21:02 06/20/17 02:12 06/20/17 05:46 Bedside Glucose 196 212 195 Lab Scanned Report BLOOD TRANSFUSION Test 06/20/17 07:32 06/20/17 08:34 06/20/17 12:49 White Blood Count 11.3 #H Red Blood Count 3.53 L Hemoglobin 9.4 L Hematocrit 30.0 L Mean Corpuscular Volume 85.0 Mean Corpuscular Hemoglobin 26.6 L Mean Corpuscular Hemoglobin Concent 31.3 L Red Cell Distribution Width 15.6 H Platelet Count 260 Mean Platelet Volume 9.8 Neutrophils % 75.6 Lymphocytes % 12.4 L Monocytes % 8.7 Eosinophils % 2.5 Basophils % 0.4 Nucleated Red Blood Cells % 0.0 Neutrophils # 8.5 H Lymphocytes # 1.4 Monocytes # 1.0 H Eosinophils # 0.3 Basophils # 0.1 Nucleated Red Blood Cells # 0.0 Sodium Level 140 Potassium Level 4.3 Chloride Level 106 Carbon Dioxide Level 27 Anion Gap 11 Blood Urea Nitrogen 18 Creatinine 1.29 H Glucose Level 171 Calcium Level 8.7 Phosphorus Level 3.5 Magnesium Level 1.9 Vancomycin Level Trough 7.1 L Bedside Glucose 166 199 Medications Current Medications Allopurinol (Zyloprim) 100 mg BID PO Last administered on 06/20/17t 09:35; Admin Dose 100 MG; Start 06/17/17 at 09:00 Amiodarone HCl (Cordarone) 100 mg DAILY PO Last administered on 06/20/17 09: 36; Admin Dose 100 MG; Start 06/17/17 at 09:00 Aspirin (Halfprin) 81 mg DAILY PO Last administered on 06/18/17 09:02; Admin Dose 81 MG; Start 06/17/17 at 09:00; Status Future Hold Cholecalciferol (Vitamin D) 1,000 unit DAILY PO Last administered on 09:37; Admin Dose 1,000 UNIT; Start 06/17/17 at 09:00 Clopidogrel Bisulfate (plaVIX) 75 mg DAILY PO Last administered on 06/20/17 09:37; Admin Dose 75 MG; Start 06/17/17 at 09:00 Gabapentin (Neurontin) 300 mg BID PO Last administered on 06/20/17 09:35; Admin Dose 300 MG; Start 06/17/17 at 09:00 Methimazole (Tapazole) 2.5 mg DAILY PO Last administered on 06/20/17 09:35; Admin Dose 2.5 MG; Start 06/17/17 at 09:00 Multivitamins Therapeutic (Theragran) 1 tab DAILY PO Last administered on 06/20 09:36; Admin Dose 1 TAB; Start 06/17/17 at 09:00 Polyethylene Glycol (Miralax) 17 gm DAILY PO Last administered on 06/18/17 09 :03; Admin Dose 17 GM; Start 06/17/17 at 09:00 Rosuvastatin Calcium (Crestor) 40 mg QHS PO Last administered on 06/19/17 21: 04; Admin Dose 40 MG; Start 06/17/17 at 21:00 Insulin Glargine (Lantus) 40 unit DAILY@08 SC Last administered on 06/20/17 08:43; Admin Dose 40 UNIT; Start 06/17/17 at 08:00 Insulin Glargine (Lantus) 45 unit DAILY@20 SC Last administered on 06/19/17 21:13; Admin Dose 45 UNIT; Start 06/17/17 at 20:00 Diagnostic Test (Pha) 1 ea 1 ea 02 XX Last administered on 06/20/17 02:13; Admin Dose 1 EA; Start 06/18/17 at 02:00 Piperacillin Sod/ Tazobactam Sod 50 ml @ 100 mls/hr Q8 IVPB Last administered on 06/20/17 06:51; Admin Dose 100 MLS/HR; Start 06/17/17 at 14:00 Vancomycin HCl/ Sodium Chloride (Vancocin/NS) 250 ml @ 83.333 mls/ hr Q24H IVPB Last administered on 06/20/17 09:34; Admin Dose 83.333 MLS/HR; Start at 09:00 Miscellaneous Information (Pending Santyl Order For Wound Care) This patient hauser... PRN PRN XX WOUND CARE; Start 06/17/17 at 11:30 Acetaminophen/ Hydrocodone Bitart ([place] (5/325)) 1 tab Q4H PRN PO PAIN LEVEL 4 -6 Last administered on 06/18/17 20:15; Admin Dose 1 TAB; Start 06/17/17 at 14:30 Acetaminophen (Tylenol Tab) 500 mg Q6H PRN PO PAIN AND OR ELEVATED TEMP Last administered on 06/20/17 03:53; Admin Dose 500 MG; Start 06/17/17 at 21:30 Miscellaneous Information 1 ea NOTE XX ; Start 06/18/17 at 11:00 Glucose (Glutose) 15 gm Q15M PRN PO DECREASED GLUCOSE; Start 06/18/17 at 11:00 Glucose (Glutose) 22.5 gm Q15M PRN PO DECREASED GLUCOSE; Start 06/18/17 at 11: 00 Dextrose (D50w Syringe) 25 ml Q15M PRN IV DECREASED GLUCOSE; Start 06/18/17 at 11:00 Dextrose (D50w Syringe) 50 ml Q15M PRN IV DECREASED GLUCOSE; Start 06/18/17 at 11:00 Glucagon (Glucagen) 1 mg Q15M PRN IM DECREASED GLUCOSE; Start 06/18/17 at 11: 00 Glucose (Glutose) 15 gm Q15M PRN BUCCAL DECREASED GLUCOSE; Start 06/18/17 at 11:00 Carvedilol (Coreg) 3.125 mg BID PO Last administered on 06/20/17 09:37; Admin Dose 3.125 MG; Start 06/20/17 at 09:00 Losartan Potassium (Cozaar) 25 mg DAILY PO Last administered on 06/20/17 09: 35; Admin Dose 25 MG; Start 06/20/17 at 09:00 Enoxaparin Sodium (Lovenox) 30 mg DAILY SC Last administered on 06/20/17t 09: 42; Admin Dose 30 MG; Start 06/20/17 at 09:00 Assessment/Plan Chief Complaint/Hosp Course SUBJECTIVE: No acute changes, sleeping, looks comfortable, no fevers. MICROBIOLOGY: Blood and urine culture remain negative. Wound cx pending DIAGNOSTICS: Chest x-ray was negative. ANTIMICROBIALS: 1. Vancomycin. 2. Zosyn. PHYSICAL EXAMINATION: GENERAL: This is a morbidly obese elderly man who is awake, in no distress. HEENT: Head atraumatic, normocephalic. Sclerae anicteric. Buccal mucosa pink. NECK: Supple. CHEST: Rise symmetrical. Breath sounds diminished to bases. HEART: S1, S2. ABDOMEN: Soft, bowel tones present. EXTREMITIES: With right LE stump dsg intact. Left foot dressing intact. ASSESSMENT: 1. Systemic inflammatory response syndrome with low grade fevers and leukocytosis. 2. 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 3. Peripheral vascular disease 4. Diabetes. 5. Coronary artery disease, history of coronary artery bypass graft. 6. Chronic kidney disease. 7. History of hypertension. 8. Morbid obesity. PLAN: The patient remains stable, continue abx for 24 hrs, vascular rec-s. [facility] staff Problems: LANE URBINA NP Jun 20, 2017 14:49
--- NOTE | 2017-06-20 16:16 | CONS ---
Date/Time of Note Date/Time of Note DATE: 06/20/17 TIME: 16:15 Consult Date/Type/Reason Admit Date/Time Jun 17, 2017 at 01:20 Ordering Provider: DANYELLE GUY DO Subjective Patient comfortable no new events. Objective Vital Signs Date Time Temp Pulse Resp B/P Pulse Ox O2 Delivery O2 Flow Rate FiO2 06/20/17 15:44 99.6 74 18 96/55 97 06/20/17 04:23 2.0 28 06/19/17 14:16 Nasal Cannula Intake and Output 06/19/17 06/19/17 06/20/17 15:00 23:00 07:00 Intake Total 450 ml 200 ml Output Total 500 ml 400 ml Balance -50 ml -200 ml Exam PHYSICAL EXAMINATION: GENERAL: Well-nourished, well-developed gentleman, comfortable at rest, talking in full and complete sentences. VITAL SIGNS: As above. NECK: Supple. No JVD or lymphadenopathy. CARDIAC: S1, S2, no added sounds or murmurs. CHEST: Diminished air entry bilaterally. ABDOMEN: Obese, soft, nontender, no guarding, no rebound. EXTREMITIES: No cyanosis, clubbing, edema. He has a right below-knee amputation, left toe amputations with decreased circulation in the left lower extremity.. NEUROLOGIC: No focal deficits. Results/Medications Result Diagram: 06/20/17 0732 06/20/17 0732 Results 24 hrs Laboratory Tests Test 06/19/17 17:05 06/19/17 21:02 06/20/17 02:12 06/20/17 05:46 Bedside Glucose 196 212 195 Lab Scanned Report BLOOD TRANSFUSION Test 06/20/17 07:32 06/20/17 08:34 06/20/17 12:49 White Blood Count 11.3 #H Red Blood Count 3.53 L Hemoglobin 9.4 L Hematocrit 30.0 L Mean Corpuscular Volume 85.0 Mean Corpuscular Hemoglobin 26.6 L Mean Corpuscular Hemoglobin Concent 31.3 L Red Cell Distribution Width 15.6 H Platelet Count 260 Mean Platelet Volume 9.8 Neutrophils % 75.6 Lymphocytes % 12.4 L Monocytes % 8.7 Eosinophils % 2.5 Basophils % 0.4 Nucleated Red Blood Cells % 0.0 Neutrophils # 8.5 H Lymphocytes # 1.4 Monocytes # 1.0 H Eosinophils # 0.3 Basophils # 0.1 Nucleated Red Blood Cells # 0.0 Sodium Level 140 Potassium Level 4.3 Chloride Level 106 Carbon Dioxide Level 27 Anion Gap 11 Blood Urea Nitrogen 18 Creatinine 1.29 H Glucose Level 171 Calcium Level 8.7 Phosphorus Level 3.5 Magnesium Level 1.9 Vancomycin Level Trough 7.1 L Bedside Glucose 166 199 Medications Current Medications Allopurinol (Zyloprim) 100 mg BID PO Last administered on 06/20/17 09:35; Admin Dose 100 MG; Start 06/17/17 at 09:00 Amiodarone HCl (Cordarone) 100 mg DAILY PO Last administered on 06/20/17 09: 36; Admin Dose 100 MG; Start 06/17/17 at 09:00 Aspirin (Halfprin) 81 mg DAILY PO Last administered on 06/18/17 09:02; Admin Dose 81 MG; Start 06/17/17 at 09:00; Status Future Hold Cholecalciferol (Vitamin D) 1,000 unit DAILY PO Last administered on 09:37; Admin Dose 1,000 UNIT; Start 06/17/17 at 09:00 Clopidogrel Bisulfate (plaVIX) 75 mg DAILY PO Last administered on 06/20/17 09:37; Admin Dose 75 MG; Start 06/17/17 at 09:00 Gabapentin (Neurontin) 300 mg BID PO Last administered on 06/20/17 09:35; Admin Dose 300 MG; Start 06/17/17 at 09:00 Methimazole (Tapazole) 2.5 mg DAILY PO Last administered on 06/20/17 09:35; Admin Dose 2.5 MG; Start 06/17/17 at 09:00 Multivitamins Therapeutic (Theragran) 1 tab DAILY PO Last administered on 06/20 09:36; Admin Dose 1 TAB; Start 06/17/17 at 09:00 Polyethylene Glycol (Miralax) 17 gm DAILY PO Last administered on 06/18/17 09 :03; Admin Dose 17 GM; Start 06/17/17 at 09:00 Rosuvastatin Calcium (Crestor) 40 mg QHS PO Last administered on 06/19/17 21: 04; Admin Dose 40 MG; Start 06/17/17 at 21:00 Insulin Glargine (Lantus) 40 unit DAILY@08 SC Last administered on 06/20/17 08:43; Admin Dose 40 UNIT; Start 06/17/17 at 08:00 Insulin Glargine (Lantus) 45 unit DAILY@20 SC Last administered on 06/19/17 21:13; Admin Dose 45 UNIT; Start 06/17/17 at 20:00 Diagnostic Test (Pha) 1 ea 1 ea 02 XX Last administered on 06/20/17 02:13; Admin Dose 1 EA; Start 06/18/17 at 02:00 Piperacillin Sod/ Tazobactam Sod 50 ml @ 100 mls/hr Q8 IVPB Last administered on 06/20/17 06:51; Admin Dose 100 MLS/HR; Start 06/17/17 at 14:00 Vancomycin HCl/ Sodium Chloride (Vancocin/NS) 250 ml @ 83.333 mls/ hr Q24H IVPB Last administered on 06/20/17 09:34; Admin Dose 83.333 MLS/HR; Start at 09:00 Miscellaneous Information [facility] This patient [facility]... PRN PRN XX WOUND CARE; Start 06/17/17 at 11:30 Acetaminophen/ Hydrocodone Bitart ([place] (5/325)) 1 tab Q4H PRN PO PAIN LEVEL 4 -6 Last administered on 06/18/17 20:15; Admin Dose 1 TAB; Start 06/17/17 at 14:30 Acetaminophen (Tylenol Tab) 500 mg Q6H PRN PO PAIN AND OR ELEVATED TEMP Last administered on 06/20/17 03:53; Admin Dose 500 MG; Start 06/17/17 at 21:30 Miscellaneous Information 1 ea NOTE XX ; Start 06/18/17 at 11:00 Glucose (Glutose) 15 gm Q15M PRN PO DECREASED GLUCOSE; Start 06/18/17 at 11:00 Glucose (Glutose) 22.5 gm Q15M PRN PO DECREASED GLUCOSE; Start 06/18/17 at 11: 00 Dextrose (D50w Syringe) 25 ml Q15M PRN IV DECREASED GLUCOSE; Start 06/18/17 at 11:00 Dextrose (D50w Syringe) 50 ml Q15M PRN IV DECREASED GLUCOSE; Start 06/18/17 at 11:00 Glucagon (Glucagen) 1 mg Q15M PRN IM DECREASED GLUCOSE; Start 06/18/17 at 11: 00 Glucose (Glutose) 15 gm Q15M PRN BUCCAL DECREASED GLUCOSE; Start 06/18/17 at 11:00 Carvedilol (Coreg) 3.125 mg BID PO Last administered on 06/20/17 09:37; Admin Dose 3.125 MG; Start 06/20/17 at 09:00 Losartan Potassium (Cozaar) 25 mg DAILY PO Last administered on 06/20/17 09: 35; Admin Dose 25 MG; Start 06/20/17 at 09:00 Enoxaparin Sodium (Lovenox) 30 mg DAILY SC Last administered on 06/20/17 09: 42; Admin Dose 30 MG; Start 06/20/17 at 09:00 Assessment/Plan Chief Complaint/Hosp Course IMPRESSION AND PLAN: 1. Obstructive sleep apnea, currently requiring his continued home CPAP device. 2. Peripheral ischemia concerning for worsening gangrene. 3. Peripheral artery disease, status post right below-knee amputation. 4. Diabetes mellitus. 5. Chronic kidney disease. The patient will require: 1. Continue vascular recommendations. Antibiotics and anticoagulation. 2. Continue broad-spectrum antibiotics. 3. Continue tight glycemic control. 4. Deep venous thrombosis and gastrointestinal prophylaxis. 5. Continue home CPAP device. Problems: VANITA GUILLERMO MD, [facility] Jun 20, 2017 16:16
[2017-06-20] MEDS: HYDROCODONE/APAP (5/325) TAB PO PRN (17:09)
[2017-06-20] MEDS: ROSUVASTATIN CALCIUM 40 MG TABLET PO SCH (20:25)
[2017-06-20] MEDS: VANCOMYCIN 750 MG in DEXTROSE 5% 150 ML IVPB SCH (22:17)
[2017-06-21] VITALS (10 sets, daily range): BP systolic 98–128; BP diastolic 51–64; PULSE 59–67; RESP 17–18
[2017-06-21] MEDS: HYDROCODONE/APAP (5/325) TAB PO PRN ×3 (02:00→21:04)
[2017-06-21] MEDS: ACCU-CHEK XX SCH (02:04)
[2017-06-21] MEDS: PIPER-TAZO 3.375 GM IV (PMX) 50 ML IVPB SCH ×3 (05:12→21:05)
[2017-06-21] MEDS: INSULIN ASPART [NOVOLOG] 3 ML PEN SC SCH ×7 (08:15→21:19)
[2017-06-21] MEDS: INSULIN GLARGINE [LANtus] 3 ML PEN SC SCH ×2 (08:15→21:20)
[2017-06-21] MEDS: CLOPIDOGREL 75 MG TAB PO SCH (08:43)
[2017-06-21] MEDS: ALLOPURINOL 100 MG TAB PO SCH ×2 (08:43→21:04)
[2017-06-21] MEDS: ENOXAPARIN 30 MG/0.3 ML SYG SC SCH (08:43)
[2017-06-21] MEDS: MULTIVITAMINS THERAPEUTIC TAB PO SCH (08:43)
[2017-06-21] MEDS: LOSARTAN 25 MG TAB PO SCH (08:44)
[2017-06-21] MEDS: CHOLECALCIFEROL 1,000 UNIT TAB PO SCH (08:44)
[2017-06-21] MEDS: GABAPENTIN 300 MG CAP PO SCH ×2 (08:44→21:04)
[2017-06-21] MEDS: IVABRADINE HCL 5 MG TABLET PO SCH ×2 (08:45→17:24)
[2017-06-21] MEDS: AMIODARONE 200 MG TAB PO SCH (08:45)
[2017-06-21] MEDS: METHIMAZOLE 5 MG TAB PO SCH (08:46)
[2017-06-21] MEDS: POLYETHYLENE GLYCOL 17 GM PACKET PO SCH (08:47)
[2017-06-21 09:23] LABS: BASOPHIL # 0.1 10^3/ul (0.0-0.1); BASOPHILS % 0.6 % (0.0-2.0); EOSINOPHILS # 0.5 10^3/ul (0.0-0.5); EOSINOPHILS % 4.5 % (0.0-7.0); HEMATOCRIT 30.7 % (42.0-52.0); HEMOGLOBIN 9.7 g/dl (14.0-18.0); LYMPHOCYTES # 1.7 10^3/ul (0.8-2.9); LYMPHOCYTES % 16.1 % (15.0-51.0); MEAN CORPUSCULAR HEMOGLOBIN 26.8 pg (29.0-33.0); MEAN CORPUSCULAR HGB CONC 31.6 g/dl (32.0-37.0); MEAN CORPUSCULAR VOLUME 84.8 fl (82.0-101.0); MEAN PLATELET VOLUME 9.7 fl (7.4-10.4); MONOCYTES % 9.8 % (0.0-11.0); NEUTROPHIL # 7.2 10^3/ul (1.6-7.5); NEUTROPHILS % 68.3 % (39.0-77.0); PLATELET COUNT 286 10^3/UL (140-415); RED BLOOD COUNT 3.62 10^6/ul (4.70-6.10); RED CELL DISTRIBUTION WIDTH 15.5 % (11.5-14.5); WHITE BLOOD COUNT 10.5 10^3/ul (4.8-10.8)
--- NOTE | 2017-06-21 09:37 | PN ---
Date/Time of Note Date/Time of Note DATE: 06/21/17 TIME: 09:36 Assessment/Plan VTE Prophylaxis VTE Prophylaxis Intervention: other Lines/Catheters IV C[facility]from [facility] [place] [facility] Urinary Cath still in place: Yes Reason Cath still needed: urinary retention Assessment/Plan Chief Complaint/Hosp Course SUBJECTIVE: The patient is s/p successful above knee amputation of his right foot. The patient had no intraoperative or postoperative complications. This morning, patient is alert and oriented. Able to answer simple questions. No other events noted. OBJECTIVE: HEENT: Head is normocephalic. NECK: Supple. HEART: Regular rate. LUNGS: Show diminished breath sounds at the base. ABDOMEN: Soft, nontender to palpation. No rebound or guarding. EXTREMITIES: Positive for right above-knee amputation, left lower foot has noted wound, no discharge. MUSCULOSKELETAL: The patient has a right above-knee amputation. NEUROLOGIC: No focal deficits. DERMATOLOGIC: No rashes. ASSESSMENT AND PLAN: 1. Peripheral vascular disease status post right above knee amputation. The patient is currently stable. We will continue local wound care. Will follow up with vascular surgery for further recommendations. Continue current antibiotic therapy. 2. Sepsis secondary to right below the knee cellulitis and abscess. The patient is status post amputation as stated above. Continue IV antibiotics. Follow up with infectious disease. 3. Sleep apnea. Continue CPAP. 4. Chronic kidney disease, stage IIIB/IV. Patient's renal function has been stable. Continue current treatment plan, supportive care, renally dose all medicines anemia. The patient is status post blood transfusion. Continue to monitor hemoglobin and hematocrit levels. 5. Mineral bone disorder. Continue to monitor calcium and phosphorus levels. 6. Coronary artery disease. Continue medical management. 7. Diabetes. Continue current insulin regimen. 8. Congestive heart failure. Continue current treatment plan. 9. Dyslipidemia. Continue statin therapy. 10. Arrhythmia. Continue amiodarone. 11. Hyperthyroidism. Continue Tapazole. 12. Left lower extremity wounds. Continue local wound care. 13. Status post lactic acidosis. 14. Gastrointestinal and deep venous thrombosis prophylaxis. 15. Sleep apnea. Continue CPAP. Problems: Exam/Review of Systems Vital Signs Vitals Vital Signs Date Time Temp Pulse Resp B/P Pulse Ox O2 Delivery O2 Flow Rate FiO2 06/21/17 08:43 67 06/21/17 08:27 98.3 17 128/64 97 06/20/17 04:23 2.0 28 06/19/17 14:16 Nasal Cannula Intake and Output 06/20/17 06/20/17 06/21/17 15:00 23:00 07:00 Intake Total 450 ml 850 ml 500 ml Output Total 600 ml 600 ml 600 ml Balance -150 ml 250 ml -100 ml Results Result Diagram: 06/21/17 0817 06/20/17 0732 Results 24 hrs Laboratory Tests Test 06/20/17 12:49 06/20/17 17:04 06/20/17 17:59 06/20/17 20:28 Bedside Glucose 199 166 163 184 Test 06/21/17 01:59 06/21/17 08:07 06/21/17 08:17 Bedside Glucose 99 154 White Blood Count 10.5 Red Blood Count 3.62 L Hemoglobin 9.7 L Hematocrit 30.7 L Mean Corpuscular Volume 84.8 Mean Corpuscular Hemoglobin 26.8 L Mean Corpuscular Hemoglobin Concent 31.6 L Red Cell Distribution Width 15.5 H Platelet Count 286 Mean Platelet Volume 9.7 Neutrophils % 68.3 Lymphocytes % 16.1 Monocytes % 9.8 Eosinophils % 4.5 Basophils % 0.6 Nucleated Red Blood Cells % 0.0 Neutrophils # 7.2 Lymphocytes # 1.7 Monocytes # 1.0 H Eosinophils # 0.5 Basophils # 0.1 Nucleated Red Blood Cells # 0.0 Medications Medications Current Medications Allopurinol (Zyloprim) 100 mg BID PO Last administered on 06/21/17 08:43; Admin Dose 100 MG; Start 06/17/17 at 09:00 Amiodarone HCl (Cordarone) 100 mg DAILY PO Last administered on 06/21/17 08: 45; Admin Dose 100 MG; Start 06/17/17 at 09:00 Aspirin (Halfprin) 81 mg DAILY PO Last administered on 06/18/17 09:02; Admin Dose 81 MG; Start 06/17/17 at 09:00; Status Future Hold Cholecalciferol (Vitamin D) 1,000 unit DAILY PO Last administered on 08:44; Admin Dose 1,000 UNIT; Start 06/17/17 at 09:00 Clopidogrel Bisulfate (plaVIX) 75 mg DAILY PO Last administered on 06/21/17 08:43; Admin Dose 75 MG; Start 06/17/17 at 09:00 Gabapentin (Neurontin) 300 mg BID PO Last administered on 06/21/17 08:44; Admin Dose 300 MG; Start 06/17/17 at 09:00 Methimazole (Tapazole) 2.5 mg DAILY PO Last administered on 06/21/17 08:46; Admin Dose 2.5 MG; Start 06/17/17 at 09:00 Multivitamins Therapeutic (Theragran) 1 tab DAILY PO Last administered on 06/21 08:43; Admin Dose 1 TAB; Start 06/17/17 at 09:00 Polyethylene Glycol (Miralax) 17 gm DAILY PO Last administered on 06/18/17 09 :03; Admin Dose 17 GM; Start 06/17/17 at 09:00 Rosuvastatin Calcium (Crestor) 40 mg QHS PO Last administered on 06/20/17 20: 25; Admin Dose 40 MG; Start 06/17/17 at 21:00 Insulin Glargine (Lantus) 40 unit DAILY@08 SC Last administered on 06/21/17 08:15; Admin Dose 40 UNIT; Start 06/17/17 at 08:00 Insulin Glargine (Lantus) 45 unit DAILY@20 SC Last administered on 06/20/17 20:39; Admin Dose 45 UNIT; Start 06/17/17 at 20:00 Diagnostic Test (Pha) 1 ea 1 ea 02 XX Last administered on 06/21/17 02:04; Admin Dose 1 EA; Start 06/18/17 at 02:00 Piperacillin Sod/ Tazobactam Sod (Zosyn 3.375gm/ 50 ml (Pmx)) 50 ml @ 100 mls/ hr Q8 IVPB Last administered on 06/21/17 05:12; Admin Dose 100 MLS/HR; Start 06/17/17 at 14:00 Miscellaneous Information (Pending [facility] Order For Wound Care) This patient [facility]... PRN PRN XX WOUND CARE; Start 06/17/17 at 11:30 Acetaminophen/ Hydrocodone Bitart ([place] (5/325)) 1 tab Q4H PRN PO PAIN LEVEL 4 -6 Last administered on 06/21/17 08:44; Admin Dose 1 TAB; Start 06/17/17 at 14:30 Acetaminophen (Tylenol Tab) 500 mg Q6H PRN PO PAIN AND OR ELEVATED TEMP Last administered on 06/20/17 03:53; Admin Dose 500 MG; Start 06/17/17 at 21:30 Miscellaneous Information 1 ea NOTE XX ; Start 06/18/17 at 11:00 Glucose (Glutose) 15 gm Q15M PRN PO DECREASED GLUCOSE; Start 06/18/17 at 11:00 Glucose (Glutose) 22.5 gm Q15M PRN PO DECREASED GLUCOSE; Start 06/18/17 at 11: 00 Dextrose (D50w Syringe) 25 ml Q15M PRN IV DECREASED GLUCOSE; Start 06/18/17 at 11:00 Dextrose (D50w Syringe) 50 ml Q15M PRN IV DECREASED GLUCOSE; Start 06/18/17 at 11:00 Glucagon (Glucagen) 1 mg Q15M PRN IM DECREASED GLUCOSE; Start 06/18/17 at 11: 00 Glucose (Glutose) 15 gm Q15M PRN BUCCAL DECREASED GLUCOSE; Start 06/18/17 at 11:00 Carvedilol (Coreg) 3.125 mg BID PO Last administered on 06/21/17 08:47; Admin Dose 3.125 MG; Start 06/20/17 at 09:00 Losartan Potassium (Cozaar) 25 mg DAILY PO Last administered on 06/21/17 08: 44; Admin Dose 25 MG; Start 06/20/17 at 09:00 Enoxaparin Sodium 30 mg 30 mg DAILY SC Last administered on 06/21/17 08:43; Admin Dose 30 MG; Start 06/20/17 at 09:00 Vancomycin HCl/ Dextrose/Water (Vancocin/D5W) 150 ml @ 75 mls/hr Q12H IVPB Last administered on 06/20/17 22:17; Admin Dose 75 MLS/HR; Start 06/20/17 at 22:00 SAÚL CARTAGENA DO Jun 21, 2017 09:37
--- NOTE | 2017-06-21 09:48 | CONS ---
Date/Time of Note Date/Time of Note DATE: 06/21/17 TIME: 09:47 Assessment/Plan Assessment/Plan Additional Assessment/Plan Assessment and recommendations; 1. Patient admitted with right lower extremity stump gangrene currently on appropriate antibiotic regimen. 2. Underlying sleep apnea. 3. Chronic mild renal insufficiency. 4. Diabetes. 5. Hypertension. 6. Peripheral vascular disease. Continue current supportive care. Consultation Date/Type/Reason Admit Date/Time Jun 17, 2017 at 01:20 Initial Consult Date Type of Consultation: Pulmonary Referring Provider: DANYELLE GUY DO 24 HR Interval Summary Free Text/Dictation Patient condition is stable. Remains awake and alert. Eating breakfast at bed. Denies any shortness of breath, chest pain, fever or chills. General exam; elderly male, morbidly obese, currently no distress. Awake and alert. Exam/Review of Systems Vital Signs Vitals Vital Signs Date Time Temp Pulse Resp B/P Pulse Ox O2 Delivery O2 Flow Rate FiO2 06/21/17 08:43 67 06/21/17 08:27 98.3 17 128/64 97 06/20/17 04:23 2.0 28 06/19/17 14:16 Nasal Cannula Intake and Output 06/20/17 06/20/17 06/21/17 15:00 23:00 07:00 Intake Total 450 ml 850 ml 500 ml Output Total 600 ml 600 ml 600 ml Balance -150 ml 250 ml -100 ml Exam HEENT exam; supple neck, no JVD. No lymphadenopathy. Midline trachea. No thyromegaly. Patient is edentulous. Pupils are small bilaterally. Chest exam; clear to auscultation. Pacemaker in left chest wall. S1-S2 audible , no murmurs. Regular rhythm. Abdomen exam; soft, protuberant. Nontender. Bowel sounds audible. Extremity exam; dressing applied over right above-knee amputation stump. No peripheral edema in upper and left lower extremities. WELDER SHIELDED METAL ARC exam; no focal motor deficit. Results Result Diagram: 06/21/17 0817 06/20/17 0732 Results 24 hrs Laboratory Tests Test 06/20/17 12:49 06/20/17 17:04 06/20/17 17:59 06/20/17 20:28 Bedside Glucose 199 166 163 184 Test 06/21/17 01:59 06/21/17 08:07 06/21/17 08:17 Bedside Glucose 99 154 White Blood Count 10.5 Red Blood Count 3.62 L Hemoglobin 9.7 L Hematocrit 30.7 L Mean Corpuscular Volume 84.8 Mean Corpuscular Hemoglobin 26.8 L Mean Corpuscular Hemoglobin Concent 31.6 L Red Cell Distribution Width 15.5 H Platelet Count 286 Mean Platelet Volume 9.7 Neutrophils % 68.3 Lymphocytes % 16.1 Monocytes % 9.8 Eosinophils % 4.5 Basophils % 0.6 Nucleated Red Blood Cells % 0.0 Neutrophils # 7.2 Lymphocytes # 1.7 Monocytes # 1.0 H Eosinophils # 0.5 Basophils # 0.1 Nucleated Red Blood Cells # 0.0 Medications Medications Current Medications Allopurinol (Zyloprim) 100 mg BID PO Last administered on 06/21/17 08:43; Admin Dose 100 MG; Start 06/17/17 at 09:00 Amiodarone HCl (Cordarone) 100 mg DAILY PO Last administered on 06/21/17 08: 45; Admin Dose 100 MG; Start 06/17/17 at 09:00 Aspirin (Halfprin) 81 mg DAILY PO Last administered on 06/18/17 09:02; Admin Dose 81 MG; Start 06/17/17 at 09:00; Status Future Hold Cholecalciferol (Vitamin D) 1,000 unit DAILY PO Last administered on 08:44; Admin Dose 1,000 UNIT; Start 06/17/17 at 09:00 Clopidogrel Bisulfate (plaVIX) 75 mg DAILY PO Last administered on 06/21/17 08:43; Admin Dose 75 MG; Start 06/17/17 at 09:00 Gabapentin (Neurontin) 300 mg BID PO Last administered on 06/21/17 08:44; Admin Dose 300 MG; Start 06/17/17 at 09:00 Methimazole (Tapazole) 2.5 mg DAILY PO Last administered on 06/21/17 08:46; Admin Dose 2.5 MG; Start 06/17/17 at 09:00 Multivitamins Therapeutic (Theragran) 1 tab DAILY PO Last administered on 06/21 08:43; Admin Dose 1 TAB; Start 06/17/17 at 09:00 Polyethylene Glycol (Miralax) 17 gm DAILY PO Last administered on 06/18/17 09 :03; Admin Dose 17 GM; Start 06/17/17 at 09:00 Rosuvastatin Calcium (Crestor) 40 mg QHS PO Last administered on 06/20/17 20: 25; Admin Dose 40 MG; Start 06/17/17 at 21:00 Insulin Glargine (Lantus) 40 unit DAILY@08 SC Last administered on 06/21/17 08:15; Admin Dose 40 UNIT; Start 06/17/17 at 08:00 Insulin Glargine (Lantus) 45 unit DAILY@20 SC Last administered on 06/20/17 20:39; Admin Dose 45 UNIT; Start 06/17/17 at 20:00 Diagnostic Test (Pha) 1 ea 1 ea 02 XX Last administered on 06/21/17 02:04; Admin Dose 1 EA; Start 06/18/17 at 02:00 Piperacillin Sod/ Tazobactam Sod (Zosyn 3.375gm/ 50 ml (Pmx)) 50 ml @ 100 mls/ hr Q8 IVPB Last administered on 06/21/17 05:12; Admin Dose 100 MLS/HR; Start 06/17/17 at 14:00 Miscellaneous Information (Pending [facility] Order For Wound Care) This patient [facility]... PRN PRN XX WOUND CARE; Start 06/17/17 at 11:30 Acetaminophen/ Hydrocodone Bitart ([place] (5/325)) 1 tab Q4H PRN PO PAIN LEVEL 4 -6 Last administered on 06/21/17 08:44; Admin Dose 1 TAB; Start 06/17/17 at 14:30 Acetaminophen (Tylenol Tab) 500 mg Q6H PRN PO PAIN AND OR ELEVATED TEMP Last administered on 06/20/17 03:53; Admin Dose 500 MG; Start 06/17/17 at 21:30 Miscellaneous Information 1 ea NOTE XX ; Start 06/18/17 at 11:00 Glucose (Glutose) 15 gm Q15M PRN PO DECREASED GLUCOSE; Start 06/18/17 at 11:00 Glucose (Glutose) 22.5 gm Q15M PRN PO DECREASED GLUCOSE; Start 06/18/17 at 11: 00 Dextrose (D50w Syringe) 25 ml Q15M PRN IV DECREASED GLUCOSE; Start 06/18/17 at 11:00 Dextrose (D50w Syringe) 50 ml Q15M PRN IV DECREASED GLUCOSE; Start 06/18/17 at 11:00 Glucagon (Glucagen) 1 mg Q15M PRN IM DECREASED GLUCOSE; Start 06/18/17 at 11: 00 Glucose (Glutose) 15 gm Q15M PRN BUCCAL DECREASED GLUCOSE; Start 06/18/17 at 11:00 Carvedilol (Coreg) 3.125 mg BID PO Last administered on 06/21/17 08:47; Admin Dose 3.125 MG; Start 06/20/17 at 09:00 Losartan Potassium (Cozaar) 25 mg DAILY PO Last administered on 06/21/17 08: 44; Admin Dose 25 MG; Start 06/20/17 at 09:00 Enoxaparin Sodium 30 mg 30 mg DAILY SC Last administered on 06/21/17 08:43; Admin Dose 30 MG; Start 06/20/17 at 09:00 Vancomycin HCl/ Dextrose/Water (Vancocin/D5W) 150 ml @ 75 mls/hr Q12H IVPB Last administered on 06/20/17 22:17; Admin Dose 75 MLS/HR; Start 06/20/17 at 22:00 MITESH FRY Jun 21, 2017 09:48
[2017-06-21 10:10] LABS: ALBUMIN/GLOBULIN RATIO 0.81; CALCIUM 8.8 mg/dl (8.4-10.2); CREATININE 1.21 mg/dl (0.61-1.24); TOTAL PROTEIN 6.7 g/dl (6.1-8.1)
[2017-06-21 10:19] LABS: CALCIUM 8.8 mg/dl (8.4-10.2); CREATININE 1.14 mg/dl (0.61-1.24); PHOSPHORUS 3.9 mg/dl (2.5-4.9); POTASSIUM 4.5 mmol/L (3.5-5.1)
[2017-06-21] MEDS: VANCOMYCIN 750 MG in DEXTROSE 5% 150 ML IVPB SCH ×2 (10:42→21:49)
--- NOTE | 2017-06-21 11:54 | CONS ---
Date/Time of Note Date/Time of Note DATE: 06/21/17 TIME: 11:53 Assessment/Plan Assessment/Plan Chief Complaint/Hosp Course ID PROGRESS NOTE CURRENT ABX: DAY # =>Vanco IV + Zosyn 24H INTERVAL SUMMARY * Resting comfortably , afebrile, VSS, NAD, Nasal BIPAP Mask in place, spouse present in room requesting clarification on DC home ABX -> Tells me plan is for DC Friday * CHART REVIEWED: See vitals, labs as per below. * MICRO REVIEWED: 06/17/17 BCx(-) & Urine Cx(-) PHYSICAL EXAMINATION: GENERAL: VSS, afebrile, NAD HEENT: Unremarkable NECK: Supple, trach midline CHEST: Equal chest rise bilaterally, without dyspnea on observation HEART: RRR ABDOMEN: Soft, NT, ND : FC, clear yellow urine EXT: Warm, BKA SKIN: No rash, no diaphoresis ID ASSESSMENT: 66 yo M admit V[facility]: 1. Systemic inflammatory response syndrome, early sepsis w/lactic acid 2.2, low grade fevers and leukocytosis=> RESOLVED 2. Severe BLEXT atherosclerosis w/critical limb ischemia 3. 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 * Hx of R-AKA MAY 2017 4. Left lower extremity ulcers => diabetic, ischemic wounds * s/p L-toe amputation x2 MAY 2017 5. Diabetes. 6. Chronic kidney disease. 7. History of hypertension. 8. Coronary artery disease, history of CABG 2011 w/re-do CABG 2013 9. Former Tobacco -> quit 14 years ago ( )MRSA ABX ALLERGIES: None to ABX INVASIVES: PIV CURRENT ABX: Vanco IV + Zosyn ID RECOMMENDATIONS/PLAN: 1. Continue current ABX over the weekend -> Patient at high risk limb salvage failure due to recurrent RLEXT infection -> may need longer course IV ABX * Will send ESR, CRP in am 2. ID team consultants will continue to follow . Problems: Consultation Date/Type/Reason Admit Date/Time Jun 17, 2017 at 01:20 Initial Consult Date Referring Provider: DANYELLE GUY DO Exam/Review of Systems Vital Signs Vitals Vital Signs Date Time Temp Pulse Resp B/P Pulse Ox O2 Delivery O2 Flow Rate FiO2 06/21/17 11:21 98.3 63 18 101/59 98 06/20/17 04:23 2.0 28 06/19/17 14:16 Nasal Cannula Intake and Output 06/20/17 06/20/17 06/21/17 15:00 23:00 07:00 Intake Total 450 ml 850 ml 500 ml Output Total 600 ml 600 ml 600 ml Balance -150 ml 250 ml -100 ml Results Result Diagram: 06/21/1781606/21/17816 Results 24 hrs Laboratory Tests Test 06/20/17 12:49 06/20/17 17:04 06/20/17 17:59 06/20/17 20:28 Bedside Glucose 199 166 163 184 Test 06/21/17 01:59 06/21/17 08:07 06/21/17 08:17 Bedside Glucose 99 154 White Blood Count 10.5 Red Blood Count 3.62 L Hemoglobin 9.7 L Hematocrit 30.7 L Mean Corpuscular Volume 84.8 Mean Corpuscular Hemoglobin 26.8 L Mean Corpuscular Hemoglobin Concent 31.6 L Red Cell Distribution Width 15.5 H Platelet Count 286 Mean Platelet Volume 9.7 Neutrophils % 68.3 Lymphocytes % 16.1 Monocytes % 9.8 Eosinophils % 4.5 Basophils % 0.6 Nucleated Red Blood Cells % 0.0 Neutrophils # 7.2 Lymphocytes # 1.7 Monocytes # 1.0 H Eosinophils # 0.5 Basophils # 0.1 Nucleated Red Blood Cells # 0.0 Sodium Level 143 Potassium Level 4.0 Chloride Level 104 Carbon Dioxide Level 27 Anion Gap 16 Blood Urea Nitrogen 15 Creatinine 1.21 Glucose Level 149 Calcium Level 8.8 Phosphorus Level 3.9 Magnesium Level 2.0 Total Bilirubin 0.0 L Direct Bilirubin 0.00 Indirect Bilirubin 0.0 Aspartate Amino Transf (AST/SGOT) 23 Alanine Aminotransferase (ALT/SGPT) 25 Alkaline Phosphatase 43 Creatine Kinase 134 Total Protein 6.7 Albumin 3.0 L Globulin 3.70 H Albumin/Globulin Ratio 0.81 Medications Medications Current Medications Allopurinol (Zyloprim) 100 mg BID PO Last administered on 06/21/17 08:43; Admin Dose 100 MG; Start 06/17/17 at 09:00 Amiodarone HCl (Cordarone) 100 mg DAILY PO Last administered on 06/21/17 08: 45; Admin Dose 100 MG; Start 06/17/17 at 09:00 Aspirin (Halfprin) 81 mg DAILY PO Last administered on 06/18/17 09:02; Admin Dose 81 MG; Start 06/17/17 at 09:00; Status Future Hold Cholecalciferol (Vitamin D) 1,000 unit DAILY PO Last administered on 08:44; Admin Dose 1,000 UNIT; Start 06/17/17 at 09:00 Clopidogrel Bisulfate (plaVIX) 75 mg DAILY PO Last administered on 06/21/17 08:43; Admin Dose 75 MG; Start 06/17/17 at 09:00 Gabapentin (Neurontin) 300 mg BID PO Last administered on 06/21/17 08:44; Admin Dose 300 MG; Start 06/17/17 at 09:00 Methimazole (Tapazole) 2.5 mg DAILY PO Last administered on 06/21/17 08:46; Admin Dose 2.5 MG; Start 06/17/17 at 09:00 Multivitamins Therapeutic (Theragran) 1 tab DAILY PO Last administered on 06/21 08:43; Admin Dose 1 TAB; Start 06/17/17 at 09:00 Polyethylene Glycol (Miralax) 17 gm DAILY PO Last administered on 06/18/17 09 :03; Admin Dose 17 GM; Start 06/17/17 at 09:00 Rosuvastatin Calcium (Crestor) 40 mg QHS PO Last administered on 06/20/17 20: 25; Admin Dose 40 MG; Start 06/17/17 at 21:00 Insulin Glargine (Lantus) 40 unit DAILY@08 SC Last administered on 06/21/17 08:15; Admin Dose 40 UNIT; Start 06/17/17 at 08:00 Insulin Glargine (Lantus) 45 unit DAILY@20 SC Last administered on 06/20/17 20:39; Admin Dose 45 UNIT; Start 06/17/17 at 20:00 Diagnostic Test (Pha) 1 ea 1 ea 02 XX Last administered on 06/21/17 02:04; Admin Dose 1 EA; Start 06/18/17 at 02:00 Piperacillin Sod/ Tazobactam Sod (Zosyn 3.375gm/ 50 ml (Pmx)) 50 ml @ 100 mls/ hr Q8 IVPB Last administered on 06/21/17 05:12; Admin Dose 100 MLS/HR; Start 06/17/17 at 14:00 Miscellaneous Information (Pending [facility] Order For Wound Care) This patient hauser... PRN PRN XX WOUND CARE; Start 06/17/17 at 11:30 Acetaminophen/ Hydrocodone Bitart ([place] (5/325)) 1 tab Q4H PRN PO PAIN LEVEL 4 -6 Last administered on 06/21/17 08:44; Admin Dose 1 TAB; Start 06/17/17 at 14:30 Acetaminophen (Tylenol Tab) 500 mg Q6H PRN PO PAIN AND OR ELEVATED TEMP Last administered on 06/20/17 03:53; Admin Dose 500 MG; Start 06/17/17 at 21:30 Miscellaneous Information 1 ea NOTE XX ; Start 06/18/17 at 11:00 Glucose (Glutose) 15 gm Q15M PRN PO DECREASED GLUCOSE; Start 06/18/17 at 11:00 Glucose (Glutose) 22.5 gm Q15M PRN PO DECREASED GLUCOSE; Start 06/18/17 at 11: 00 Dextrose (D50w Syringe) 25 ml Q15M PRN IV DECREASED GLUCOSE; Start 06/18/17 at 11:00 Dextrose (D50w Syringe) 50 ml Q15M PRN IV DECREASED GLUCOSE; Start 06/18/17 at 11:00 Glucagon (Glucagen) 1 mg Q15M PRN IM DECREASED GLUCOSE; Start 06/18/17 at 11: 00 Glucose (Glutose) 15 gm Q15M PRN BUCCAL DECREASED GLUCOSE; Start 06/18/17 at 11:00 Carvedilol (Coreg) 3.125 mg BID PO Last administered on 06/21/17 08:47; Admin Dose 3.125 MG; Start 06/20/17 at 09:00 Losartan Potassium (Cozaar) 25 mg DAILY PO Last administered on 06/21/17 08: 44; Admin Dose 25 MG; Start 06/20/17 at 09:00 Enoxaparin Sodium 30 mg 30 mg DAILY SC Last administered on 06/21/17 08:43; Admin Dose 30 MG; Start 06/20/17 at 09:00 Vancomycin HCl/ Dextrose/Water (Vancocin/D5W) 150 ml @ 75 mls/hr Q12H IVPB Last administered on 06/21/17 10:42; Admin Dose 75 MLS/HR; Start 06/20/17 at 22:00 MARGIE DIEHL NP Jun 21, 2017 11:54
--- NOTE | 2017-06-21 12:30 | PN ---
Date/Time of Note Date/Time of Note DATE: 06/21/17 TIME: 12:27 Assessment/Plan Lines/Catheters IV Catheter Type (from [facility]): Saline Lock [place] in Place (from [facility]): Yes Assessment/Plan Chief Complaint/Hosp Course -Bilateral lower extremity atherosclerosis with right lower extremity gangrene and left lower extremity ulcers: It seems the patient has significant critical limb ischemia in which he had recently developed right lower extremity gangrene diabetic foot infection requiring an amputation. It seems the patient's below knee amputation stump still had infection and presence of gas gangrene. -S/P Right AKA -Left lower extremity, as the patient would like to have everything done to salvage his limb, he has had a previous failed revascularization of the bypass and currently has not had a vascular followup over the past 4 years per the patient's reporting. He is wanting us to manage that, but at the moment, we will plan to resolve his right lower extremity issue first and will address his left lower extremity. He will likely require angiogram and he understands all that is involved for now. -Chronic kidney disease, the patient does have some component of chronic kidney disease stage III to IV, with elevated creatinine of 1.4 to 1.5. We will plan to eventually coordinate our angiogram with our nephrology colleagues for CT angiography and possible intravascular ultrasound with minimal usage of contrast in order to preserve his renal function. -Optimize vascular status (BP medications, diet, nutrition, exercise, sugar control, antiplatelets). -Discussed patient's findings of his BMI of 38.5 and being overweight and arranging a nutrition and diabetic consultation and evaluation. -Discussed findings, plan and management with the patient and he understands. -Thank you for allowing us to partake in the care of your patient. Please call with any questions. Problems: Subjective 24 Hr Interval Summary no new vascular events overnight Exam/Review of Systems Vital Signs Vitals Vital Signs Date Time Temp Pulse Resp B/P Pulse Ox O2 Delivery O2 Flow Rate FiO2 06/21/17 11:21 98.3 63 18 101/59 98 06/20/17 04:23 2.0 28 06/19/17 14:16 Nasal Cannula Intake and Output 06/20/17 06/20/17 06/21/17 15:00 23:00 07:00 Intake Total 450 ml 850 ml 500 ml Output Total 600 ml 600 ml 600 ml Balance -150 ml 250 ml -100 ml Exam Free Text/Dictation GENERAL: Alert and oriented x3, PULMONARY: Clear to auscultation bilaterally. CARDIOVASCULAR: S1, S2 present ABDOMEN: Soft, nontender, nondistended. Bowel sounds positive. Truncal obesity. EXTREMITIES: -Right lower extremity palpable femoral pulse, AKA-stump with dressing-removed, kathryn intact and clean -Left lower extremity: Faint femoral pulse, nonpalpable pedal pulse. Motor and sensory intact. Capillary refill 3-4 seconds. Dependent rubor. Ulcer of the foot. Amputated first, second, third and fourth toes. there seems a bone exposed at his stump site, no erythema Results Result Diagram: 06/21/17 0817 06/21/17 0817 DAYNE AVINA MD Jun 21, 2017 12:30
--- NOTE | 2017-06-21 12:41 | CONS ---
Date/Time of Note Date/Time of Note DATE: 06/21/17 TIME: 12:39 Consult Date/Type/Reason Admit Date/Time Jun 17, 2017 at 01:20 Ordering Provider: DANYELLE GUY DO Subjective cardiology follow up note: S: Discussed with staff and rhythm was reviewed. pt remains in NSR. HR is much better now pt denies any chest pain or pressure to me he denies any PND orthopnea to me. He denies any wheezing or shortness of breath to me. S/P R AKA 06/19/17 he c/o pain at amputation site. O: General: no acute distress. obese man HEENT: NC/AT. pupils are equal. round. NECK: NO JVD. no stridor. CV: RRR. systolic murmur; no gallop or rubs. PULM: no wheezing or rhonchi. GI: SOFT, NT, ND, no rebound or guarding obese. Extremity: s/p R AKA in dressing . neuro: awake and alert, OX3. Psych: calm and pleasant rectal: deferred Objective Vital Signs Date Time Temp Pulse Resp B/P Pulse Ox O2 Delivery O2 Flow Rate FiO2 06/21/17 11:21 98.3 63 18 101/59 98 06/20/17 04:23 2.0 28 06/19/17 14:16 Nasal Cannula Intake and Output 06/20/17 06/20/17 06/21/17 14:59 22:59 06:59 Intake Total 450 ml 850 ml 500 ml Output Total 600 ml 600 ml 600 ml Balance -150 ml 250 ml -100 ml Results/Medications Result Diagram: 06/21/1717 06/21/17 0817 Results 24 hrs Laboratory Tests Test 06/20/17 12:49 06/20/17 17:04 06/20/17 17:59 06/20/17 20:28 Bedside Glucose 199 166 163 184 Test 06/21/17 01:59 06/21/17 08:07 06/21/17 08:17 Bedside Glucose 99 154 White Blood Count 10.5 Red Blood Count 3.62 L Hemoglobin 9.7 L Hematocrit 30.7 L Mean Corpuscular Volume 84.8 Mean Corpuscular Hemoglobin 26.8 L Mean Corpuscular Hemoglobin Concent 31.6 L Red Cell Distribution Width 15.5 H Platelet Count 286 Mean Platelet Volume 9.7 Neutrophils % 68.3 Lymphocytes % 16.1 Monocytes % 9.8 Eosinophils % 4.5 Basophils % 0.6 Nucleated Red Blood Cells % 0.0 Neutrophils # 7.2 Lymphocytes # 1.7 Monocytes # 1.0 H Eosinophils # 0.5 Basophils # 0.1 Nucleated Red Blood Cells # 0.0 Sodium Level 143 Potassium Level 4.0 Chloride Level 104 Carbon Dioxide Level 27 Anion Gap 16 Blood Urea Nitrogen 15 Creatinine 1.21 Glucose Level 149 Calcium Level 8.8 Phosphorus Level 3.9 Magnesium Level 2.0 Total Bilirubin 0.0 L Direct Bilirubin 0.00 Indirect Bilirubin 0.0 Aspartate Amino Transf (AST/SGOT) 23 Alanine Aminotransferase (ALT/SGPT) 25 Alkaline Phosphatase 43 Creatine Kinase 134 Total Protein 6.7 Albumin 3.0 L Globulin 3.70 H Albumin/Globulin Ratio 0.81 Medications Current Medications Allopurinol (Zyloprim) 100 mg BID PO Last administered on 06/21/17 08:43; Admin Dose 100 MG; Start 06/17/17 at 09:00 Amiodarone HCl (Cordarone) 100 mg DAILY PO Last administered on 06/21/17 08: 45; Admin Dose 100 MG; Start 06/17/17 at 09:00 Aspirin (Halfprin) 81 mg DAILY PO Last administered on 06/18/17 09:02; Admin Dose 81 MG; Start 06/17/17 at 09:00; Status Future Hold Cholecalciferol (Vitamin D) 1,000 unit DAILY PO Last administered on 08:44; Admin Dose 1,000 UNIT; Start 06/17/17 at 09:00 Clopidogrel Bisulfate (plaVIX) 75 mg DAILY PO Last administered on 06/21/17 08:43; Admin Dose 75 MG; Start 06/17/17 at 09:00 Gabapentin (Neurontin) 300 mg BID PO Last administered on 06/21/17 08:44; Admin Dose 300 MG; Start 06/17/17 at 09:00 Methimazole (Tapazole) 2.5 mg DAILY PO Last administered on 06/21/17 08:46; Admin Dose 2.5 MG; Start 06/17/17 at 09:00 Multivitamins Therapeutic (Theragran) 1 tab DAILY PO Last administered on 06/21 08:43; Admin Dose 1 TAB; Start 06/17/17 at 09:00 Polyethylene Glycol (Miralax) 17 gm DAILY PO Last administered on 06/18/17 09 :03; Admin Dose 17 GM; Start 06/17/17 at 09:00 Rosuvastatin Calcium (Crestor) 40 mg QHS PO Last administered on 06/20/17 20: 25; Admin Dose 40 MG; Start 06/17/17 at 21:00 Insulin Glargine (Lantus) 40 unit DAILY@08 SC Last administered on 06/21/17 08:15; Admin Dose 40 UNIT; Start 06/17/17 at 08:00 Insulin Glargine (Lantus) 45 unit DAILY@20 SC Last administered on 06/20/17 20:39; Admin Dose 45 UNIT; Start 06/17/17 at 20:00 Diagnostic Test (Pha) 1 ea 1 ea 02 XX Last administered on 06/21/17 02:04; Admin Dose 1 EA; Start 06/18/17 at 02:00 Piperacillin Sod/ Tazobactam Sod (Zosyn 3.375gm/ 50 ml (Pmx)) 50 ml @ 100 mls/ hr Q8 IVPB Last administered on 06/21/17 05:12; Admin Dose 100 MLS/HR; Start 06/17/17 at 14:00 Miscellaneous Information (Pending [facility] Order For Wound Care) This patient hauser... PRN PRN XX WOUND CARE; Start 06/17/17 at 11:30 Acetaminophen/ Hydrocodone Bitart ([place] (5/325)) 1 tab Q4H PRN PO PAIN LEVEL 4 -6 Last administered on 06/21/17 08:44; Admin Dose 1 TAB; Start 06/17/17 at 14:30 Acetaminophen (Tylenol Tab) 500 mg Q6H PRN PO PAIN AND OR ELEVATED TEMP Last administered on 06/20/17 03:53; Admin Dose 500 MG; Start 06/17/17 at 21:30 Miscellaneous Information 1 ea NOTE XX ; Start 06/18/17 at 11:00 Glucose (Glutose) 15 gm Q15M PRN PO DECREASED GLUCOSE; Start 06/18/17 at 11:00 Glucose (Glutose) 22.5 gm Q15M PRN PO DECREASED GLUCOSE; Start 11/15/17 at 11: 00 Dextrose (D50w Syringe) 25 ml Q15M PRN IV DECREASED GLUCOSE; Start 06/18/17 at 11:00 Dextrose (D50w Syringe) 50 ml Q15M PRN IV DECREASED GLUCOSE; Start 06/18/17 at 11:00 Glucagon (Glucagen) 1 mg Q15M PRN IM DECREASED GLUCOSE; Start 06/18/17 at 11: 00 Glucose (Glutose) 15 gm Q15M PRN BUCCAL DECREASED GLUCOSE; Start 06/18/17 at 11:00 Carvedilol (Coreg) 3.125 mg BID PO Last administered on 06/21/17 08:47; Admin Dose 3.125 MG; Start 06/20/17 at 09:00 Losartan Potassium (Cozaar) 25 mg DAILY PO Last administered on 06/21/17 08: 44; Admin Dose 25 MG; Start 06/20/17 at 09:00 Enoxaparin Sodium 30 mg 30 mg DAILY SC Last administered on 06/21/17 08:43; Admin Dose 30 MG; Start 06/20/17 at 09:00 Vancomycin HCl/ Dextrose/Water (Vancocin/D5W) 150 ml @ 75 mls/hr Q12H IVPB Last administered on 06/21/17 10:42; Admin Dose 75 MLS/HR; Start 06/20/17 at 22:00 Miscellaneous Information (*Rx Drug Level Order Reminder*) 1 ONCE ONCE XX ; Start 06/22/17 at 09:00; Stop 06/22/17 at 09:01 Assessment/Plan Chief Complaint/Hosp Course 1. CAD 2. HX CABG 3. HX DC 4. HX multiple PCI 5. Severe PAD 6. S/P Previous LE revascularizations 7. 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 hx hyperthyroidism: TSH is wnl on 06/06/17 10. hx VT s/p ICD 11. CHF: chronic and stable due to systolic heart failure 12. dyslipidemia: on statin 13. CKD 14. Debility 15. Markedly elevated CK: probably related to recent surgery. improved now 16. fever and leukocystosis. Recommendations: I will CONT coreg and losartan. CONT corlanor. will hold Aspirin but Plavix will be continued. on crestor . CK is wnl now. Diabetic management as per internal medicine. Physical therapy and rehab will be continued. nightly CPAP . abx as per ID rec. Thank you for his referral. I will continue to follow along with you. SALVADOR BARRETO MD [facility] Problems: SALVADOR BARRETO MD Jun 21, 2017 12:41
[2017-06-21] MEDS: ROSUVASTATIN CALCIUM 40 MG TABLET PO SCH (21:04)
[2017-06-21] MEDS: ACETAMINOPHEN 500 MG TAB PO PRN (23:41)
[2017-06-22] VITALS (12 sets, daily range): BP systolic 91–133; BP diastolic 51–63; PULSE 49–66; RESP 17–20
[2017-06-22] MEDS: ACCU-CHEK XX SCH (02:20)
[2017-06-22] MEDS: HYDROCODONE/APAP (5/325) TAB PO PRN ×3 (02:59→11:39)
[2017-06-22] MEDS: PIPER-TAZO 3.375 GM IV (PMX) 50 ML IVPB SCH ×3 (05:19→22:39)
[2017-06-22] MEDS: ENOXAPARIN 30 MG/0.3 ML SYG SC SCH (08:06)
[2017-06-22] MEDS: INSULIN GLARGINE [LANtus] 3 ML PEN SC SCH ×2 (08:07→20:34)
[2017-06-22] MEDS: INSULIN ASPART [NOVOLOG] 3 ML PEN SC SCH ×7 (08:07→20:20)
[2017-06-22] MEDS: ALLOPURINOL 100 MG TAB PO SCH ×2 (08:08→20:22)
[2017-06-22] MEDS: IVABRADINE HCL 5 MG TABLET PO SCH ×2 (08:08→17:28)
[2017-06-22] MEDS: LOSARTAN 25 MG TAB PO SCH (08:09)
[2017-06-22] MEDS: CHOLECALCIFEROL 1,000 UNIT TAB PO SCH (08:09)
[2017-06-22] MEDS: GABAPENTIN 300 MG CAP PO SCH ×2 (08:09→20:22)
[2017-06-22] MEDS: MULTIVITAMINS THERAPEUTIC TAB PO SCH (08:10)
[2017-06-22] MEDS: METHIMAZOLE 5 MG TAB PO SCH (08:10)
[2017-06-22] MEDS: CLOPIDOGREL 75 MG TAB PO SCH (08:10)
[2017-06-22] MEDS: AMIODARONE 200 MG TAB PO SCH (08:11)
[2017-06-22] MEDS: POLYETHYLENE GLYCOL 17 GM PACKET PO SCH (08:11)
--- NOTE | 2017-06-22 09:12 | PN ---
Date/Time of Note Date/Time of Note DATE: 06/22/17 TIME: 09:11 Assessment/Plan VTE Prophylaxis VTE Prophylaxis Intervention: other Lines/Catheters IV [facility] Type (from [facility]): Saline Lock Urinary Cath still in place: Yes Reason Cath still needed: urinary retention Assessment/Plan Chief Complaint/Hosp Course SUBJECTIVE: The patient is s/p successful above knee amputation of his right foot. The patient had no intraoperative or postoperative complications. This morning, patient is alert and oriented. Able to answer simple questions. No other events noted. OBJECTIVE: HEENT: Head is normocephalic. NECK: Supple. HEART: Regular rate. LUNGS: Show diminished breath sounds at the base. ABDOMEN: Soft, nontender to palpation. No rebound or guarding. EXTREMITIES: Positive for right above-knee amputation, left lower foot has noted wound, no discharge. MUSCULOSKELETAL: The patient has a right above-knee amputation. NEUROLOGIC: No focal deficits. DERMATOLOGIC: No rashes. ASSESSMENT AND PLAN: 1. Peripheral vascular disease status post right above knee amputation. The patient is currently stable. We will continue local wound care. Will follow up with vascular surgery for further recommendations. Continue current antibiotic therapy. 2. Sepsis secondary to right below the knee cellulitis and abscess. The patient is status post amputation as stated above. Continue IV antibiotics. Follow up with infectious disease. 3. Sleep apnea. Continue CPAP. 4. Chronic kidney disease, stage IIIB/IV. Patient's renal function has been stable. Continue current treatment plan, supportive care, renally dose all medicines anemia. The patient is status post blood transfusion. Continue to monitor hemoglobin and hematocrit levels. 5. Mineral bone disorder. Continue to monitor calcium and phosphorus levels. 6. Coronary artery disease. Continue medical management. 7. Diabetes. Continue current insulin regimen. 8. Congestive heart failure. Continue current treatment plan. 9. Dyslipidemia. Continue statin therapy. 10. Arrhythmia. Continue amiodarone. 11. Hyperthyroidism. Continue Tapazole. 12. Left lower extremity wounds. Continue local wound care. 13. Status post lactic acidosis. 14. Gastrointestinal and deep venous thrombosis prophylaxis. 15. Sleep apnea. Continue CPAP. Problems: Exam/Review of Systems Vital Signs Vitals Vital Signs Date Time Temp Pulse Resp B/P Pulse Ox O2 Delivery O2 Flow Rate FiO2 06/22/17 07:58 98.7 80 17 133/63 96 11/18/17 21:50 2.0 06/20/17 04:23 28 06/19/17 14:16 Nasal Cannula Intake and Output 06/21/17 06/21/17 06/22/17 15:00 23:00 07:00 Intake Total 50 ml 1000 ml 900 ml Output Total 700 ml 750 ml Balance 50 ml 300 ml 150 ml Results Result Diagram: 06/21/17 0817 06/21/17 0817 Results 24 hrs Laboratory Tests Test 06/21/17 13:05 06/21/17 17:01 06/21/17 21:06 06/22/17 02:09 Bedside Glucose 224 H 209 199 162 Test 06/22/17 08:02 Bedside Glucose 142 Medications Medications Current Medications Allopurinol (Zyloprim) 100 mg BID PO Last administered on 06/22/17 08:08; Admin Dose 100 MG; Start 06/17/17 at 09:00 Amiodarone HCl (Cordarone) 100 mg DAILY PO Last administered on 06/22/17 08: 11; Admin Dose 100 MG; Start 06/17/17 at 09:00 Aspirin (Halfprin) 81 mg DAILY PO Last administered on 06/18/17 09:02; Admin Dose 81 MG; Start 06/17/17 at 09:00; Status Future Hold Cholecalciferol (Vitamin D) 1,000 unit DAILY PO Last administered on 08:09; Admin Dose 1,000 UNIT; Start 06/17/17 at 09:00 Clopidogrel Bisulfate (plaVIX) 75 mg DAILY PO Last administered on 06/22/17 08:10; Admin Dose 75 MG; Start 06/17/17 at 09:00 Gabapentin (Neurontin) 300 mg BID PO Last administered on 06/22/17 08:09; Admin Dose 300 MG; Start 06/17/17 at 09:00 Methimazole (Tapazole) 2.5 mg DAILY PO Last administered on 06/22/17 08:10; Admin Dose 2.5 MG; Start 06/17/17 at 09:00 Multivitamins Therapeutic (Theragran) 1 tab DAILY PO Last administered on 06/22 08:10; Admin Dose 1 TAB; Start 06/17/17 at 09:00 Polyethylene Glycol (Miralax) 17 gm DAILY PO Last administered on 06/18/17 09 :03; Admin Dose 17 GM; Start 06/17/17 at 09:00 Rosuvastatin Calcium (Crestor) 40 mg QHS PO Last administered on 06/21/17 21: 04; Admin Dose 40 MG; Start 06/17/17 at 21:00 Insulin Glargine (Lantus) 40 unit DAILY@08 SC Last administered on 06/22/17 08:07; Admin Dose 40 UNIT; Start 06/17/17 at 08:00 Insulin Glargine (Lantus) 45 unit DAILY@20 SC Last administered on 06/21/17 21:20; Admin Dose 45 UNIT; Start 06/17/17 at 20:00 Diagnostic Test (Pha) 1 ea 1 ea 02 XX Last administered on 06/22/17 02:20; Admin Dose 1 EA; Start 06/18/17 at 02:00 Piperacillin Sod/ Tazobactam Sod (Zosyn 3.375gm/ 50 ml (Pmx)) 50 ml @ 100 mls/ hr Q8 IVPB Last administered on 06/22/17 05:19; Admin Dose 100 MLS/HR; Start 06/17/17 at 14:00 Miscellaneous Information (Pending [facility] Order For Wound Care) This patient hauser... PRN PRN XX WOUND CARE; Start 06/17/17 at 11:30 Acetaminophen/ Hydrocodone Bitart ([place] (5/325)) 1 tab Q4H PRN PO PAIN LEVEL 4 -6 Last administered on 06/22/17 08:01; Admin Dose 1 TAB; Start 06/17/17 at 14:30 Acetaminophen (Tylenol Tab) 500 mg Q6H PRN PO PAIN AND OR ELEVATED TEMP Last administered on 06/21/17 23:41; Admin Dose 500 MG; Start 06/17/17 at 21:30 Miscellaneous Information 1 ea NOTE XX ; Start 06/18/17 at 11:00 Glucose (Glutose) 15 gm Q15M PRN PO DECREASED GLUCOSE; Start 06/18/17 at 11:00 Glucose (Glutose) 22.5 gm Q15M PRN PO DECREASED GLUCOSE; Start 06/18/17 at 11: 00 Dextrose (D50w Syringe) 25 ml Q15M PRN IV DECREASED GLUCOSE; Start 06/18/17 at 11:00 Dextrose (D50w Syringe) 50 ml Q15M PRN IV DECREASED GLUCOSE; Start 06/18/17 at 11:00 Glucagon (Glucagen) 1 mg Q15M PRN IM DECREASED GLUCOSE; Start 06/18/17 at 11: 00 Glucose (Glutose) 15 gm Q15M PRN BUCCAL DECREASED GLUCOSE; Start 06/18/17 at 11:00 Carvedilol (Coreg) 3.125 mg BID PO Last administered on 06/22/17 08:11; Admin Dose 3.125 MG; Start 06/20/17 at 09:00 Losartan Potassium (Cozaar) 25 mg DAILY PO Last administered on 06/22/17 08: 09; Admin Dose 25 MG; Start 06/20/17 at 09:00 Enoxaparin Sodium 30 mg 30 mg DAILY SC Last administered on 06/22/17 08:06; Admin Dose 30 MG; Start 06/20/17 at 09:00 Vancomycin HCl/ Dextrose/Water (Vancocin/D5W) 150 ml @ 75 mls/hr Q12H IVPB Last administered on 06/21/17 21:49; Admin Dose 75 MLS/HR; Start 06/20/17 at 22:00 SAÚL CARTAGENA DO Jun 22, 2017 09:12
[2017-06-22 09:58] LABS: BASOPHIL # 0.1 10^3/ul (0.0-0.1); BASOPHILS % 0.4 % (0.0-2.0); EOSINOPHILS # 0.6 10^3/ul (0.0-0.5); EOSINOPHILS % 5.2 % (0.0-7.0); HEMATOCRIT 30.7 % (42.0-52.0); HEMOGLOBIN 9.7 g/dl (14.0-18.0); LYMPHOCYTES # 1.9 10^3/ul (0.8-2.9); LYMPHOCYTES % 16.4 % (15.0-51.0); MEAN CORPUSCULAR HEMOGLOBIN 26.7 pg (29.0-33.0); MEAN CORPUSCULAR HGB CONC 31.6 g/dl (32.0-37.0); MEAN CORPUSCULAR VOLUME 84.6 fl (82.0-101.0); MEAN PLATELET VOLUME 9.4 fl (7.4-10.4); MONOCYTE # 0.8 10^3/ul (0.3-0.9); MONOCYTES % 6.9 % (0.0-11.0); NEUTROPHIL # 8.2 10^3/ul (1.6-7.5); NEUTROPHILS % 70.2 % (39.0-77.0); PLATELET COUNT 341 10^3/UL (140-415); RED BLOOD COUNT 3.63 10^6/ul (4.70-6.10); RED CELL DISTRIBUTION WIDTH 15.4 % (11.5-14.5); WHITE BLOOD COUNT 11.6 10^3/ul (4.8-10.8)
[2017-06-22 10:21] LABS: CALCIUM 9.1 mg/dl (8.4-10.2); CREATININE 1.21 mg/dl (0.61-1.24); PHOSPHORUS 4.3 mg/dl (2.5-4.9); POTASSIUM 3.9 mmol/L (3.5-5.1)
--- NOTE | 2017-06-22 10:31 | CONS ---
Date/Time of Note Date/Time of Note DATE: 06/22/17 TIME: 10:29 Assessment/Plan Assessment/Plan Additional Assessment/Plan Assessment and recommendations; 1. Patient admitted with gangrene with wound infection involving right above- knee amputation stump, currently on appropriate antibiotic regimen. 2. Underlying other comorbidities including hyperthyroidism, chronic renal insufficiency, peripheral vascular disease, hypertension, and obstructive sleep apnea; they all appear stable. Continue current supportive care. Consultation Date/Type/Reason Admit Date/Time Jun 17, 2017 at 01:20 Type of Consultation: Pulmonary Referring Provider: DANYELLE GUY DO 24 HR Interval Summary Free Text/Dictation Patient's condition is stable. Remains awake and alert. Has remained hemodynamically stable. General exam; elderly male, awake and alert. Currently in no distress. Exam/Review of Systems Vital Signs Vitals Vital Signs Date Time Temp Pulse Resp B/P Pulse Ox O2 Delivery O2 Flow Rate FiO2 06/22/17 08:12 66 06/22/17 07:58 98.7 17 133/63 96 06/21/17 21:50 2.0 06/20/17 04:23 28 06/19/17 14:16 Nasal Cannula Intake and Output 06/21/17 06/21/17 06/22/17 15:00 23:00 07:00 Intake Total 50 ml 1000 ml 900 ml Output Total 700 ml 750 ml Balance 50 ml 300 ml 150 ml Exam HEENT exam; supple neck, no JVD. No lymphadenopathy. Midline trachea. No thyromegaly. Patient is edentulous. Chest exam; clear to auscultation. S1-S2 audible, no murmurs. Regular rhythm. Abdomen exam; soft, nontender. No organomegaly. Bowel sounds audible. Extremity exam; no edema. There is a dressing applied with a right above-knee amputation stump. EDGE TRIMMER exam; no focal deficit. Results Result Diagram: 06/22/1737 06/22/17 0937 Results 24 hrs Laboratory Tests Test 06/21/17 13:05 06/21/17 17:01 06/21/17 21:06 06/22/17 02:09 Bedside Glucose 224 H 209 199 162 Test 06/22/17 08:02 06/22/17 09:37 06/22/17 09:38 Bedside Glucose 142 White Blood Count 11.6 H Red Blood Count 3.63 L Hemoglobin 9.7 L Hematocrit 30.7 L Mean Corpuscular Volume 84.6 Mean Corpuscular Hemoglobin 26.7 L Mean Corpuscular Hemoglobin Concent 31.6 L Red Cell Distribution Width 15.4 H Platelet Count 341 Mean Platelet Volume 9.4 Neutrophils % 70.2 Lymphocytes % 16.4 Monocytes % 6.9 Eosinophils % 5.2 Basophils % 0.4 Nucleated Red Blood Cells % 0.0 Neutrophils # 8.2 H Lymphocytes # 1.9 Monocytes # 0.8 Eosinophils # 0.6 H Basophils # 0.1 Nucleated Red Blood Cells # 0.0 Sodium Level 143 Potassium Level 3.9 Chloride Level 104 Carbon Dioxide Level 28 Anion Gap 15 Blood Urea Nitrogen 15 Creatinine 1.21 Glucose Level 145 Calcium Level 9.1 Phosphorus Level 4.3 Magnesium Level 2.0 Vancomycin Level Trough 7.7 L C-Reactive Protein 7.5 H Medications Medications Current Medications Allopurinol (Zyloprim) 100 mg BID PO Last administered on 06/22/17 08:08; Admin Dose 100 MG; Start 06/17/17 at 09:00 Amiodarone HCl (Cordarone) 100 mg DAILY PO Last administered on 06/22/17 08: 11; Admin Dose 100 MG; Start 06/17/17 at 09:00 Aspirin (Halfprin) 81 mg DAILY PO Last administered on 06/18/17 09:02; Admin Dose 81 MG; Start 06/17/17 at 09:00; Status Future Hold Cholecalciferol (Vitamin D) 1,000 unit DAILY PO Last administered on 08:09; Admin Dose 1,000 UNIT; Start 06/17/17 at 09:00 Clopidogrel Bisulfate (plaVIX) 75 mg DAILY PO Last administered on 06/22/17 08:10; Admin Dose 75 MG; Start 06/17/17 at 09:00 Gabapentin (Neurontin) 300 mg BID PO Last administered on 06/22/17 08:09; Admin Dose 300 MG; Start 06/17/17 at 09:00 Methimazole (Tapazole) 2.5 mg DAILY PO Last administered on 06/22/17 08:10; Admin Dose 2.5 MG; Start 06/17/17 at 09:00 Multivitamins Therapeutic (Theragran) 1 tab DAILY PO Last administered on 06/22 08:10; Admin Dose 1 TAB; Start 06/17/17 at 09:00 Polyethylene Glycol (Miralax) 17 gm DAILY PO Last administered on 06/18/17 09 :03; Admin Dose 17 GM; Start 06/17/17 at 09:00 Rosuvastatin Calcium (Crestor) 40 mg QHS PO Last administered on 06/21/17 21: 04; Admin Dose 40 MG; Start 06/17/17 at 21:00 Insulin Glargine (Lantus) 40 unit DAILY@08 SC Last administered on 06/22/17 08:07; Admin Dose 40 UNIT; Start 06/17/17 at 08:00 Insulin Glargine (Lantus) 45 unit DAILY@20 SC Last administered on 06/21/17 21:20; Admin Dose 45 UNIT; Start 06/17/17 at 20:00 Diagnostic Test (Pha) 1 ea 1 ea 02 XX Last administered on 06/22/17 02:20; Admin Dose 1 EA; Start 06/18/17 at 02:00 Piperacillin Sod/ Tazobactam Sod (Zosyn 3.375gm/ 50 ml (Pmx)) 50 ml @ 100 mls/ hr Q8 IVPB Last administered on 06/22/17 05:19; Admin Dose 100 MLS/HR; Start 06/17/17 at 14:00 Miscellaneous Information (Pending [facility]yl Order For Wound Care) This patient hauser... PRN PRN XX WOUND CARE; Start 06/17/17 at 11:30 Acetaminophen/ Hydrocodone Bitart ([place] (5/325)) 1 tab Q4H PRN PO PAIN LEVEL 4 -6 Last administered on 06/22/17 08:01; Admin Dose 1 TAB; Start 06/17/17 at 14:30 Acetaminophen (Tylenol Tab) 500 mg Q6H PRN PO PAIN AND OR ELEVATED TEMP Last administered on 06/21/17 23:41; Admin Dose 500 MG; Start 06/17/17 at 21:30 Miscellaneous Information 1 ea NOTE XX ; Start 06/18/17 at 11:00 Glucose (Glutose) 15 gm Q15M PRN PO DECREASED GLUCOSE; Start 06/18/17 at 11:00 Glucose (Glutose) 22.5 gm Q15M PRN PO DECREASED GLUCOSE; Start 06/18/17 at 11: 00 Dextrose (D50w Syringe) 25 ml Q15M PRN IV DECREASED GLUCOSE; Start 06/18/17 at 11:00 Dextrose (D50w Syringe) 50 ml Q15M PRN IV DECREASED GLUCOSE; Start 06/18/17 at 11:00 Glucagon (Glucagen) 1 mg Q15M PRN IM DECREASED GLUCOSE; Start 06/18/17 at 11: 00 Glucose (Glutose) 15 gm Q15M PRN BUCCAL DECREASED GLUCOSE; Start 06/18/17 at 11:00 Carvedilol (Coreg) 3.125 mg BID PO Last administered on 06/22/17 08:11; Admin Dose 3.125 MG; Start 06/20/17 at 09:00 Losartan Potassium (Cozaar) 25 mg DAILY PO Last administered on 06/22/17 08: 09; Admin Dose 25 MG; Start 06/20/17 at 09:00 Enoxaparin Sodium 30 mg 30 mg DAILY SC Last administered on 06/22/17 08:06; Admin Dose 30 MG; Start 06/20/17 at 09:00 Vancomycin HCl/ Dextrose/Water (Vancocin/D5W) 150 ml @ 75 mls/hr Q12H IVPB Last administered on 06/21/17 21:49; Admin Dose 75 MLS/HR; Start 06/20/17 at 22:00 MITESH FRY Jun 22, 2017 10:31
--- NOTE | 2017-06-22 11:01 | CONS ---
Date/Time of Note Date/Time of Note DATE: 06/22/17 TIME: 11:00 Consult Date/Type/Reason Admit Date/Time Jun 17, 2017 at 01:20 Type of Consultation: card Ordering Provider: DANYELLE GUY DO Subjective cardiology follow up note: S: Discussed with staff and rhythm was reviewed. pt remains in NSR. HR is under control now pt denies any chest pain or pressure to me he denies any PND orthopnea to me. He denies any wheezing or shortness of breath to me. S/P R AKA 06/19/17 he c/o pain on left leg now improved with morphine O: General: no acute distress. obese man HEENT: NC/AT. pupils are equal. round. NECK: NO JVD. no stridor. CV: RRR. systolic murmur; no gallop or rubs. PULM: no wheezing or rhonchi. GI: SOFT, NT, ND, no rebound or guarding obese. Extremity: s/p R AKA in dressing . s/p left toe amputation neuro: awake and alert, OX3. Psych: calm and pleasant rectal: deferred Objective Vital Signs Date Time Temp Pulse Resp B/P Pulse Ox O2 Delivery O2 Flow Rate FiO2 06/22/17 08:12 66 06/22/17 07:58 98.7 17 133/63 96 06/21/17 21:50 2.0 06/20/17 04:23 28 06/19/17 14:16 Nasal Cannula Intake and Output 06/21/17 06/21/17 06/22/17 14:59 22:59 06:59 Intake Total 50 ml 1000 ml 900 ml Output Total 700 ml 750 ml Balance 50 ml 300 ml 150 ml Results/Medications Result Diagram: 06/22/17 0937 06/22/17 0937 Results 24 hrs Laboratory Tests Test 06/21/17 13:05 06/21/17 17:01 06/21/17 21:06 06/22/17 02:09 Bedside Glucose 224 H 209 199 162 Test 06/22/17 08:02 06/22/17 09:37 06/22/17 09:38 Bedside Glucose 142 White Blood Count 11.6 H Red Blood Count 3.63 L Hemoglobin 9.7 L Hematocrit 30.7 L Mean Corpuscular Volume 84.6 Mean Corpuscular Hemoglobin 26.7 L Mean Corpuscular Hemoglobin Concent 31.6 L Red Cell Distribution Width 15.4 H Platelet Count 341 Mean Platelet Volume 9.4 Neutrophils % 70.2 Lymphocytes % 16.4 Monocytes % 6.9 Eosinophils % 5.2 Basophils % 0.4 Nucleated Red Blood Cells % 0.0 Neutrophils # 8.2 H Lymphocytes # 1.9 Monocytes # 0.8 Eosinophils # 0.6 H Basophils # 0.1 Nucleated Red Blood Cells # 0.0 Sodium Level 143 Potassium Level 3.9 Chloride Level 104 Carbon Dioxide Level 28 Anion Gap 15 Blood Urea Nitrogen 15 Creatinine 1.21 Glucose Level 145 Calcium Level 9.1 Phosphorus Level 4.3 Magnesium Level 2.0 Vancomycin Level Trough 7.7 L C-Reactive Protein 7.5 H Medications Current Medications Allopurinol (Zyloprim) 100 mg BID PO Last administered on 06/22/17 08:08; Admin Dose 100 MG; Start 06/17/17 at 09:00 Amiodarone HCl (Cordarone) 100 mg DAILY PO Last administered on 06/22/17 08: 11; Admin Dose 100 MG; Start 06/17/17 at 09:00 Aspirin (Halfprin) 81 mg DAILY PO Last administered on 06/18/17 09:02; Admin Dose 81 MG; Start 06/17/17 at 09:00; Status Future Hold Cholecalciferol (Vitamin D) 1,000 unit DAILY PO Last administered on 08:09; Admin Dose 1,000 UNIT; Start 06/17/17 at 09:00 Clopidogrel Bisulfate (plaVIX) 75 mg DAILY PO Last administered on 06/22/17 08:10; Admin Dose 75 MG; Start 06/17/17 at 09:00 Gabapentin (Neurontin) 300 mg BID PO Last administered on 06/22/17 08:09; Admin Dose 300 MG; Start 06/17/17 at 09:00 Methimazole (Tapazole) 2.5 mg DAILY PO Last administered on 06/22/17 08:10; Admin Dose 2.5 MG; Start 06/17/17 at 09:00 Multivitamins Therapeutic (Theragran) 1 tab DAILY PO Last administered on 06/22 08:10; Admin Dose 1 TAB; Start 06/17/17 at 09:00 Polyethylene Glycol (Miralax) 17 gm DAILY PO Last administered on 06/18/17 09 :03; Admin Dose 17 GM; Start 06/17/17 at 09:00 Rosuvastatin Calcium (Crestor) 40 mg QHS PO Last administered on 06/21/17 21: 04; Admin Dose 40 MG; Start 06/17/17 at 21:00 Insulin Glargine (Lantus) 40 unit DAILY@08 SC Last administered on 06/22/17 08:07; Admin Dose 40 UNIT; Start 06/17/17 at 08:00 Insulin Glargine (Lantus) 45 unit DAILY@20 SC Last administered on 06/21/17 21:20; Admin Dose 45 UNIT; Start 06/17/17 at 20:00 Diagnostic Test (Pha) 1 ea 1 ea 02 XX Last administered on 06/22/17 02:20; Admin Dose 1 EA; Start 06/18/17 at 02:00 Piperacillin Sod/ Tazobactam Sod (Zosyn 3.375gm/ 50 ml (Pmx)) 50 ml @ 100 mls/ hr Q8 IVPB Last administered on 06/22/17 05:19; Admin Dose 100 MLS/HR; Start 06/17/17 at 14:00 Miscellaneous Information (Pending [facility] Order For Wound Care) This patient hauser... PRN PRN XX WOUND CARE; Start 06/17/17 at 11:30 Acetaminophen/ Hydrocodone Bitart ([place] (5/325)) 1 tab Q4H PRN PO PAIN LEVEL 4 -6 Last administered on 06/22/17 08:01; Admin Dose 1 TAB; Start 06/17/17 at 14:30 Acetaminophen (Tylenol Tab) 500 mg Q6H PRN PO PAIN AND OR ELEVATED TEMP Last administered on 06/21/17 23:41; Admin Dose 500 MG; Start 06/17/17 at 21:30 Miscellaneous Information 1 ea NOTE XX ; Start 06/18/17 at 11:00 Glucose (Glutose) 15 gm Q15M PRN PO DECREASED GLUCOSE; Start 06/18/17 at 11:00 Glucose (Glutose) 22.5 gm Q15M PRN PO DECREASED GLUCOSE; Start 06/18/17 at 11: 00 Dextrose (D50w Syringe) 25 ml Q15M PRN IV DECREASED GLUCOSE; Start 06/18/17 at 11:00 Dextrose (D50w Syringe) 50 ml Q15M PRN IV DECREASED GLUCOSE; Start 06/18/17 at 11:00 Glucagon (Glucagen) 1 mg Q15M PRN IM DECREASED GLUCOSE; Start 06/18/17 at 11: 00 Glucose (Glutose) 15 gm Q15M PRN BUCCAL DECREASED GLUCOSE; Start 06/18/17 at 11:00 Carvedilol (Coreg) 3.125 mg BID PO Last administered on 06/22/17 08:11; Admin Dose 3.125 MG; Start 06/20/17 at 09:00 Losartan Potassium (Cozaar) 25 mg DAILY PO Last administered on 06/22/17 08: 09; Admin Dose 25 MG; Start 06/20/17 at 09:00 Enoxaparin Sodium 30 mg 30 mg DAILY SC Last administered on 06/22/17 08:06; Admin Dose 30 MG; Start 06/20/17 at 09:00 Vancomycin HCl 750 mg/Dextrose/ Water 150 ml @ 75 mls/hr Q12H IVPB Last administered on 06/21/17 21:49; Admin Dose 75 MLS/HR; Start 06/20/17 at 22:00 ; Stop 06/22/17 at 13:00 Vancomycin HCl/ Sodium Chloride (Vancocin/NS) 250 ml @ 83.333 mls/ hr Q12H IVPB ; Start 06/22/17 at 15:00 Assessment/Plan Chief Complaint/Hosp Course 1. CAD 2. HX CABG 3. HX NH 4. HX multiple PCI 5. Severe PAD 6. S/P Previous LE revascularizations 7. 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 hx hyperthyroidism: TSH is wnl on 06/06/17 10. hx VT s/p ICD 11. CHF: chronic and stable due to systolic heart failure 12. dyslipidemia: on statin 13. CKD 14. Debility 15. Markedly elevated CK: probably related to recent surgery. improved now 16. fever and leukocystosis. Recommendations: I will CONT coreg and losartan. CONT corlanor. will hold Aspirin but Plavix will be continued. on crestor . CK is wnl now. Diabetic management as per internal medicine. Physical therapy and rehab will be continued. nightly CPAP . abx as per ID rec. Thank you for his referral. I will continue to follow along with you. SALVADOR BARRETO MD [facility] Problems: SALVADOR BARRETO MD Jun 22, 2017 11:01
[2017-06-22] MEDS: VANCOMYCIN 750 MG in DEXTROSE 5% 150 ML IVPB SCH (11:07)
[2017-06-22] MEDS: morphine 2 MG INJ IV PRN ×2 (15:44→20:23)
--- NOTE | 2017-06-22 17:06 | CONS ---
Date/Time of Note Date/Time of Note DATE: 06/22/17 TIME: 17:02 Assessment/Plan Assessment/Plan Chief Complaint/Hosp Course Assessment/Plan Chief Complaint/Hosp Course ID PROGRESS NOTE CURRENT ABX: DAY # =>Vanco IV + Zosyn 24H INTERVAL SUMMARY * Resting comfortably. Alert. Awake. No acute distress. PHYSICAL EXAMINATION: GENERAL: VSS, afebrile, NAD HEENT: Unremarkable NECK: Supple, trach midline CHEST: Equal chest rise bilaterally, without dyspnea on observation HEART: RRR ABDOMEN: Soft, NT, ND : FC, clear yellow urine EXT: Warm, BKA SKIN: No rash, no diaphoresis ID ASSESSMENT: 66 yo M admit [facility]: 1. Systemic inflammatory response syndrome, early sepsis w/lactic acid 2.2, low grade fevers and leukocytosis=> RESOLVED 2. Severe BLEXT atherosclerosis w/critical limb ischemia 3. 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 * Hx of R-AKA MAY 2017 4. Left lower extremity ulcers => diabetic, ischemic wounds * s/p L-toe amputation x2 MAY 2017 5. Diabetes. 6. Chronic kidney disease. 7. History of hypertension. 8. Coronary artery disease, history of CABG 2011 w/re-do CABG 2013 9. Former Tobacco -> quit 14 years ago ( )MRSA ABX ALLERGIES: None to ABX INVASIVES: PIV CURRENT ABX: Vanco IV + Zosyn ID RECOMMENDATIONS/PLAN: 1. Continue current Antibiotics. Continue Wound Care. 2. ID team consultants will continue to follow. 3. Monitor Labs. Pain Management. GI prophylaxis. DVT prophylaxis. Problems: Consultation Date/Type/Reason Admit Date/Time Jun 17, 2017 at 01:20 Initial Consult Date Type of Consultation: id Referring Provider: DANYELLE GUY DO Exam/Review of Systems Vital Signs Vitals Vital Signs Date Time Temp Pulse Resp B/P Pulse Ox O2 Delivery O2 Flow Rate FiO2 06/22/17 16:30 98.6 79 17 91/51 99 06/21/17 21:50 2.0 06/20/17 04:23 28 06/19/17 14:16 Nasal Cannula Intake and Output 06/21/17 06/21/17 06/22/17 14:59 22:59 06:59 Intake Total 50 ml 1000 ml 900 ml Output Total 700 ml 750 ml Balance 50 ml 300 ml 150 ml Results Result Diagram: 06/22/17 0937 06/22/17 0937 Results 24 hrs Laboratory Tests Test 06/21/17 21:06 06/22/17 02:09 06/22/17 08:02 06/22/17 09:37 Bedside Glucose 199 162 142 White Blood Count 11.6 H Red Blood Count 3.63 L Hemoglobin 9.7 L Hematocrit 30.7 L Mean Corpuscular Volume 84.6 Mean Corpuscular Hemoglobin 26.7 L Mean Corpuscular Hemoglobin Concent 31.6 L Red Cell Distribution Width 15.4 H Platelet Count 341 Mean Platelet Volume 9.4 Neutrophils % 70.2 Lymphocytes % 16.4 Monocytes % 6.9 Eosinophils % 5.2 Basophils % 0.4 Nucleated Red Blood Cells % 0.0 Neutrophils # 8.2 H Lymphocytes # 1.9 Monocytes # 0.8 Eosinophils # 0.6 H Basophils # 0.1 Nucleated Red Blood Cells # 0.0 Erythrocyte Sedimentation Rate 123 H Sodium Level 143 Potassium Level 3.9 Chloride Level 104 Carbon Dioxide Level 28 Anion Gap 15 Blood Urea Nitrogen 15 Creatinine 1.21 Glucose Level 145 Calcium Level 9.1 Phosphorus Level 4.3 Magnesium Level 2.0 Vancomycin Level Trough 7.7 L Test 06/22/17 09:38 06/22/17 12:32 C-Reactive Protein 7.5 H Bedside Glucose 180 Medications Medications Current Medications Allopurinol (Zyloprim) 100 mg BID PO Last administered on 06/22/17 08:08; Admin Dose 100 MG; Start 06/17/17 at 09:00 Amiodarone HCl (Cordarone) 100 mg DAILY PO Last administered on 06/22/17 08: 11; Admin Dose 100 MG; Start 06/17/17 at 09:00 Aspirin (Halfprin) 81 mg DAILY PO Last administered on 06/18/17 09:02; Admin Dose 81 MG; Start 06/17/17 at 09:00; Status Future Hold Cholecalciferol (Vitamin D) 1,000 unit DAILY PO Last administered on 08:09; Admin Dose 1,000 UNIT; Start 06/17/17 at 09:00 Clopidogrel Bisulfate (plaVIX) 75 mg DAILY PO Last administered on 06/22/17 08:10; Admin Dose 75 MG; Start 06/17/17 at 09:00 Gabapentin (Neurontin) 300 mg BID PO Last administered on 06/22/17 08:09; Admin Dose 300 MG; Start 06/17/17 at 09:00 Methimazole (Tapazole) 2.5 mg DAILY PO Last administered on 06/22/17 08:10; Admin Dose 2.5 MG; Start 06/17/17 at 09:00 Multivitamins Therapeutic (Theragran) 1 tab DAILY PO Last administered on 06/22 08:10; Admin Dose 1 TAB; Start 06/17/17 at 09:00 Polyethylene Glycol (Miralax) 17 gm DAILY PO Last administered on 06/18/17 09 :03; Admin Dose 17 GM; Start 06/17/17 at 09:00 Rosuvastatin Calcium (Crestor) 40 mg QHS PO Last administered on 06/21/17 21: 04; Admin Dose 40 MG; Start 06/17/17 at 21:00 Insulin Glargine (Lantus) 40 unit DAILY@08 SC Last administered on 06/22/17 08:07; Admin Dose 40 UNIT; Start 06/17/17 at 08:00 Insulin Glargine (Lantus) 45 unit DAILY@20 SC Last administered on 06/21/17 21:20; Admin Dose 45 UNIT; Start 06/17/17 at 20:00 Diagnostic Test (Pha) 1 ea 1 ea 02 XX Last administered on 06/22/17 02:20; Admin Dose 1 EA; Start 06/18/17 at 02:00 Piperacillin Sod/ Tazobactam Sod (Zosyn 3.375gm/ 50 ml (Pmx)) 50 ml @ 100 mls/ hr Q8 IVPB Last administered on 06/22/17 15:22; Admin Dose 100 MLS/HR; Start 06/17/17 at 14:00 Miscellaneous Information (Pending [facility] Order For Wound Care) This patient hauser... PRN PRN XX WOUND CARE; Start 06/17/17 at 11:30 Acetaminophen/ Hydrocodone Bitart ([place] (5/325)) 1 tab Q4H PRN PO PAIN LEVEL 4 -6 Last administered on 06/22/17 11:39; Admin Dose 1 TAB; Start 06/17/17 at 14:30 Acetaminophen (Tylenol Tab) 500 mg Q6H PRN PO PAIN AND OR ELEVATED TEMP Last administered on 06/21/17 23:41; Admin Dose 500 MG; Start 06/17/17 at 21:30 Miscellaneous Information 1 ea NOTE XX ; Start 06/18/17 at 11:00 Glucose (Glutose) 15 gm Q15M PRN PO DECREASED GLUCOSE; Start 06/18/17 at 11:00 Glucose (Glutose) 22.5 gm Q15M PRN PO DECREASED GLUCOSE; Start 06/18/17 at 11: 00 Dextrose (D50w Syringe) 25 ml Q15M PRN IV DECREASED GLUCOSE; Start 06/18/17 at 11:00 Dextrose (D50w Syringe) 50 ml Q15M PRN IV DECREASED GLUCOSE; Start 06/18/17 at 11:00 Glucagon (Glucagen) 1 mg Q15M PRN IM DECREASED GLUCOSE; Start 06/18/17 at 11: 00 Glucose (Glutose) 15 gm Q15M PRN BUCCAL DECREASED GLUCOSE; Start 06/18/17 at 11:00 Carvedilol (Coreg) 3.125 mg BID PO Last administered on 06/22/17 08:11; Admin Dose 3.125 MG; Start 06/20/17 at 09:00 Losartan Potassium (Cozaar) 25 mg DAILY PO Last administered on 06/22/17 08: 09; Admin Dose 25 MG; Start 06/20/17 at 09:00 Enoxaparin Sodium 30 mg 30 mg DAILY SC Last administered on 06/22/17 08:06; Admin Dose 30 MG; Start 06/20/17 at 09:00 Vancomycin HCl/ Sodium Chloride (Vancocin/NS) 250 ml @ 83.333 mls/ hr Q12H IVPB ; Start 06/22/17 at 15:00 Morphine Sulfate (morphine) 2 mg Q4H PRN IV severe pain Last administered on 15:44; Admin Dose 2 MG; Start 06/22/17 at 15:31 VAL CLEMENT NP Jun 22, 2017 17:06
[2017-06-22] MEDS: VANCOMYCIN 1.25 GM in SOD CHLORIDE 0.9% 250 ML IVPB SCH (17:20)
[2017-06-22] MEDS: ROSUVASTATIN CALCIUM 40 MG TABLET PO SCH (20:22)
[2017-06-23] VITALS (13 sets, daily range): BP systolic 93–106; BP diastolic 51–59; PULSE 58–63; RESP 19–20
[2017-06-23] MEDS: HYDROCODONE/APAP (5/325) TAB PO PRN ×5 (00:19→17:39)
[2017-06-23] MEDS: ACCU-CHEK XX SCH (02:00)
[2017-06-23] MEDS: VANCOMYCIN 1.25 GM in SOD CHLORIDE 0.9% 250 ML IVPB SCH (02:57)
[2017-06-23] MEDS: PIPER-TAZO 3.375 GM IV (PMX) 50 ML IVPB SCH ×2 (06:23→13:20)
[2017-06-23 06:34] LABS: BASOPHIL # 0.1 10^3/ul (0.0-0.1); BASOPHILS % 0.6 % (0.0-2.0); EOSINOPHILS # 0.6 10^3/ul (0.0-0.5); EOSINOPHILS % 4.7 % (0.0-7.0); HEMATOCRIT 29.7 % (42.0-52.0); HEMOGLOBIN 9.3 g/dl (14.0-18.0); LYMPHOCYTES # 2.4 10^3/ul (0.8-2.9); LYMPHOCYTES % 19.7 % (15.0-51.0); MEAN CORPUSCULAR HEMOGLOBIN 26.6 pg (29.0-33.0); MEAN CORPUSCULAR HGB CONC 31.3 g/dl (32.0-37.0); MEAN CORPUSCULAR VOLUME 85.1 fl (82.0-101.0); MEAN PLATELET VOLUME 9.6 fl (7.4-10.4); MONOCYTE # 0.9 10^3/ul (0.3-0.9); MONOCYTES % 7.1 % (0.0-11.0); NEUTROPHIL # 8.2 10^3/ul (1.6-7.5); NEUTROPHILS % 66.8 % (39.0-77.0); PLATELET COUNT 341 10^3/UL (140-415); RED BLOOD COUNT 3.49 10^6/ul (4.70-6.10); RED CELL DISTRIBUTION WIDTH 15.7 % (11.5-14.5); WHITE BLOOD COUNT 12.3 10^3/ul (4.8-10.8)
[2017-06-23 07:46] LABS: CREATININE 1.32 mg/dl (0.61-1.24); MAGNESIUM 1.8 mg/dl (1.7-2.5); PHOSPHORUS 5.1 mg/dl (2.5-4.9); POTASSIUM 4.3 mmol/L (3.5-5.1)
[2017-06-23] MEDS: IVABRADINE HCL 5 MG TABLET PO SCH ×2 (07:46→19:02)
[2017-06-23] MEDS: INSULIN GLARGINE [LANtus] 3 ML PEN SC SCH ×2 (07:57→20:35)
[2017-06-23] MEDS: INSULIN ASPART [NOVOLOG] 3 ML PEN SC SCH ×7 (07:58→20:35)
[2017-06-23] MEDS: MULTIVITAMINS THERAPEUTIC TAB PO SCH (09:07)
[2017-06-23] MEDS: POLYETHYLENE GLYCOL 17 GM PACKET PO SCH (09:08)
[2017-06-23] MEDS: CLOPIDOGREL 75 MG TAB PO SCH (09:08)
[2017-06-23] MEDS: GABAPENTIN 300 MG CAP PO SCH ×2 (09:08→20:25)
[2017-06-23] MEDS: METHIMAZOLE 5 MG TAB PO SCH (09:09)
[2017-06-23] MEDS: CHOLECALCIFEROL 1,000 UNIT TAB PO SCH (09:09)
[2017-06-23] MEDS: AMIODARONE 200 MG TAB PO SCH (09:09)
[2017-06-23] MEDS: ALLOPURINOL 100 MG TAB PO SCH ×2 (09:09→20:25)
[2017-06-23] MEDS: LOSARTAN 25 MG TAB PO SCH (09:10)
[2017-06-23] MEDS: ENOXAPARIN 30 MG/0.3 ML SYG SC SCH (09:14)
--- NOTE | 2017-06-23 09:49 | PN ---
DATE: 06/23/2017 SUBJECTIVE: The patient is stable. No events overnight. No fevers, chills, nausea, vomiting. Ple ase note, I discussed with the patient's at bedside. They are requesting to go home in the nex t 1 to 2 days with IV antibiotics. They do not wish to go to acute rehab or to a nursing facility. No other events noted. OBJECTIVE: VITAL SIGNS: Blood pressure is 106/59, pulse 60, respiration 20, temperature 98.1. HEENT: Head is normocephalic. NECK: Supple. HEART: Regular rate. LUNGS: Show diminished breath sounds at the base. ABDOMEN: Soft, nontender to palpation. No rebound or guarding. EXTREMITIES: Negative for clubbing, cyanosis. Positive right above-knee amputation noted with dres sing clean, dry, intact. The patient's left lower extremity has a wound, no active discharge. NEUROLOGIC: No change in exam. MEDICATIONS: The patient's medications have been reviewed. LABORATORY DATA: Shows white count 12.3, hemoglobin 9.3, platelet count is 341. Sodium 141, potass ium 4.3, chloride 106, BUN 18, creatinine 1.32, phosphorus 5.1. ASSESSMENT AND PLAN: 1. Peripheral vascular disease status post right above-knee amputation. The patient is currently s table. Continue wound care, continue IV antibiotics. Follow up with vascular surgery. 2. Sepsis secondary to right knee cellulitis and abscess. The patient is status post amputation. Continue IV antibiotics, expect a prolonged course. 3. Sleep apnea. Continue CPAP. 4. Chronic kidney disease stage IIIB to IV. Renal function is stable. Continue current treatment plan, supportive care, renally dose all meds. 5. Mineral bone disorder. Monitor calcium and phosphorus levels. 6. Coronary artery disease. Continue current treatment plan. 7. Diabetes. Continue current insulin regimen. 8. Congestive heart failure. Continue current medical management. 9. Dyslipidemia. Continue statin therapy. 10. Sinus arrhythmia. Continue amiodarone. 11. Hypothyroidism. Continue Tapazole. 12. Left lower extremity wounds. Continue local wound care. 13. Gastrointestinal and deep venous thrombosis prophylaxis. DISPOSITION: Anticipate discharge home with a PICC line, IV antibiotics and home health in the next 1 to 2 days. Dictated By: DANYELLE FRANCOIS/SURENDRA Conf#: [id number] [facility]#: [id number]
[2017-06-23] MEDS: oxyCODONE (CR) 10 MG TAB [oxyCONTIN] PO SCH ×2 (10:16→20:25)
--- NOTE | 2017-06-23 14:43 | CONS ---
Date/Time of Note Date/Time of Note DATE: 06/23/17 TIME: 14:42 Consult Date/Type/Reason Admit Date/Time Jun 17, 2017 at 01:20 Type of Consultation: Pulmonary Ordering Provider: DANYELLE GUY DO Subjective Patient remains stable. No shortness of breath. Continues on invasive positive pressure ventilation at night. Objective Vital Signs Date Time Temp Pulse Resp B/P Pulse Ox O2 Delivery O2 Flow Rate FiO2 06/23/17 12:14 59 06/23/17 11:18 98.2 19 99/51 96 06/22/17 23:00 2.0 06/20/17 04:23 28 06/19/17 14:16 Nasal Cannula Intake and Output 06/22/17 06/22/17 06/23/17 15:00 23:00 07:00 Intake Total 50 ml 300 ml Output Total 1300 ml Balance 50 ml -1000 ml Exam GENERAL: Elderly-appearing gentleman comfortable at rest no acute distress. VITAL SIGNS: per chart NECK: Supple. No JVD or lymphadenopathy. CARDIAC EXAM: S1, S2. No added sounds or murmurs. CHEST: clear bilaterally, No added sounds, rales or wheezes ABDOMEN: Soft, nontender. No guarding or rebound. EXTREMITIES: No cyanosis, clubbing or edema. NEUROLOGIC: Generalized weakness amputation Results/Medications Result Diagram: 06/23/17 0556 06/23/17 0556 Results 24 hrs Laboratory Tests Test 06/22/17 17:27 06/22/17 20:18 06/23/17 05:56 06/23/17 07:44 Bedside Glucose 132 154 142 White Blood Count 12.3 H Red Blood Count 3.49 L Hemoglobin 9.3 L Hematocrit 29.7 L Mean Corpuscular Volume 85.1 Mean Corpuscular Hemoglobin 26.6 L Mean Corpuscular Hemoglobin Concent 31.3 L Red Cell Distribution Width 15.7 H Platelet Count 341 Mean Platelet Volume 9.6 Neutrophils % 66.8 Lymphocytes % 19.7 Monocytes % 7.1 Eosinophils % 4.7 Basophils % 0.6 Nucleated Red Blood Cells % 0.0 Neutrophils # 8.2 H Lymphocytes # 2.4 Monocytes # 0.9 Eosinophils # 0.6 H Basophils # 0.1 Nucleated Red Blood Cells # 0.0 Sodium Level 141 Potassium Level 4.3 Chloride Level 106 Carbon Dioxide Level 28 Anion Gap 11 Blood Urea Nitrogen 18 Creatinine 1.32 H Glucose Level 157 Calcium Level 9.0 Phosphorus Level 5.1 H Magnesium Level 1.8 Test 06/23/17 11:35 Bedside Glucose 118 Medications Current Medications Allopurinol (Zyloprim) 100 mg BID PO Last administered on 06/23/17 09:09; Admin Dose 100 MG; Start 06/17/17 at 09:00 Amiodarone HCl (Cordarone) 100 mg DAILY PO Last administered on 06/23/17 09: 09; Admin Dose 100 MG; Start 06/17/17 at 09:00 Aspirin (Halfprin) 81 mg DAILY PO Last administered on 06/18/17 09:02; Admin Dose 81 MG; Start 06/17/17 at 09:00; Status Future Hold Cholecalciferol (Vitamin D) 1,000 unit DAILY PO Last administered on 09:09; Admin Dose 1,000 UNIT; Start 06/17/17 at 09:00 Clopidogrel Bisulfate (plaVIX) 75 mg DAILY PO Last administered on 06/23/17 09:08; Admin Dose 75 MG; Start 06/17/17 at 09:00 Gabapentin (Neurontin) 300 mg BID PO Last administered on 06/23/17 09:08; Admin Dose 300 MG; Start 06/17/17 at 09:00 Methimazole (Tapazole) 2.5 mg DAILY PO Last administered on 06/23/17 09:09; Admin Dose 2.5 MG; Start 06/17/17 at 09:00 Multivitamins Therapeutic (Theragran) 1 tab DAILY PO Last administered on 06/23 09:07; Admin Dose 1 TAB; Start 06/17/17 at 09:00 Polyethylene Glycol (Miralax) 17 gm DAILY PO Last administered on 06/23/17 09 :08; Admin Dose 17 GM; Start 06/17/17 at 09:00 Rosuvastatin Calcium (Crestor) 40 mg QHS PO Last administered on 06/22/17 20: 22; Admin Dose 40 MG; Start 06/17/17 at 21:00 Insulin Glargine (Lantus) 40 unit DAILY@08 SC Last administered on 06/23/17 07:57; Admin Dose 40 UNIT; Start 06/17/17 at 08:00 Insulin Glargine (Lantus) 45 unit DAILY@20 SC Last administered on 06/22/17 20:34; Admin Dose 45 UNIT; Start 06/17/17 at 20:00 Diagnostic Test (Pha) 1 ea 1 ea 02 XX Last administered on 06/22/17 02:20; Admin Dose 1 EA; Start 06/18/17 at 02:00 Piperacillin Sod/ Tazobactam Sod (Zosyn 3.375gm/ 50 ml (Pmx)) 50 ml @ 100 mls/ hr Q8 IVPB Last administered on 06/23/17 13:20; Admin Dose 100 MLS/HR; Start 06/17/17 at 14:00 Miscellaneous Information (Pending [facility] Order For Wound Care) This patient hauser... PRN PRN XX WOUND CARE; Start 06/17/17 at 11:30 Acetaminophen/ Hydrocodone Bitart ([employer] (5/325)) 1 tab Q4H PRN PO PAIN LEVEL 4 -6 Last administered on 06/23/17 13:36; Admin Dose 1 TAB; Start 06/17/17 at 14:30 Acetaminophen (Tylenol Tab) 500 mg Q6H PRN PO PAIN AND OR ELEVATED TEMP Last administered on 06/21/17 23:41; Admin Dose 500 MG; Start 06/17/17 at 21:30 Miscellaneous Information 1 ea NOTE XX ; Start 06/18/17 at 11:00 Glucose (Glutose) 15 gm Q15M PRN PO DECREASED GLUCOSE; Start 06/18/17 at 11:00 Glucose (Glutose) 22.5 gm Q15M PRN PO DECREASED GLUCOSE; Start 06/18/17 at 11: 00 Dextrose (D50w Syringe) 25 ml Q15M PRN IV DECREASED GLUCOSE; Start 06/18/17 at 11:00 Dextrose (D50w Syringe) 50 ml Q15M PRN IV DECREASED GLUCOSE; Start 06/18/17 at 11:00 Glucagon (Glucagen) 1 mg Q15M PRN IM DECREASED GLUCOSE; Start 06/18/17 at 11: 00 Glucose (Glutose) 15 gm Q15M PRN BUCCAL DECREASED GLUCOSE; Start 06/18/17 at 11:00 Carvedilol (Coreg) 3.125 mg BID PO Last administered on 06/23/17 09:08; Admin Dose 3.125 MG; Start 06/20/17 at 09:00 Losartan Potassium (Cozaar) 25 mg DAILY PO Last administered on 06/23/17 09: 10; Admin Dose 25 MG; Start 06/20/17 at 09:00 Enoxaparin Sodium 30 mg 30 mg DAILY SC Last administered on 06/23/17 09:14; Admin Dose 30 MG; Start 06/20/17 at 09:00 Vancomycin HCl/ Sodium Chloride (Vancocin/NS) 250 ml @ 83.333 mls/ hr Q12H IVPB Last administered on 06/23/17 02:57; Admin Dose 83.333 MLS/HR; Start at 15:00 Morphine Sulfate (morphine) 2 mg Q4H PRN IV severe pain Last administered on 20:23; Admin Dose 2 MG; Start 06/22/17 at 15:31 Oxycodone HCl (Oxycontin) 10 mg BID PO Last administered on 06/23/17 10:16; Admin Dose 10 MG; Start 06/23/17 at 10:00 Miscellaneous Information (*Rx Drug Level Order Reminder*) VANCOMYCIN TROUGH AT 0200 ONCE ONCE XX ; Start 06/24/17 at 02:00; Stop 06/24/17 at 02:01 Assessment/Plan Chief Complaint/Hosp Course IMPRESSION AND PLAN: 1. Obstructive sleep apnea, currently requiring his continued home CPAP device. 2. Peripheral ischemia concerning for worsening gangrene. 3. Peripheral artery disease, status post right below-knee amputation. 4. Diabetes mellitus. 5. Chronic kidney disease. Plan 1. Continue vascular recommendations. Antibiotics and anticoagulation, continue wound care 2. Continue broad-spectrum antibiotics. 3. Continue tight glycemic control. 4. Deep venous thrombosis and gastrointestinal prophylaxis. 5. Continue home CPAP device. Problems: VANITA GUILLERMO MD, [facility] Jun 23, 2017 14:43
--- NOTE | 2017-06-23 14:56 | CONS ---
Date/Time of Note Date/Time of Note DATE: 06/23/17 TIME: 14:52 Consult Date/Type/Reason Admit Date/Time Jun 17, 2017 at 01:20 Type of Consultation: id Ordering Provider: DANYELLE GUY DO Objective Vital Signs Date Time Temp Pulse Resp B/P Pulse Ox O2 Delivery O2 Flow Rate FiO2 06/23/17 12:14 59 06/23/17 11:18 98.2 19 99/51 96 06/22/17 23:00 2.0 06/20/17 04:23 28 06/19/17 14:16 Nasal Cannula Intake and Output 06/22/17 06/22/17 06/23/17 15:00 23:00 07:00 Intake Total 50 ml 300 ml Output Total 1300 ml Balance 50 ml -1000 ml Results/Medications Result Diagram: 06/23/17 0556 06/23/17 0556 Results 24 hrs Laboratory Tests Test 06/22/17 17:27 06/22/17 20:18 06/23/17 05:56 06/23/17 07:44 Bedside Glucose 132 154 142 White Blood Count 12.3 H Red Blood Count 3.49 L Hemoglobin 9.3 L Hematocrit 29.7 L Mean Corpuscular Volume 85.1 Mean Corpuscular Hemoglobin 26.6 L Mean Corpuscular Hemoglobin Concent 31.3 L Red Cell Distribution Width 15.7 H Platelet Count 341 Mean Platelet Volume 9.6 Neutrophils % 66.8 Lymphocytes % 19.7 Monocytes % 7.1 Eosinophils % 4.7 Basophils % 0.6 Nucleated Red Blood Cells % 0.0 Neutrophils # 8.2 H Lymphocytes # 2.4 Monocytes # 0.9 Eosinophils # 0.6 H Basophils # 0.1 Nucleated Red Blood Cells # 0.0 Sodium Level 141 Potassium Level 4.3 Chloride Level 106 Carbon Dioxide Level 28 Anion Gap 11 Blood Urea Nitrogen 18 Creatinine 1.32 H Glucose Level 157 Calcium Level 9.0 Phosphorus Level 5.1 H Magnesium Level 1.8 Test 06/23/17 11:35 Bedside Glucose 118 Medications Current Medications Allopurinol (Zyloprim) 100 mg BID PO Last administered on 06/23/17 09:09; Admin Dose 100 MG; Start 06/17/17 at 09:00 Amiodarone HCl (Cordarone) 100 mg DAILY PO Last administered on 06/23/17 09: 09; Admin Dose 100 MG; Start 06/17/17 at 09:00 Aspirin (Halfprin) 81 mg DAILY PO Last administered on 06/18/17 09:02; Admin Dose 81 MG; Start 06/17/17 at 09:00; Status Future Hold Cholecalciferol (Vitamin D) 1,000 unit DAILY PO Last administered on 09:09; Admin Dose 1,000 UNIT; Start 06/17/17 at 09:00 Clopidogrel Bisulfate (plaVIX) 75 mg DAILY PO Last administered on 06/23/17 09:08; Admin Dose 75 MG; Start 06/17/17 at 09:00 Gabapentin (Neurontin) 300 mg BID PO Last administered on 06/23/17 09:08; Admin Dose 300 MG; Start 06/17/17 at 09:00 Methimazole (Tapazole) 2.5 mg DAILY PO Last administered on 06/23/17 09:09; Admin Dose 2.5 MG; Start 06/17/17 at 09:00 Multivitamins Therapeutic (Theragran) 1 tab DAILY PO Last administered on 06/23 09:07; Admin Dose 1 TAB; Start 06/17/17 at 09:00 Polyethylene Glycol (Miralax) 17 gm DAILY PO Last administered on 06/23/17 09 :08; Admin Dose 17 GM; Start 06/17/17 at 09:00 Rosuvastatin Calcium (Crestor) 40 mg QHS PO Last administered on 06/22/17 20: 22; Admin Dose 40 MG; Start 06/17/17 at 21:00 Insulin Glargine (Lantus) 40 unit DAILY@08 SC Last administered on 06/23/17 07:57; Admin Dose 40 UNIT; Start 06/17/17 at 08:00 Insulin Glargine (Lantus) 45 unit DAILY@20 SC Last administered on 06/22/17 20:34; Admin Dose 45 UNIT; Start 06/17/17 at 20:00 Diagnostic Test (Pha) 1 ea 1 ea 02 XX Last administered on 06/22/17 02:20; Admin Dose 1 EA; Start 06/18/17 at 02:00 Piperacillin Sod/ Tazobactam Sod (Zosyn 3.375gm/ 50 ml (Pmx)) 50 ml @ 100 mls/ hr Q8 IVPB Last administered on 06/23/17 13:20; Admin Dose 100 MLS/HR; Start 06/17/17 at 14:00 Miscellaneous Information (Pending [facility] Order For Wound Care) This patient hauser... PRN PRN XX WOUND CARE; Start 06/17/17 at 11:30 Acetaminophen/ Hydrocodone Bitart ([place] (5/325)) 1 tab Q4H PRN PO PAIN LEVEL 4 -6 Last administered on 06/23/17 13:36; Admin Dose 1 TAB; Start 06/17/17 at 14:30 Acetaminophen (Tylenol Tab) 500 mg Q6H PRN PO PAIN AND OR ELEVATED TEMP Last administered on 06/21/17 23:41; Admin Dose 500 MG; Start 06/17/17 at 21:30 Miscellaneous Information 1 ea NOTE XX ; Start 06/18/17 at 11:00 Glucose (Glutose) 15 gm Q15M PRN PO DECREASED GLUCOSE; Start 06/18/17 at 11:00 Glucose (Glutose) 22.5 gm Q15M PRN PO DECREASED GLUCOSE; Start 06/18/17 at 11: 00 Dextrose (D50w Syringe) 25 ml Q15M PRN IV DECREASED GLUCOSE; Start 06/18/17 at 11:00 Dextrose (D50w Syringe) 50 ml Q15M PRN IV DECREASED GLUCOSE; Start 06/18/17 at 11:00 Glucagon (Glucagen) 1 mg Q15M PRN IM DECREASED GLUCOSE; Start 06/18/17 at 11: 00 Glucose (Glutose) 15 gm Q15M PRN BUCCAL DECREASED GLUCOSE; Start 06/18/17 at 11:00 Carvedilol (Coreg) 3.125 mg BID PO Last administered on 06/23/17 09:08; Admin Dose 3.125 MG; Start 06/20/17 at 09:00 Losartan Potassium (Cozaar) 25 mg DAILY PO Last administered on 06/23/17 09: 10; Admin Dose 25 MG; Start 06/20/17 at 09:00 Enoxaparin Sodium 30 mg 30 mg DAILY SC Last administered on 06/23/17 09:14; Admin Dose 30 MG; Start 06/20/17 at 09:00 Vancomycin HCl/ Sodium Chloride (Vancocin/NS) 250 ml @ 83.333 mls/ hr Q12H IVPB Last administered on 06/23/17 02:57; Admin Dose 83.333 MLS/HR; Start at 15:00 Morphine Sulfate (morphine) 2 mg Q4H PRN IV severe pain Last administered on 20:23; Admin Dose 2 MG; Start 06/22/17 at 15:31 Oxycodone HCl (Oxycontin) 10 mg BID PO Last administered on 06/23/17 10:16; Admin Dose 10 MG; Start 06/23/17 at 10:00 Miscellaneous Information (*Rx Drug Level Order Reminder*) VANCOMYCIN TROUGH AT 0200 ONCE ONCE XX ; Start 06/24/17 at 02:00; Stop 06/24/17 at 02:01 Assessment/Plan Chief Complaint/Hosp Course SUBJECTIVE: No acute changes, alert, feels good, no fevers. DIAGNOSTICS: Chest x-ray was negative. ANTIMICROBIALS: 1. Vancomycin. 2. Zosyn. PHYSICAL EXAMINATION: GENERAL: This is a morbidly obese elderly man who is awake, in no distress. HEENT: Head atraumatic, normocephalic. Sclerae anicteric. Buccal mucosa pink. NECK: Supple. CHEST: Rise symmetrical. Breath sounds diminished to bases. HEART: S1, S2. ABDOMEN: Soft, bowel tones present. EXTREMITIES: With right LE stump dsg intact. Left foot with dry scab ASSESSMENT: 1. Systemic inflammatory response syndrome with low grade fevers and leukocytosis. 2. 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 3. Peripheral vascular disease 4. Diabetes. 5. Coronary artery disease, history of coronary artery bypass graft. 6. Chronic kidney disease. 7. History of hypertension. 8. Morbid obesity. PLAN: The patient remains stable, per dw with dr Gill will keep on IV abx for 2 more weeks, will order PICC and ask CM to make arrangement with for wound care and abx. Will change abx to Daptomycin and Rocephin VIJI pt/family Problems: LANE URBINA NP Jun 23, 2017 14:56
[2017-06-23] MEDS ORDERED: LIDOCAINE 1% (MPF) 5 ML VIAL SC ONE ×2 (15:00)
[2017-06-23] MEDS: CEFTRIAXONE 1 GM/50 ML (PMX) 50 ML IVPB SCH (15:05)
--- NOTE | 2017-06-23 16:12 | CONS ---
Date/Time of Note Date/Time of Note DATE: 06/23/17 TIME: 16:07 Consult Date/Type/Reason Admit Date/Time Jun 17, 2017 at 01:20 Type of Consultation: id Ordering Provider: DANYELLE GUY DO Subjective cardiology follow up note: S: Discussed with staff and rhythm was reviewed. pt remains in NSR. HR is under control now d/w . pt and family want to go home and not to rehab/ SNF. pt denies any chest pain or pressure to me he denies any PND orthopnea to me. He denies any wheezing or shortness of breath to me. S/P R AKA 06/19/17 he c/o pain on left leg now improved with morphine O: General: no acute distress. obese man HEENT: NC/AT. pupils are equal. round. NECK: NO JVD. no stridor. CV: RRR. systolic murmur; no gallop or rubs. PULM: no wheezing or rhonchi. GI: SOFT, NT, ND, no rebound or guarding obese. Extremity: s/p R AKA in dressing . s/p left toe amputation neuro: awake and alert, OX3. Psych: calm and pleasant rectal: deferred Objective Vital Signs Date Time Temp Pulse Resp B/P Pulse Ox O2 Delivery O2 Flow Rate FiO2 06/23/17 15:21 97.6 60 19 93/51 98 06/22/17 23:00 2.0 06/20/17 04:23 28 06/19/17 14:16 Nasal Cannula Intake and Output 06/22/17 06/22/17 06/23/17 15:00 23:00 07:00 Intake Total 50 ml 300 ml Output Total 1300 ml Balance 50 ml -1000 ml Results/Medications Result Diagram: 06/23/17 0556 06/23/17 0556 Results 24 hrs Laboratory Tests Test 06/22/17 17:27 06/22/17 20:18 06/23/17 05:56 06/23/17 07:44 Bedside Glucose 132 154 142 White Blood Count 12.3 H Red Blood Count 3.49 L Hemoglobin 9.3 L Hematocrit 29.7 L Mean Corpuscular Volume 85.1 Mean Corpuscular Hemoglobin 26.6 L Mean Corpuscular Hemoglobin Concent 31.3 L Red Cell Distribution Width 15.7 H Platelet Count 341 Mean Platelet Volume 9.6 Neutrophils % 66.8 Lymphocytes % 19.7 Monocytes % 7.1 Eosinophils % 4.7 Basophils % 0.6 Nucleated Red Blood Cells % 0.0 Neutrophils # 8.2 H Lymphocytes # 2.4 Monocytes # 0.9 Eosinophils # 0.6 H Basophils # 0.1 Nucleated Red Blood Cells # 0.0 Sodium Level 141 Potassium Level 4.3 Chloride Level 106 Carbon Dioxide Level 28 Anion Gap 11 Blood Urea Nitrogen 18 Creatinine 1.32 H Glucose Level 157 Calcium Level 9.0 Phosphorus Level 5.1 H Magnesium Level 1.8 Test 06/23/17 11:35 Bedside Glucose 118 Medications Current Medications Allopurinol (Zyloprim) 100 mg BID PO Last administered on 06/23/17 09:09; Admin Dose 100 MG; Start 06/17/17 at 09:00 Amiodarone HCl (Cordarone) 100 mg DAILY PO Last administered on 06/23/17 09: 09; Admin Dose 100 MG; Start 06/17/17 at 09:00 Aspirin (Halfprin) 81 mg DAILY PO Last administered on 06/18/17 09:02; Admin Dose 81 MG; Start 06/17/17 at 09:00; Status Future Hold Cholecalciferol (Vitamin D) 1,000 unit DAILY PO Last administered on 09:09; Admin Dose 1,000 UNIT; Start 06/17/17 at 09:00 Clopidogrel Bisulfate (plaVIX) 75 mg DAILY PO Last administered on 06/23/17 09:08; Admin Dose 75 MG; Start 06/17/17 at 09:00 Gabapentin (Neurontin) 300 mg BID PO Last administered on 06/23/17 09:08; Admin Dose 300 MG; Start 06/17/17 at 09:00 Methimazole (Tapazole) 2.5 mg DAILY PO Last administered on 06/23/17 09:09; Admin Dose 2.5 MG; Start 06/17/17 at 09:00 Multivitamins Therapeutic (Theragran) 1 tab DAILY PO Last administered on 06/23 09:07; Admin Dose 1 TAB; Start 06/17/17 at 09:00 Polyethylene Glycol (Miralax) 17 gm DAILY PO Last administered on 06/23/17 09 :08; Admin Dose 17 GM; Start 06/17/17 at 09:00 Rosuvastatin Calcium (Crestor) 40 mg QHS PO Last administered on 06/22/17 20: 22; Admin Dose 40 MG; Start 06/17/17 at 21:00 Insulin Glargine (Lantus) 40 unit DAILY@08 SC Last administered on 06/23/17 07:57; Admin Dose 40 UNIT; Start 06/17/17 at 08:00 Insulin Glargine (Lantus) 45 unit DAILY@20 SC Last administered on 06/22/17 20:34; Admin Dose 45 UNIT; Start 06/17/17 at 20:00 Diagnostic Test (Pha) (Accu-Chek) 1 ea 02 XX Last administered on 06/22/17 02 :20; Admin Dose 1 EA; Start 06/18/17 at 02:00 Miscellaneous Information (Pending [facility] Order For Wound Care) This patient [facility]... PRN PRN XX WOUND CARE; Start 06/17/17 at 11:30 Acetaminophen/ Hydrocodone Bitart ([place] (5/325)) 1 tab Q4H PRN PO PAIN LEVEL 4 -6 Last administered on 06/23/17 13:36; Admin Dose 1 TAB; Start 06/17/17 at 14:30 Acetaminophen (Tylenol Tab) 500 mg Q6H PRN PO PAIN AND OR ELEVATED TEMP Last administered on 06/21/17 23:41; Admin Dose 500 MG; Start 06/17/17 at 21:30 Miscellaneous Information 1 ea NOTE XX ; Start 06/18/17 at 11:00 Glucose (Glutose) 15 gm Q15M PRN PO DECREASED GLUCOSE; Start 06/18/17 at 11:00 Glucose (Glutose) 22.5 gm Q15M PRN PO DECREASED GLUCOSE; Start 06/18/17 at 11: 00 Dextrose (D50w Syringe) 25 ml Q15M PRN IV DECREASED GLUCOSE; Start 06/18/17 at 11:00 Dextrose (D50w Syringe) 50 ml Q15M PRN IV DECREASED GLUCOSE; Start 06/18/17 at 11:00 Glucagon (Glucagen) 1 mg Q15M PRN IM DECREASED GLUCOSE; Start 06/18/17 at 11: 00 Glucose (Glutose) 15 gm Q15M PRN BUCCAL DECREASED GLUCOSE; Start 06/18/17 at 11:00 Carvedilol (Coreg) 3.125 mg BID PO Last administered on 06/23/17 09:08; Admin Dose 3.125 MG; Start 06/20/17 at 09:00 Losartan Potassium (Cozaar) 25 mg DAILY PO Last administered on 06/23/17 09: 10; Admin Dose 25 MG; Start 06/20/17 at 09:00 Enoxaparin Sodium (Lovenox) 30 mg DAILY SC Last administered on 06/23/17 09: 14; Admin Dose 30 MG; Start 06/20/17 at 09:00 Morphine Sulfate (morphine) 2 mg Q4H PRN IV severe pain Last administered on 20:23; Admin Dose 2 MG; Start 06/22/17 at 15:31 Oxycodone HCl (Oxycontin) 10 mg BID PO Last administered on 06/23/17 10:16; Admin Dose 10 MG; Start 06/23/17 at 10:00 Miscellaneous Information VANCOMYCIN TROUGH AT 0200 ONCE ONCE XX ; Start 06/24/17 at 02:00; Stop 06/24/17 at 02:01 Daptomycin 650 mg/ Sodium Chloride 100 ml @ 200 mls/hr Q24H IVPB ; Start 06/23 at 17:00 Ceftriaxone Sodium (Rocephin) 50 ml @ 100 mls/hr Q24H IVPB Last administered on 06/23/17 15:05; Admin Dose 100 MLS/HR; Start 06/23/17 at 15:00 Assessment/Plan Chief Complaint/Hosp Course 1. CAD; STABLE WITH NO ANGINA. 2. HX CABG 3. HX SC 4. HX multiple PCI 5. Severe PAD 6. S/P Previous LE revascularizations 7. 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 hx hyperthyroidism: TSH is wnl on 06/06/17 10. hx VT s/p ICD 11. CHF: chronic and stable due to systolic heart failure 12. dyslipidemia: on statin 13. CKD 14. Debility 15. Markedly elevated CK: probably related to recent surgery. improved now 16. fever and leukocystosis. Recommendations: I will CONT coreg and losartan. CONT corlanor. cont Plavix on crestor . CK is wnl now. Diabetic management as per internal medicine. Physical therapy and rehab will be continued. nightly CPAP . abx as per ID rec. dc planning is in process. will f/u in office in 2 weeks on Thank you for his referral. I will continue to follow along with you. SALVADOR BARRETO MD [facility] Problems: SALVADOR BARRETO MD Jun 23, 2017 16:12
[2017-06-23] MEDS: DAPTOMYCIN 650 MG in SOD CHLORIDE 0.9% 100 ML IVPB SCH (16:42)
[2017-06-23] MEDS: ROSUVASTATIN CALCIUM 40 MG TABLET PO SCH (20:25)
[2017-06-24] VITALS (12 sets, daily range): BP systolic 90–103; BP diastolic 53–63; PULSE 59–64; RESP 18–20
[2017-06-24] MEDS: ACCU-CHEK XX SCH (02:43)
[2017-06-24 07:36] LABS: BASOPHIL # 0.1 10^3/ul (0.0-0.1); BASOPHILS % 0.7 % (0.0-2.0); EOSINOPHILS # 0.6 10^3/ul (0.0-0.5); EOSINOPHILS % 5.2 % (0.0-7.0); HEMOGLOBIN 9.5 g/dl (14.0-18.0); LYMPHOCYTES # 2.3 10^3/ul (0.8-2.9); LYMPHOCYTES % 21.1 % (15.0-51.0); MEAN CORPUSCULAR HEMOGLOBIN 26.8 pg (29.0-33.0); MEAN CORPUSCULAR HGB CONC 31.7 g/dl (32.0-37.0); MEAN CORPUSCULAR VOLUME 84.7 fl (82.0-101.0); MEAN PLATELET VOLUME 9.6 fl (7.4-10.4); MONOCYTE # 0.8 10^3/ul (0.3-0.9); MONOCYTES % 7.3 % (0.0-11.0); NEUTROPHIL # 6.9 10^3/ul (1.6-7.5); NEUTROPHILS % 64.4 % (39.0-77.0); PLATELET COUNT 361 10^3/UL (140-415); RED BLOOD COUNT 3.54 10^6/ul (4.70-6.10); RED CELL DISTRIBUTION WIDTH 15.6 % (11.5-14.5); WHITE BLOOD COUNT 10.8 10^3/ul (4.8-10.8)
[2017-06-24 08:04] LABS: CALCIUM 8.9 mg/dl (8.4-10.2); CREATININE 1.21 mg/dl (0.61-1.24); MAGNESIUM 1.8 mg/dl (1.7-2.5); PHOSPHORUS 4.4 mg/dl (2.5-4.9); POTASSIUM 4.5 mmol/L (3.5-5.1)
--- NOTE | 2017-06-24 09:28 | PN ---
DATE: 06/24/2017 SUBJECTIVE: The patient is stable. No events overnight. No fevers, chills, nausea, vomiting. OBJECTIVE: VITAL SIGNS: Blood pressure is 98/63, respiration 19, pulse 68, temperature 98.6. HEENT: Head is normocephalic. NECK: Supple. HEART: Regular rate. LUNGS: Show diminished breath sounds at the base. ABDOMEN: Soft, nontender to palpation. No rebound or guarding. EXTREMITIES: Negative for clubbing, cyanosis, no edema. The patient has a right above-knee amputat ion. DERMATOLOGIC: No rashes. MUSCULOSKELETAL: No joint effusions. NEUROLOGIC: No change in exam. MEDICATIONS: Have been reviewed. LABORATORY DATA: Shows a white count 10.8, hemoglobin 9.5, hematocrit 30.0, platelet count is 361. BMP within normal limits. ASSESSMENT AND PLAN: 1. Peripheral vascular disease, status post right above-knee amputation. The patient is currently stable on IV antibiotics. We will continue for another 14 days. Follow up with vascular surgery in outpatient setting. 2. Sepsis secondary to right knee cellulitis and abscess. The patient is status post amputation. Continue IV antibiotics per infectious disease. 3. Sleep apnea. Continue CPAP. 4. Chronic kidney disease, stage IIIB/IV. The patient's renal function has been stable. Continue current treatment plan, supportive care, renally dose all meds. 5. Mineral bone disorder. Monitor calcium and phosphorus levels. 6. Coronary artery disease. Continue current treatment plan. 7. Diabetes. Continue current insulin regimen. 8. Congestive heart failure. Continue current medical management. 9. Dyslipidemia. Continue statin therapy. 10. Sinus arrhythmia. Continue amiodarone. 11. Hypothyroidism. Continue Tapazole. 12. Left lower extremity wounds. Continue local wound care. 13. Gastrointestinal and deep venous thrombosis prophylaxis. DISPOSITION: Anticipate discharge home with a PICC line, IV antibiotics and home health in the next 1 to 2 days. Dictated By: DANYELLE FRANCOIS/SURENDRA Conf#: [id number] DID#: [id number]
[2017-06-24] MEDS: METHIMAZOLE 5 MG TAB PO SCH (09:40)
[2017-06-24] MEDS: IVABRADINE HCL 5 MG TABLET PO SCH ×2 (09:41→17:47)
[2017-06-24] MEDS: ALLOPURINOL 100 MG TAB PO SCH ×2 (09:41→20:52)
[2017-06-24] MEDS: MULTIVITAMINS THERAPEUTIC TAB PO SCH (09:41)
[2017-06-24] MEDS: CHOLECALCIFEROL 1,000 UNIT TAB PO SCH (09:41)
[2017-06-24] MEDS: GABAPENTIN 300 MG CAP PO SCH ×2 (09:41→20:50)
[2017-06-24] MEDS: CLOPIDOGREL 75 MG TAB PO SCH (09:42)
[2017-06-24] MEDS: POLYETHYLENE GLYCOL 17 GM PACKET PO SCH (09:43)
[2017-06-24] MEDS: AMIODARONE 200 MG TAB PO SCH (09:43)
[2017-06-24] MEDS: INSULIN ASPART [NOVOLOG] 3 ML PEN SC SCH ×7 (09:44→20:55)
[2017-06-24] MEDS: oxyCODONE (CR) 10 MG TAB [oxyCONTIN] PO SCH ×2 (09:46→20:51)
[2017-06-24] MEDS: ENOXAPARIN 30 MG/0.3 ML SYG SC SCH (09:49)
[2017-06-24] MEDS: INSULIN GLARGINE [LANtus] 3 ML PEN SC SCH ×2 (09:50→20:54)
--- NOTE | 2017-06-24 12:01 | CONS ---
Date/Time of Note Date/Time of Note DATE: 06/24/17 TIME: 11:59 Assessment/Plan Assessment/Plan Additional Assessment/Plan Assessment and recommendations; 1. Patient admitted with sepsis from right above-knee amputation wound infection. Clinically improved. 2. Underlying other comorbidities including hyperthyroidism, chronic renal insufficiency, peripheral vascular disease, hypertension and obstructive sleep apnea. They all appear fairly stable at this point. Continue current supportive care. Consultation Date/Type/Reason Admit Date/Time Jun 17, 2017 at 01:20 Type of Consultation: Pulmonary Referring Provider: DANYELLE GUY DO 24 HR Interval Summary Free Text/Dictation Patient's condition is stable. Remains awake and alert. Has remained hemodynamically stable. General exam; elderly male, awake and alert. Currently in no distress. Exam/Review of Systems Vital Signs Vitals Vital Signs Date Time Temp Pulse Resp B/P Pulse Ox O2 Delivery O2 Flow Rate FiO2 06/24/17 11:56 98.3 67 20 90/53 93 06/23/17 23:00 2.0 Intake and Output 06/23/17 06/23/17 06/24/17 14:59 22:59 06:59 Intake Total 50 ml 1010 ml 250 ml Output Total 620 ml 550 ml Balance 50 ml 390 ml -300 ml Exam HEENT exam; supple neck, no JVD. No lymphadenopathy. Midline trachea. No thyromegaly. Patient is edentulous. Chest exam; diminished but clear breath sounds. S1-S2 audible, no murmurs. Regular rhythm. Abdomen exam; soft, nondistended. No organomegaly. Bowel sounds audible. Extremity exam; no edema. There is a dressing applied over right above-knee amputation stump. 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 Results Result Diagram: 06/24/17 0639 06/24/17 0639 Results 24 hrs Laboratory Tests Test 06/23/17 17:40 06/23/17 20:22 06/24/17 02:11 06/24/17 06:39 Bedside Glucose 143 182 119 White Blood Count 10.8 Red Blood Count 3.54 L Hemoglobin 9.5 L Hematocrit 30.0 L Mean Corpuscular Volume 84.7 Mean Corpuscular Hemoglobin 26.8 L Mean Corpuscular Hemoglobin Concent 31.7 L Red Cell Distribution Width 15.6 H Platelet Count 361 Mean Platelet Volume 9.6 Neutrophils % 64.4 Lymphocytes % 21.1 Monocytes % 7.3 Eosinophils % 5.2 Basophils % 0.7 Nucleated Red Blood Cells % 0.0 Neutrophils # 6.9 Lymphocytes # 2.3 Monocytes # 0.8 Eosinophils # 0.6 H Basophils # 0.1 Nucleated Red Blood Cells # 0.0 Sodium Level 140 Potassium Level 4.5 Chloride Level 105 Carbon Dioxide Level 27 Anion Gap 13 Blood Urea Nitrogen 17 Creatinine 1.21 Glucose Level 107 # Calcium Level 8.9 Phosphorus Level 4.4 Magnesium Level 1.8 Creatine Kinase 42 Test 06/24/17 08:54 Bedside Glucose 122 Medications Medications Current Medications Allopurinol (Zyloprim) 100 mg BID PO Last administered on 06/24/17 09:41; Admin Dose 100 MG; Start 06/17/17 at 09:00 Amiodarone HCl (Cordarone) 100 mg DAILY PO Last administered on 06/24/17 09: 43; Admin Dose 100 MG; Start 06/17/17 at 09:00 Aspirin (Halfprin) 81 mg DAILY PO Last administered on 06/18/17 09:02; Admin Dose 81 MG; Start 06/17/17 at 09:00; Status Future Hold Cholecalciferol (Vitamin D) 1,000 unit DAILY PO Last administered on 09:41; Admin Dose 1,000 UNIT; Start 06/17/17 at 09:00 Clopidogrel Bisulfate (plaVIX) 75 mg DAILY PO Last administered on 06/24/17 09:42; Admin Dose 75 MG; Start 06/17/17 at 09:00 Gabapentin (Neurontin) 300 mg BID PO Last administered on 06/24/17 09:41; Admin Dose 300 MG; Start 06/17/17 at 09:00 Methimazole (Tapazole) 2.5 mg DAILY PO Last administered on 06/24/17 09:40; Admin Dose 2.5 MG; Start 06/17/17 at 09:00 Multivitamins Therapeutic (Theragran) 1 tab DAILY PO Last administered on 06/24 09:41; Admin Dose 1 TAB; Start 06/17/17 at 09:00 Polyethylene Glycol (Miralax) 17 gm DAILY PO Last administered on 06/24/17 09 :43; Admin Dose 17 GM; Start 06/17/17 at 09:00 Rosuvastatin Calcium (Crestor) 40 mg QHS PO Last administered on 06/23/17 20: 25; Admin Dose 40 MG; Start 06/17/17 at 21:00 Insulin Glargine (Lantus) 40 unit DAILY@08 SC Last administered on 06/24/17 09:50; Admin Dose 40 UNIT; Start 06/17/17 at 08:00 Insulin Glargine (Lantus) 45 unit DAILY@20 SC Last administered on 06/23/17 20:35; Admin Dose 45 UNIT; Start 06/17/17 at 20:00 Diagnostic Test (Pha) (Accu-Chek) 1 ea 02 XX Last administered on 06/24/17 02 :43; Admin Dose 1 EA; Start 06/18/17 at 02:00 Miscellaneous Information (Pending Santyl Order For Wound Care) This patient hauser... PRN PRN XX WOUND CARE; Start 06/17/17 at 11:30 Acetaminophen/ Hydrocodone Bitart ([place] (5/325)) 1 tab Q4H PRN PO PAIN LEVEL 4 -6 Last administered on 06/23/17 17:39; Admin Dose 1 TAB; Start 06/17/17 at 14:30 Acetaminophen (Tylenol Tab) 500 mg Q6H PRN PO PAIN AND OR ELEVATED TEMP Last administered on 06/21/17 23:41; Admin Dose 500 MG; Start 06/17/17 at 21:30 Miscellaneous Information 1 ea NOTE XX ; Start 06/18/17 at 11:00 Glucose (Glutose) 15 gm Q15M PRN PO DECREASED GLUCOSE; Start 06/18/17 at 11:00 Glucose (Glutose) 22.5 gm Q15M PRN PO DECREASED GLUCOSE; Start 06/18/17 at 11: 00 Dextrose (D50w Syringe) 25 ml Q15M PRN IV DECREASED GLUCOSE; Start 06/18/17 at 11:00 Dextrose (D50w Syringe) 50 ml Q15M PRN IV DECREASED GLUCOSE; Start 06/18/17 at 11:00 Glucagon (Glucagen) 1 mg Q15M PRN IM DECREASED GLUCOSE; Start 06/18/17 at 11: 00 Glucose (Glutose) 15 gm Q15M PRN BUCCAL DECREASED GLUCOSE; Start 06/18/17 at 11:00 Carvedilol (Coreg) 3.125 mg BID PO Last administered on 06/24/17 09:43; Admin Dose 3.125 MG; Start 06/20/17 at 09:00 Losartan Potassium (Cozaar) 25 mg DAILY PO Last administered on 06/23/17 09: 10; Admin Dose 25 MG; Start 06/20/17 at 09:00 Enoxaparin Sodium (Lovenox) 30 mg DAILY SC Last administered on 06/24/17 09: 49; Admin Dose 30 MG; Start 06/20/17 at 09:00 Morphine Sulfate (morphine) 2 mg Q4H PRN IV severe pain Last administered on 20:23; Admin Dose 2 MG; Start 06/22/17 at 15:31 Oxycodone HCl 10 mg 10 mg BID PO Last administered on 06/24/17 09:46; Admin Dose 10 MG; Start 06/23/17 at 10:00 Daptomycin 650 mg/ Sodium Chloride 100 ml @ 200 mls/hr Q24H IVPB Last administered on 06/23/17 16:42; Admin Dose 200 MLS/HR; Start 06/23/17 at 17: 00 Ceftriaxone Sodium (Rocephin) 50 ml @ 100 mls/hr Q24H IVPB Last administered on 06/23/17 15:05; Admin Dose 100 MLS/HR; Start 06/23/17 at 15:00 MITESH FRY Jun 24, 2017 12:01
[2017-06-24] MEDS: LOSARTAN 25 MG TAB PO SCH (12:52)
--- NOTE | 2017-06-24 13:08 | RADRPT ---
PROCEDURE: US guidance for PICC line CLINICAL INDICATION: PICC line placement TECHNIQUE: Multiple real-time images were acquired of the patient's arm utilizing a high resolutio n transducer. This was performed by the PICC line nurse for venous access. COMPARISON: None FINDINGS: Ultrasound guidance for PICC line placement. IMPRESSION: Ultrasound guidance for PICC line placement. RPTAT: AA .Yahir Landaverde MD, MD Date Time Electronically viewed and signed by .Yahir Landaverde MD, on 06/24/2017 13:08 .S/
--- NOTE | 2017-06-24 13:09 | RADRPT ---
PROCEDURE: XR Chest. CLINICAL INDICATION: PICC line placement TECHNIQUE: Single frontal view of the chest was obtained COMPARISON: Same day FINDINGS: There is a new right-sided PICC line in place. The tip is not well seen due to overlying pacemaker w ires. The heart, mediastinum, and lungs are unchanged. There is mild cardiomegaly. There is a left-sided pacemaker in place. There is no focal infiltrate. RPTAT: AA IMPRESSION: New right-sided PICC line tip is not well seen due to overlying pacemaker wires. It is likely within the region of the mid SVC. .Yahir Landaverde MD, MD Date Time Electronically viewed and signed by .Yahir Landaverde MD, MD on 06/24/2017 13:09 .S/
--- NOTE | 2017-06-24 14:22 | CONS ---
Date/Time of Note Date/Time of Note DATE: 06/24/17 TIME: 14:21 Assessment/Plan Assessment/Plan Chief Complaint/Hosp Course SUBJECTIVE: No acute changes, alert, feels good, no fevers. ANTIMICROBIALS: 1. Daptomycin. 2. Rocephin. PHYSICAL EXAMINATION: GENERAL: This is a morbidly obese elderly man who is awake, in no distress. HEENT: Head atraumatic, normocephalic. Sclerae anicteric. Buccal mucosa pink. NECK: Supple. CHEST: Rise symmetrical. Breath sounds diminished to bases. HEART: S1, S2. ABDOMEN: Soft, bowel tones present. EXTREMITIES: With right LE stump dsg intact. Left foot with dry scab ASSESSMENT: 1. Systemic inflammatory response syndrome with low grade fevers and leukocytosis. 2. 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 3. Peripheral vascular disease 4. Diabetes. 5. Coronary artery disease, history of coronary artery bypass graft. 6. Chronic kidney disease. 7. History of hypertension. 8. Morbid obesity. PLAN: The patient remains stable, s/p PICC this am, anticipate dc on current abx for 2 more weeks, f/u with vascular team [facility] staff Problems: Consultation Date/Type/Reason Admit Date/Time Jun 17, 2017 at 01:20 Type of Consultation: ID Referring Provider: DANYELLE GUY DO Exam/Review of Systems Vital Signs Vitals Vital Signs Date Time Temp Pulse Resp B/P Pulse Ox O2 Delivery O2 Flow Rate FiO2 06/24/17 12:05 64 06/24/17 11:56 98.3 20 90/53 93 06/23/17 23:00 2.0 Intake and Output 06/23/17 06/23/17 06/24/17 15:00 23:00 07:00 Intake Total 50 ml 1010 ml 250 ml Output Total 620 ml 550 ml Balance 50 ml 390 ml -300 ml Results Result Diagram: 06/24/17 0639 06/24/17 0639 Results 24 hrs Laboratory Tests Test 06/23/17 17:40 06/23/17 20:22 06/24/17 02:11 06/24/17 06:39 Bedside Glucose 143 182 119 White Blood Count 10.8 Red Blood Count 3.54 L Hemoglobin 9.5 L Hematocrit 30.0 L Mean Corpuscular Volume 84.7 Mean Corpuscular Hemoglobin 26.8 L Mean Corpuscular Hemoglobin Concent 31.7 L Red Cell Distribution Width 15.6 H Platelet Count 361 Mean Platelet Volume 9.6 Neutrophils % 64.4 Lymphocytes % 21.1 Monocytes % 7.3 Eosinophils % 5.2 Basophils % 0.7 Nucleated Red Blood Cells % 0.0 Neutrophils # 6.9 Lymphocytes # 2.3 Monocytes # 0.8 Eosinophils # 0.6 H Basophils # 0.1 Nucleated Red Blood Cells # 0.0 Sodium Level 140 Potassium Level 4.5 Chloride Level 105 Carbon Dioxide Level 27 Anion Gap 13 Blood Urea Nitrogen 17 Creatinine 1.21 Glucose Level 107 # Calcium Level 8.9 Phosphorus Level 4.4 Magnesium Level 1.8 Creatine Kinase 42 Test 06/24/17 08:54 06/24/17 12:55 Bedside Glucose 122 107 Medications Medications Current Medications Allopurinol (Zyloprim) 100 mg BID PO Last administered on 06/24/17 09:41; Admin Dose 100 MG; Start 06/17/17 at 09:00 Amiodarone HCl (Cordarone) 100 mg DAILY PO Last administered on 06/24/17 09: 43; Admin Dose 100 MG; Start 06/17/17 at 09:00 Aspirin (Halfprin) 81 mg DAILY PO Last administered on 06/18/17 09:02; Admin Dose 81 MG; Start 06/17/17 at 09:00; Status Future Hold Cholecalciferol (Vitamin D) 1,000 unit DAILY PO Last administered on 09:41; Admin Dose 1,000 UNIT; Start 06/17/17 at 09:00 Clopidogrel Bisulfate (plaVIX) 75 mg DAILY PO Last administered on 06/24/17 09:42; Admin Dose 75 MG; Start 06/17/17 at 09:00 Gabapentin (Neurontin) 300 mg BID PO Last administered on 06/24/17 09:41; Admin Dose 300 MG; Start 06/17/17 at 09:00 Methimazole (Tapazole) 2.5 mg DAILY PO Last administered on 06/24/17 09:40; Admin Dose 2.5 MG; Start 06/17/17 at 09:00 Multivitamins Therapeutic (Theragran) 1 tab DAILY PO Last administered on 06/24 09:41; Admin Dose 1 TAB; Start 06/17/17 at 09:00 Polyethylene Glycol (Miralax) 17 gm DAILY PO Last administered on 06/24/17 09 :43; Admin Dose 17 GM; Start 06/17/17 at 09:00 Rosuvastatin Calcium (Crestor) 40 mg QHS PO Last administered on 06/23/17 20: 25; Admin Dose 40 MG; Start 06/17/17 at 21:00 Insulin Glargine (Lantus) 40 unit DAILY@08 SC Last administered on 06/24/17 09:50; Admin Dose 40 UNIT; Start 06/17/17 at 08:00 Insulin Glargine (Lantus) 45 unit DAILY@20 SC Last administered on 06/23/17 20:35; Admin Dose 45 UNIT; Start 06/17/17 at 20:00 Diagnostic Test (Pha) (Accu-Chek) 1 ea 02 XX Last administered on 06/24/17 02 :43; Admin Dose 1 EA; Start 06/18/17 at 02:00 Miscellaneous Information (Pending Santyl Order For Wound Care) This patient hauser... PRN PRN XX WOUND CARE; Start 06/17/17 at 11:30 Acetaminophen/ Hydrocodone Bitart ([place] (5/325)) 1 tab Q4H PRN PO PAIN LEVEL 4 -6 Last administered on 06/23/17 17:39; Admin Dose 1 TAB; Start 06/17/17 at 14:30 Acetaminophen (Tylenol Tab) 500 mg Q6H PRN PO PAIN AND OR ELEVATED TEMP Last administered on 06/21/17 23:41; Admin Dose 500 MG; Start 06/17/17 at 21:30 Miscellaneous Information 1 ea NOTE XX ; Start 06/18/17 at 11:00 Glucose (Glutose) 15 gm Q15M PRN PO DECREASED GLUCOSE; Start 06/18/17 at 11:00 Glucose (Glutose) 22.5 gm Q15M PRN PO DECREASED GLUCOSE; Start 06/18/17 at 11: 00 Dextrose (D50w Syringe) 25 ml Q15M PRN IV DECREASED GLUCOSE; Start 06/18/17 at 11:00 Dextrose (D50w Syringe) 50 ml Q15M PRN IV DECREASED GLUCOSE; Start 06/18/17 at 11:00 Glucagon (Glucagen) 1 mg Q15M PRN IM DECREASED GLUCOSE; Start 06/18/17 at 11: 00 Glucose (Glutose) 15 gm Q15M PRN BUCCAL DECREASED GLUCOSE; Start 06/18/17 at 11:00 Carvedilol (Coreg) 3.125 mg BID PO Last administered on 06/24/17 09:43; Admin Dose 3.125 MG; Start 06/20/17 at 09:00 Losartan Potassium (Cozaar) 25 mg DAILY PO Last administered on 06/23/17 09: 10; Admin Dose 25 MG; Start 06/20/17 at 09:00 Enoxaparin Sodium (Lovenox) 30 mg DAILY SC Last administered on 06/24/17 09: 49; Admin Dose 30 MG; Start 06/20/17 at 09:00 Morphine Sulfate (morphine) 2 mg Q4H PRN IV severe pain Last administered on 20:23; Admin Dose 2 MG; Start 06/22/17 at 15:31 Oxycodone HCl 10 mg 10 mg BID PO Last administered on 06/24/17 09:46; Admin Dose 10 MG; Start 06/23/17 at 10:00 Daptomycin 650 mg/ Sodium Chloride 100 ml @ 200 mls/hr Q24H IVPB Last administered on 06/23/17 16:42; Admin Dose 200 MLS/HR; Start 06/23/17 at 17: 00 Ceftriaxone Sodium (Rocephin) 50 ml @ 100 mls/hr Q24H IVPB Last administered on 06/23/17 15:05; Admin Dose 100 MLS/HR; Start 06/23/17 at 15:00 IV Flush (NS 10 ml) 10 ml PRN PRN IV IV PROTOCOL; Start 06/24/17 at 13:[address] URBINA NP Jun 24, 2017 14:22
[2017-06-24] MEDS: HYDROCODONE/APAP (5/325) TAB PO PRN (15:40)
--- NOTE | 2017-06-24 15:48 | CONS ---
Date/Time of Note Date/Time of Note DATE: 06/24/17 TIME: 15:46 Consult Date/Type/Reason Admit Date/Time Jun 17, 2017 at 01:20 Type of Consultation: card Ordering Provider: DANYELLE GUY DO Subjective cardiology follow up note: S: Discussed with staff and rhythm was reviewed. pt remains in NSR. HR is under control now pt denies any chest pain or pressure to me he denies any PND orthopnea to me. He denies any wheezing or shortness of breath to me. S/P R AKA 06/19/17 he c/o pain on left leg now improved with morphine O: General: no acute distress. obese man HEENT: NC/AT. pupils are equal. round. NECK: NO JVD. no stridor. CV: RRR. systolic murmur; no gallop or rubs. PULM: no wheezing or rhonchi. GI: SOFT, NT, ND, no rebound or guarding obese. Extremity: s/p R AKA in dressing . s/p left toe amputation neuro: awake and alert, OX3. Psych: calm and pleasant rectal: deferred Objective Vital Signs Date Time Temp Pulse Resp B/P Pulse Ox O2 Delivery O2 Flow Rate FiO2 06/24/17 15:44 97.9 60 18 101/55 91 06/23/17 23:00 2.0 Intake and Output 06/23/17 06/23/17 06/24/17 15:00 23:00 07:00 Intake Total 50 ml 1010 ml 250 ml Output Total 620 ml 550 ml Balance 50 ml 390 ml -300 ml Results/Medications Result Diagram: 06/24/17 0639 06/24/17 0639 Results 24 hrs Laboratory Tests Test 06/23/17 17:40 06/23/17 20:22 06/24/17 02:11 06/24/17 06:39 Bedside Glucose 143 182 119 White Blood Count 10.8 Red Blood Count 3.54 L Hemoglobin 9.5 L Hematocrit 30.0 L Mean Corpuscular Volume 84.7 Mean Corpuscular Hemoglobin 26.8 L Mean Corpuscular Hemoglobin Concent 31.7 L Red Cell Distribution Width 15.6 H Platelet Count 361 Mean Platelet Volume 9.6 Neutrophils % 64.4 Lymphocytes % 21.1 Monocytes % 7.3 Eosinophils % 5.2 Basophils % 0.7 Nucleated Red Blood Cells % 0.0 Neutrophils # 6.9 Lymphocytes # 2.3 Monocytes # 0.8 Eosinophils # 0.6 H Basophils # 0.1 Nucleated Red Blood Cells # 0.0 Sodium Level 140 Potassium Level 4.5 Chloride Level 105 Carbon Dioxide Level 27 Anion Gap 13 Blood Urea Nitrogen 17 Creatinine 1.21 Glucose Level 107 # Calcium Level 8.9 Phosphorus Level 4.4 Magnesium Level 1.8 Creatine Kinase 42 Test 06/24/17 08:54 06/24/17 12:55 Bedside Glucose 122 107 Medications Current Medications Allopurinol (Zyloprim) 100 mg BID PO Last administered on 06/24/17 09:41; Admin Dose 100 MG; Start 06/17/17 at 09:00 Amiodarone HCl (Cordarone) 100 mg DAILY PO Last administered on 06/24/17 09: 43; Admin Dose 100 MG; Start 06/17/17 at 09:00 Aspirin (Halfprin) 81 mg DAILY PO Last administered on 06/18/17 09:02; Admin Dose 81 MG; Start 06/17/17 at 09:00; Status Future Hold Cholecalciferol (Vitamin D) 1,000 unit DAILY PO Last administered on 09:41; Admin Dose 1,000 UNIT; Start 06/17/17 at 09:00 Clopidogrel Bisulfate (plaVIX) 75 mg DAILY PO Last administered on 06/24/17 09:42; Admin Dose 75 MG; Start 06/17/17 at 09:00 Gabapentin (Neurontin) 300 mg BID PO Last administered on 06/24/17 09:41; Admin Dose 300 MG; Start 06/17/17 at 09:00 Methimazole (Tapazole) 2.5 mg DAILY PO Last administered on 06/24/17 09:40; Admin Dose 2.5 MG; Start 06/17/17 at 09:00 Multivitamins Therapeutic (Theragran) 1 tab DAILY PO Last administered on 06/24 09:41; Admin Dose 1 TAB; Start 06/17/17 at 09:00 Polyethylene Glycol (Miralax) 17 gm DAILY PO Last administered on 06/24/17 09 :43; Admin Dose 17 GM; Start 06/17/17 at 09:00 Rosuvastatin Calcium (Crestor) 40 mg QHS PO Last administered on 06/23/17 20: 25; Admin Dose 40 MG; Start 06/17/17 at 21:00 Insulin Glargine (Lantus) 40 unit DAILY@08 SC Last administered on 06/24/17 09:50; Admin Dose 40 UNIT; Start 06/17/17 at 08:00 Insulin Glargine (Lantus) 45 unit DAILY@20 SC Last administered on 06/23/17 20:35; Admin Dose 45 UNIT; Start 06/17/17 at 20:00 Diagnostic Test (Pha) (Accu-Chek) 1 ea 02 XX Last administered on 06/24/17 02 :43; Admin Dose 1 EA; Start 06/18/17 at 02:00 Miscellaneous Information (Pending [facility] Order For Wound Care) This patient hauser... PRN PRN XX WOUND CARE; Start 06/17/17 at 11:30 Acetaminophen/ Hydrocodone Bitart ([place] (5/325)) 1 tab Q4H PRN PO PAIN LEVEL 4 -6 Last administered on 06/24/17 15:40; Admin Dose 1 TAB; Start 06/17/17 at 14:30 Acetaminophen (Tylenol Tab) 500 mg Q6H PRN PO PAIN AND OR ELEVATED TEMP Last administered on 06/21/17 23:41; Admin Dose 500 MG; Start 06/17/17 at 21:30 Miscellaneous Information 1 ea NOTE XX ; Start 06/18/17 at 11:00 Glucose (Glutose) 15 gm Q15M PRN PO DECREASED GLUCOSE; Start 06/18/17 at 11:00 Glucose (Glutose) 22.5 gm Q15M PRN PO DECREASED GLUCOSE; Start 06/18/17 at 11: 00 Dextrose (D50w Syringe) 25 ml Q15M PRN IV DECREASED GLUCOSE; Start 06/18/17 at 11:00 Dextrose (D50w Syringe) 50 ml Q15M PRN IV DECREASED GLUCOSE; Start 06/18/17 at 11:00 Glucagon (Glucagen) 1 mg Q15M PRN IM DECREASED GLUCOSE; Start 06/18/17 at 11: 00 Glucose (Glutose) 15 gm Q15M PRN BUCCAL DECREASED GLUCOSE; Start 06/18/17 at 11:00 Carvedilol (Coreg) 3.125 mg BID PO Last administered on 06/24/17 09:43; Admin Dose 3.125 MG; Start 06/20/17 at 09:00 Losartan Potassium (Cozaar) 25 mg DAILY PO Last administered on 06/23/17 09: 10; Admin Dose 25 MG; Start 06/20/17 at 09:00 Enoxaparin Sodium (Lovenox) 30 mg DAILY SC Last administered on 06/24/17 09: 49; Admin Dose 30 MG; Start 06/20/17 at 09:00 Morphine Sulfate (morphine) 2 mg Q4H PRN IV severe pain Last administered on 20:23; Admin Dose 2 MG; Start 06/22/17 at 15:31 Oxycodone HCl 10 mg 10 mg BID PO Last administered on 06/24/17 09:46; Admin Dose 10 MG; Start 06/23/17 at 10:00 Daptomycin 650 mg/ Sodium Chloride 100 ml @ 200 mls/hr Q24H IVPB Last administered on 06/23/17 16:42; Admin Dose 200 MLS/HR; Start 06/23/17 at 17: 00 Ceftriaxone Sodium (Rocephin) 50 ml @ 100 mls/hr Q24H IVPB Last administered on 06/23/17 15:05; Admin Dose 100 MLS/HR; Start 06/23/17 at 15:00 IV Flush (NS 10 ml) 10 ml PRN PRN IV IV PROTOCOL; Start 06/24/17 at 13:00 Assessment/Plan Chief Complaint/Hosp Course 1. CAD; STABLE WITH NO ANGINA. 2. HX CABG 3. HX VA 4. HX multiple PCI 5. Severe PAD 6. S/P Previous LE revascularizations 7. 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 hx hyperthyroidism: TSH is wnl on 06/06/17 10. hx VT s/p ICD 11. CHF: chronic and stable due to systolic heart failure 12. dyslipidemia: on statin 13. CKD 14. Debility 15. Markedly elevated CK: probably related to recent surgery. improved now 16. fever and leukocystosis. Recommendations: I will CONT coreg and losartan. CONT corlanor. cont Plavix on crestor . CK is wnl now. Diabetic management as per internal medicine. Physical therapy and rehab will be continued. nightly CPAP . abx as per ID rec. dc planning is in process. will f/u in office on Thank you for his referral. I will continue to follow along with you. SALVADOR BARRETO MD FAC Problems: SALVADOR BARRETO MD Jun 24, 2017 15:48
[2017-06-24] MEDS: CEFTRIAXONE 1 GM/50 ML (PMX) 50 ML IVPB SCH (16:06)
[2017-06-24] MEDS: DAPTOMYCIN 650 MG in SOD CHLORIDE 0.9% 100 ML IVPB SCH (17:47)
[2017-06-24] MEDS ORDERED: SOD CHLORIDE 0.9% 100 ML ONE (18:40)
[2017-06-24] MEDS: ROSUVASTATIN CALCIUM 40 MG TABLET PO SCH (20:51)
[2017-06-25] VITALS (10 sets, daily range): BP systolic 91–114; BP diastolic 53–59; PULSE 60–64; RESP 18–20
[2017-06-25] MEDS: ACCU-CHEK XX SCH (02:39)
[2017-06-25] MEDS: INSULIN ASPART [NOVOLOG] 3 ML PEN SC SCH ×6 (07:55→17:55)
--- NOTE | 2017-06-25 08:38 | CONS ---
Date/Time of Note Date/Time of Note DATE: 06/25/17 TIME: 08:37 Consult Date/Type/Reason Admit Date/Time Jun 17, 2017 at 01:20 Type of Consultation: card Ordering Provider: DANYELLE GUY DO Subjective cardiology follow up note: S: Discussed with staff and rhythm was reviewed. pt remains in NSR. HR is under control now pt denies any chest pain or pressure to me he denies any PND orthopnea to me. He denies any wheezing or shortness of breath to me. S/P R AKA 06/19/17 his leg pain is better controlled now O: General: no acute distress. obese man HEENT: NC/AT. pupils are equal. round. NECK: NO JVD. no stridor. CV: RRR. systolic murmur; no gallop or rubs. PULM: no wheezing or rhonchi. GI: SOFT, NT, ND, no rebound or guarding obese. Extremity: s/p R AKA in dressing . s/p left toe amputation neuro: awake and alert, OX3. Psych: calm and pleasant rectal: deferred Objective Vital Signs Date Time Temp Pulse Resp B/P Pulse Ox O2 Delivery O2 Flow Rate FiO2 06/25/17 07:57 98.3 64 18 114/59 98 06/23/17 23:00 2.0 Intake and Output 06/24/17 06/24/17 06/25/17 14:59 22:59 06:59 Intake Total 950 ml 400 ml Output Total 500 ml 600 ml Balance 450 ml -200 ml Results/Medications Result Diagram: 06/24/17 0639 06/24/17 0639 Results 24 hrs Laboratory Tests Test 06/24/17 08:54 06/24/17 12:55 06/24/17 17:46 06/24/17 20:46 Bedside Glucose 122 107 138 154 Test 06/25/17 02:36 Bedside Glucose 145 Medications Current Medications Allopurinol (Zyloprim) 100 mg BID PO Last administered on 06/24/17 20:52; Admin Dose 100 MG; Start 06/17/17 at 09:00 Amiodarone HCl (Cordarone) 100 mg DAILY PO Last administered on 06/24/17 09: 43; Admin Dose 100 MG; Start 06/17/17 at 09:00 Aspirin (Halfprin) 81 mg DAILY PO Last administered on 06/18/17 09:02; Admin Dose 81 MG; Start 06/17/17 at 09:00; Status Future Hold Cholecalciferol (Vitamin D) 1,000 unit DAILY PO Last administered on 09:41; Admin Dose 1,000 UNIT; Start 06/17/17 at 09:00 Clopidogrel Bisulfate (plaVIX) 75 mg DAILY PO Last administered on 06/24/17 09:42; Admin Dose 75 MG; Start 06/17/17 at 09:00 Gabapentin (Neurontin) 300 mg BID PO Last administered on 06/24/17 20:50; Admin Dose 300 MG; Start 06/17/17 at 09:00 Methimazole (Tapazole) 2.5 mg DAILY PO Last administered on 06/24/17 09:40; Admin Dose 2.5 MG; Start 06/17/17 at 09:00 Multivitamins Therapeutic (Theragran) 1 tab DAILY PO Last administered on 06/24 09:41; Admin Dose 1 TAB; Start 06/17/17 at 09:00 Polyethylene Glycol (Miralax) 17 gm DAILY PO Last administered on 06/24/17 09 :43; Admin Dose 17 GM; Start 06/17/17 at 09:00 Rosuvastatin Calcium (Crestor) 40 mg QHS PO Last administered on 06/24/17 20: 51; Admin Dose 40 MG; Start 06/17/17 at 21:00 Insulin Glargine (Lantus) 40 unit DAILY@08 SC Last administered on 06/24/17 09:50; Admin Dose 40 UNIT; Start 06/17/17 at 08:00 Insulin Glargine (Lantus) 45 unit DAILY@20 SC Last administered on 06/24/17 20:54; Admin Dose 45 UNIT; Start 06/17/17 at 20:00 Diagnostic Test (Pha) (Accu-Chek) 1 ea 02 XX Last administered on 06/25/17 02 :39; Admin Dose 1 EA; Start 06/18/17 at 02:00 Miscellaneous Information (Pending Santyl Order For Wound Care) This patient hauser... PRN PRN XX WOUND CARE; Start 06/17/17 at 11:30 Acetaminophen/ Hydrocodone Bitart ([place] (5/325)) 1 tab Q4H PRN PO PAIN LEVEL 4 -6 Last administered on 06/24/17 15:40; Admin Dose 1 TAB; Start 06/17/17 at 14:30 Acetaminophen (Tylenol Tab) 500 mg Q6H PRN PO PAIN AND OR ELEVATED TEMP Last administered on 06/21/17 23:41; Admin Dose 500 MG; Start 06/17/17 at 21:30 Miscellaneous Information 1 ea NOTE XX ; Start 06/18/17 at 11:00 Glucose (Glutose) 15 gm Q15M PRN PO DECREASED GLUCOSE; Start 06/18/17 at 11:00 Glucose (Glutose) 22.5 gm Q15M PRN PO DECREASED GLUCOSE; Start 06/18/17 at 11: 00 Dextrose (D50w Syringe) 25 ml Q15M PRN IV DECREASED GLUCOSE; Start 06/18/17 at 11:00 Dextrose (D50w Syringe) 50 ml Q15M PRN IV DECREASED GLUCOSE; Start 06/18/17 at 11:00 Glucagon (Glucagen) 1 mg Q15M PRN IM DECREASED GLUCOSE; Start 06/18/17 at 11: 00 Glucose (Glutose) 15 gm Q15M PRN BUCCAL DECREASED GLUCOSE; Start 06/18/17 at 11:00 Carvedilol (Coreg) 3.125 mg BID PO Last administered on 06/24/17 20:51; Admin Dose 3.125 MG; Start 06/20/17 at 09:00 Losartan Potassium (Cozaar) 25 mg DAILY PO Last administered on 06/23/17 09: 10; Admin Dose 25 MG; Start 06/20/17 at 09:00 Enoxaparin Sodium (Lovenox) 30 mg DAILY SC Last administered on 06/24/17 09: 49; Admin Dose 30 MG; Start 06/20/17 at 09:00 Morphine Sulfate (morphine) 2 mg Q4H PRN IV severe pain Last administered on 20:23; Admin Dose 2 MG; Start 06/22/17 at 15:31 Oxycodone HCl 10 mg 10 mg BID PO Last administered on 06/24/17 20:51; Admin Dose 10 MG; Start 06/23/17 at 10:00 Daptomycin 650 mg/ Sodium Chloride 100 ml @ 200 mls/hr Q24H IVPB Last administered on 06/24/17 17:47; Admin Dose 200 MLS/HR; Start 06/23/17 at 17: 00 Ceftriaxone Sodium (Rocephin) 50 ml @ 100 mls/hr Q24H IVPB Last administered on 06/24/17 16:06; Admin Dose 100 MLS/HR; Start 06/23/17 at 15:00 IV Flush (NS 10 ml) 10 ml PRN PRN IV IV PROTOCOL; Start 06/24/17 at 13:00 Assessment/Plan Chief Complaint/Hosp Course 1. CAD; STABLE WITH NO ANGINA. 2. HX CABG 3. HX MT 4. HX multiple PCI 5. Severe PAD 6. S/P Previous LE revascularizations 7. 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 hx hyperthyroidism: TSH is wnl on 06/06/17 10. hx VT s/p ICD 11. CHF: chronic and stable due to systolic heart failure 12. dyslipidemia: on statin 13. CKD 14. Debility 15. Markedly elevated CK: probably related to recent surgery. improved now 16. fever and leukocystosis. Recommendations: I will CONT coreg and losartan. CONT corlanor. cont Plavix cont crestor . CK is wnl now. Diabetic management as per internal medicine. Physical therapy and rehab will be continued. nightly CPAP . abx as per ID rec. dc planning is in process. will f/u in office on Thank you for his referral. I will continue to follow along with you prn . SALVADOR BARRETO MD [facility] Problems: SALVADOR BARRETO MD Jun 25, 2017 08:38
[2017-06-25] MEDS: INSULIN GLARGINE [LANtus] 3 ML PEN SC SCH (08:46)
[2017-06-25] MEDS: POLYETHYLENE GLYCOL 17 GM PACKET PO SCH (09:00)
[2017-06-25] MEDS: IVABRADINE HCL 5 MG TABLET PO SCH ×2 (09:13→18:04)
[2017-06-25] MEDS: AMIODARONE 200 MG TAB PO SCH (09:13)
[2017-06-25] MEDS: GABAPENTIN 300 MG CAP PO SCH (09:13)
[2017-06-25] MEDS: ALLOPURINOL 100 MG TAB PO SCH (09:14)
[2017-06-25] MEDS: CLOPIDOGREL 75 MG TAB PO SCH (09:14)
[2017-06-25] MEDS: METHIMAZOLE 5 MG TAB PO SCH (09:15)
[2017-06-25] MEDS: CHOLECALCIFEROL 1,000 UNIT TAB PO SCH (09:16)
[2017-06-25] MEDS: LOSARTAN 25 MG TAB PO SCH (09:16)
[2017-06-25] MEDS: ENOXAPARIN 30 MG/0.3 ML SYG SC SCH (09:21)
[2017-06-25] MEDS: MULTIVITAMINS THERAPEUTIC TAB PO SCH (09:22)
[2017-06-25] MEDS: oxyCODONE (CR) 10 MG TAB [oxyCONTIN] PO SCH (09:23)
--- NOTE | 2017-06-25 09:24 | PN ---
DATE: 06/25/2017 SUBJECTIVE: The patient had a PICC line placed yesterday without any complications. OBJECTIVE: VITAL SIGNS: Blood pressure is 114/59, respiration 18, pulse 64, temperature 98.3. HEENT: Head is normocephalic. NECK: Supple. HEART: Regular rate. LUNGS: Show diminished breath sounds at the base. ABDOMEN: Soft, nontender to palpation. No rebound or guarding. EXTREMITIES: Negative for clubbing, cyanosis, no edema. The patient has a right above knee amputat ion with dressing clean, dry, intact and left lower extremity wounds as noted. No significant crowe e. DERMATOLOGIC: No rashes. MUSCULOSKELETAL: No joint effusions. NEUROLOGIC: No change in exam MEDICATIONS: The patient's medications have been reviewed. LABORATORY DATA: Has been reviewed. ASSESSMENT AND PLAN: 1. Peripheral vascular disease. The patient is status post right above knee amputation. The patie nt is currently on IV antibiotics. We will continue. Anticipate another 2 weeks of antibiotic ther apy. We will follow up with vascular surgery. 2. Sepsis secondary to right knee cellulitis, abscess. The patient is status post amputation. Con tinue IV antibiotics. 3. Sleep apnea. Continue CPAP. 4. Chronic kidney disease stage IIIB/IV. The patient's renal function has been stable. Continue c urrent treatment plan, supportive care. 5. Mineral bone disorder. Continue to monitor calcium and phosphorus levels. 6. Coronary artery disease. Continue current treatment plan. 7. Diabetes. Continue current insulin regimen. 9 Congestive heart failure. Continue current medical management. 10. Dyslipidemia. Continue statin therapy. 11. Arrhythmia. Continue amiodarone. 12. Hyperthyroidism. Continue Tapazole. 13. Left lower extremity wounds. Continue local wound care. 14. Gastrointestinal and deep venous thrombosis prophylaxis. DISPOSITION: Anticipate discharge home with IV antibiotics and home healthcare in the next 1 to 2 d ays. Dictated By: DANYELLE FRANCOIS/SURENDRA Conf#: [id number] DID#: [id number]
--- NOTE | 2017-06-25 13:30 | CONS ---
Date/Time of Note Date/Time of Note DATE: 06/25/17 TIME: 13:29 Consult Date/Type/Reason Admit Date/Time Jun 17, 2017 at 01:20 Type of Consultation: Pulmonary Ordering Provider: DANYELLE GUY DO Subjective Patient remains comfortable at rest. Objective Vital Signs Date Time Temp Pulse Resp B/P Pulse Ox O2 Delivery O2 Flow Rate FiO2 06/25/17 12:06 61 06/25/17 11:50 98.0 20 92/53 97 06/23/17 23:00 2.0 Intake and Output 06/24/17 06/24/17 06/25/17 15:00 23:00 07:00 Intake Total 950 ml 400 ml Output Total 500 ml 600 ml Balance 450 ml -200 ml Exam GENERAL: Elderly-appearing gentleman comfortable at rest no acute distress. VITAL SIGNS: per chart NECK: Supple. No JVD or lymphadenopathy. CARDIAC EXAM: S1, S2. No added sounds or murmurs. CHEST: clear bilaterally, No added sounds, rales or wheezes ABDOMEN: Soft, nontender. No guarding or rebound. EXTREMITIES: No cyanosis, clubbing or edema. NEUROLOGIC: Generalized weakness amputation Results/Medications Result Diagram: 06/24/17 0639 06/24/17 0639 Results 24 hrs Laboratory Tests Test 06/24/17 17:46 06/24/17 20:46 06/25/17 02:36 06/25/17 08:41 Bedside Glucose 138 154 145 137 Test 06/25/17 12:29 Bedside Glucose 148 Medications Current Medications Allopurinol (Zyloprim) 100 mg BID PO Last administered on 06/25/17 09:14; Admin Dose 100 MG; Start 06/17/17 at 09:00 Amiodarone HCl (Cordarone) 100 mg DAILY PO Last administered on 06/25/17 09: 13; Admin Dose 100 MG; Start 06/17/17 at 09:00 Aspirin (Halfprin) 81 mg DAILY PO Last administered on 06/18/17 09:02; Admin Dose 81 MG; Start 06/17/17 at 09:00; Status Future Hold Cholecalciferol (Vitamin D) 1,000 unit DAILY PO Last administered on 09:16; Admin Dose 1,000 UNIT; Start 06/17/17 at 09:00 Clopidogrel Bisulfate (plaVIX) 75 mg DAILY PO Last administered on 06/25/17 09:14; Admin Dose 75 MG; Start 06/17/17 at 09:00 Gabapentin (Neurontin) 300 mg BID PO Last administered on 06/25/17 09:13; Admin Dose 300 MG; Start 06/17/17 at 09:00 Methimazole (Tapazole) 2.5 mg DAILY PO Last administered on 06/25/17 09:15; Admin Dose 2.5 MG; Start 06/17/17 at 09:00 Multivitamins Therapeutic (Theragran) 1 tab DAILY PO Last administered on 06/25 09:22; Admin Dose 1 TAB; Start 06/17/17 at 09:00 Polyethylene Glycol (Miralax) 17 gm DAILY PO Last administered on 06/24/17 09 :43; Admin Dose 17 GM; Start 06/17/17 at 09:00 Rosuvastatin Calcium (Crestor) 40 mg QHS PO Last administered on 06/24/17 20: 51; Admin Dose 40 MG; Start 06/17/17 at 21:00 Insulin Glargine (Lantus) 40 unit DAILY@08 SC Last administered on 06/25/17 08:46; Admin Dose 40 UNIT; Start 06/17/17 at 08:00 Insulin Glargine (Lantus) 45 unit DAILY@20 SC Last administered on 06/24/17 20:54; Admin Dose 45 UNIT; Start 06/17/17 at 20:00 Diagnostic Test (Pha) (Accu-Chek) 1 ea 02 XX Last administered on 06/25/17 02 :39; Admin Dose 1 EA; Start 06/18/17 at 02:00 Miscellaneous Information (Pending Santyl Order For Wound Care) This patient hauser... PRN PRN XX WOUND CARE; Start 06/17/17 at 11:30 Acetaminophen/ Hydrocodone Bitart ([place] (5/325)) 1 tab Q4H PRN PO PAIN LEVEL 4 -6 Last administered on 06/24/17 15:40; Admin Dose 1 TAB; Start 06/17/17 at 14:30 Acetaminophen (Tylenol Tab) 500 mg Q6H PRN PO PAIN AND OR ELEVATED TEMP Last administered on 06/21/17 23:41; Admin Dose 500 MG; Start 06/17/17 at 21:30 Miscellaneous Information 1 ea NOTE XX ; Start 06/18/17 at 11:00 Glucose (Glutose) 15 gm Q15M PRN PO DECREASED GLUCOSE; Start 06/18/17 at 11:00 Glucose (Glutose) 22.5 gm Q15M PRN PO DECREASED GLUCOSE; Start 06/18/17 at 11: 00 Dextrose (D50w Syringe) 25 ml Q15M PRN IV DECREASED GLUCOSE; Start 06/18/17 at 11:00 Dextrose (D50w Syringe) 50 ml Q15M PRN IV DECREASED GLUCOSE; Start 06/18/17 at 11:00 Glucagon (Glucagen) 1 mg Q15M PRN IM DECREASED GLUCOSE; Start 06/18/17 at 11: 00 Glucose (Glutose) 15 gm Q15M PRN BUCCAL DECREASED GLUCOSE; Start 06/18/17 at 11:00 Carvedilol (Coreg) 3.125 mg BID PO Last administered on 06/25/17 09:14; Admin Dose 3.125 MG; Start 06/20/17 at 09:00 Losartan Potassium (Cozaar) 25 mg DAILY PO Last administered on 06/25/17 09: 16; Admin Dose 25 MG; Start 06/20/17 at 09:00 Enoxaparin Sodium (Lovenox) 30 mg DAILY SC Last administered on 06/25/17 09: 21; Admin Dose 30 MG; Start 06/20/17 at 09:00 Morphine Sulfate (morphine) 2 mg Q4H PRN IV severe pain Last administered on 20:23; Admin Dose 2 MG; Start 06/22/17 at 15:31 Oxycodone HCl 10 mg 10 mg BID PO Last administered on 06/25/17 09:23; Admin Dose 10 MG; Start 06/23/17 at 10:00 Daptomycin 650 mg/ Sodium Chloride 100 ml @ 200 mls/hr Q24H IVPB Last administered on 06/24/17 17:47; Admin Dose 200 MLS/HR; Start 06/23/17 at 17: 00 Ceftriaxone Sodium (Rocephin) 50 ml @ 100 mls/hr Q24H IVPB Last administered on 06/24/17 16:06; Admin Dose 100 MLS/HR; Start 06/23/17 at 15:00 IV Flush (NS 10 ml) 10 ml PRN PRN IV IV PROTOCOL; Start 06/24/17 at 13:00 Assessment/Plan Chief Complaint/Hosp Course IMPRESSION AND PLAN: 1. Obstructive sleep apnea, currently requiring his continued home CPAP device. 2. Peripheral ischemia concerning for worsening gangrene. 3. Peripheral artery disease, status post right below-knee amputation. 4. Diabetes mellitus. 5. Chronic kidney disease. Plan 1. Continue vascular recommendations. Antibiotics and anticoagulation, continue wound care 2. Continue broad-spectrum antibiotics. 3. Continue tight glycemic control. 4. Deep venous thrombosis and gastrointestinal prophylaxis. 5. Continue home CPAP device. Agree with discharge with antibiotics. Problems: VANITA GUILLERMO MD, [facility] Jun 25, 2017 13:30
--- NOTE | 2017-06-25 14:50 | CONS ---
Date/Time of Note Date/Time of Note DATE: 06/25/17 TIME: 14:49 Assessment/Plan Assessment/Plan Chief Complaint/Hosp Course SUBJECTIVE: No acute changes, alert, complaining of left foot pain, looks comfortable no fevers. ANTIMICROBIALS: 1. Daptomycin. 2. Rocephin. PHYSICAL EXAMINATION: GENERAL: This is a morbidly obese elderly man who is awake, in no distress. HEENT: Head atraumatic, normocephalic. Sclerae anicteric. Buccal mucosa pink. NECK: Supple. CHEST: Rise symmetrical. Breath sounds diminished to bases. HEART: S1, S2. ABDOMEN: Soft, bowel tones present. EXTREMITIES: With right LE stump dsg intact. Left foot with dry scab ASSESSMENT: 1. Systemic inflammatory response syndrome with low grade fevers and leukocytosis. 2. 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 3. Peripheral vascular disease 4. Diabetes. 5. Coronary artery disease, history of coronary artery bypass graft. 6. Chronic kidney disease. 7. History of hypertension. 8. Morbid obesity. PLAN: The patient remains stable, continue present care, follow vascular recommendations, anticipate dc on current abx for 2 more weeks [facility] staff Problems: Consultation Date/Type/Reason Admit Date/Time Jun 17, 2017 at 01:20 Type of Consultation: ID Referring Provider: DANYELLE GUY DO Exam/Review of Systems Vital Signs Vitals Vital Signs Date Time Temp Pulse Resp B/P Pulse Ox O2 Delivery O2 Flow Rate FiO2 06/25/17 12:06 61 06/25/17 11:50 98.0 20 92/53 97 06/23/17 23:00 2.0 Intake and Output 06/24/17 06/24/17 06/25/17 15:00 23:00 07:00 Intake Total 950 ml 400 ml Output Total 500 ml 600 ml Balance 450 ml -200 ml Results Result Diagram: 06/24/17 0639 06/24/17 0639 Results 24 hrs Laboratory Tests Test 06/24/17 17:46 06/24/17 20:46 06/25/17 02:36 06/25/17 08:41 Bedside Glucose 138 154 145 137 Test 06/25/17 12:29 Bedside Glucose 148 Medications Medications Current Medications Allopurinol (Zyloprim) 100 mg BID PO Last administered on 06/25/17 09:14; Admin Dose 100 MG; Start 06/17/17 at 09:00 Amiodarone HCl (Cordarone) 100 mg DAILY PO Last administered on 06/25/17 09: 13; Admin Dose 100 MG; Start 06/17/17 at 09:00 Aspirin (Halfprin) 81 mg DAILY PO Last administered on 06/18/17 09:02; Admin Dose 81 MG; Start 06/17/17 at 09:00; Status Future Hold Cholecalciferol (Vitamin D) 1,000 unit DAILY PO Last administered on 09:16; Admin Dose 1,000 UNIT; Start 06/17/17 at 09:00 Clopidogrel Bisulfate (plaVIX) 75 mg DAILY PO Last administered on 06/25/17 09:14; Admin Dose 75 MG; Start 06/17/17 at 09:00 Gabapentin (Neurontin) 300 mg BID PO Last administered on 06/25/17 09:13; Admin Dose 300 MG; Start 06/17/17 at 09:00 Methimazole (Tapazole) 2.5 mg DAILY PO Last administered on 06/25/17 09:15; Admin Dose 2.5 MG; Start 06/17/17 at 09:00 Multivitamins Therapeutic (Theragran) 1 tab DAILY PO Last administered on 06/25 09:22; Admin Dose 1 TAB; Start 06/17/17 at 09:00 Polyethylene Glycol (Miralax) 17 gm DAILY PO Last administered on 06/24/17 09 :43; Admin Dose 17 GM; Start 06/17/17 at 09:00 Rosuvastatin Calcium (Crestor) 40 mg QHS PO Last administered on 06/24/17 20: 51; Admin Dose 40 MG; Start 06/17/17 at 21:00 Insulin Glargine (Lantus) 40 unit DAILY@08 SC Last administered on 06/25/17 08:46; Admin Dose 40 UNIT; Start 06/17/17 at 08:00 Insulin Glargine (Lantus) 45 unit DAILY@20 SC Last administered on 06/24/17 20:54; Admin Dose 45 UNIT; Start 06/17/17 at 20:00 Diagnostic Test (Pha) (Accu-Chek) 1 ea 02 XX Last administered on 06/25/17 02 :39; Admin Dose 1 EA; Start 06/18/17 at 02:00 Miscellaneous Information (Pending [facility] Order For Wound Care) This patient hauser... PRN PRN XX WOUND CARE; Start 06/17/17 at 11:30 Acetaminophen/ Hydrocodone Bitart ([place] (5/325)) 1 tab Q4H PRN PO PAIN LEVEL 4 -6 Last administered on 06/24/17 15:40; Admin Dose 1 TAB; Start 06/17/17 at 14:30 Acetaminophen (Tylenol Tab) 500 mg Q6H PRN PO PAIN AND OR ELEVATED TEMP Last administered on 06/21/17 23:41; Admin Dose 500 MG; Start 06/17/17 at 21:30 Miscellaneous Information 1 ea NOTE XX ; Start 06/18/17 at 11:00 Glucose (Glutose) 15 gm Q15M PRN PO DECREASED GLUCOSE; Start 06/18/17 at 11:00 Glucose (Glutose) 22.5 gm Q15M PRN PO DECREASED GLUCOSE; Start 06/18/17 at 11: 00 Dextrose (D50w Syringe) 25 ml Q15M PRN IV DECREASED GLUCOSE; Start 06/18/17 at 11:00 Dextrose (D50w Syringe) 50 ml Q15M PRN IV DECREASED GLUCOSE; Start 06/18/17 at 11:00 Glucagon (Glucagen) 1 mg Q15M PRN IM DECREASED GLUCOSE; Start 06/18/17 at 11: 00 Glucose (Glutose) 15 gm Q15M PRN BUCCAL DECREASED GLUCOSE; Start 06/18/17 at 11:00 Carvedilol (Coreg) 3.125 mg BID PO Last administered on 06/25/17 09:14; Admin Dose 3.125 MG; Start 06/20/17 at 09:00 Losartan Potassium (Cozaar) 25 mg DAILY PO Last administered on 06/25/17 09: 16; Admin Dose 25 MG; Start 06/20/17 at 09:00 Enoxaparin Sodium (Lovenox) 30 mg DAILY SC Last administered on 06/25/17 09: 21; Admin Dose 30 MG; Start 06/20/17 at 09:00 Morphine Sulfate (morphine) 2 mg Q4H PRN IV severe pain Last administered on 20:23; Admin Dose 2 MG; Start 06/22/17 at 15:31 Oxycodone HCl 10 mg 10 mg BID PO Last administered on 06/25/17 09:23; Admin Dose 10 MG; Start 06/23/17 at 10:00 Daptomycin 650 mg/ Sodium Chloride 100 ml @ 200 mls/hr Q24H IVPB Last administered on 06/24/17 17:47; Admin Dose 200 MLS/HR; Start 06/23/17 at 17: 00 Ceftriaxone Sodium (Rocephin) 50 ml @ 100 mls/hr Q24H IVPB Last administered on 06/24/17 16:06; Admin Dose 100 MLS/HR; Start 06/23/17 at 15:00 IV Flush (NS 10 ml) 10 ml PRN PRN IV IV PROTOCOL; Start 06/24/17 at 13:[address] URBINA NP Jun 25, 2017 14:50
[2017-06-25] MEDS: CEFTRIAXONE 1 GM/50 ML (PMX) 50 ML IVPB SCH (15:28)
--- NOTE | 2017-06-25 16:35 | PN ---
Date/Time of Note Date/Time of Note DATE: 06/25/17 TIME: 16:34 Assessment/Plan Lines/Catheters IV C[facility]ter Type (from [facility]): PICC Line [place] in Place (from [facility]): No Assessment/Plan Chief Complaint/Hosp Course -Bilateral lower extremity atherosclerosis with right lower extremity gangrene and left lower extremity ulcers: It seems the patient has significant critical limb ischemia in which he had recently developed right lower extremity gangrene diabetic foot infection requiring an amputation. It seems the patient's below knee amputation stump still had infection and presence of gas gangrene. -S/P Right AKA -Left lower extremity, as the patient would like to have everything done to salvage his limb, he has had a previous failed revascularization of the bypass and currently has not had a vascular followup over the past 4 years per the patient's reporting. He is wanting us to manage that, but at the moment, we will plan to resolve his right lower extremity issue first and will address his left lower extremity. Will plan for an angiogram as outpt and he understands all that is involved for now. -Chronic kidney disease, the patient does have some component of chronic kidney disease stage III to IV, with elevated creatinine of 1.4 to 1.5. We will plan to eventually coordinate our angiogram with our nephrology colleagues for CT angiography and possible intravascular ultrasound with minimal usage of contrast in order to preserve his renal function. -Optimize vascular status (BP medications, diet, nutrition, exercise, sugar control, antiplatelets). -Discussed patient's findings of his BMI of 38.5 and being overweight and arranging a nutrition and diabetic consultation and evaluation. -Discussed findings, plan and management with the patient and he understands. -Thank you for allowing us to partake in the care of your patient. Please call with any questions. Problems: Subjective 24 Hr Interval Summary Constitutional: no complaints Exam/Review of Systems Vital Signs Vitals Vital Signs Date Time Temp Pulse Resp B/P Pulse Ox O2 Delivery O2 Flow Rate FiO2 06/25/17 15:50 98.8 61 18 91/54 95 06/23/17 23:00 2.0 Intake and Output 06/24/17 06/24/17 06/25/17 15:00 23:00 07:00 Intake Total 950 ml 400 ml Output Total 500 ml 600 ml Balance 450 ml -200 ml Exam Free Text/Dictation GENERAL: Alert and oriented x3, PULMONARY: Clear to auscultation bilaterally. CARDIOVASCULAR: S1, S2 present ABDOMEN: Soft, nontender, nondistended. Bowel sounds positive. Truncal obesity. EXTREMITIES: -Right lower extremity palpable femoral pulse, AKA-stump with dressing-removed, kathryn intact and clean -Left lower extremity: Faint femoral pulse, nonpalpable pedal pulse. Motor and sensory intact. Capillary refill 3-4 seconds. Dependent rubor. Ulcer of the foot. Amputated first, second, third and fourth toes. there seems a bone exposed at his stump site, no erythema Results Result Diagram: 06/24/17 0639 06/24/17 0639 DAYNE AVINA MD Jun 25, 2017 16:35
[2017-06-25] MEDS: DAPTOMYCIN 650 MG in SOD CHLORIDE 0.9% 100 ML IVPB SCH (17:40)
[2017-06-25] MEDS: HYDROCODONE/APAP (5/325) TAB PO PRN (18:24)
--- NOTE | 2017-06-26 16:37 | DS ---
DATE OF ADMISSION: 06/17/2017 DATE OF DISCHARGE: 06/25/2017 HOSPITAL COURSE: This is a 66-year-old male with a complicated medical history including chronic k idney disease stage IIIB/IV, history of CHF, dyslipidemia, coronary artery disease, peripheral vascu lar disease, who initially presented to an outside hospital at [place] with a gangrenous right foot. The patient had a long history of diabetes complicated with retinopathy and nephropathy. The alonso ent had a below the knee amputation at [facility]. Patient was placed on IV antibiotics, stab ilized and transferred to [facility] acute rehab. [facility]. However, he developed fevers, became hypotensive and was transferred to [facility]. While at [facility], the patient had an evaluati on, was septic due to his right below the knee stump abscess. The patient was evaluated by vascular surgeon, Dr. Gill. A CT scan was obtained which showed necrosis. The patient underwent surgi wilfredo intervention by Dr. Gill and was found to have a necrotic stump, and therefore an above the knee amputation was performed. The patient was seen by Dr. Cardenas from Infectious Disease and was recommended to be on IV antibiotics for a course of 14 to 21 days. The patient's other medical prob lems throughout the hospital course including sepsis which is clinically improving with IV antibioti cs, chronic kidney disease, sleep apnea, mineral bone disorder, coronary artery disease and diabetes that have been stable during the hospital course. Currently, at this time, the patient is stable, in no acute distress. He will be discharged home and will continue IV antibiotics for 14 more days. The patient will follow up with his vascular surgeon as well as his primary care physician and [facility] services will be arranged. FINAL DIAGNOSES: 1. Peripheral vascular disease, status post right above the knee amputation. 2. Sepsis secondary to right knee cellulitis abscess. The patient will continue IV antibiotics for 2 more days. 3. Sleep apnea. 4. Chronic kidney disease. 5. Mineral bone disorder. 6. Coronary artery disease. 7. Diabetes. 8. Congestive heart failure. 9. Dyslipidemia. 10. Arrhythmia. 11. Hyperthyroidism. 12. ____ 13. Gastrointestinal and deep venous thrombosis prophylaxis. FINAL MEDICATIONS: See reconciliation list. At the time of discharge, the patient is stable, in no acute distress. Please note I spent over 40 minutes of time preparing the patient's discharge. Dictated By: DANYELLE GUY DO NR/SURENDRA Conf#: [id number] DID#: [id number] CC: DANYELLE GUY DO;*EndCC*
== END 2017-06-25 19:45 | disposition home health service (06) | DRG 474 ==
LOC: TEL 01:20
PROVIDERS: ADMIT Internal Medicine; ATTEND Internal Medicine
PROC: 5A09357 Assistance with Respiratory Ventilation, Less than 24 Consecutive Hours, Continuous Positive Airway Pressure (ICD-10-PCS; 2017-06-17)
PROC: 0Y9F0ZZ Drainage of Right Knee Region, Open Approach (ICD-10-PCS; 2017-06-17)
PROC: 30233N1 Transfusion of Nonautologous Red Blood Cells into Peripheral Vein, Percutaneous Approach (ICD-10-PCS; 2017-06-18)
PROC: 0Y6C0Z3 Detachment at Right Upper Leg, Low, Open Approach (ICD-10-PCS; principal; 2017-06-19 10:30)
PROC: 02HV33Z Insertion of Infusion Device into Superior Vena Cava, Percutaneous Approach (ICD-10-PCS; 2017-06-24)
PROC: B548ZZA Ultrasonography of Superior Vena Cava, Guidance (ICD-10-PCS; 2017-06-24)
DX: T87.43 Infection of amputation stump, right lower extremity (principal); A41.9 Sepsis, unspecified organism; I13.2 Hypertensive heart and chronic kidney disease with heart failure and with stage 5 chronic kidney disease, or end stage renal disease; E87.2 Acidosis; N18.5 Chronic kidney disease, stage 5; E11.21 Type 2 diabetes mellitus with diabetic nephropathy; I48.91 Unspecified atrial fibrillation; I70.261 Atherosclerosis of native arteries of extremities with gangrene, right leg; E11.52 Type 2 diabetes mellitus with diabetic peripheral angiopathy with gangrene; L02.415 Cutaneous abscess of right lower limb; L03.115 Cellulitis of right lower limb; I50.22 Chronic systolic (congestive) heart failure; Y83.9 Surgical procedure, unspecified as the cause of abnormal reaction of the patient, or of later complication, without mention of misadventure at the time of the procedure; E11.22 Type 2 diabetes mellitus with diabetic chronic kidney disease; E66.01 Morbid (severe) obesity due to excess calories; Z68.38 Body mass index [BMI] 38.0-38.9, adult; Z89.511 Acquired absence of right leg below knee; I25.10 Atherosclerotic heart disease of native coronary artery without angina pectoris; Z95.1 Presence of aortocoronary bypass graft; I49.9 Cardiac arrhythmia, unspecified; E11.319 Type 2 diabetes mellitus with unspecified diabetic retinopathy without macular edema; Z95.0 Presence of cardiac pacemaker; I25.2 Old myocardial infarction; E05.90 Thyrotoxicosis, unspecified without thyrotoxic crisis or storm; I70.202 Unspecified atherosclerosis of native arteries of extremities, left leg; Z89.432 Acquired absence of left foot; G47.33 Obstructive sleep apnea (adult) (pediatric); Z95.5 Presence of coronary angioplasty implant and graft; E11.40 Type 2 diabetes mellitus with diabetic neuropathy, unspecified; M89.9 Disorder of bone, unspecified; E83.9 Disorder of mineral metabolism, unspecified; Z87.891 Personal history of nicotine dependence
CPT/HCPCS: 36430; 36569; 71010; 73700; 76937; 80048; 80053; 80202; 82550; 82962; 83036; 83605; 83735; 84100; 84145; 85025; 85651; 86140; 86850; 86900; 86901; 86920; 87040; 87081; 87086; 88307; 93922; 94760; 97110; 97161; 97166; 97530; 97542; J0696; J1170; J1650; J1815; J2250; J2270; J2405; J2543; J2795; J3010; J3370; J3475; J7040; J7042; J7050; P9016